=== PATIENT | male | born 1955 | race Caucasian/White ===

== ENCOUNTER 2016-12-13 16:27 | Inpatient (IN) | payer MEDICARE, OTHER ==
[2016-12-13] MEDS ORDERED: RX INFO: IV CONTRAST WAS GIVEN 1 EACH MISC MISCELLANE PRN (18:19)
[2016-12-13] MEDS ORDERED: ONDANSETRON 4 MG/2 ML VIAL IVP STA (18:20)
[2016-12-13] MEDS ORDERED: HYDROmorphone 1 MG/ML 1 ML SYRINGE IVP STA (18:20)
--- NOTE | 2016-12-13 18:36 | ED ---
Back Pain HPI - General Source: patient, RN notes reviewed Mode of arrival: wheelchair Limitations: no limitations <Shaggy Jaeger - Last Filed: 12/13/16 19:52> <Kan Luis - Last Filed: 12/13/16 20:04> - General Chief Complaint: Back Pain/Injury Stated Complaint: Back Pain/Urinary Problems/Weakness Time Seen by Provider: 12/13/16 18:10 - History of Present Illness Initial Comments: 61-year-old male presents emergency Department chief complaint of back pain, flank pain. Patient states that he's been having increasing low back pain he has a history of back problems in which she takes [place] for. Patient had surgery at [place] in the past. Patient denies any bowel bladder incontinence or retention. He states it just hurts to urinate. Patient has no history urinary tract infection. Patient saw primary care physician today who ordered lab work, urinalysis though he does not know the results. Patient states that he is to follow-up for this. Patient states that he was told come emergency department symptoms worsen. He states that the pain seemed to get worse and is worse with movement. Patient denies fever, chills. (Shaggy Jaeger) - Related Data Home Medications Medication Instructions Recorded Confirmed Escitalopram [Lexapro] 40 mg PO DAILY 02/07/15 12/13/16 HYDROcodone/APAP 10-325MG [[place] 1 tab PO Q8H PRN 02/07/15 12/13/16 10] Previous Rx's Medication Instructions Recorded LORazepam [Ativan] 1 mg PO BID PRN #6 tab 08/25/14 QUEtiapine FUMARATE [SEROquel] 900 mg PO HS #21 tab 08/25/14 Allergies Allergy/AdvReac Type Severity Reaction Status Date / Time No Known Allergies Allergy Verified 12/13/16 19:03 Review of Systems ROS Other: All systems not noted in ROS Statement are negative. <Shaggy Jaeger - Last Filed: 12/13/16 19:52> ROS Other: All systems not noted in ROS Statement are negative. <Kan Luis - Last Filed: 12/13/16 20:04> ROS Statement: Those systems with pertinent positive or pertinent negative responses have been documented in the HPI. Past Medical History Additional Past Medical History / Comment(s): bipolar, PAUMA History of Any Multi-Drug Resistant Organisms: None Reported Past Surgical History: Appendectomy, Back Surgery, Tonsillectomy Past Anesthesia/Blood Transfusion Reactions: No Reported Reaction Past Psychological History: Anxiety, Bipolar, Depression Smoking Status: Current every day smoker Past Alcohol Use History: None Reported Past Drug Use History: Marijuana <Shaggy Jaeger M - Last Filed: 12/13/16 19:52> General Exam Limitations: no limitations General appearance: alert, in no apparent distress Neck exam: Present: normal inspection, full ROM. Absent: tenderness, meningismus, lymphadenopathy Respiratory exam: Present: normal lung sounds bilaterally. Absent: respiratory distress, wheezes, rales, rhonchi, stridor Cardiovascular Exam: Present: regular rate, normal rhythm, normal heart sounds. Absent: systolic murmur, diastolic murmur, rubs, gallop, clicks GI/Abdominal exam: Present: soft, tenderness (Mild diffuse), normal bowel sounds. Absent: distended, guarding, rebound, rigid Back exam: Present: full ROM (With moderate discomfort), tenderness (Lumbar region), paraspinal tenderness, other (Straight leg raise bilaterally). Absent : CVA tenderness (R), CVA tenderness (L), vertebral tenderness Neurological exam: Present: alert, oriented X3, CN II-XII intact, reflexes normal. Absent: motor sensory deficit Skin exam: Present: warm, dry, intact, normal color. Absent: rash <Shaggy Jaeger M - Last Filed: 12/13/16 19:52> General appearance: alert, in no apparent distress Head exam: Present: atraumatic, normocephalic, normal inspection Eye exam: Present: normal appearance, PERRL, EOMI. Absent: scleral icterus, conjunctival injection, periorbital swelling ENT exam: Present: normal exam, mucous membranes moist Neck exam: Present: normal inspection. Absent: tenderness, meningismus, lymphadenopathy Respiratory exam: Present: normal lung sounds bilaterally. Absent: respiratory distress, wheezes, rales, rhonchi, stridor Cardiovascular Exam: Present: regular rate, normal rhythm, normal heart sounds. Absent: systolic murmur, diastolic murmur, rubs, gallop, clicks GI/Abdominal exam: Present: soft, normal bowel sounds. Absent: distended, tenderness, guarding, rebound, rigid Extremities exam: Present: normal inspection, full ROM, normal capillary refill. Absent: tenderness, pedal edema, joint swelling, calf tenderness Back exam: Present: normal inspection Neurological exam: Present: alert, oriented X3, CN II-XII intact Psychiatric exam: Present: normal affect, normal mood Skin exam: Present: warm, dry, intact, normal color. Absent: rash <Kan Luis - Last Filed: 12/13/16 20:04> Course <Shaggy Jaeger - Last Filed: 12/13/16 19:52> <Kan Luis - Last Filed: 12/13/16 20:04> Vital Signs 12/13/16 12/13/16 16:33 19:45 Temperature 98.3 F Pulse Rate 85 79 Respiratory 18 20 Rate Blood Pressure 187/110 169/84 O2 Sat by Pulse 99 97 Oximetry - Reevaluation(s) Reevaluation #1: 12/13/16 20:04 At this time patient's pain is improved (Kan Luis) Medical Decision Making - Lab Data Result diagrams: 12/13/16 18:40 12/13/16 18:40 <Shaggy Jaeger - Last Filed: 12/13/16 19:52> - Lab Data Result diagrams: 12/13/16 18:40 12/13/16 18:40 <Kan Luis - Last Filed: 12/13/16 20:04> - Medical Decision Making 61 male year for evaluation of back pain. The right flank pain positive UPJ kidney stone obstructive, dehydration and hypokalemia and intractable nausea vomiting. Patient be admitted for pain control and IV resuscitation (Kan Luis) - Lab Data Lab Results 12/13/16 12/13/16 Range/Units 18:40 18:40 WBC 7.3 (3.8-10.6) k/uL RBC 4.77 (4.30-5.90) m/uL Hgb 14.0 (13.0-17.5) gm/dL Hct 43.1 (39.0-53.0) % MCV 90.4 (80.0-100.0) fL MCH 29.4 (25.0-35.0) pg MCHC 32.6 (31.0-37.0) g/dL RDW 13.4 (11.5-15.5) % Plt Count 193 (150-450) k/uL Neutrophils % 68 % Lymphocytes % 23 % Monocytes % 5 % Eosinophils % 1 % Basophils % 0 % Neutrophils # 5.0 (1.3-7.7) k/uL Lymphocytes # 1.7 (1.0-4.8) k/uL Monocytes # 0.4 (0-1.0) k/uL Eosinophils # 0.1 (0-0.7) k/uL Basophils # 0.0 (0-0.2) k/uL Sodium 140 (137-145) mmol/L Potassium 3.2 L (3.5-5.1) mmol/L Chloride 105 (98-107) mmol/L Carbon Dioxide 27 (22-30) mmol/L Anion Gap 8 mmol/L BUN 10 (9-20) mg/dL Creatinine 0.75 (0.66-1.25) mg/dL Est GFR (MDRD) Af Amer >60 (>60 ml/min/1.73 sqM) Est GFR (MDRD) Non-Af >60 (>60 ml/min/1.73 sqM) Glucose 92 (74-99) mg/dL Calcium 9.6 (8.4-10.2) mg/dL Total Bilirubin 0.6 (0.2-1.3) mg/dL AST 23 (17-59) U/L ALT 29 (21-72) U/L Alkaline Phosphatase 75 (38-126) U/L Total Protein 6.9 (6.3-8.2) g/dL Albumin 4.1 (3.5-5.0) g/dL Amylase 47 (30-110) U/L Lipase 808 H (23-300) U/L Disposition <Shaggy Jaeger M - Last Filed: 12/13/16 19:52> <Kan Luis - Last Filed: 12/13/16 20:04> Clinical Impression: Pancreatitis, Ureteral calculi, Hypokalemia, Chronic back pain Disposition: ADMITTED IP TO THIS [facility] Condition: Fair Referrals: Don Lord MD [Primary Care Provider] - 1-2 days
[2016-12-13 18:51] LABS: Basophils % (A) 0 %; CH 29.9; CHCM 33.2; Eosinophils # (A) 0.1 k/uL (0-0.7); Eosinophils % (A) 1 %; HCT 43.1 % (39.0-53.0); HDW 2.25; Luc # (Auto) 0.15; Luc % (Auto) 2; Lymphocytes # (A) 1.7 k/uL (1.0-4.8); Lymphocytes % (A) 23 %; MCH 29.4 pg (25.0-35.0); MCHC 32.6 g/dL (31.0-37.0); MCV 90.4 fL (80.0-100.0); Mean Platelet Volume 6.5; Monocytes # (A) 0.4 k/uL (0-1.0); Monocytes % (A) 5 %; Neutrophils % (A) 68 %; RBC 4.77 m/uL (4.30-5.90); RDW 13.4 % (11.5-15.5); WBC 7.3 k/uL (3.8-10.6); WBC (Perox) 7.36
[2016-12-13 18:58] LABS: ALT 29 U/L (21-72); AST 23 U/L (17-59); Alkaline Phosphatase 75 U/L (38-126); Amylase 47 U/L (30-110); Anion Gap 8 mmol/L; Blood Urea Nitrogen 10 mg/dL (9-20); Calcium 9.6 mg/dL (8.4-10.2); Carbon Dioxide 27 mmol/L (22-30); Chloride 105 mmol/L (98-107); Glucose 92 mg/dL (74-99); Non-African American GFR(MDRD) >60 (>60 ml/min/1.73 sqM); Potassium 3.2 mmol/L (3.5-5.1); Sodium 140 mmol/L (137-145); Total Bilirubin 0.6 mg/dL (0.2-1.3); Total Protein 6.9 g/dL (6.3-8.2)
[2016-12-13] MEDS ORDERED: POTASSIUM CHLORIDE ER 20 MEQ TAB.ER PO STA (19:09)
--- NOTE | 2016-12-13 19:41 | CT ---
EXAMINATION TYPE: CT abdomen pelvis w con DATE OF EXAM: 12/13/2016 7:32 PM COMPARISON: NONE HISTORY: Back pain with urination changes CT DLP: 732 mGycm Automated exposure control for dose reduction was used. TECHNIQUE: Helical acquisition of images was performed from the lung bases through the pelvis. CONTRAST: Performed without Oral Contrast and with IV Contrast, patient injected with 100 mL of Omnipaque 300. FINDINGS: The lung bases are clear of consolidation. There is no pleural effusion. There is mild subsegmental a telectasis at the lung bases. Liver shows no focal defect. Spleen appears normal. There is no pancreatic mass. Gallbladder appears normal. Bile ducts are nondilated. There is right-sided hydronephrosis with a 1 cm calculus at the right ureteropelvic junction. Left ki dney shows a 1 cm calculus in the interpolar region. There is no hydronephrosis on the left side. The re is no retroperitoneal adenopathy. Abdominal aorta is atheromatous. Bladder distends smoothly. Ther e is no sign of a pelvic mass. I see no intestinal wall thickening. There are no dilated loops. Appen kana is not definitely seen. There is no sign of appendicitis. I see no focal bony destructive process . There is lower lumbar spine surgery noted. IMPRESSION: THERE IS A 1 CM OBSTRUCTING CALCULUS AT THE RIGHT URETEROPELVIC JUNCTION WITH MODERATE HYDRONEPHROSIS . LEFT RENAL CALCULUS. ATHEROSCLEROTIC VASCULAR DISEASE.
[2016-12-13] MEDS ORDERED: NALOXONE 0.4 MG/ML 1 ML VIAL IV PRN (19:53)
[2016-12-13] MEDS ORDERED: ONDANSETRON 4 MG/2 ML VIAL IVP PRN (19:53)
[2016-12-13] MEDS ORDERED: LORazepam 2 MG/ML SYRINGE IV PRN ×2 (19:54)
[2016-12-13] MEDS ORDERED: SODIUM CHLORIDE 0.9% 1,000 ML IV ONE (20:05)
[2016-12-13 20:26] LABS: Appearance,Urine Clear (Clear); Bilirubin,Urine Negative (Negative); Glucose,Urine (UA) Negative (Negative); Ketones,Urine 1+ (Negative); Leukocyte Esterase,Urine Small (Negative); Mucus,Urine Rare /hpf; Nitrite,Urine Negative (Negative); Particle Count 1335; Protein,Urine Negative (Negative); RBC,Urine 1 /hpf (0-5); Specific Gravity,Urine 1.016 (1.001-1.035); UA Billing (MACRO vs. MICRO) MICRO; Urobilinogen,Urine <2.0 mg/dL (<2.0); WBC,Urine 15 /hpf (0-5)
[2016-12-13] MEDS: HYDROmorphone 1 MG/ML 1 ML SYRINGE IV PRN (20:33)
[2016-12-13] MEDS ORDERED: QUEtiapine 200 MG TAB PO SCH (23:45)
[2016-12-14] MEDS: HYDROmorphone 1 MG/ML 1 ML SYRINGE IV PRN ×6 (00:53→23:09)
[2016-12-14] MEDS: QUEtiapine 100 MG TAB PO SCH ×2 (00:54→20:17)
[2016-12-14] MEDS: QUEtiapine 200 MG TAB PO SCH ×2 (00:55→20:17)
[2016-12-14] MEDS: ESCITALOPRAM 20 MG TAB PO SCH ×2 (00:56→09:02)
[2016-12-14] MEDS: SODIUM CHLORIDE 0.9% 1,000 ML IV SCH ×4 (00:59→20:20)
[2016-12-14] MEDS: LORazepam 2 MG/ML SYRINGE IV PRN ×4 (01:11→23:09)
[2016-12-14] MEDS: KETOROLAC 30 MG/ML 1 ML VIAL IVP PRN ×2 (10:36→20:18)
[2016-12-14] MEDS: LISINOPRIL 20 MG TAB PO SCH (13:08)
[2016-12-14] MEDS ORDERED: Potassium Replacement Protocol 1 EACH MISC MISCELLANE PRN (13:16)
[2016-12-14 14:20] LABS: Anion Gap 6 mmol/L; Blood Urea Nitrogen 9 mg/dL (9-20); Calcium 8.5 mg/dL (8.4-10.2); Carbon Dioxide 25 mmol/L (22-30); Chloride 109 mmol/L (98-107); Glucose 81 mg/dL (74-99); Non-African American GFR(MDRD) >60 (>60 ml/min/1.73 sqM); Potassium 3.7 mmol/L (3.5-5.1); Sodium 140 mmol/L (137-145)
--- NOTE | 2016-12-14 18:12 | PN ---
CHIEF COMPLAINT: Abdominal and back pain. HISTORY OF PRESENT ILLNESS: This gentleman is still complaining of a great deal of discomfort in the back. He describes as being low and across both sides and maybe a little more on the right than on the left. He is tender in the left flank. However, his CT suggested a ureteral calculus on the right. PHYSICAL EXAM: Chest is clear. CARDIAC: Normal. ABDOMEN: Soft and he is not tender over the epigastric. IMPRESSION: 1. Back pain. 2. Ureteral? (Right, left?). 3. Pancreatitis. PLAN: Continue evaluation and work-up for pancreatitis and ureteral calculus.
--- NOTE | 2016-12-14 18:35 | HP ---
DATE OF ADMISSION: 12/13/2016 CHIEF COMPLAINT: Back pain. HISTORY OF PRESENT ILLNESS: This is the first admission for this 61-year-old white male presented to emergency room with severe back pain. He was just in the office recently complaining of back pain and generalized weakness. He has a history of LS-spine arthritis. In the emergency room, his lipase was elevated, but he did not have any symptoms or history to suggest a prominent pancreas. He does not drink. He was also was found to have calculus in one of his ureters. Reports that is on the right. He has more tenderness and pain in the left. REVIEW OF SYSTEMS: He has had no neurologic problems, nausea, vomiting, hematemesis, melena, urinary complaints, hematuria, dysuria, etc. Past medical history, family history and personal and social histories otherwise unremarkable and noncontributory. PHYSICAL EXAMINATION: VITAL SIGNS: One blood pressure is 196/102 with a pulse of 88, respirations 35 and he is afebrile. GENERAL: Appeared to be in quite a bit of discomfort. Skin was dry. Head, ears, eyes, nose, mouth, and throat were normal. NECK: Neck veins not distended. Thyroid is not enlarged. Chest is clear. There is an increased AP diameter. CARDIAC: Normal. ABDOMEN: Soft, nontender and there are no masses or visceromegaly. He is tender in the left flank. EXTREMITIES: Normal. Neurologically, he is intact. IMPRESSION: 1. Back pain. 2. Ureteral calculus. 3. Elevated lipase. PLAN: 1. Bed rest. 2. IV fluids. 3. Follow abdominal and flank pain. 4. Strain urine. 5. Look for etiology of elevated lipase.
--- NOTE | 2016-12-14 18:37 | PN ---
DATE OF SERVICE: 12/14/2016 CHIEF COMPLAINT: Back pain. HISTORY OF PRESENT ILLNESS: This gentleman is still complaining of a lot of low back pain. He has had no nausea or vomiting. He has had no fever or chills. PHYSICAL EXAMINATION: His chest clear. He is tender in the left flank. CARDIAC: Normal. ABDOMEN: Soft, nontender and there are no masses. IMPRESSION: 1. Back pain, etiology unknown. 2. Ureteral calculus ?. 3. Elevated lipase. PLAN: Continue to follow symptoms and look for etiology of his elevated lipase.
--- NOTE | 2016-12-14 19:36 | XR ---
EXAMINATION TYPE: XR KUB DATE OF EXAM: 12/14/2016 7:29 PM COMPARISON: 05/31/2016 INDICATION: Right ureteral calculus TECHNIQUE: Single view abdomen FINDINGS: There is a normal bowel gas pattern. Psoas margins are normal. No organomegaly is present. Phleboliths are within the pelvis. Previous right ureteral stent is absent Postsurgical changes within the lumbar spine. Moderate fecal retention is present. IMPRESSION: 1. Moderate fecal retention. 2. A ureteral stone on the right is not identified.
[2016-12-14] MEDS ORDERED: QUEtiapine 400 MG TAB PO SCH (21:00)
[2016-12-14] MEDS ORDERED: QUEtiapine 200 MG TAB PO SCH (21:00)
[2016-12-14] MEDS: TAMSULOSIN 0.4 MG CAP.ER.24H PO SCH (23:10)
[2016-12-15] MEDS: SODIUM CHLORIDE 0.9% 1,000 ML IV SCH ×2 (06:37→11:52)
[2016-12-15] MEDS: ESCITALOPRAM 20 MG TAB PO SCH (08:15)
[2016-12-15] MEDS: LISINOPRIL 20 MG TAB PO SCH (08:15)
[2016-12-15] MEDS: HYDROmorphone 1 MG/ML 1 ML SYRINGE IV PRN ×3 (08:48→16:41)
[2016-12-15] MEDS: LORazepam 2 MG/ML SYRINGE IV PRN ×3 (08:49→20:09)
--- NOTE | 2016-12-15 10:19 | P.PN ---
Progress Note - Text The patient says that he is much more comfortable since a catheter was inserted yesterday. The catheter drained over 900 ml. He continues to have low back pain which is located primarily in the sacral region. He says that he is weak but is able to ambulate. He has had no vomiting. Urine draining from his catheter is clear. BUN/creatinine are improved at 9/0.7. Lipase is normal at 34 and PSA is 0.34 Impression/Recommendations: #1-urinary retention-possibly related to underlying BPH. The patient has been started on tamsulosin and I told him that if he is discharged today I could see him in the office tomorrow for a voiding trial. He will remove his catheter at home and will be seen back in the office 6 hours later to check a postvoid residual #2 proximal right ureteral calculus-based on the computed tomography scan the hydronephrosis is most likely chronic and unlikely to be the source of his discomfort in the low back. I again discussed possible ESWL as a treatment option on December 23. #3 elevated lipase on admission-the cause of this is unclear as the patient had a normal amylase and his presentation was not typical for acute pancreatitis.
--- NOTE | 2016-12-15 10:39 | CONS ---
DATE OF CONSULTATION: 12/14/2016 REASON FOR CONSULTATION: Urinary retention. HISTORY: The patient is a 61-year-old male admitted through the emergency room last night for evaluation of abdominal pain and an elevated lipase, which was felt to be secondary to pancreatitis. The patient says that he has had discomfort in his back for over one week. He says the pain is worse on the left side than the right side. He has also had difficulty voiding and says that he has been voiding every 30 to 60 minutes during the day but only once at night. He noted some dark-colored urine 5 days ago, but this resolved. He has had no dysuria. He came to the emergency room yesterday evening and was noted to have amylase of 47 and a lipase of 808. CT scan of the abdomen and pelvis with IV contrast showed moderate right hydronephrosis secondary to a 7 x 11 mm calculus in the proximal ureter. The bladder also appeared to be distended. The patient reportedly had been voiding only small amounts throughout the day. Several attempts were made to insert a catheter by the nurses, but this met with failure. I was asked to see the patient due to urinary retention as a bladder scan showed 800 mL in his bladder. The patient says he has a history of urolithiasis and last passed a stone 2 or 3 years ago. He says he usually has a fairly good urinary flow and usually feels he voids completely. He says his last bowel movement was 2 or 3 days ago. Patient's past medical history is significant in regard to bipolar disorder. Medications on admission included [place] 10/325. He has previously undergone appendectomy, surgery on his back, tonsillectomy, and meatotomy. He has no allergies. There is no history of hypertension, diabetes, rheumatic fever, tuberculosis or hepatitis. REVIEW OF SYSTEMS: No history of seizures, blackouts shortness of breath with exertion, asthma, chest pain with exertion, palpitations, heart murmur, ulcers, or rectal bleeding. SOCIAL HISTORY: The patient is . He says that he has smoked loss was then 1 pack per day for 40 years. PHYSICAL EXAM: Reveals a well-developed 61-year-old male who appeared somewhat uncomfortable. Blood pressure 163/96, afebrile. HEENT: No supraclavicular or cervical adenopathy. CHEST: Breathing is unlabored. ABDOMEN: There is tenderness to palpation in the suprapubic region. There is also vague tenderness in both the right and left flank to palpation. GENITALIA: Urethral meatus is normal. Both testicles are descended. No hernias noted. RECTAL: Prostate is 2+ enlarged, smooth and benign in consistency. Laboratory evaluation from the yesterday included a BUN 10, creatinine 0.75. I personally reviewed the patient's CT scan of the abdomen and pelvis, which was performed with IV contrast. At the time of the CT scan, the bladder appeared to be distended. There was also moderately severe right hydroureteronephrosis secondary to a 7 x 11 mm calculus in the proximal right ureter. Immediately following my examination, the penis was prepped with Betadine solution, and draped in a sterile fashion. A 14-[place] Coude catheter was passed through the urethra and into the bladder and over 800 mL of clear urine drained. IMPRESSION: 1. Urinary retention. The cause of this is unclear as the patient says that he was able to void with a good flow one week ago. 2. Right hydronephrosis secondary to proximal ureteral calculus. The patient's pain is worse in the left flank on the right and the findings appeared to be chronic. 3. Elevated lipase, possibly from pancreatitis. RECOMMENDATIONS: Patient's catheter will be left in place for at least 48 hours prior to a trial of voiding. The patient will be started on Tamsulosin 0.4 mg daily. A KUB will be obtained to see if the calculus in the right ureter could be treated with ESWL. Thank you for allowing me to participate in the care of this patient. SHERRY
[2016-12-15] MEDS: TAMSULOSIN 0.4 MG CAP.ER.24H PO SCH (17:08)
[2016-12-15] MEDS: QUEtiapine 100 MG TAB PO SCH (20:06)
[2016-12-15] MEDS: QUEtiapine 200 MG TAB PO SCH (20:06)
[2016-12-16] MEDS: SODIUM CHLORIDE 0.9% 1,000 ML IV SCH ×3 (05:18→17:49)
[2016-12-16] MEDS: HYDROmorphone 1 MG/ML 1 ML SYRINGE IV PRN ×6 (05:18→20:54)
[2016-12-16] MEDS: ESCITALOPRAM 20 MG TAB PO SCH (07:48)
[2016-12-16] MEDS: LISINOPRIL 20 MG TAB PO SCH (07:48)
[2016-12-16] MEDS: KETOROLAC 30 MG/ML 1 ML VIAL IVP PRN ×2 (08:52→22:34)
--- NOTE | 2016-12-16 10:07 | PN ---
CHIEF COMPLAINT: Back pain, ureteral calculus, ( ). HISTORY OF PRESENT ILLNESS: This gentleman is still having a great deal of back pain. A Peck catheter could not be placed when it was found that he had residual of 800 mL. Urology came and inserted catheter. He had an output of 1000. He still has back pain. There is no hematuria. PHYSICAL EXAM: Abdomen is soft, nontender and chest is clear. Cardiac exam is normal. IMPRESSION: 1. Low back pain. 2. Urinary retention. 3. Ureteral calculus. 4. Pancreatitis? PLAN: Further work-up of back pain awaits. In the meantime, will continue on IV fluids with Peck catheter drainage in addition.
--- NOTE | 2016-12-16 13:48 | US ---
EXAMINATION TYPE: US kidneys/renal and bladder DATE OF EXAM: 12/16/2016 10:16 AM COMPARISON: CT abdomen pelvis 3 days ago. CLINICAL HISTORY: ureteral calculi. Bilateral lower pain, rt ureteral calculus EXAM MEASUREMENTS: Right Kidney: 12.6 x 7.2 x 7.0 cm Left Kidney: 11.4 x 5.6 x 6.0 cm Right Kidney: Slightly echogenic. Moderate hydronephrosis seen. Echogenic focus seen in ureter = 1.6 x 0.5 cm Left Kidney: wnl Bladder: mondragon seen Bilateral Jets not seen Persistent moderate to severe right-sided hydronephrosis is redemonstrated. No masses are identified . Mondragon catheter is seen within bladder which is thus suboptimally evaluated. No left-sided hydroneph rosis is present. IMPRESSION: Persistent moderate to severe right-sided hydronephrosis likely due to obstructing proximal ureter ca lculus, no significant change from recent CT.
--- NOTE | 2016-12-16 15:57 | NM ---
EXAMINATION TYPE: NM bone scan whole body DATE OF EXAM: 12/16/2016 3:52 PM COMPARISON: CT abdomen and pelvis from 3 days earlier. HISTORY: Enlarged prostate rule out malignancy. Delayed whole-body scanning was performed following the injection of 27.3 mCi Tc 99m MDP. Images acq uired 3 hours post injection. FINDINGS: No suspicious scintigraphic uptake is seen to suggest metastatic disease to bone other abnormality. T here is moderate to severe right-sided hydronephrosis redemonstrated. IMPRESSION: No scintigraphic evidence of metastatic disease to the bone.
[2016-12-16] MEDS: LORazepam 2 MG/ML SYRINGE IV PRN (16:08)
[2016-12-16] MEDS: TAMSULOSIN 0.4 MG CAP.ER.24H PO SCH (17:39)
[2016-12-16] MEDS: QUEtiapine 200 MG TAB PO SCH (20:17)
[2016-12-16] MEDS: QUEtiapine 100 MG TAB PO SCH (20:17)
[2016-12-16] MEDS: ATENOLOL 50 MG TAB PO SCH (21:59)
[2016-12-16 23:00] VITALS: RESP 16
[2016-12-16] MEDS: HYDROCHLOROTHIAZIDE 25 MG TAB PO SCH (23:11)
[2016-12-17] MEDS: SODIUM CHLORIDE 0.9% 1,000 ML IV SCH (05:19)
[2016-12-17] MEDS: HYDROmorphone 1 MG/ML 1 ML SYRINGE IV PRN ×2 (06:08→08:33)
--- NOTE | 2016-12-17 06:45 | PN ---
CHIEF COMPLAINT: Back pain. HISTORY OF PRESENT ILLNESS: The gentleman is still having about the same back pain. Indwelling Peck is in place and the bladder has been decompressed. There is no blood. PHYSICAL EXAM: His chest is clear. The cardiac exam is normal. 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 IMPRESSION: 1. Low back pain, etiology unknown. 2. Obstructive uropathy. 3. Hydroureter. PLAN: 1. Bone scan. 2. Continue on conservative management.
[2016-12-17 07:29] VITALS: BP 136/80; PULSE 57; TEMP 97.8
[2016-12-17] MEDS: ESCITALOPRAM 20 MG TAB PO SCH (08:35)
[2016-12-17] MEDS: ATENOLOL 50 MG TAB PO SCH (08:35)
[2016-12-17] MEDS: HYDROCHLOROTHIAZIDE 25 MG TAB PO SCH (08:35)
[2016-12-17] MEDS: LISINOPRIL 20 MG TAB PO SCH (08:35)
[2016-12-17] MEDS: LORazepam 2 MG/ML SYRINGE IV PRN (10:20)
--- NOTE | 2016-12-20 20:36 | DS ---
DATE OF ADMISSION: 12/13/2016 DATE OF DISCHARGE: 12/17/2016 CHIEF COMPLAINT: Acute back pain and elevated lipase. HISTORY OF PRESENT ILLNESS AND PHYSICAL EXAMINATION: Details of this man's history and physical can be found in the initial workup. LABORATORY STUDIES: While he was in the hospital he had laboratory studies, details of which can be found in the laboratory section of his chart. COURSE IN THE HOSPITAL: After admission he was placed on bed rest, started on intravenous fluids and analgesics. He was found to have an obstructing right ureteral calculus, for which he was seen by Urology. He also developed urinary retention of over 1000 mL and required Peck catheter drainage. His back pain was thought to be related to his osteoarthritis, and it was felt that he could be discharged on December 17. He will go home on his usual diet and light activity and follow up with Urology. He will go home with the Peck catheter in place. We will see him in several days. FINAL DIAGNOSES: 1. Acute low back pain. 2. Obstructive right nephropathy with ureteral calculus. 3. Urinary retention. 4. Chronic obstructive pulmonary disease. OPERATIONS: None. CONSULTATIONS: Urology. He is improved.
== END 2016-12-17 12:00 | disposition home or self-care (01) | DRG 694 ==
LOC: EC 16:27 → 5MS5E 20:03
PROVIDERS: ADMIT Family Medicine; ATTEND Family Medicine
PROC: 0T9B70Z Drainage of Bladder with Drainage Device, Via Natural or Artificial Opening (ICD-10-PCS; principal; 2016-12-14)
DX: N13.2 Hydronephrosis with renal and ureteral calculous obstruction (principal); N32.89 Other specified disorders of bladder; E86.0 Dehydration; R74.8 Abnormal levels of other serum enzymes; N40.1 Benign prostatic hyperplasia with lower urinary tract symptoms; J44.9 Chronic obstructive pulmonary disease, unspecified; E87.6 Hypokalemia; R33.8 Other retention of urine; R53.1 Weakness; M47.817 Spondylosis without myelopathy or radiculopathy, lumbosacral region; M54.5 Low back pain; R11.2 Nausea with vomiting, unspecified; F31.9 Bipolar disorder, unspecified; F17.200 Nicotine dependence, unspecified, uncomplicated; G89.29 Other chronic pain; F41.9 Anxiety disorder, unspecified; Z90.49 Acquired absence of other specified parts of digestive tract; Z87.442 Personal history of urinary calculi; Z79.899 Other long term (current) drug therapy; Z79.891 Long term (current) use of opiate analgesic; Z87.438 Personal history of other diseases of male genital organs; Z96.0 Presence of urogenital implants
CPT/HCPCS: 36415; 74000; 74177; 76770; 78306; 80048; 80053; 81001; 82150; 83690; 85025; 87086; 96374; 96375; 96376; 99284

== ENCOUNTER 2016-12-18 15:27 | Emergency (ER) | payer MEDICARE, OTHER ==
[2016-12-18] MEDS ORDERED: DICYCLOMINE 20 MG TAB PO STA (15:59)
[2016-12-18] MEDS ORDERED: SODIUM CHLORIDE 0.9% 1,000 ML IV STA (15:59)
--- NOTE | 2016-12-18 16:01 | ED ---
Abdominal Pain HPI - General Chief Complaint: Abdominal Pain Stated Complaint: revisit/bladder stones Time Seen by Provider: 12/18/16 15:52 Source: patient Mode of arrival: ambulatory Limitations: no limitations - History of Present Illness Initial Comments: Patient is a 61-year-old male presenting with abdominal pain that started yesterday. Patient tried Xanax and [place] 10 mg without relief. Patient describes pain as diffuse and worse with walking, drinking, eating. Patient denies alcohol abuse. Patient complains of chronic back pain as well without change. Patient denies fever, chills, chest pain, shortness breath, nausea, vomiting, diarrhea, dysuria. Patient was recently admitted for pancreatitis. Patient denies alcohol abuse. - Related Data Home Medications Medication Instructions Recorded Confirmed Escitalopram [Lexapro] 40 mg PO DAILY 02/07/15 12/18/16 HYDROcodone/APAP 10-325MG [[place] 1 tab PO BID PRN 02/07/15 12/18/16 10] Calcium Carb/Magnesium Hydrox 2 - 3 tab PO TID PRN MDD 7 tabs 12/18/16 12/18/16 [Rolaids Chewable Tablet] Ergocalciferol [Vitamin D2] 50,000 unit PO TU 12/18/16 12/18/16 Loperamide [Imodium] 2 mg PO QID PRN 12/18/16 12/18/16 QUEtiapine FUMARATE [SEROquel] 600 mg PO HS 12/18/16 12/18/16 traZODone HCL 300 mg PO HS 12/18/16 12/18/16 Previous Rx's Medication Instructions Recorded Atenolol [Tenormin] 50 mg PO DAILY #30 tab 12/17/16 Hydrochlorothiazide [Hydrodiuril] 25 mg PO DAILY #30 tab 12/17/16 Lisinopril 40 mg PO DAILY #30 tab 12/17/16 Tamsulosin [Flomax] 0.4 mg PO DAILY@1800 #30 cap 12/17/16 Ciprofloxacin HCl [Cipro] 500 mg PO Q12HR #14 tablet 12/18/16 Dicyclomine [Bentyl] 20 mg PO QID #20 tablet 12/18/16 Allergies Allergy/AdvReac Type Severity Reaction Status Date / Time No Known Allergies Allergy Verified 12/18/16 15:55 Review of Systems ROS Statement: Those systems with pertinent positive or pertinent negative responses have been documented in the HPI. Constitutional: No fever and no chills. HENT: No congestion, no rhinorrhea and no sore throat. Eyes: No discharge and no redness. Respiratory: No cough and no shortness of breath. Cardiovascular: No chest pain and no palpitations. Gastrointestinal: No nausea, no vomiting, + abdominal pain and no diarrhea. Genitourinary: No dysuria and no hematuria. Musculoskeletal: + Chronic back pain and no arthralgias. Skin: No pallor and no rash. Neurological: No dizziness and No headaches. ROS Other: All systems not noted in ROS Statement are negative. Past Medical History Past Medical History: No Reported History, Liver Disease Additional Past Medical History / Comment(s): bipolar, QAWALANGIN History of Any Multi-Drug Resistant Organisms: None Reported Past Surgical History: Appendectomy, Back Surgery, Tonsillectomy Past Anesthesia/Blood Transfusion Reactions: No Reported Reaction Past Psychological History: Anxiety, Bipolar, Depression Smoking Status: Current every day smoker Past Alcohol Use History: None Reported Past Drug Use History: Marijuana - Past Family History Father Family Medical History: Congestive Heart Failure (CHF) Mother Additional Family Medical History / Comment(s): patient states that mother from a bowel obstruction General Exam - General Exam Comments Initial Comments: Constitutional: Patient appears well-developed and well-nourished. No distress. Head: Normocephalic and atraumatic. Eyes: Conjunctivae and EOM are normal. Right eye exhibits no discharge. Left eye exhibits no discharge. No scleral icterus. Neck: Normal range of motion. Neck supple. Cardiovascular: Normal rate and regular rhythm. No murmur heard. Pulmonary/Chest: Effort normal and breath sounds normal. No respiratory distress. No wheezes. Abdominal: Soft. No distension. There is no tenderness in right upper quadrant, epigastric or right lower quadrant. There is no rebound and no guarding. No CVA tenderness bilaterally. Musculoskeletal: Normal range of motion. Midline back scar with mild tenderness normal per patient. Neurological: Patient alert and oriented to person, place, and time. Skin: Skin is warm and dry. Not diaphoretic. Nursing notes and vitals reviewed. Limitations: no limitations Course Vital Signs 12/18/16 15:40 Temperature 98.3 F Pulse Rate 97 Respiratory 18 Rate Blood Pressure 123/69 O2 Sat by Pulse 98 Oximetry - Reevaluation(s) Reevaluation #1: 12/18/16 17:42 Patient feeling much better after medication. Abdomen soft nontender. Medical Decision Making - Medical Decision Making Patient is a 61-year-old male presenting with abdominal pain times one day. Abdominal exam unremarkable. No CVA tenderness bilaterally. Patient did have an obstructive nephrolithiasis last week. Patient is afebrile with a WBC 7.5. CMP, lipase unremarkable. UA concerning for urinary tract infection with urine WBCs 76. Patient with improvement after Bentyl and IV fluids. Patient is nontoxic appearing and stable for outpatient management for urinary tract infection with Cipro. Patient requesting Bentyl for his abdominal cramping which was provided.Prior to discharge, patient was resting comfortably in bed. Course of stay improved. Denies pain. Discussed physical exam and diagnostic tests with patient. Questions answered and patient is agreeable to discharge with close follow up with Primary Care Physician. Instructed to return to Emergency Department if symptoms worsen. Patient has appointment with PCP tomorrow for which he can be reexamined. - Lab Data Result diagrams: 12/18/16 16:30 12/18/16 16:30 Lab Results 12/18/16 12/18/16 12/18/16 Range/Units 16:30 16:30 16:40 WBC 7.5 (3.8-10.6) k/uL RBC 4.54 (4.30-5.90) m/uL Hgb 14.3 (13.0-17.5) gm/dL Hct 41.3 (39.0-53.0) % MCV 91.0 (80.0-100.0) fL MCH 31.4 (25.0-35.0) pg MCHC 34.6 (31.0-37.0) g/dL RDW 13.5 (11.5-15.5) % Plt Count 184 (150-450) k/uL Neutrophils % 75 % Lymphocytes % 17 % Monocytes % 4 % Eosinophils % 2 % Basophils % 0 % Neutrophils # 5.7 (1.3-7.7) k/uL Lymphocytes # 1.3 (1.0-4.8) k/uL Monocytes # 0.3 (0-1.0) k/uL Eosinophils # 0.1 (0-0.7) k/uL Basophils # 0.0 (0-0.2) k/uL Sodium 141 (137-145) mmol/L Potassium 3.6 (3.5-5.1) mmol/L Chloride 103 (98-107) mmol/L Carbon Dioxide 29 (22-30) mmol/L Anion Gap 9 mmol/L BUN 11 (9-20) mg/dL Creatinine 0.84 (0.66-1.25) mg/dL Est GFR (MDRD) Af Amer >60 (>60 ml/min/1.73 sqM) Est GFR (MDRD) Non-Af >60 (>60 ml/min/1.73 sqM) Glucose 82 (74-99) mg/dL Calcium 10.0 (8.4-10.2) mg/dL Total Bilirubin 0.5 (0.2-1.3) mg/dL AST 22 (17-59) U/L ALT 23 (21-72) U/L Alkaline Phosphatase 65 (38-126) U/L Total Protein 6.7 (6.3-8.2) g/dL Albumin 3.9 (3.5-5.0) g/dL Lipase 56 (23-300) U/L Urine Color Yellow Urine Appearance Clear (Clear) Urine pH 6.0 (5.0-8.0) Ur Specific [place] 1.008 (1.001-1.035) Urine Protein Negative (Negative) Urine Glucose (UA) Negative (Negative) Urine Ketones Negative (Negative) Urine Blood Trace H (Negative) Urine Nitrite Negative (Negative) Urine Bilirubin Negative (Negative) Urine Urobilinogen <2.0 (<2.0) mg/dL Ur Leukocyte Esterase Large H (Negative) Urine RBC 5 (0-5) /hpf Urine WBC 76 H (0-5) /hpf Urine Bacteria Rare H (None) /hpf Urine Mucus Rare H (None) /hpf Disposition Clinical Impression: UTI (urinary tract infection), Abdominal pain Disposition: HOME SELF-CARE Condition: Good Instructions: Abdominal Pain (ED), Urinary Tract Infection in Men (ED) Prescriptions: Ciprofloxacin HCl [Cipro] 500 mg PO Q12HR #14 tablet Dicyclomine [Bentyl] 20 mg PO QID #20 tablet Referrals: Don Lord MD [Primary Care Provider] - 1-2 days
[2016-12-18 16:45] LABS: Basophils % (A) 0 %; CHCM 33.1; Eosinophils # (A) 0.1 k/uL (0-0.7); Eosinophils % (A) 2 %; HCT 41.3 % (39.0-53.0); HDW 2.18; HGB 14.3 gm/dL (13.0-17.5); Luc # (Auto) 0.11; Luc % (Auto) 2; Lymphocytes # (A) 1.3 k/uL (1.0-4.8); Lymphocytes % (A) 17 %; MCH 31.4 pg (25.0-35.0); MCHC 34.6 g/dL (31.0-37.0); Mean Platelet Volume 6.8; Monocytes # (A) 0.3 k/uL (0-1.0); Monocytes % (A) 4 %; Neutrophils # (A) 5.7 k/uL (1.3-7.7); Neutrophils % (A) 75 %; RBC 4.54 m/uL (4.30-5.90); RDW 13.5 % (11.5-15.5); WBC 7.5 k/uL (3.8-10.6); WBC (Perox) 7.75
[2016-12-18 16:54] LABS: ALT 23 U/L (21-72); AST 22 U/L (17-59); Alkaline Phosphatase 65 U/L (38-126); Anion Gap 9 mmol/L; Blood Urea Nitrogen 11 mg/dL (9-20); Carbon Dioxide 29 mmol/L (22-30); Chloride 103 mmol/L (98-107); Glucose 82 mg/dL (74-99); Non-African American GFR(MDRD) >60 (>60 ml/min/1.73 sqM); Potassium 3.6 mmol/L (3.5-5.1); Sodium 141 mmol/L (137-145); Total Bilirubin 0.5 mg/dL (0.2-1.3); Total Protein 6.7 g/dL (6.3-8.2)
--- NOTE | 2016-12-18 16:54 | XR ---
EXAMINATION TYPE: XR abdomen complete w decub DATE OF EXAM: 12/18/2016 4:49 PM HISTORY: Pain. Technique: 4 views of the abdomen are submitted. Comparison: 12/14/2016 Findings: There is no convincing evidence of pneumoperitoneum. The Bowel gas pattern is nonspecific and nonobstructive. Moderate fecal stasis improved from prior s tudy. No sizable air-fluid levels are seen. No mass effects are noted. Suspect left-sided nephrolithiasis. Postoperative changes lumbar spine. IMPRESSION: 1. Nonspecific nonobstructive bowel gas pattern
[2016-12-18 16:59] LABS: Appearance,Urine Clear (Clear); Bacteria,Urine Rare /hpf; Bilirubin,Urine Negative (Negative); Glucose,Urine (UA) Negative (Negative); Ketones,Urine Negative (Negative); Leukocyte Esterase,Urine Large (Negative); Mucus,Urine Rare /hpf; Nitrite,Urine Negative (Negative); Particle Count 1501; Protein,Urine Negative (Negative); RBC,Urine 5 /hpf (0-5); Specific Gravity,Urine 1.008 (1.001-1.035); UA Billing (MACRO vs. MICRO) MICRO; Urobilinogen,Urine <2.0 mg/dL (<2.0); WBC,Urine 76 /hpf (0-5)
[2016-12-18 17:53] VITALS: BP 152/74; PULSE 51; RESP 16; TEMP 98.7
== END 2016-12-18 18:04 | disposition home or self-care (01) ==
LOC: EC 15:27
DX: N39.0 Urinary tract infection, site not specified (principal); F31.9 Bipolar disorder, unspecified; F41.9 Anxiety disorder, unspecified; F17.200 Nicotine dependence, unspecified, uncomplicated; Z79.899 Other long term (current) drug therapy; Z90.49 Acquired absence of other specified parts of digestive tract; Z83.79 Family history of other diseases of the digestive system; Z98.890 Other specified postprocedural states
CPT/HCPCS: 36415; 74020; 80053; 81001; 83690; 85025; 96360; 99284

== ENCOUNTER 2016-12-25 10:27 | Day surgery (SDC) | payer MEDICARE, OTHER ==
[2016-12-24 11:04] VITALS: BMI 25.6
[~2016-12-25 10:27] MED LIST: FAMOTIDINE 20 MG/2 ML VIAL IV PRN; HYDROmorphone 1 MG/ML 1 ML SYRINGE IVP PRN; LACTATED RINGERS 1,000 ML IV SCH; LIDOCAINE 1% 20 ML VIAL (10MG/ML) FOR IV START INTRADERMA PRN; MIDAZOLAM 2 MG/2 ML VIAL IV PRN; ONDANSETRON 4 MG/2 ML VIAL IVP ONE; ceFAZolin 2 GM in SODIUM CHLORIDE 0.9% 100 ML IVPB ONE
[2016-12-25] MEDS ORDERED: PROPOFOL 10 MG/ML 20 ML VIAL IV ONE (13:50)
[2016-12-25] MEDS ORDERED: LIDOCAINE 1% INJ 10MG/ML (20 ML MDV) ONE ×2 (13:50)
[2016-12-25] MEDS ORDERED: MIDAZOLAM 2 MG/2 ML VIAL ONE (13:50)
[2016-12-25] MEDS ORDERED: SUCCINYLCHOLINE CHLORIDE 100 MG/5 ML SYR IV ONE (13:50)
[2016-12-25] MEDS ORDERED: fentaNYL (PF) 50 MCG/ML 2 ML AMP ONE (13:50)
[2016-12-25] MEDS ORDERED: IOHEXOL 350 MG/ML 50ML BOTTLE IRRIGATION ONE ×3 (14:08)
[2016-12-25] MEDS ORDERED: LACTATED RINGERS 1,000 ML IV ONE (14:35)
--- NOTE | 2016-12-25 15:02 | P.OP ---
Date of Procedure: 12/25/16 Preoperative Diagnosis: Right ureteral stone with obstruction Postoperative Diagnosis: Same Procedure(s) Performed: Cystoscopy, right retrograde pyelogram, right ureteroscopy with laser lithotripsy and stone basketing, placement of 6x26 stent Anesthesia: ROMAN Surgeon: Amandeep Andino Estimated Blood Loss (ml): 10 Pathology: other (Stone) Condition: stable Disposition: PACU Indications for Procedure: The patient is a 61-year-old gentleman with an 11 x 7 mm mid to proximal ureteral stone causing obstruction and pain he comes for removal Description of Procedure: Patient is brought to the operating suite he is given a general endotracheal anesthesia placed lithotomy position with a sterile prep and drape. The stone is seen on KUB. I do cystoscopy Foroblique lens and 22-Kinyarwanda sheath. An 8 cone-tip catheters use for retrograde pyelogram. The patient has to be placed slightly oblique to see the filling defect it is seen. I attempted pass a semirigid scope to the stone but cannot get there adequately. I thus passed an 035 wire up by the stone over the wire is passed 84-44-Lowbts dilating ureteral catheter. Through the ureteral catheters passed a flexible ureteroscope up to the stone. With the 200 laser probe and 5 W of energy the stone was broken into tiny pieces and stone basketing. Then of the procedure through the working sheath and 035 wires passed in the renal pelvis. The sheath is removed it is the wires backloaded onto the cystoscope. Then over the wire is passed a 6 x 26 double-J catheter that coils in the renal pelvis and the bladder the bladder strain the cystoscope removed patient awake and returned recovery room good condition. He'll be discharged home upon recovery and found the office in 10 days for stent removal
[2016-12-25 15:14] VITALS: TEMP 98.2
[2016-12-25 15:32] VITALS: RESP 16
--- NOTE | 2016-12-25 16:13 | FL ---
EXAMINATION TYPE: FL guided lithotripsy DATE OF EXAM: 12/25/2016 3:08 PM FLUOROSCOPY Fluoroscopy time of 45 seconds was used during right-sided cystoscopy and stent placement. 3 image/s document/s the procedure.
[2016-12-25 16:42] VITALS: BP 144/81; PULSE 56
== END 2016-12-25 17:11 | disposition home or self-care (01) ==
LOC: OR 10:27
PROVIDERS: ATTEND Urology
DX: N20.1 Calculus of ureter (principal); F17.200 Nicotine dependence, unspecified, uncomplicated; Z80.51 Family history of malignant neoplasm of kidney; Z80.42 Family history of malignant neoplasm of prostate; I10 Essential (primary) hypertension; M19.90 Unspecified osteoarthritis, unspecified site; F41.9 Anxiety disorder, unspecified; F32.9 Major depressive disorder, single episode, unspecified; Z79.891 Long term (current) use of opiate analgesic; Z79.899 Other long term (current) drug therapy
CPT/HCPCS: 82365; 52332; 52320; C2625; C1758 ×2; C1769; J2250; J0690; J2405; J2001; J3010; J0330; J2704; Q9967

== ENCOUNTER 2017-01-05 20:23 | Emergency (ER) | payer MEDICARE, OTHER ==
[2017-01-05] MEDS ORDERED: ONDANSETRON 4 MG/2 ML VIAL IVP STA (21:56)
[2017-01-05] MEDS ORDERED: SODIUM CHLORIDE 0.9% 1,000 ML IV ONE (21:56)
[2017-01-05] MEDS ORDERED: MORPHINE SULFATE 4 MG/ML SYRINGE IVP STA (21:56)
[2017-01-05 22:21] LABS: Basophils % (A) 0 %; CH 29.8; CHCM 33.3; Eosinophils # (A) 0.1 k/uL (0-0.7); Eosinophils % (A) 2 %; HCT 40.1 % (39.0-53.0); HDW 2.23; HGB 13.5 gm/dL (13.0-17.5); Luc # (Auto) 0.18; Luc % (Auto) 2; Lymphocytes # (A) 1.6 k/uL (1.0-4.8); Lymphocytes % (A) 20 %; MCH 30.3 pg (25.0-35.0); MCHC 33.7 g/dL (31.0-37.0); MCV 90.1 fL (80.0-100.0); Mean Platelet Volume 6.3; Monocytes # (A) 0.5 k/uL (0-1.0); Monocytes % (A) 6 %; Neutrophils # (A) 5.5 k/uL (1.3-7.7); Neutrophils % (A) 70 %; RBC 4.45 m/uL (4.30-5.90); RDW 13.6 % (11.5-15.5); WBC 7.9 k/uL (3.8-10.6); WBC (Perox) 7.52
[2017-01-05 22:24] LABS: Amorphous Sediment,Urine Rare /hpf; Appearance,Urine Cloudy (Clear); Bacteria,Urine Rare /hpf; Bilirubin,Urine Negative (Negative); Glucose,Urine (UA) Negative (Negative); Ketones,Urine Negative (Negative); Leukocyte Esterase,Urine Trace (Negative); Mucus,Urine Rare /hpf; Nitrite,Urine Negative (Negative); PH, Urine 6.5 (5.0-8.0); Particle Count 8744; Protein,Urine Negative (Negative); RBC,Urine 6 /hpf (0-5); Specific Gravity,Urine 1.015 (1.001-1.035); Squamous Epithelial Cell,Urine <1 /hpf (0-4); UA Billing (MACRO vs. MICRO) MICRO; Urobilinogen,Urine <2.0 mg/dL (<2.0); WBC,Urine 7 /hpf (0-5)
[2017-01-05 22:31] LABS: ALT 33 U/L (21-72); AST 26 U/L (17-59); Alkaline Phosphatase 75 U/L (38-126); Anion Gap 9 mmol/L; Blood Urea Nitrogen 18 mg/dL (9-20); Calcium 9.5 mg/dL (8.4-10.2); Carbon Dioxide 22 mmol/L (22-30); Chloride 110 mmol/L (98-107); Glucose 87 mg/dL (74-99); Non-African American GFR(MDRD) >60 (>60 ml/min/1.73 sqM); Potassium 3.9 mmol/L (3.5-5.1); Sodium 141 mmol/L (137-145); Total Bilirubin 0.4 mg/dL (0.2-1.3); Total Protein 6.4 g/dL (6.3-8.2)
[2017-01-05] MEDS ORDERED: RX INFO: IV CONTRAST WAS GIVEN 1 EACH MISC MISCELLANE PRN (22:42)
--- NOTE | 2017-01-05 23:00 | XR ---
EXAM: XR Chest, 2 Views CLINICAL HISTORY: Reason: Hematemesis TECHNIQUE: Frontal and lateral views of the chest. COMPARISON: No relevant prior studies available. FINDINGS: Lungs: Unremarkable. No consolidation. Pleural space: Unremarkable. No pneumothorax. Heart: Unremarkable. No cardiomegaly. Mediastinum: Unremarkable. Bones/joints: Unremarkable. IMPRESSION: Normal chest x-rays.
[2017-01-05 23:29] VITALS: PULSE 64; RESP 18
--- NOTE | 2017-01-05 23:35 | CT ---
EXAM: CT Abdomen and Pelvis With Intravenous Contrast CLINICAL HISTORY: Abdominal pain TECHNIQUE: Axial computed tomography images of the abdomen and pelvis with intravenous contrast. CTDI is 9.0, 10.7 mGy and DLP is 748.3 mGy-cm This CT exam was performed using one or more of the following dose reduction techniques: automated exposure control, adjustment of the mA and/or kV according to patient size, and/or use of iterative reconstruction technique. COMPARISON: CT abdomen and pelvis dated 12/13/2016 FINDINGS: Lower thorax: Dependent atelectasis ABDOMEN: Liver: Decreased attenuation of the liver which may be secondary to phase of IV contrast versus hepatic steatosis. Gallbladder and bile ducts: Unremarkable. Pancreas: Prominent pancreatic duct noted at the uncinate process, which is non-specific. Spleen: Unremarkable. Adrenals: Unremarkable. Kidneys and ureters: Nonobstructing calculi are seen within both kidneys. Mild right hydroureteronephrosis without and obstructing lesion identified. Stomach and bowel: Unremarkable. Appendix: The appendix is not visualized. PELVIS: Bladder: Small focus of gas seen within the urinary bladder. Findings may be secondary to recent catheterization. Otherwise, recommend urinalysis to exclude an infectious process. Reproductive: Unremarkable as visualized. ABDOMEN and PELVIS: Intraperitoneal space: Unremarkable. Bones/joints: Postsurgical changes and degenerative changes of the spine. No acute fracture. No dislocation. Soft tissues: Unremarkable. Vasculature: Unremarkable. Lymph nodes: Unremarkable. IMPRESSION: 1. Small focus of gas seen within the urinary bladder. Findings may be secondary to recent catheterization. Otherwise, recommend urinalysis to exclude an infectious process. 2. Nonobstructing calculi are seen within both kidneys. Mild right hydroureteronephrosis without an obstructing lesion identified. Findings may represent a recently passed ureteral calculus versus an inflammatory/infectious process. Again, correlation with urinalysis.
[2017-01-06] MEDS ORDERED: SULFAMETHOX-TMP 800-160MG 1 EACH TAB PO STA (00:12)
[2017-01-06] MEDS ORDERED: MORPHINE SULFATE 4 MG/ML SYRINGE IVP STA (00:15)
--- NOTE | 2017-01-06 00:15 | ED ---
General Adult HPI - General Chief complaint: GI Bleed Stated complaint: Vomiting Blood Source: patient Mode of arrival: ambulatory Limitations: no limitations - History of Present Illness Initial comments: 7-year-old male with past medical history of HTN, OA, pancreatitis, kidney stones, appendectomy, and tonsillectomy presenting for evaluation of GI bleed and abdominal pain. He states that he was discharged from this facility about a week ago and diagnosed with pancreatitis and ureterolithiasis. He was seeing Dr. Andino (urology) for the kidney stone and had a stent placed in the right ureter. He was also being treated for urinary tract infection although he is unsure what antibiotic was prescribed. He states that he was continuing to have abdominal pain and back pain and he just saw the urologist a couple days ago and had the stent removed. Today at about 1:00 he had a few episodes of emesis resulting in hematemesis. He states his abdominal pain is periumbilical and there is also associated back pain. He has tried over-the- counter medications for improvement in his pain without any relief. - Related Data Home Medications Medication Instructions Recorded Confirmed Escitalopram [Lexapro] 40 mg PO DAILY 02/07/15 01/05/17 Ergocalciferol [Vitamin D2] 50,000 unit PO TU 12/18/16 01/05/17 QUEtiapine FUMARATE [SEROquel] 600 mg PO HS 12/18/16 01/05/17 traZODone HCL 300 mg PO HS 12/18/16 01/05/17 Dextroamphetamine/Amphetamine 20 mg PO DAILY 01/05/17 01/05/17 [Adderall] HYDROcodone/APAP 5-325MG [[place] 1 tab PO Q4HR PRN 01/05/17 01/05/17 5-325] LORazepam [Ativan] 1 mg PO BID PRN 01/05/17 01/05/17 Tamsulosin [Flomax] 0.4 mg PO HS 01/05/17 01/05/17 Previous Rx's Medication Instructions Recorded Atenolol [Tenormin] 50 mg PO DAILY #30 tab 12/17/16 Hydrochlorothiazide [Hydrodiuril] 25 mg PO DAILY #30 tab 12/17/16 Lisinopril 40 mg PO DAILY #30 tab 12/17/16 HYDROcodone/APAP 5-325MG [[place] 1 - 2 tab PO Q6HR PRN #14 tab 01/06/17 5-325] Ondansetron Odt [Zofran Odt] 4 mg PO Q8HR PRN #7 tab 01/06/17 Sulfamethox-Tmp 800-160Mg [Bactrim 1 tab PO Q12HR #14 tab 01/06/17 DS 800-160 mg] Allergies Allergy/AdvReac Type Severity Reaction Status Date / Time No Known Allergies Allergy Verified 01/05/17 22:03 Review of Systems ROS Statement: Those systems with pertinent positive or pertinent negative responses have been documented in the HPI. ROS Other: All systems not noted in ROS Statement are negative. Constitutional: Denies: fever, chills, weakness Eyes: Denies: eye pain, eye discharge, vision change ENT: Denies: ear pain, throat pain, dental pain Respiratory: Denies: cough, dyspnea, wheezes, hemoptysis, stridor Cardiovascular: Denies: chest pain, palpitations, dyspnea on exertion, orthopnea , edema Endocrine: Denies: fatigue, polydipsia, polyuria Gastrointestinal: Reports: abdominal pain, nausea, vomiting, hematemesis. Denies: diarrhea, constipation, melena, hematochezia Genitourinary: Reports: dysuria, frequency. Denies: urgency, hematuria, discharge Musculoskeletal: Reports: back pain (chronic). Denies: arthralgia, myalgia Skin: Denies: rash, lesions Neurological: Denies: headache, weakness, numbness Psychiatric: Denies: anxiety, depression Hematological/Lymphatic: Denies: easy bleeding, easy bruising Past Medical History Past Medical History: Hypertension, Liver Disease, Osteoarthritis (OA) Additional Past Medical History / Comment(s): pancreatitis, kidney stones History of Any Multi-Drug Resistant Organisms: None Reported Past Surgical History: Appendectomy, Back Surgery, Tonsillectomy Past Anesthesia/Blood Transfusion Reactions: No Reported Reaction Past Psychological History: Anxiety, Bipolar, Depression Smoking Status: Current every day smoker Past Alcohol Use History: None Reported Additional Past Alcohol Use History / Comment(s): 1ppd for almost 40 yrs. Past Drug Use History: Marijuana Additional Drug Use History / Comment(s): occasional use - Past Family History Father Family Medical History: Congestive Heart Failure (CHF) Mother Additional Family Medical History / Comment(s): patient states that mother from a bowel obstruction General Exam Limitations: no limitations General appearance: alert, in distress Head exam: Present: atraumatic, normocephalic, normal inspection Eye exam: Present: normal appearance, PERRL, EOMI. Absent: scleral icterus, conjunctival injection, periorbital swelling ENT exam: Present: normal exam, mucous membranes moist Neck exam: Present: normal inspection. Absent: tenderness, meningismus, lymphadenopathy Respiratory exam: Present: normal lung sounds bilaterally. Absent: respiratory distress, wheezes, rales, rhonchi, stridor Cardiovascular Exam: Present: regular rate, normal rhythm, normal heart sounds. Absent: systolic murmur, diastolic murmur, rubs, gallop, clicks GI/Abdominal exam: Present: soft, tenderness (periumbilical). Absent: distended , guarding, rebound, rigid, normal bowel sounds, diminished bowel sounds Rectal exam: Present: deferred Extremities exam: Present: normal inspection, full ROM, normal capillary refill. Absent: tenderness, pedal edema, joint swelling, calf tenderness Back exam: Present: normal inspection, full ROM, tenderness Neurological exam: Present: alert, oriented X3, CN II-XII intact Psychiatric exam: Present: normal affect, normal mood Skin exam: Present: warm, dry, intact, normal color. Absent: rash Course Vital Signs 01/05/17 01/05/17 01/06/17 20:44 23:27 00:36 Temperature 98.0 F 97.6 F 97.7 F Pulse Rate 71 64 64 Respiratory 20 18 18 Rate Blood Pressure 125/87 179/92 176/96 O2 Sat by Pulse 97 96 96 Oximetry EKG Findings - EKG Comments: EKG Findings:: sinus rhythm with premature atrial complexes. Ventricular rate 67, BRITTANY 166, QRS 100, QT/QTc 450/475. Medical Decision Making - Medical Decision Making 7-year-old male with past medical history of pancreatitis and recent ureterolithiasis and stenting by urologist Dr. Andino presenting for evaluation of GI bleed. He states that he recently had his right ureteral stent removed by his urologist and today he started having nausea and vomiting. This resulted in him having an episode of hematemesis leading him to come to the ER. There is associated abdominal pain or back pain. On physical examination he has tenderness to palpation in the periumbilical region without any radiation of symptoms subjectively. Lower back pain is palpated bilaterally in the lower back but he does admit that this is chronic back pain that is only mildly worsened. The remainder of his physical exam is benign. Although there is hematemesis this is likely Radha-Busby tears from repetitive vomiting but will check a occult stool for blood. Abdominal pain is nonspecific and will obtain CT abdomen and pelvis with IV contrast. We'll also obtain labs and urine as he recently had a urinary tract infection and was treated with an antibiotic although at this time he is unsure what antibiotic it was. Labs revealed a mildly elevated lipase at just over 700. Occult stool was negative. The remainder of his labs revealed no significant abnormalities. The patient was reevaluated and had marketed improvement in his symptoms. CT abdomen and pelvis revealed A small focus of gas within the urinary bladder that may be consistent with recent catheterization. There is also not certain calculi in both kidneys and mild right hydroureteralnephrosis without obstructing lesion. This is likely due to his recent removal of a stent. However there is bacteria in the urine and coupled with his back pain will cover him with an antibiotic for pyelonephritis and UTI. The patient was informed of these results and through shared decision making it was determined that he would be discharged with instructions to follow-up with both his primary care physician and his urologist. He is informed to be given prescriptions for pain control as well as an antibiotic and that he should return to this facility if his symptoms should continue, worsen, or persist. The patient acknowledged an understanding of this information and agreed with this plan of care. - Lab Data Result diagrams: 01/05/17 22:10 01/05/17 22:10 Lab Results 01/05/17 01/05/17 01/05/17 Range/Units 22:10 22:10 22:10 WBC 7.9 (3.8-10.6) k/uL RBC 4.45 (4.30-5.90) m/uL Hgb 13.5 (13.0-17.5) gm/dL Hct 40.1 (39.0-53.0) % MCV 90.1 (80.0-100.0) fL MCH 30.3 (25.0-35.0) pg MCHC 33.7 (31.0-37.0) g/dL RDW 13.6 (11.5-15.5) % Plt Count 184 (150-450) k/uL Neutrophils % 70 % Lymphocytes % 20 % Monocytes % 6 % Eosinophils % 2 % Basophils % 0 % Neutrophils # 5.5 (1.3-7.7) k/uL Lymphocytes # 1.6 (1.0-4.8) k/uL Monocytes # 0.5 (0-1.0) k/uL Eosinophils # 0.1 (0-0.7) k/uL Basophils # 0.0 (0-0.2) k/uL Sodium 141 (137-145) mmol/L Potassium 3.9 (3.5-5.1) mmol/L Chloride 110 H (98-107) mmol/L Carbon Dioxide 22 (22-30) mmol/L Anion Gap 9 mmol/L BUN 18 (9-20) mg/dL Creatinine 0.80 (0.66-1.25) mg/dL Est GFR (MDRD) Af Amer >60 (>60 ml/min/1.73 sqM) Est GFR (MDRD) Non-Af >60 (>60 ml/min/1.73 sqM) Glucose 87 (74-99) mg/dL Plasma Lactic Acid Rigo 0.7 (0.7-2.0) mmol/L Calcium 9.5 (8.4-10.2) mg/dL Total Bilirubin 0.4 (0.2-1.3) mg/dL AST 26 (17-59) U/L ALT 33 (21-72) U/L Alkaline Phosphatase 75 (38-126) U/L Troponin I (0.000-0.034) ng/mL NT-Pro-B Natriuret Pep pg/mL Total Protein 6.4 (6.3-8.2) g/dL Albumin 3.7 (3.5-5.0) g/dL Lipase 738 H (23-300) U/L Urine Color Urine Appearance (Clear) Urine pH (5.0-8.0) Ur Specific [place] (1.001-1.035) Urine Protein (Negative) Urine Glucose (UA) (Negative) Urine Ketones (Negative) Urine Blood (Negative) Urine Nitrite (Negative) Urine Bilirubin (Negative) Urine Urobilinogen (<2.0) mg/dL Ur Leukocyte Esterase (Negative) Urine RBC (0-5) /hpf Urine WBC (0-5) /hpf Ur Squamous Epith Cells (0-4) /hpf Amorphous Sediment (None) /hpf Urine Bacteria (None) /hpf Urine Mucus (None) /hpf Stool Occult Blood (Negative) Blood Type Blood Type Recheck Antibody Screen Spec Expiration Date 01/05/17 01/05/17 01/05/17 Range/Units 22:10 22:10 22:10 WBC (3.8-10.6) k/uL RBC (4.30-5.90) m/uL Hgb (13.0-17.5) gm/dL Hct (39.0-53.0) % MCV (80.0-100.0) fL MCH (25.0-35.0) pg MCHC (31.0-37.0) g/dL RDW (11.5-15.5) % Plt Count (150-450) k/uL Neutrophils % % Lymphocytes % % Monocytes % % Eosinophils % % Basophils % % Neutrophils # (1.3-7.7) k/uL Lymphocytes # (1.0-4.8) k/uL Monocytes # (0-1.0) k/uL Eosinophils # (0-0.7) k/uL Basophils # (0-0.2) k/uL Sodium (137-145) mmol/L Potassium (3.5-5.1) mmol/L Chloride (98-107) mmol/L Carbon Dioxide (22-30) mmol/L Anion Gap mmol/L BUN (9-20) mg/dL Creatinine (0.66-1.25) mg/dL Est GFR (MDRD) Af Amer (>60 ml/min/1.73 sqM) Est GFR (MDRD) Non-Af (>60 ml/min/1.73 sqM) Glucose (74-99) mg/dL Plasma Lactic Acid Rigo (0.7-2.0) mmol/L Calcium (8.4-10.2) mg/dL Total Bilirubin (0.2-1.3) mg/dL AST (17-59) U/L ALT (21-72) U/L Alkaline Phosphatase (38-126) U/L Troponin I <0.012 (0.000-0.034) ng/mL NT-Pro-B Natriuret Pep 129 pg/mL Total Protein (6.3-8.2) g/dL Albumin (3.5-5.0) g/dL Lipase (23-300) U/L Urine Color Urine Appearance (Clear) Urine pH (5.0-8.0) Ur Specific [place] (1.001-1.035) Urine Protein (Negative) Urine Glucose (UA) (Negative) Urine Ketones (Negative) Urine Blood (Negative) Urine Nitrite (Negative) Urine Bilirubin (Negative) Urine Urobilinogen (<2.0) mg/dL Ur Leukocyte Esterase (Negative) Urine RBC (0-5) /hpf Urine WBC (0-5) /hpf Ur Squamous Epith Cells (0-4) /hpf Amorphous Sediment (None) /hpf Urine Bacteria (None) /hpf Urine Mucus (None) /hpf Stool Occult Blood (Negative) Blood Type O Positive Blood Type Recheck No Antibody Screen NEGATIVE Spec Expiration Date 01/08/2017 - 230901/05/17 01/05/17 Range/Units 22:10 22:10 WBC (3.8-10.6) k/uL RBC (4.30-5.90) m/uL Hgb (13.0-17.5) gm/dL Hct (39.0-53.0) % MCV (80.0-100.0) fL MCH (25.0-35.0) pg MCHC (31.0-37.0) g/dL RDW (11.5-15.5) % Plt Count (150-450) k/uL Neutrophils % % Lymphocytes % % Monocytes % % Eosinophils % % Basophils % % Neutrophils # (1.3-7.7) k/uL Lymphocytes # (1.0-4.8) k/uL Monocytes # (0-1.0) k/uL Eosinophils # (0-0.7) k/uL Basophils # (0-0.2) k/uL Sodium (137-145) mmol/L Potassium (3.5-5.1) mmol/L Chloride (98-107) mmol/L Carbon Dioxide (22-30) mmol/L Anion Gap mmol/L BUN (9-20) mg/dL Creatinine (0.66-1.25) mg/dL Est GFR (MDRD) Af Amer (>60 ml/min/1.73 sqM) Est GFR (MDRD) Non-Af (>60 ml/min/1.73 sqM) Glucose (74-99) mg/dL Plasma Lactic Acid Rigo (0.7-2.0) mmol/L Calcium (8.4-10.2) mg/dL Total Bilirubin (0.2-1.3) mg/dL AST (17-59) U/L ALT (21-72) U/L Alkaline Phosphatase (38-126) U/L Troponin I (0.000-0.034) ng/mL NT-Pro-B Natriuret Pep pg/mL Total Protein (6.3-8.2) g/dL Albumin (3.5-5.0) g/dL Lipase (23-300) U/L Urine Color Yellow Urine Appearance Cloudy (Clear) Urine pH 6.5 (5.0-8.0) Ur Specific [place] 1.015 (1.001-1.035) Urine Protein Negative (Negative) Urine Glucose (UA) Negative (Negative) Urine Ketones Negative (Negative) Urine Blood Negative (Negative) Urine Nitrite Negative (Negative) Urine Bilirubin Negative (Negative) Urine Urobilinogen <2.0 (<2.0) mg/dL Ur Leukocyte Esterase Trace H (Negative) Urine RBC 6 H (0-5) /hpf Urine WBC 7 H (0-5) /hpf Ur Squamous Epith Cells <1 (0-4) /hpf Amorphous Sediment Rare H (None) /hpf Urine Bacteria Rare H (None) /hpf Urine Mucus Rare H (None) /hpf Stool Occult Blood Negative (Negative) Blood Type Blood Type Recheck Antibody Screen Spec Expiration Date Disposition Clinical Impression: UTI (urinary tract infection), Abdominal pain, Nausea and vomiting Disposition: HOME SELF-CARE Condition: Stable Instructions: Abdominal Pain (ED), Urinary Tract Infection in Men (ED), Flank Pain (ED), Kidney Infection (ED) Additional Instructions: Please use medication as discussed. Please follow up with family doctor if symptoms have not improved over the next two days. Please return to the emergency room if your symptoms increase or worsen or for any other concerns. Prescriptions: HYDROcodone/APAP 5-325MG [[place] 5-325] 1 - 2 tab PO Q6HR PRN #14 tab PRN Reason: Analgesia Ondansetron Odt [Zofran Odt] 4 mg PO Q8HR PRN #7 tab PRN Reason: Nausea Sulfamethox-Tmp 800-160Mg [Bactrim DS 800-160 mg] 1 tab PO Q12HR #14 tab Referrals: Don Lord MD [Primary Care Provider] - 1-2 days Time of Disposition: 00:15
[2017-01-06 00:37] VITALS: BP 176/96; TEMP 97.7
== END 2017-01-06 00:37 | disposition home or self-care (01) ==
LOC: EC 20:23
DX: N39.0 Urinary tract infection, site not specified (principal); R11.2 Nausea with vomiting, unspecified; I10 Essential (primary) hypertension; F31.9 Bipolar disorder, unspecified; F17.200 Nicotine dependence, unspecified, uncomplicated; Z90.49 Acquired absence of other specified parts of digestive tract; Z79.899 Other long term (current) drug therapy
CPT/HCPCS: 99285; 96374; 96376; 96375; 96361 ×2; 36415; 93005; 86900; 86901; 83880; 80053; 83605; 83690; 84484; 85025; 86850; 82272; 81001; 71020; 74177; J2270 ×2; J2405; Q9967

== ENCOUNTER 2017-03-05 10:01 | Inpatient (IN) | payer MEDICARE, OTHER ==
[2017-03-05] MEDS: HYDROmorphone 1 MG/ML 1 ML SYRINGE IVP PRN ×3 (11:23→20:10)
[2017-03-05] MEDS: SODIUM CHLORIDE 0.9% 1,000 ML IV SCH ×2 (11:23→17:53)
[2017-03-05 11:50] LABS: Aty Lym Flag Slight; CH 29.3; CHCM 32.3; HDW 2.32; HGB 13.9 gm/dL (13.0-17.5); MCH 30.2 pg (25.0-35.0); MCV 91.3 fL (80.0-100.0); Mean Platelet Volume 7.3; RDW 13.9 % (11.5-15.5); WBC 4.6 k/uL (3.8-10.6); WBC (Perox) 4.85
[2017-03-05 11:56] LABS: Alkaline Phosphatase 295 U/L (38-126); Amylase <30 U/L (30-110); Anion Gap 8 mmol/L; Blood Urea Nitrogen 16 mg/dL (9-20); Calcium 8.7 mg/dL (8.4-10.2); Carbon Dioxide 24 mmol/L (22-30); Chloride 106 mmol/L (98-107); Glucose 103 mg/dL (74-99); Non-African American GFR(MDRD) >60 (>60 ml/min/1.73 sqM); Potassium 3.7 mmol/L (3.5-5.1); Sodium 138 mmol/L (137-145); Total Bilirubin 5.9 mg/dL (0.2-1.3); Total Protein 5.9 g/dL (6.3-8.2)
[2017-03-05 12:04] LABS: ALT 1827 U/L (21-72)
[2017-03-05] MEDS: PANTOPRAZOLE 40 MG/10 ML VIAL IVP SCH (12:06)
[2017-03-05 12:44] LABS: AST 1499 U/L (17-59)
[2017-03-05 12:52] LABS: Add Differential Manual Differential
[2017-03-05 12:55] LABS: Manual Review Performed; Nucleated Red Blood Cells 0 /100 WBC (0-0); Total Cells Counted 100
[2017-03-05 15:26] LABS: INR 1.5 (<1.1); Prothrombin Time 14.3 sec (9.0-12.0)
[2017-03-05 15:54] LABS: Hepatitis B Surface Ag Index 0.06
[2017-03-05 15:59] LABS: Hepatitis B Core IgM Index 0.03
--- NOTE | 2017-03-05 16:05 | US ---
EXAMINATION TYPE: US abdomen limited DATE OF EXAM: 03/05/2017 COMPARISON: CT January 05, 2017, ultrasound 12/16/2016 CLINICAL HISTORY: rt abd pain. Patient c/o hypogastric pain; pancreatitis, renal stones. EXAM MEASUREMENTS: Liver Length: 17.5 cm Gallbladder Wall: 0.5 cm CBD: 0.9 cm Right Kidney: 13.2 x 6.7 x 6.1 cm Pancreas: dilated pancreatic duct with possible small shadowing ductal stone ( 0.2 x 0.3 x 0.1cm) no mireille near head Liver: no masses seen Gallbladder: complex layered internal echoes with abnormally thickened wall Evidence for sonographic Melton's sign: No CBD: abnormally dilated Right Kidney: multiple lower pole shadowing renal stones with largest stone approximately 0.7 x 0.7 x 0.5cm. Aorta: prominent upper aorta size. IMPRESSION: Findings suggest choledocholithiasis. Dilated common bile duct. There may be abnormal johnny efactive sludge within the gallbladder, difficult to exclude a luminal mass. Correlate for chronic ch olecystitis. Right-sided hydronephrosis has improved. Nonobstructive lower pole nephrolithiasis on th e right.
[2017-03-05 16:11] LABS: Hepatitis C Virus IgG Ab Reactive (Negative); Hepatitis C Virus IgG Index 4.94
[2017-03-06] MEDS: HYDROmorphone 1 MG/ML 1 ML SYRINGE IVP PRN ×4 (00:27→22:52)
[2017-03-06] MEDS: SODIUM CHLORIDE 0.9% 1,000 ML IV SCH ×3 (03:19→21:27)
[2017-03-06] MEDS: PANTOPRAZOLE 40 MG/10 ML VIAL IVP SCH (08:21)
[2017-03-06 08:57] LABS: Aty Lym Flag Slight; CH 29.2; CHCM 32.6; HCT 40.5 % (39.0-53.0); HDW 2.35; HGB 13.5 gm/dL (13.0-17.5); MCHC 33.3 g/dL (31.0-37.0); MCV 90.1 fL (80.0-100.0); Mean Platelet Volume 7.4; WBC 4.8 k/uL (3.8-10.6); WBC (Perox) 4.71
[2017-03-06 09:32] LABS: Alkaline Phosphatase 271 U/L (38-126); Amylase <30 U/L (30-110); Anion Gap 7 mmol/L; Blood Urea Nitrogen 13 mg/dL (9-20); Calcium 8.2 mg/dL (8.4-10.2); Carbon Dioxide 23 mmol/L (22-30); Chloride 108 mmol/L (98-107); Glucose 80 mg/dL (74-99); Non-African American GFR(MDRD) >60 (>60 ml/min/1.73 sqM); Potassium 3.6 mmol/L (3.5-5.1); Sodium 138 mmol/L (137-145); Total Bilirubin 7.5 mg/dL (0.2-1.3); Total Protein 5.3 g/dL (6.3-8.2)
[2017-03-06 09:45] LABS: ALT 1854 U/L (21-72)
[2017-03-06 10:11] LABS: AST 1590 U/L (17-59)
--- NOTE | 2017-03-06 10:18 | P.CONS ---
History of Present Illness - Reason for Consult Consult date: 03/06/17 Elevated liver enzymes Requesting physician: Bob Patel - History of Present Illness 61-year-old gentleman with a history of ADHD, hypertension pancreatitis (December 2016) nephrolithiasis chronic back pain bipolar depression marijuana nicotine cigarette dependency presents to the hospital from PCP office with elevated liver enzymes jaundice and abdominal pain. Patient noticed his urine to be more dark over the last few weeks. Pain is mostly in the midepigastrium upper abdomen on and off for the last month. Hepatitis panel reactive for hepatitis C antibody. No history of hepatitis. No history of IVDA, EtOH abuse. Recently incarcerated released a few months ago served a year. No blood transfusions. One tattoo to left hand performed by his nephew many years ago. Denies fever, chills, hematemesis hematochezia melena. Total bilirubin 5.9-7.5. AST 1499. ALT 8563-5117. Denies excessive usage of NSAIDs aspirin or Tylenol based medications. Alkaline phosphatase 271-295. Lipase 56. Amylase less than 30. INR 1.5. White count 4.6-4.8. Hemoglobin 13.5. MCV 90. Platelet 115. Ultrasound abdomen liver length 17.5 cm Gallbladder wall 0.5 cm. CBD 0.9 cm. Pancreas dilated pancreatic duct with possible small shadowing ductal stone near the head. No masses seen in the liver. Gallbladder complex layered internal echoes with abnormally thickened wall. Findings suggestive of choledocholithiasis, tumefactive sludge within the gallbladder difficult to exclude luminal mass. Review of Systems RConstitutional: Denies fever, chills, sweats, weight gain, or loss. HEENT: Negative for migraines, blurred vision or loss, earaches, drainage, tinnitus, oral mucosal lesions, dysphagia, or odynophagia. Cardiac: Hypertension. Negative for chest pain, arrhythmias, or palpitation. Respiratory: Marijuana. Nicotine cigarette dependency. Negative for shortness of breath, hemoptysis, cough, or sputum production. Gastrointestinal: See HPI for pertinent findings. Genitourinary: Nephrolithiasis. Negative for hematuria, urgency, frequency, polyuria, dysuria, or penile discharge. Musculoskeletal: Chronic back pain. Negative for muscle aches, swelling, arthritis, and arthralgias. Neurologic: Negative for stroke or TIA. Endocrine: Negative for thyroid problems. Skin: Negative for rash or itching. Psychiatric: Bipolar depression All systems: negative (See HPI) Past Medical History Past Medical History: Hypertension, Liver Disease, Osteoarthritis (OA) Additional Past Medical History / Comment(s): pancreatitis, kidney stones, Chronic lower back pain History of Any Multi-Drug Resistant Organisms: None Reported Past Surgical History: Appendectomy, Back Surgery, Tonsillectomy Past Anesthesia/Blood Transfusion Reactions: No Reported Reaction Past Psychological History: Anxiety, Bipolar, Depression Smoking Status: Current every day smoker Past Alcohol Use History: None Reported Additional Past Alcohol Use History / Comment(s): 1ppd for almost 40 yrs. Past Drug Use History: Marijuana Additional Drug Use History / Comment(s): occasional use - Past Family History Father Family Medical History: Congestive Heart Failure (CHF) Mother Additional Family Medical History / Comment(s): patient states that mother from a bowel obstruction Medications and Allergies Home Medications Medication Instructions Recorded Confirmed Type Escitalopram [Lexapro] 40 mg PO DAILY 02/07/15 03/05/17 History Ergocalciferol [Vitamin D2] 50,000 unit PO TU 12/18/16 03/05/17 History QUEtiapine FUMARATE [SEROquel] 600 mg PO HS 12/18/16 03/05/17 History traZODone HCL 300 mg PO HS 12/18/16 03/05/17 History Dextroamphetamine/Amphetamine 20 mg PO DAILY 01/05/17 03/05/17 History [Adderall] LORazepam [Ativan] 1 mg PO BID PRN 01/05/17 03/05/17 History Tamsulosin [Flomax] 0.4 mg PO HS 01/05/17 03/05/17 History HYDROcodone/APAP 10-325MG [[place] 1 tab PO BID PRN 03/05/17 03/05/17 History 10-325] Perphenazine [Trilafon] 8 mg PO HS 03/05/17 03/05/17 History Testosterone Cypionate 200 mg IM Q21D 03/05/17 03/05/17 History [Depo-Testosterone] Allergies Allergy/AdvReac Type Severity Reaction Status Date / Time No Known Allergies Allergy Verified 03/05/17 11:36 Physical Exam Vitals: Vital Signs Temp Pulse Pulse Resp BP Pulse Ox 03/06/17 07:00 99.2 F 63 20 120/71 91 L 03/05/17 22:35 98.9 F 62 18 143/79 91 L 03/05/17 15:19 58 L 16 03/05/17 14:59 98.2 F 58 L 16 135/75 93 L 03/05/17 10:43 97.6 F 71 18 125/90 94 L Intake and Output 03/05/17 03/06/17 03/06/17 22:59 06:59 14:59 Other: # Voids 2 2 nGeneral appearance: The patient is alert, oriented, in no acute distress. Jaundice. HET: Head is normocephalic and atraumatic. Pupils are equal and reactive. Sclerae icterus. Oropharynx is clear without lesions. Neck: Supple without lymphadenopathy. Trachea midline. Heart: S1 S2. Regular rate and rhythm. Lungs: No crackles or wheezes are heard. Abdomen: Soft, midepigastric tenderness, nondistended with bowel sounds. No peritoneal signs. No palpable organomegaly or masses. Extremities: Normal skin color and turgor. No cyanosis, rash, ulceration, clubbing, or edema. Radial and pedal pulses are 2/4 bilaterally. Neurological: No focal deficits. Strength and sensation are grossly intact.m Results CBC & Chem 7: 03/06/17 08:35 03/06/17 08:35 Labs: Abnormal Lab Results - Last 24 Hours (Table) 03/05/17 03/05/17 03/05/17 Range/Units 11:34 11:34 11:37 Plt Count 121 L (150-450) k/uL Lymphocytes # (Manual) 0.5 L (1.0-4.8) k/uL PT 14.3 H (9.0-12.0) sec Chloride (98-107) mmol/L Creatinine (0.66-1.25) mg/dL Glucose 103 H (74-99) mg/dL Calcium (8.4-10.2) mg/dL Total Bilirubin 5.9 H (0.2-1.3) mg/dL AST 1499 H (17-59) U/L ALT 1827 H (21-72) U/L Alkaline Phosphatase 295 H (38-126) U/L Total Protein 5.9 L (6.3-8.2) g/dL Albumin 3.3 L (3.5-5.0) g/dL Amylase <30 L (30-110) U/L 03/06/17 03/06/17 Range/Units 08:35 08:35 Plt Count 115 L (150-450) k/uL Lymphocytes # (Manual) (1.0-4.8) k/uL PT (9.0-12.0) sec Chloride 108 H (98-107) mmol/L Creatinine 0.65 L (0.66-1.25) mg/dL Glucose (74-99) mg/dL Calcium 8.2 L (8.4-10.2) mg/dL Total Bilirubin 7.5 H (0.2-1.3) mg/dL AST (17-59) U/L ALT 1854 H (21-72) U/L Alkaline Phosphatase 271 H (38-126) U/L Total Protein 5.3 L (6.3-8.2) g/dL Albumin 2.9 L (3.5-5.0) g/dL Amylase <30 L (30-110) U/L US - abdomen: report reviewed (Dr. Hernandez) Assessment and Plan (1) Obstructive jaundice Narrative/Plan: Possible secondary to suspected choledocholithiasis with dilated CBD on ultrasound gallbladder tumefactive sludge and possible pancreatic duct stone near the head Status: Acute (2) Elevated liver enzymes Status: Acute (3) Hepatitis C antibody positive in blood Status: Acute Plan: 1. ERCP. 2. AFP. Quantitative hepatitis C/genotype. The pharmacy services representative has discussed the risks, benefits and alternative therapies for the above-mentioned procedure and for both sedation/analgesia as well as necessary blood product administration, if indicated, as they pertain to this patient. The patient has indicated understanding and acceptance of the risks and procedures discussed. Thank you for this kind referral and the opportunity to participate in the care of your patient. This consultation was discussed with Dr. Hernandez. The impression and plan of care have been directed as dictated.
[2017-03-06 10:39] LABS: Add Differential Manual Differential
[2017-03-06 10:42] LABS: Manual Review Performed; Nucleated Red Blood Cells 0 /100 WBC (0-0); RBC Morphology Normal; Total Cells Counted 100
[2017-03-06 11:28] LABS: Appearance,Urine Clear (Clear); Bilirubin,Urine 2+ (Negative); Glucose,Urine (UA) Negative (Negative); Ketones,Urine 2+ (Negative); Leukocyte Esterase,Urine Negative (Negative); Nitrite,Urine Negative (Negative); PH, Urine 6.5 (5.0-8.0); Protein,Urine Trace (Negative); Specific Gravity,Urine 1.019 (1.001-1.035); UA Billing (MACRO vs. MICRO) CHEM
[2017-03-06] MEDS: HYDROcodone/APAP 10-325MG 1 EACH TAB PO PRN (14:08)
[2017-03-06] MEDS ORDERED: INDOMETHACIN 50MG SUPPOSITORY RECTAL ONE (14:30)
[2017-03-06] MEDS ORDERED: LEVOFLOXACIN 500MG-D5W PMX 500 MG in DEXTROSE/WATER 1 100ML.BAG IVPB ONE (14:30)
[2017-03-06 15:09] VITALS: BMI 25.2
[2017-03-06] MEDS ORDERED: PROPOFOL 10 MG/ML 20 ML VIAL IV ONE (16:47)
[2017-03-06] MEDS ORDERED: fentaNYL (PF) 50 MCG/ML 2 ML AMP ONE (16:47)
[2017-03-06] MEDS ORDERED: MIDAZOLAM 2 MG/2 ML VIAL ONE (16:47)
[2017-03-06] MEDS ORDERED: IV FLUID CONTINUATION 1,000 ML IV ONE (16:51)
[2017-03-06] MEDS ORDERED: IOHEXOL 300 MG/ML 50 ML BOTTLE MISCELLANE ONE (17:25)
--- NOTE | 2017-03-06 17:42 | P.PCN ---
Date of Procedure: 03/06/17 Preoperative Diagnosis: Postoperative Diagnosis: Procedure(s) Performed: Procedure: Endoscopic retrograde cholangiography with sphincterotomy with the passing of the 11.5 mm balloon catheter across the sphincterotomy site fully inflated. Preoperative diagnosis: Suspected common bile duct stone. Postoperative diagnosis: Dilated common bile duct with filling defect suggestive of stone, S/P sphincterotomy with passing of the 11.5 mm balloon catheter across the sphincterotomy site fully inflated. Preparation and sedation: Was provided by anesthesia. Brief clinical history: The patient is a 61-year-old gentleman with a history of ADHD, hypertension, pancreatitis (December 2016), nephrolithiasis chronic back pain, bipolar disorder, marijuana/nicotine/cigarette dependency, presented to the hospital from PCP office with elevated liver enzymes, jaundice and abdominal pain. Patient noticed his urine to be more dark over the last few weeks. Pain is mostly in the midepigastrium upper abdomen on and off for the last month. Hepatitis panel was positive for HCV Ab. No history of hepatitis. No history of IVDA, EtOH abuse. Recently incarcerated released a few months ago after serving a year. No blood transfusions. One tattoo to left hand performed by his nephew many years ago. Denies fever, chills, hematemesis, hematochezia or melena. Labs showed total bilirubin 5.9-7.5. AST 1499. ALT 8560-5578. Denies excessive usage of NSAIDs aspirin or Tylenol based medications. Alkaline phosphatase 271-295. Lipase 56. Amylase less than 30. INR 1.5. White count 4.6-4.8. Hemoglobin 13.5. MCV 90. Platelet 115. Ultrasound of abdomen showed liver length 17.5 cm, gallbladder wall 0.5 cm. CBD 0.9 cm. Pancreas dilated pancreatic duct with possible small shadowing ductal stone near the head. No masses seen in the liver. Gallbladder complex layered internal echoes with abnormally thickened wall. Findings suggestive of choledocholithiasis, tumefactive sludge within the gallbladder difficult to exclude luminal mass. The details are summarized in the history and physical and dictated consultation. This procedure was scheduled for suspected common bile duct stone. Procedure: With the patient in the prone position and after informed consent and adequate sedation, I passed the Olympus video duodenoscope down the esophagus into the stomach then passed it through the pylorus into the duodenum and brought the papilla into view. Initial cannulation resulted in opacification of the common bile duct and biliary tree as well as the gallbladder. There was dilation of the common bile duct to around 1 cm and there was a filling defect noted under fluoroscopy while injecting dye which prompted me to proceeded to exchange the catheter for a sphincterotome over a guidewire. Successful sphincterotomy was performed and I advanced the 11.5 mm balloon catheter over the guidewire into the proximal common bile duct, inflated it and withdrew it fully inflated. I did not see a stone exit in this semi-blind maneuver. The patient tolerated the procedure well and did not have any immediate complications. Plan: Will allow clear liquid diet. Would repeat his liver enzymes tomorrow and make further plans based on his course and blood tests. Will continue to follow with you with interest. Implants: Indications for Procedure: Operative Findings: Description of Procedure:
[2017-03-06] MEDS: ATENOLOL 50 MG TAB PO SCH (17:56)
[2017-03-06] MEDS: AMPICILLIN-SULBACTAM 1.5 GM in SODIUM CHLORIDE 0.9% 50 ML IVPB SCH ×2 (17:56→22:57)
[2017-03-06] MEDS: LISINOPRIL 20 MG TAB PO SCH (17:56)
[2017-03-06] MEDS: traZODone HCL 100 MG TAB PO SCH (21:06)
[2017-03-06] MEDS: TAMSULOSIN 0.4 MG CAP.ER.24H PO SCH (21:06)
[2017-03-06] MEDS: PERPHENAZINE 4 MG TAB PO SCH (21:06)
[2017-03-06] MEDS: QUEtiapine 200 MG TAB PO SCH (21:07)
--- NOTE | 2017-03-06 22:01 | P.HPIM ---
History of Present Illness H&P Date: 03/06/17 Chief Complaint: abdominal pain worsening abdominal pain x 1-2 months/10 pain level unable to eat/drink Review of Systems Constitutional: Reports anorexia Eyes: denies as per HPI Ears: deny: decreased hearing Ears, nose, mouth and throat: Reports ant. neck pain Cardiovascular: Reports as per HPI, Reports high blood pressure Respiratory: Reports cough, Reports excessive sputum, Reports wheezing Gastrointestinal: Reports abdominal pain, Reports dyspepsia, Reports loss of appetite, Reports nausea, Reports vomiting Genitourinary: Reports decreased libido, Reports dysuria, Reports urinary frequency Musculoskeletal: Reports gait dysfunction, Reports limitation of motion, Reports muscle weakness Musculoskeletal: bilateral: knee pain, absent: ankle pain, as per HPI Integumentary: Reports as per HPI Neurological: Reports gait dysfunction, Reports numbness Psychiatric: Reports anxiety, Reports change in sleep habits, Reports depression , Reports mood swings, Reports sleep disturbances Endocrine: Reports fatigue Hematologic/Lymphatic: Reports as per HPI Allergic/Immunologic: Reports as per HPI Past Medical History Past Medical History: Hypertension, Liver Disease, Osteoarthritis (OA) Additional Past Medical History / Comment(s): pancreatitis, kidney stones, Chronic lower back pain History of Any Multi-Drug Resistant Organisms: None Reported Past Surgical History: Appendectomy, Back Surgery, Tonsillectomy Past Anesthesia/Blood Transfusion Reactions: No Reported Reaction Past Psychological History: Anxiety, Bipolar, Depression Smoking Status: Current every day smoker Past Alcohol Use History: None Reported Additional Past Alcohol Use History / Comment(s): 1ppd for almost 40 yrs. Past Drug Use History: Marijuana Additional Drug Use History / Comment(s): occasional use - Past Family History Father Family Medical History: Congestive Heart Failure (CHF) Mother Additional Family Medical History / Comment(s): patient states that mother from a bowel obstruction Medications and Allergies Home Medications Medication Instructions Recorded Confirmed Type Escitalopram [Lexapro] 40 mg PO DAILY 02/07/15 03/05/17 History Ergocalciferol [Vitamin D2] 50,000 unit PO TU 12/18/16 03/05/17 History QUEtiapine FUMARATE [SEROquel] 600 mg PO HS 12/18/16 03/05/17 History traZODone HCL 300 mg PO 12/18/16 03/05/17 History Dextroamphetamine/Amphetamine 20 mg PO DAILY 01/05/17 03/05/17 History [Adderall] LORazepam [Ativan] 1 mg PO BID PRN 01/05/17 03/05/17 History Tamsulosin [Flomax] 0.4 mg PO HS 01/05/17 03/05/17 History HYDROcodone/APAP 10-325MG [[place] 1 tab PO BID PRN 03/05/17 03/05/17 History 10-325] Perphenazine [Trilafon] 8 mg PO HS 03/05/17 03/05/17 History Testosterone Cypionate 200 mg IM Q21D 03/05/17 03/05/17 History [Depo-Testosterone] Allergies Allergy/AdvReac Type Severity Reaction Status Date / Time No Known Allergies Allergy Verified 03/05/17 11:36 Physical Exam Vitals: Vital Signs Temp Pulse Pulse Resp BP Pulse Ox 03/06/17 16:16 98.9 F 61 18 144/70 91 L 03/06/17 15:00 98.9 F 61 18 144/76 90 L 03/06/17 07:00 99.2 F 63 20 120/71 91 L 03/05/17 22:35 98.9 F 62 18 143/79 91 L Intake and Output 03/06/17 03/06/17 03/06/17 06:59 14:59 22:59 Intake Total 400 Balance 400 Intake: IV 400 Other: # Voids 2 3 2 Weight 84.302 kg Patient Weight 03/07/17 06:59 Weight 84.302 kg Results CBC & Chem 7: 03/06/17 08:35 03/06/17 08:35 Labs: Abnormal Lab Results - Last 24 Hours (Table) 03/06/17 03/06/17 03/06/17 Range/Units 08:35 08:35 11:04 Plt Count 115 L (150-450) k/uL Lymphocytes # (Manual) 0.7 L (1.0-4.8) k/uL Chloride 108 H (98-107) mmol/L Creatinine 0.65 L (0.66-1.25) mg/dL Calcium 8.2 L (8.4-10.2) mg/dL Total Bilirubin 7.5 H (0.2-1.3) mg/dL AST 1590 H (17-59) U/L ALT 1854 H (21-72) U/L Alkaline Phosphatase 271 H (38-126) U/L Total Protein 5.3 L (6.3-8.2) g/dL Albumin 2.9 L (3.5-5.0) g/dL Amylase <30 L (30-110) U/L Urine Protein Trace H (Negative) Urine Ketones 2+ H (Negative) Urine Bilirubin 2+ H (Negative) Microbiology - Last 24 Hours (Table) 03/06/17 11:01 Urine Culture - Preliminary Urine,Voided Thrombosis Risk Factor Assmnt - Choose All That Apply Any of the Below Risk Factors Present?: Yes Each Factor Represents 1 point: Age 41-60 years Thrombosis Risk Factor Assessment Total Risk Factor Score: 1 Thrombosis Risk Factor Assessment Level: Low Risk
[2017-03-07] MEDS: HYDROcodone/APAP 10-325MG 1 EACH TAB PO PRN ×2 (00:13→13:10)
[2017-03-07] MEDS: SODIUM CHLORIDE 0.9% 1,000 ML IV SCH ×3 (03:21→22:22)
[2017-03-07] MEDS: AMPICILLIN-SULBACTAM 1.5 GM in SODIUM CHLORIDE 0.9% 50 ML IVPB SCH ×4 (06:29→23:28)
[2017-03-07] MEDS: HYDROmorphone 1 MG/ML 1 ML SYRINGE IVP PRN ×2 (06:31→19:04)
--- NOTE | 2017-03-07 07:18 | FL ---
EXAMINATION TYPE: FL ERCP biliary duct only DATE OF EXAM: 03/06/2017 CLINICAL HISTORY: 61-year-old male CBD stone TECHNIQUE: Fluoroscopy for ERCP COMPARISON: CT 01/05/2017 and ultrasound 10/14/2016 FINDINGS: Fluoroscopic guidance was provided during procedure performed by Dr. Patel. A total of 2 minutes 57 seconds of fluoroscopic time was utilized during the procedure and 3 spot images was ac quired. IMPRESSION: As Above.
[2017-03-07 08:09] LABS: Alkaline Phosphatase 201 U/L (38-126); Amylase <30 U/L (30-110); Anion Gap 7 mmol/L; Blood Urea Nitrogen 20 mg/dL (9-20); Calcium 7.8 mg/dL (8.4-10.2); Carbon Dioxide 21 mmol/L (22-30); Chloride 109 mmol/L (98-107); Glucose 81 mg/dL (74-99); Non-African American GFR(MDRD) >60 (>60 ml/min/1.73 sqM); Potassium 3.9 mmol/L (3.5-5.1); Sodium 137 mmol/L (137-145); Total Bilirubin 9.7 mg/dL (0.2-1.3); Total Protein 4.5 g/dL (6.3-8.2)
--- NOTE | 2017-03-07 08:13 | CONS ---
DATE OF CONSULTATION: 03/06/2017 Reason for consultation is antibiotic recommendation. HISTORY OF PRESENT ILLNESS: The patient is a 61-year-old male admitted to hospital directly from his PCP's office where the patient noticed to have jaundice and the patient has been complaining of pain in his epigastric area. Patient's symptoms have been going for a few days but the patient noticed the pain to be mostly dull aching pain, intensity about 5 to 6/10, some nausea, but no vomiting, no constipation. Patient also noticed his urine to becoming more darker. With these symptoms, the patient has been evaluated and subsequently admitted to the hospital. The patient has some low-grade fever. Denies any high-grade fever, rigors or chills. Patient's workup including the patient with elevated liver enzymes with a bilirubin of 5.9, AST of 1499, ALT of 1827. Slightly elevated alkaline phos. The liver exams are worse on blood work today. Urine has not been significantly positive. ( ) is positive for hepatitis C. Patient did have an ultrasound of his liver and the gallbladder area that has been suggestive of choledocholithiasis with some thickened gallbladder wall. Patient is scheduled to undergo ERCP by ( ) this afternoon. I was asked to see the patient for recommendation antibiotic therapy. Patient's highest fever has been 99 degrees Fahrenheit and no elevated white count. REVIEW OF SYSTEMS: CONSTITUTIONAL: Positive for weakness. EYES: No complaint. ENT: No complaint. RESPIRATORY: No complaint. CARDIOVASCULAR: No complaint. GENITOURINARY: No complaint. GASTROINTESTINAL: As per HPI. MUSCULOSKELETAL: No complaint. INTEGUMENTARY: No complaint. PSYCHOLOGIC: No complaint. ENDOCRINE: No complaint. NEUROLOGIC: No complaint. His past medical history significant for pancreatitis, kidney stones, chronic back pain, osteoarthritis, hypertension and chronic hepatitis C. PAST SURGICAL HISTORY: Appendectomy, back surgery, tonsillectomy. SOCIAL HISTORY: The patient is a current every day smoker, does not drink, though does admit to marijuana use. FAMILY HISTORY: Father has history of congestive heart failure and mother from a bowel obstruction. ALLERGIES: No known drug allergies. Medications include the patient is currently on [place], Tenormin, vitamin D2, Lexapro, hydrochlorothiazide, Dilaudid, Zestril, Ativan, Zofran, Protonix, Seroquel and Desyrel. On examination, blood pressure is 144/70 with a pulse of 61, temperature 98.9. He is 99% on room air. General description is a middle-aged male, lying in bed, in no distress. No tachypnea or accessory muscle for respiration use. HEENT examination, scleral ectasis is positive, oral mucosa is dry. NECK: Trachea central, there is no thyromegaly. LUNGS: Unlabored breathing, clear to auscultation anteriorly with irregular heart, S1, S2. Regular rate and rhythm. ABDOMEN: Soft, there is mild tenderness of the right upper quadrant area. No guarding, no rigidity. No organomegaly. EXTREMITIES: No edema of the feet. SKIN EXAMINATION: No rash or mass palpable. NEUROLOGICAL: Patient is awake, alert, oriented x3. Mood and affect normal. LABS: Hemoglobin is 13.5, white count is 4.8 with a BUN of 13, creatinine 0.65. Liver enzymes as mentioned above. DIAGNOSTIC IMPRESSION AND PLAN: Patient admitted to the hospital with obstructive jaundice, epigastric and right upper quadrant pain with choledocholithiasis, very low grade fever and some thickening of the gallbladder wall with a question of possible chronic cholecystitis. Chronic because the patient's ( ) remains to be low and the patient does not look toxic. No high-grade fever and less likely cholangitic ( ) cannot be excluded. PLAN: 1. Will do blood cultures x1 STAT. 2. Will empirically add Unasyn 125 q.6 while waiting for his clinical condition to stabilize and cultures to finalize. 3. Will follow on the clinical condition and cultures to further adjust medication if needed. Thank you for this consultation. Will follow this patient along with you. SHERRY
[2017-03-07 08:24] LABS: ALT 1538 U/L (21-72); AST 1394 U/L (17-59)
[2017-03-07] MEDS: PANTOPRAZOLE 40 MG/10 ML VIAL IVP SCH (08:27)
[2017-03-07] MEDS: ESCITALOPRAM 20 MG TAB PO SCH (08:27)
[2017-03-07] MEDS: HYDROCHLOROTHIAZIDE 25 MG TAB PO SCH (08:28)
[2017-03-07] MEDS: LISINOPRIL 20 MG TAB PO SCH (08:28)
[2017-03-07] MEDS: ATENOLOL 50 MG TAB PO SCH (08:28)
[2017-03-07 08:41] LABS: Aty Lym Flag Slight; CH 28.9; CHCM 31.4; HCT 33.2 % (39.0-53.0); HDW 2.37; HGB 10.9 gm/dL (13.0-17.5); MCH 30.3 pg (25.0-35.0); MCHC 32.8 g/dL (31.0-37.0); MCV 92.5 fL (80.0-100.0); RBC 3.59 m/uL (4.30-5.90); RDW 14.3 % (11.5-15.5); WBC (Perox) 4.22
--- NOTE | 2017-03-07 10:19 | P.PN ---
Subjective Principal diagnosis: Acute hepatitis 61-year-old male admitted with abdominal pain jaundice acute hepatitis with reactive hepatitis C antibody. Radiographic imaging suggestive of pancreatic duct stone. Status post ERCP yesterday with findings of filling defect status post sphincterotomy without clear visualization of stone passage. This morning patient is more jaundice bilirubin is 9.7. Transaminases elevated. Hepatitis C serology pending. Afebrile. Abdominal pain minimal. Tolerating full liquids requesting advancement. Objective - Vital Signs Vital signs: Vital Signs Temp 97.0 F L 03/07/17 07:00 Pulse 85 03/07/17 07:00 Resp 16 03/07/17 07:00 BP 83/45 03/07/17 07:00 Pulse Ox 91 L 03/07/17 07:00 Intake & Output 03/06/17 03/07/17 03/07/17 18:59 06:59 18:59 Intake Total 400 1150 Balance 400 1150 Weight 84.302 kg Intake: IV 400 Intake, IV Titration 1150 Amount Ampicillin-Sulbactam 1.5 50 gm In Sodium Chloride 0.9 % 50 ml @ 100 mls/hr IVPB Q6HR [facility] Rx#:[id number] Levofloxacin 500Mg-D5w 100 Pmx 500 mg In Dextrose/ Water 1 100ml.bag @ 100 mls/hr IVPB ONCE ONE Rx#: [id number] Sodium Chloride 0.9% 1, 1000 000 ml @ 125 mls/hr IV . Q8H [facility] Rx#:[id number] Other: # Voids 2 1 2 - Exam OGeneral appearance: The patient is alert, oriented, in no acute distress. Jaundice HET: Head is normocephalic and atraumatic. Pupils are equal and reactive. Sclera icterus. Oropharynx is clear without lesions. Neck: Supple without lymphadenopathy. Trachea midline. Heart: S1 S2. Regular rate and rhythm. Lungs: No crackles or wheezes are heard. Abdomen: Soft, nontender, nondistended with bowel sounds. No peritoneal signs. No palpable organomegaly or masses. Extremities: Normal skin color and turgor. No cyanosis, rash, ulceration, clubbing, or edema. Radial and pedal pulses are 2/4 bilaterally. Neurological: No focal deficits. Strength and sensation are grossly intact.am - Labs CBC & Chem 7: 03/07/17 07:23 03/07/17 07:23 Labs: Abnormal Lab Results - Last 24 Hours (Table) 03/06/17 03/06/17 03/06/17 Range/Units 08:35 08:35 11:04 RBC (4.30-5.90) m/uL Hgb (13.0-17.5) gm/dL Hct (39.0-53.0) % Plt Count (150-450) k/uL Lymphocytes # (Manual) 0.7 L (1.0-4.8) k/uL Chloride (98-107) mmol/L Carbon Dioxide (22-30) mmol/L Calcium (8.4-10.2) mg/dL Total Bilirubin (0.2-1.3) mg/dL AST 1590 H (17-59) U/L ALT (21-72) U/L Alkaline Phosphatase (38-126) U/L Total Protein (6.3-8.2) g/dL Albumin (3.5-5.0) g/dL Amylase (30-110) U/L Urine Protein Trace H (Negative) Urine Ketones 2+ H (Negative) Urine Bilirubin 2+ H (Negative) 03/07/17 03/07/17 Range/Units 07:23 07:23 RBC 3.59 L (4.30-5.90) m/uL Hgb 10.9 L (13.0-17.5) gm/dL Hct 33.2 L (39.0-53.0) % Plt Count 122 L (150-450) k/uL Lymphocytes # (Manual) (1.0-4.8) k/uL Chloride 109 H (98-107) mmol/L Carbon Dioxide 21 L (22-30) mmol/L Calcium 7.8 L (8.4-10.2) mg/dL Total Bilirubin 9.7 H (0.2-1.3) mg/dL AST 1394 H (17-59) U/L ALT 1538 H (21-72) U/L Alkaline Phosphatase 201 H (38-126) U/L Total Protein 4.5 L (6.3-8.2) g/dL Albumin 2.3 L (3.5-5.0) g/dL Amylase <30 L (30-110) U/L Urine Protein (Negative) Urine Ketones (Negative) Urine Bilirubin (Negative) Microbiology - Last 24 Hours (Table) 03/06/17 11:01 Urine Culture - Preliminary Urine,Voided Assessment and Plan (1) Hepatitis Narrative/Plan: Presentation could be multifactorial possible acute hepatitis C infection with transaminases greater than 20 times the upper limit of normal with jaundice with superimposed choledocholithiasis. Even if patient test positive for HCV RNA cannot entirely distinguish an acute versus chronic infection. No previous hepatitis screening is available at this time. Cannot exclude viral component or medication toxicity. Status: Acute (2) Obstructive jaundice Narrative/Plan: Secondary to suspected choledocholithiasis status post ERCP with filling defect identified status post sphincterotomy. Status: Acute (3) Elevated liver enzymes Status: Acute (4) Hepatitis C antibody positive in blood Status: Acute Plan: 1. Acetaminophen salicylate level. EBV CMV viral studies. Await hepatitis C quantitative serology. Repeat liver chemistries in the a.m. Will advance diet. Supportive measures. We'll continue to follow. Assessment and plan a care discussed with Dr. Hernandez.
[2017-03-07 10:37] LABS: Add Differential Manual Differential
[2017-03-07 10:39] LABS: Nucleated Red Blood Cells 0 /100 WBC (0-0); Total Cells Counted 100
[2017-03-07 11:30] LABS: Acetaminophen <10.0 ug/mL; Salicylate <1.0 mg/dL
--- NOTE | 2017-03-07 13:14 | P.GSCN ---
History of Present Illness Consult date: 03/07/17 Reason for Consult: Choledocholithiasis History of present illness: This a 61-year-old male who hospital complaints of epigastric abdominal pain. Patient is evidence of choledocholithiasis and pancreatitis. He has undergone ERCP. It is unclear be past the stone. His gallbladder ultrasound shows evidence of cholelithiasis Past Medical History Past Medical History: Hypertension, Liver Disease, Osteoarthritis (OA) Additional Past Medical History / Comment(s): pancreatitis, kidney stones, Chronic lower back pain History of Any Multi-Drug Resistant Organisms: None Reported Past Surgical History: Appendectomy, Back Surgery, Tonsillectomy Past Anesthesia/Blood Transfusion Reactions: No Reported Reaction Past Psychological History: Anxiety, Bipolar, Depression Smoking Status: Current every day smoker Past Alcohol Use History: None Reported Additional Past Alcohol Use History / Comment(s): 1ppd for almost 40 yrs. Past Drug Use History: Marijuana Additional Drug Use History / Comment(s): occasional use - Past Family History Father Family Medical History: Congestive Heart Failure (CHF) Mother Additional Family Medical History / Comment(s): patient states that mother from a bowel obstruction Medications and Allergies Home Medications Medication Instructions Recorded Confirmed Type Escitalopram [Lexapro] 40 mg PO DAILY 02/07/15 03/05/17 History Ergocalciferol [Vitamin D2] 50,000 unit PO TU 12/18/16 03/05/17 History QUEtiapine FUMARATE [SEROquel] 600 mg PO HS 12/18/16 03/05/17 History traZODone HCL 300 mg PO HS 12/18/16 03/05/17 History Dextroamphetamine/Amphetamine 20 mg PO DAILY 01/05/17 03/05/17 History [Adderall] LORazepam [Ativan] 1 mg PO BID PRN 01/05/17 03/05/17 History Tamsulosin [Flomax] 0.4 mg PO HS 01/05/17 03/05/17 History HYDROcodone/APAP 10-325MG [[place] 1 tab PO BID PRN 03/05/17 03/05/17 History 10-325] Perphenazine [Trilafon] 8 mg PO HS 03/05/17 03/05/17 History Testosterone Cypionate 200 mg IM Q21D 03/05/17 03/05/17 History [Depo-Testosterone] Allergies Allergy/AdvReac Type Severity Reaction Status Date / Time No Known Allergies Allergy Verified 03/05/17 11:36 Surgical - Exam Vital Signs Temp Pulse Resp BP Pulse Ox 97.6 F 71 18 125/90 94 L 03/05/17 10:43 03/05/17 10:43 03/05/17 10:43 03/05/17 10:43 03/05/17 10:43 - General well developed, no distress - Eyes PERRL - ENT normal pinna - Neck no masses - Respiratory normal expansion - Cardiovascular Rhythm: regular - Abdomen Mild epigastric tenderness Abdomen: soft Results - Labs 03/07/17 07:23 03/07/17 07:23 Abnormal Lab Results - Last 24 Hours (Table) 03/07/17 03/07/17 Range/Units 07:23 07:23 RBC 3.59 L (4.30-5.90) m/uL Hgb 10.9 L (13.0-17.5) gm/dL Hct 33.2 L (39.0-53.0) % Plt Count 122 L (150-450) k/uL Lymphocytes # (Manual) 0.4 L (1.0-4.8) k/uL Chloride 109 H (98-107) mmol/L Carbon Dioxide 21 L (22-30) mmol/L Calcium 7.8 L (8.4-10.2) mg/dL Total Bilirubin 9.7 H (0.2-1.3) mg/dL AST 1394 H (17-59) U/L ALT 1538 H (21-72) U/L Alkaline Phosphatase 201 H (38-126) U/L Total Protein 4.5 L (6.3-8.2) g/dL Albumin 2.3 L (3.5-5.0) g/dL Amylase <30 L (30-110) U/L Microbiology - Last 24 Hours (Table) 03/06/17 11:01 Urine Culture - Preliminary Urine,Voided Diabetes panel 03/07/17 Range/Units 07:23 Sodium 137 (137-145) mmol/L Potassium 3.9 (3.5-5.1) mmol/L Chloride 109 H (98-107) mmol/L Carbon Dioxide 21 L (22-30) mmol/L BUN 20 (9-20) mg/dL Creatinine 0.88 (0.66-1.25) mg/dL Glucose 81 (74-99) mg/dL Calcium 7.8 L (8.4-10.2) mg/dL AST 1394 H (17-59) U/L ALT 1538 H (21-72) U/L Alkaline Phosphatase 201 H (38-126) U/L Total Protein 4.5 L (6.3-8.2) g/dL Albumin 2.3 L (3.5-5.0) g/dL Calcium panel 03/07/17 Range/Units 07:23 Calcium 7.8 L (8.4-10.2) mg/dL Albumin 2.3 L (3.5-5.0) g/dL Pituitary panel 03/07/17 Range/Units 07:23 Sodium 137 (137-145) mmol/L Potassium 3.9 (3.5-5.1) mmol/L Chloride 109 H (98-107) mmol/L Carbon Dioxide 21 L (22-30) mmol/L BUN 20 (9-20) mg/dL Creatinine 0.88 (0.66-1.25) mg/dL Glucose 81 (74-99) mg/dL Calcium 7.8 L (8.4-10.2) mg/dL Adrenal panel 03/07/17 Range/Units 07:23 Sodium 137 (137-145) mmol/L Potassium 3.9 (3.5-5.1) mmol/L Chloride 109 H (98-107) mmol/L Carbon Dioxide 21 L (22-30) mmol/L BUN 20 (9-20) mg/dL Creatinine 0.88 (0.66-1.25) mg/dL Glucose 81 (74-99) mg/dL Calcium 7.8 L (8.4-10.2) mg/dL Total Bilirubin 9.7 H (0.2-1.3) mg/dL AST 1394 H (17-59) U/L ALT 1538 H (21-72) U/L Alkaline Phosphatase 201 H (38-126) U/L Total Protein 4.5 L (6.3-8.2) g/dL Albumin 2.3 L (3.5-5.0) g/dL Assessment and Plan Plan: Gallstones Choledocholithiasis Patient will undergo laparoscopic cholecystectomy as an outpatient next week. He will be scheduled see me in the office next Friday.
--- NOTE | 2017-03-07 19:17 | PN ---
DATE OF SERVICE: 03/07/2017 REASON FOR FOLLOWUP: Question of possible cholangitis. INTERVAL HISTORY: The patient is afebrile. He is still complaining of abdominal pain. The patient is status post ERCP yesterday with sphincterotomy, but apparently no stone was extracted. The patient denies significant chest pain or shortness of breath or cough. No abdominal pain or any diarrhea. On examination, blood pressure is 96/51 with a pulse of 57, temperature 96.6. He is 91% on room air. General description is a middle-aged male lying in bed in no distress. RESPIRATORY SYSTEM: Unlabored breathing. Clear to auscultation anteriorly. HEART: S1, S2. Regular rate and rhythm. ABDOMEN: Soft. Slightly tender in the epigastric area. No guarding or rigidity. LABS: Hemoglobin is 10.9 with a white count of 4.0 with a BUN of 20, creatinine 0.88. Patient's bilirubin is slightly decreased. Liver enzymes have improved as well. DIAGNOSTIC IMPRESSION AND PLAN: Patient admitted to hospital with jaundice with a question of possible choledocholithiasis and some edema of the gallbladder wall, clinically not behaving like cholecystitis. No abnormality of the pancreas was noticed. Currently on antibiotic. That will be continued, waiting for the cultures to finalize. Continue supportive care. JABARID
[2017-03-07] MEDS: traZODone HCL 100 MG TAB PO SCH (22:22)
[2017-03-07] MEDS: TAMSULOSIN 0.4 MG CAP.ER.24H PO SCH (22:23)
[2017-03-07] MEDS: PERPHENAZINE 4 MG TAB PO SCH (22:23)
[2017-03-07] MEDS: QUEtiapine 200 MG TAB PO SCH (22:23)
[2017-03-08] MEDS: SODIUM CHLORIDE 0.9% 1,000 ML IV SCH ×2 (05:33→11:16)
[2017-03-08 05:56] LABS: EBV - EA (IgG) <5.0 U/mL (<9.0); EBV - VCA IgM <10.0 U/mL (<36.0)
[2017-03-08] MEDS: AMPICILLIN-SULBACTAM 1.5 GM in SODIUM CHLORIDE 0.9% 50 ML IVPB SCH ×4 (06:09→23:39)
[2017-03-08] MEDS: ESCITALOPRAM 20 MG TAB PO SCH (08:09)
[2017-03-08] MEDS: ATENOLOL 50 MG TAB PO SCH (08:09)
[2017-03-08] MEDS: PANTOPRAZOLE 40 MG TABLET PO SCH (08:09)
[2017-03-08] MEDS: HYDROCHLOROTHIAZIDE 25 MG TAB PO SCH (08:09)
[2017-03-08] MEDS: LISINOPRIL 20 MG TAB PO SCH (08:09)
[2017-03-08] MEDS: HYDROcodone/APAP 10-325MG 1 EACH TAB PO PRN (08:14)
[2017-03-08 08:57] LABS: Aty Lym Flag Slight; CH 29.2; CHCM 31.7; HDW 2.39; HGB 10.8 gm/dL (13.0-17.5); MCH 30.4 pg (25.0-35.0); MCHC 32.8 g/dL (31.0-37.0); MCV 92.6 fL (80.0-100.0); Mean Platelet Volume 7.3; RBC 3.56 m/uL (4.30-5.90); RDW 14.5 % (11.5-15.5); WBC 4.7 k/uL (3.8-10.6); WBC (Perox) 4.87
[2017-03-08 08:59] LABS: Alkaline Phosphatase 224 U/L (38-126); Amylase <30 U/L (30-110); Anion Gap 2 mmol/L; Blood Urea Nitrogen 12 mg/dL (9-20); Carbon Dioxide 26 mmol/L (22-30); Chloride 111 mmol/L (98-107); Glucose 82 mg/dL (74-99); Non-African American GFR(MDRD) >60 (>60 ml/min/1.73 sqM); Potassium 3.7 mmol/L (3.5-5.1); Sodium 139 mmol/L (137-145); Total Bilirubin 9.6 mg/dL (0.2-1.3); Total Protein 4.5 g/dL (6.3-8.2)
[2017-03-08 09:29] LABS: ALT 1360 U/L (21-72); AST 1064 U/L (17-59)
[2017-03-08 09:52] LABS: Add Differential Manual Differential
[2017-03-08 09:54] LABS: Nucleated Red Blood Cells 0 /100 WBC (0-0); Total Cells Counted 100
--- NOTE | 2017-03-08 10:08 | P.PN ---
Progress Note - Text The patient is being seen for Dr. Milligan today. Continues to have some upper abdominal pain and discomfort. The some nausea. No vomiting. Appetite is diminished. Was admitted with the gallstone pancreatitis with jaundice. ERCP was done question of a stone being removed the although it was not the visualized. On examination the patient is awake alert in no acute distress. Obviously the jaundice. The hydration satisfactory temperature is normal. Vitals are stable. Abdomen showed diffuse upper abdominal tenderness mostly in the epigastric and right upper quadrant area with some voluntary guarding but no rebound or rigidity. No mass or organomegaly noted. His labs were reviewed. WBC is normal at 4700. However is bilirubin is not going down its 9.6 today. LFTs are also elevated with AST of 1064 AST of 1360 and alkaline phosphatase of 224. Lipase is down to 398. Amylase is normal. Impression improving pancreatitis. Probably choledocholithiasis may be persistent in view of still elevated bilirubin and LFTs. Recommendation. Continued medical management. Being followed by GI. We will follow his bilirubin LFTs
--- NOTE | 2017-03-08 11:20 | PN ---
DATE OF SERVICE: 03/07/2017 Patient is a 61-year-old male who is seen lying in bed, is awake, alert, feeling a bit better today, continues to be jaundiced. Patient did undergo an ERCP yesterday and sphincterotomy with no clear stone noted. Patient is hemodynamically stable, afebrile, in no acute distress. On physical exam, vital signs, temp is 97.0, heart rate is 85, respiratory rate is 16, blood pressure 83/45, will have that repeated, O2 sat 91% on room air. HEENT: Head is normocephalic, atraumatic. Neck is supple, trachea is midline. Lungs with essentially clear breath sounds, no rales or wheezes. HEART: S1, S2 are head, not tachycardiac. Abdomen is sore, bowel sounds are positive. The extremities with no edema. NEUROLOGIC: Patient is awake, alert, oriented. LABS: White count is 4.0, hemoglobin is 10.9, hematocrit is 33.2 with 122,000 platelets. Sodium is 137, potassium is 3.9, chloride is 109, CO2 is 21, anion gap is 7, BUN is 20, creatinine 0.88. Glucose is 81. Calcium is 7.8, total bilirubin is 9.7, AST is 1394, ALT is 1538, alk phose is 201, total protein 4.5 , albumin is 2.3, amylase is less than 30, lipase is 67. Salicylate level is less than 1, acetaminophen is less than 10, hepatitis panel is positive for hep C antibodies. No new imaging to review. IMPRESSION: 1. Probable acute hepatitis. 2. Obstructive jaundice, status post ERCP with sphincterotomy. 3. Increased liver enzymes. 4. Hepatitis C antibodies positive. PLAN: Continue current medications which have been reviewed. Patient is being followed by GI and Infectious Disease. Appreciate recommendations. Continue GI prophylaxis and SCDs for DVT prophylaxis and will follow patient closely making further changes as necessary. [facility]
[2017-03-08] MEDS: DEXTROSE 5%-0.9% NACL 1,000 ML IV SCH ×2 (12:45→20:14)
[2017-03-08] MEDS: HYDROmorphone 1 MG/ML 1 ML SYRINGE IVP PRN (12:46)
--- NOTE | 2017-03-08 18:35 | PN ---
DATE OF SERVICE: 03/08/17 He has been hemodynamically stable. However, he continues to have abdominal pain and is not tolerating any ( ) feeding. On physical examination, his blood pressure is 121/68. Respiratory rate of 18. Pulse rate 65. Temperature 98.9. O2 sat on room air is 91%. HEENT: is unremarkable. Chest is clear. Cardiovascular system reveals S1, S2. Abdomen is soft. There is no edema. Labs reveal white count 4.7, hemoglobin 10.8. Sodium 139, potassium 3.7. Chloride 111. Bicarb 26. BUN 12. Creatinine 0.71. Lipase 398. IMPRESSION: 1. Acute pancreatitis. 2. Obstructive jaundice status post ERCP with sphincterotomy. 3. Hep-C antibody positive. Continue IV fluid with D5 normal saline. Recheck lipase tomorrow. Depending on how he does, we shall make further changes to his care. Prognosis guarded. MTDD
[2017-03-08] MEDS: traZODone HCL 100 MG TAB PO SCH (20:30)
[2017-03-08] MEDS: PERPHENAZINE 4 MG TAB PO SCH (20:30)
[2017-03-08] MEDS: QUEtiapine 200 MG TAB PO SCH (20:30)
[2017-03-08] MEDS: TAMSULOSIN 0.4 MG CAP.ER.24H PO SCH (20:30)
[2017-03-09] MEDS: AMPICILLIN-SULBACTAM 1.5 GM in SODIUM CHLORIDE 0.9% 50 ML IVPB SCH ×4 (05:43→23:18)
[2017-03-09] MEDS: DEXTROSE 5%-0.9% NACL 1,000 ML IV SCH ×3 (05:43→19:46)
--- NOTE | 2017-03-09 08:05 | P.PN ---
Subjective The patient is a 61-year-old gentleman with a history of ADHD, hypertension, pancreatitis (December 2016), nephrolithiasis chronic back pain, bipolar disorder, marijuana/nicotine/cigarette dependency, presented to the hospital from PCP office with elevated liver enzymes, jaundice and abdominal pain. Patient noticed his urine to be more dark over the last few weeks. Pain is mostly in the midepigastrium upper abdomen on and off for the last month. Hepatitis panel was positive for HCV Ab. No history of hepatitis. No history of IVDA, EtOH abuse. Recently incarcerated released a few months ago after serving a year. No blood transfusions. One tattoo to left hand performed by his nephew many years ago. Denies fever, chills, hematemesis, hematochezia or melena. Labs showed total bilirubin 5.9-7.5. AST 1499. ALT 2487-9503. Denies excessive usage of NSAIDs aspirin or Tylenol based medications. Alkaline phosphatase 271-295. Lipase 56. Amylase less than 30. INR 1.5. White count 4.6-4.8. Hemoglobin 13.5. MCV 90. Platelet 115. Ultrasound of abdomen showed liver length 17.5 cm, gallbladder wall 0.5 cm. CBD 0.9 cm. Pancreas dilated pancreatic duct with possible small shadowing ductal stone near the head. No masses seen in the liver. Gallbladder complex layered internal echoes with abnormally thickened wall. Findings suggestive of choledocholithiasis, tumefactive sludge within the gallbladder difficult to exclude luminal mass. An ERCP performed 03/06/2017 revealed a dilated CBD and a filling defect suggestive of a CBD stone. A sphincterotomy was performed and I passed an 11.5 mm balloon catheter across the sphincterotomy site fully inflated without visualizing a stone. The patient continues to have upper abdominal discomfort and nausea. No vomiting. Objective - Vital Signs Vital signs: Vital Signs Temp 97.9 F 03/08/17 07:00 Pulse 63 03/08/17 07:00 Resp 16 03/08/17 07:00 BP 128/69 03/08/17 07:00 Pulse Ox 93 L 03/08/17 07:00 Intake & Output 03/07/17 03/08/17 03/08/17 18:59 06:59 18:59 Intake Total 1050 Balance 1050 Intake: IV 1000 Sodium Chloride 0.9% 1, 1000 000 ml @ 125 mls/hr IV . Q8H ADRIAN Rx#:[id number] Intake, IV Titration 50 Amount Ampicillin-Sulbactam 1.5 50 gm In Sodium Chloride 0.9 % 50 ml @ 100 mls/hr IVPB Q6HR ADRIAN Rx#:[id number] Other: # Voids 2 1 - Exam General appearance: The patient is alert, oriented, in no acute distress. HET: Head is normocephalic and atraumatic. Conjunctivae pink, sclerae icteric. Pupils are equal and reactive. Oropharynx is clear without lesions. Neck: Supple without lymphadenopathy. Trachea midline. Heart: S1 S2. Lungs: No crackles or wheezes are heard. Abdomen: Soft, nontender, nondistended with bowel sounds. No peritoneal signs. No palpable organomegaly or masses. Extremities: Normal skin color and turgor. No cyanosis, rash, ulceration, clubbing, or edema. Radial and pedal pulses are 2/4 bilaterally. Neurological: No focal deficits. Strength and sensation are grossly intact. - Labs CBC & Chem 7: 03/08/17 08:22 03/08/17 08:22 Labs: Abnormal Lab Results - Last 24 Hours (Table) 03/07/17 03/07/17 03/08/17 Range/Units 07:23 07:23 08:22 RBC (4.30-5.90) m/uL Hgb (13.0-17.5) gm/dL Hct (39.0-53.0) % Plt Count (150-450) k/uL Lymphocytes # (Manual) 0.4 L (1.0-4.8) k/uL Chloride 111 H (98-107) mmol/L Calcium 8.0 L (8.4-10.2) mg/dL Total Bilirubin 9.6 H (0.2-1.3) mg/dL Alkaline Phosphatase 224 H (38-126) U/L Total Protein 4.5 L (6.3-8.2) g/dL Albumin 2.3 L (3.5-5.0) g/dL Amylase <30 L (30-110) U/L Lipase 398 H (23-300) U/L EBV Capsid Ag IgG Ab 586.0 H (<18.0) U/mL EBV Nuclear Ag IgG Ab 391.0 H (<18.0) U/mL 07/15/17 Range/Units 08:22 RBC 3.56 L (4.30-5.90) m/uL Hgb 10.8 L (13.0-17.5) gm/dL Hct 33.0 L (39.0-53.0) % Plt Count 140 L (150-450) k/uL Lymphocytes # (Manual) (1.0-4.8) k/uL Chloride (98-107) mmol/L Calcium (8.4-10.2) mg/dL Total Bilirubin (0.2-1.3) mg/dL Alkaline Phosphatase (38-126) U/L Total Protein (6.3-8.2) g/dL Albumin (3.5-5.0) g/dL Amylase (30-110) U/L Lipase (23-300) U/L EBV Capsid Ag IgG Ab (<18.0) U/mL EBV Nuclear Ag IgG Ab (<18.0) U/mL Microbiology - Last 24 Hours (Table) 03/06/17 11:01 Urine Culture - Final Urine,Voided 03/06/17 14:09 Blood Culture - Preliminary Blood No Growth after 24 hours Assessment and Plan Plan: The clinical course of this patient is raising the possibility of a hepatocellular injury pattern that could be secondary to acute hepatitis, of whatever etiology, in addition to the ssuspected CBD. His HCV serology is positive. Will continue to follow closely his enzymes. I might consider a liver biopsy based on his course.
[2017-03-09] MEDS: HYDROcodone/APAP 10-325MG 1 EACH TAB PO PRN (08:24)
[2017-03-09] MEDS: HYDROCHLOROTHIAZIDE 25 MG TAB PO SCH ×2 (08:25→08:28)
[2017-03-09] MEDS: LISINOPRIL 20 MG TAB PO SCH (08:25)
[2017-03-09] MEDS: PANTOPRAZOLE 40 MG TABLET PO SCH (08:25)
[2017-03-09] MEDS: ESCITALOPRAM 20 MG TAB PO SCH (08:25)
[2017-03-09] MEDS: ATENOLOL 50 MG TAB PO SCH ×2 (08:26→08:27)
[2017-03-09 09:31] LABS: Alkaline Phosphatase 243 U/L (38-126); Anion Gap 5 mmol/L; Blood Urea Nitrogen 6 mg/dL (9-20); Calcium 8.1 mg/dL (8.4-10.2); Carbon Dioxide 27 mmol/L (22-30); Chloride 107 mmol/L (98-107); Glucose 117 mg/dL (74-99); Non-African American GFR(MDRD) >60 (>60 ml/min/1.73 sqM); Potassium 3.2 mmol/L (3.5-5.1); Sodium 139 mmol/L (137-145); Total Protein 4.7 g/dL (6.3-8.2)
[2017-03-09 09:56] LABS: ALT 1154 U/L (21-72); AST 781 U/L (17-59)
[2017-03-09] MEDS: HYDROmorphone 1 MG/ML 1 ML SYRINGE IVP PRN ×3 (10:05→23:26)
--- NOTE | 2017-03-09 10:37 | P.PN ---
Progress Note - Text The patient still complains of upper abdominal pain and discomfort. He thinks it maybe a little worse than yesterday. Otherwise stable. Does not appear to be in any acute distress. Temperature is normal. Vitals are stable. He is jaundiced. Abdomen is soft with mild the epigastric and right upper quadrant tenderness but no guarding or rebound. No palpable mass. Have reviewed. Bilirubin is up to 10. H CV serologies positive. Impression. Jaundice. Question of common bile duct stone. Possibility also of hepatitis either which may cause increasing bilirubin and LFTs. Recommendation. Per Dr. Rangel consider liver biopsy or repeat ERCP. We will continue to follow with interest.
--- NOTE | 2017-03-09 16:32 | PN ---
DATE OF SERVICE: 03/09/17 The patient was seen again on 03/09/17. He has been hemodynamically stable. He continues to have quite a bit of abdominal pain. His blood pressure is 133/77. Respiratory rate is 18. Pulse rate 63. Temperature 98.4. O2 sat on 2 L by nasal cannula is 96%. HEENT is unremarkable. Chest is clear. Cardiovascular system reveals an S1, S2. Abdomen is soft. There is no pedal edema. Labs reveal a sodium 139, potassium 3.2. Chloride 107. Bicarb 27. BUN 6, creatinine 0.7. Glucose 117. Calcium 8.1. Bilirubin 10. AST 781, ALT 1154. Alk phos 243. IMPRESSION: 1. Obstructive jaundice. 2. Acute pancreatitis status post ERCP. Continue IV fluids. Keep his pain under control. His prognosis is guarded. MTDD
[2017-03-09] MEDS: TAMSULOSIN 0.4 MG CAP.ER.24H PO SCH (20:37)
[2017-03-09] MEDS: PERPHENAZINE 4 MG TAB PO SCH (20:37)
[2017-03-09] MEDS: traZODone HCL 100 MG TAB PO SCH (20:37)
[2017-03-09] MEDS: QUEtiapine 200 MG TAB PO SCH (20:37)
[2017-03-09] MEDS: ONDANSETRON ODT 4 MG TAB PO PRN (21:56)
[2017-03-10] MEDS: DEXTROSE 5%-0.9% NACL 1,000 ML IV SCH ×3 (05:19→20:19)
[2017-03-10] MEDS: AMPICILLIN-SULBACTAM 1.5 GM in SODIUM CHLORIDE 0.9% 50 ML IVPB SCH ×4 (05:44→23:23)
[2017-03-10] MEDS: HYDROmorphone 1 MG/ML 1 ML SYRINGE IVP PRN ×2 (06:57→12:06)
[2017-03-10] MEDS: PANTOPRAZOLE 40 MG TABLET PO SCH (08:32)
[2017-03-10] MEDS: ATENOLOL 50 MG TAB PO SCH (08:32)
[2017-03-10] MEDS: ESCITALOPRAM 20 MG TAB PO SCH (08:32)
[2017-03-10] MEDS: LISINOPRIL 20 MG TAB PO SCH (08:32)
[2017-03-10] MEDS: HYDROCHLOROTHIAZIDE 25 MG TAB PO SCH (08:34)
--- NOTE | 2017-03-10 09:40 | PN ---
DATE OF SERVICE: 03/09/2017 REASON FOR FOLLOW UP: Possible choledocholithiasis with obstructive jaundice and question of cholecystitis. INTERVAL HISTORY: The patient is afebrile. The patient is complaining of more abdominal pain. some nausea, but no vomiting. Patient denies having any diarrhea or constipation. Denies any significant chest pain or shortness of breath. No cough. On examination, blood pressure is 152/79 with pulse ox of 83. Temperature 98.1. He is 96% on 2-L nasal cannula. General description is a middle aged male lying in bed in no distress. RESPIRATORY: Unlabored breathing, clear to auscultation anteriorly. HEART: S1, S2 regular rate and rhythm. ABDOMEN: Soft, remains to be tender in the upper quadrant area. EXTREMITIES: No edema feet. LABS: Hemoglobin 10.4, white count of 4.7 with BUN of 6, creatinine 0.70. Liver enzymes have slightly increased with bilirubin of 10. AST slightly improved. ALT down to 1154. DIAGNOSTIC IMPRESSION AND PLAN: Patient admitted to the hospital with obstructive jaundice with possible phlebolith in common bile duct; however, the patient is status post ERCP and no stone was found. Did have persistent bilirubinemia and some thickening gallbladder wall with persistent fever with persistent abdominal pain. Otherwise if some worsening, would recommend obtaining a CT of abdomen and pelvis to make sure no evidence of any complications related to possible passing stone. Antibiotic continued in the form of Unasyn. Will reculture him and adjust antibiotic further if patient spike any further fever. Continue supportive care. MTDD
[2017-03-10] MEDS ORDERED: IOHEXOL 350 MG/ML 25 ML BOTTLE (ORAL USE) PO PRN (12:03)
--- NOTE | 2017-03-10 14:42 | P.PN ---
Progress Note - Text The patient is fairly stable. Has a pancreatitis and jaundice. Evidence of cholelithiasis choledocholithiasis as well as possible hepatitis with the pain. Also less nausea. On examination the patient is awake alert in good spirits. Temperature is normal. Vitals are stable. Abdomen is soft with mild epigastric tenderness but no guarding or rebound or rigidity. Has bowel sounds. Labs were noted. Impression. Cholelithiasis possible cholecystitis and pancreatitis resolving. Still elevated bilirubin and elevated LFTs. Recommendation. Continued by mouth fluids. Further management the depend on his clinical progress and further GI evaluation
[2017-03-10 14:49] LABS: HCV Qualitative Result DETECTED (Not detected)
--- NOTE | 2017-03-10 15:16 | CT ---
EXAMINATION TYPE: CT abdomen pelvis wo con DATE OF EXAM: 03/10/2017 HISTORY: Abdominal pain, acute pancreatitis. CT DLP: 620.40 mGycm. Automated Exposure Control for Dose Reduction was Utilized. TECHNIQUE: CT scan of the abdomen and pelvis is performed with oral but without IV contrast. COMPARISON: CT abdomen and pelvis January 05, 2017. Limited abdominal ultrasound March 05, 2017. FINDINGS: Within the limitations of a non-contrast study, the following observations are made. LUNG BASES: There are small right greater than left pleural effusions increased in size from prior st udy with associated compressive atelectasis and/or Limited consolidation. There is additional atelect asis and/or consolidation in the lingula abutting the fissure in the left lung base. Slightly elevate d left hemidiaphragm is now present. LIVER/GB: Previous contrast opacified common hepatic and bile ducts as well as cystic duct from recen t ERCP procedure. There is markedly thickened gallbladder wall noted currently. This is even more pro minent than seen on recent ultrasound. No suspicious biliary dilatation is present. There is new smal l amount of nonsimple fluid along the anterior superior margin of liver felt to reflect hematoma. PANCREAS: Evaluation of pancreas is suboptimal without IV contrast. Pancreas is overall normal in siz e without surrounding fat stranding or fluid clearly seen SPLEEN: There is new curvilinear hyperdensity surrounding posterior medial margin of spleen consisten t with acute small subcapsular hematoma measuring up to 1.3 cm in thickness medially on axial image 2 1. Spleen remains enlarged in size measuring 15.3 cm on long axis on axial image 20. ADRENALS: Low dense thickening to both adrenal glands is present suspect benign hyperplasia. KIDNEYS: There is 6 mm nonobstructing calculus upper to mid pole level left kidney on axial image 35. There are 2-3 additional punctate calculi scattered throughout the visualized left kidney. There are 3-5 calculi scattered throughout the right kidney with largest measuring to 5 mm in size lower pole level on coronal image 52. Occasional pelvic phleboliths are redemonstrated. No intraluminal calculus and bladder is seen. BOWEL: The oral contrast only reaches mid small bowel level. There is however no suspicious small or large bowel dilatation. Some thickening of gallbladder folds in the fundus is felt present. There is some prominence of fecal material in the left and sigmoid colon. GENITAL ORGANS: No gross abnormality seen. LYMPH NODES: No greater than 1cm abdominal or pelvic lymph nodes are appreciated. OSSEOUS STRUCTURES: There is postsurgical change in the lower lumbar spine with posterior interpedicu lar rods and screws transfixing L4-S1 levels. Artificial disc material at these levels is seen. There are bilateral laminectomy defects and spinous process resection. OTHER: There is moderate calcified atherosclerotic plaque of aorta extending into branch vessels. The re is new mild to moderate diffuse subcutaneous edema. IMPRESSION: 1. Suboptimal evaluation of pancreas without ductal dilatation, suspicious enlargement, or surroundin g inflammatory change noted. 2. Mild to moderate diffuse soft tissue anasarca and small bilateral pleural effusions now present, f indings consistent with probable desired fluid overload state. 3. Worsening of concentric wall thickening of the gallbladder, acute cholecystitis cannot be excluded , clinical correlation advised. 4. New small perisplenic and perihepatic hematoma, etiology uncertain, hemoglobin monitoring advised. 5. Possible moderate fundal gastritis, clinical correlation advised to determine need for further wor kup by endoscopy.
[2017-03-10 17:18] LABS: Basophils % (A) 0 %; CH 29.1; CHCM 31.7; Eosinophils # (A) 0.1 k/uL (0-0.7); Eosinophils % (A) 2 %; HCT 34.1 % (39.0-53.0); HDW 2.31; HGB 11.1 gm/dL (13.0-17.5); Luc # (Auto) 0.17; Luc % (Auto) 4; Lymphocytes % (A) 20 %; MCH 29.9 pg (25.0-35.0); MCHC 32.4 g/dL (31.0-37.0); MCV 92.2 fL (80.0-100.0); Mean Platelet Volume 7.7; Monocytes # (A) 0.4 k/uL (0-1.0); Monocytes % (A) 7 %; Neutrophils # (A) 3.2 k/uL (1.3-7.7); Neutrophils % (A) 67 %; RDW 15.1 % (11.5-15.5); WBC 4.8 k/uL (3.8-10.6); WBC (Perox) 4.68
[2017-03-10 17:29] LABS: ALT 904 U/L (21-72); AST 656 U/L (17-59); Alkaline Phosphatase 241 U/L (38-126); Anion Gap 5 mmol/L; Blood Urea Nitrogen 4 mg/dL (9-20); Calcium 8.7 mg/dL (8.4-10.2); Carbon Dioxide 27 mmol/L (22-30); Chloride 105 mmol/L (98-107); Glucose 107 mg/dL (74-99); Non-African American GFR(MDRD) >60 (>60 ml/min/1.73 sqM); Potassium 3.3 mmol/L (3.5-5.1); Sodium 137 mmol/L (137-145); Total Bilirubin 10.2 mg/dL (0.2-1.3); Total Protein 5.1 g/dL (6.3-8.2)
--- NOTE | 2017-03-10 20:05 | PN ---
DATE OF SERVICE: 03/10/17 The patient was seen again on 03/10/17. He continues to have abdominal pain. He is icteric. He has very poor appetite and has not eaten anything. On physical examination, his blood pressure is 134/80. Respiratory rate is 16. Pulse rate 57. Temperature 97.8. O2 sat on 2 L by nasal cannula is 92%. HEENT is unremarkable except for icterus. Chest is clear. Cardiovascular system reveals an S1, S2. Abdomen is distended. There is trace edema. CT of the abdomen showed small right greater than left pleural effusion. Markedly thickened gallbladder. Hematoma in the anterior superior margin of the liver. Spleen shows subcapsular hematoma. Kidneys show nonobstructive calculus in the upper pole on the left. Labs revealed Sodium 139. Potassium 3.2. Chloride 107. Bicarb ( ). Bilirubin 10. IMPRESSION: 1. Cholelithiasis with cholecystitis and pancreatitis. 2. Splenic hematoma and liver subcapsular hematoma. 3. Malnutrition. At this point in time, we did discuss with the nurse on the need to perform surgery regarding the CT of the abdomen results. Appreciate the input. Would repeat labs today. Depending on how he does, we shall make further changes to his care. Prognosis guarded. Continue on his current meds which were reviewed. SHERRY
[2017-03-10] MEDS: PERPHENAZINE 4 MG TAB PO SCH (20:20)
[2017-03-10] MEDS: QUEtiapine 200 MG TAB PO SCH (20:20)
[2017-03-10] MEDS: TAMSULOSIN 0.4 MG CAP.ER.24H PO SCH (20:20)
[2017-03-10] MEDS: traZODone HCL 100 MG TAB PO SCH (20:20)
[2017-03-11] MEDS: LORazepam 1 MG TAB PO PRN ×2 (00:50→21:52)
[2017-03-11] MEDS: HYDROmorphone 1 MG/ML 1 ML SYRINGE IVP PRN ×2 (03:13→12:40)
[2017-03-11] MEDS: DEXTROSE 5%-0.9% NACL 1,000 ML IV SCH ×3 (03:19→20:13)
[2017-03-11] MEDS: AMPICILLIN-SULBACTAM 1.5 GM in SODIUM CHLORIDE 0.9% 50 ML IVPB SCH ×2 (06:09→12:41)
--- NOTE | 2017-03-11 07:26 | PN ---
DATE OF SERVICE: 03/10/2017 Reason for followup is possible cholecystitis. INTERVAL HISTORY: The patient is afebrile, has been complaining of pain in the abdominal area, some nausea, but no vomiting and no diarrhea. No significant chest pain or shortness of breath without cough. PHYSICAL EXAMINATION: Blood pressure is 134/80 with a pulse of 57, temperature 97.8. He is 92% on 2 L nasal cannula. General description is a middle-aged male lying in bed in no distress. RESPIRATORY SYSTEM: Unlabored breathing, clear to auscultation anteriorly. HEART: S1, S2, regular rate and rhythm. ABDOMEN: Soft. Slight ascites, tender to touch. LABS: Hemoglobin is 11.1, white count of 4.8 with a BUN of 4, creatinine 0.70. DIAGNOSTIC IMPRESSION AND PLAN: Patient admitted to the hospital with obstructive jaundice with concern for choledocholithiasis, patient is post ERCP. Still having abdominal distension, pain for which a CT was repeated with question of thickened gallbladder wall. Surgery is on the case. Patient remains to be on IV Unasyn. Will continue to watch him closely. Continue supportive care. SHERRY
--- NOTE | 2017-03-11 07:34 | P.PN ---
Progress Note - Text The patient is stable. The his pain is stable. Still jaundice. No nausea or vomiting. Temperature is up to the 100.4 last night but back to normal now. He otherwise in no is in no acute distress. Abdomen is soft with still a tenderness in the right upper quadrant epigastric area no mass no guarding or rebound. Bilirubin is still up to 10.2. Results are pending. Computed tomography scan showed more thickening of the gallbladder wall. Question of the hematoma around the spleen and liver not sure as to the etiology. Suspect this may be ascitic fluid. Hemoglobin is stable. Impression jaundice. Cholelythiasis. Possible choledocholithiasis with obstruction. Possible acute hepatitis picture as well. May have an element of acute cholecystitis. . Again today mainly to rule out the cystic duct obstruction or possible common bile duct obstruction. An inferior. Continue IV antibiotics the meantime.
--- NOTE | 2017-03-11 08:38 | P.PN ---
Subjective Principal diagnosis: Acute hepatitis 61-year-old male admitted with abdominal pain jaundice acute hepatitis with reactive hepatitis C antibody and positive quantative measurement. Status post ERCP last week with findings of filling defect status post sphincterotomy without clear visualization of stone passage. Total bilirubin still elevate 10 range but transaminases improving. Denies abdominal pain. HIDA scan scheduled today. Afebrile. Objective - Vital Signs Vital signs: Vital Signs Temp 99.2 F 03/11/17 07:00 Pulse 60 03/11/17 07:00 Resp 18 03/11/17 07:00 BP 153/72 03/11/17 07:00 Pulse Ox 92 L 03/11/17 07:00 Intake & Output 03/10/17 03/11/17 03/11/17 18:59 06:59 18:59 Weight 84.302 kg Other: # Voids 3 2 - Exam OGeneral appearance: The patient is alert, oriented, in no acute distress. Jaundice HET: Head is normocephalic and atraumatic. Pupils are equal and reactive. Sclera icterus. Oropharynx is clear without lesions. Neck: Supple without lymphadenopathy. Trachea midline. Heart: S1 S2. Regular rate and rhythm. Lungs: No crackles or wheezes are heard. Abdomen: Soft, nontender, nondistended with bowel sounds. No peritoneal signs. No palpable organomegaly or masses. Extremities: Normal skin color and turgor. No cyanosis, rash, ulceration, clubbing, or edema. Radial and pedal pulses are 2/4 bilaterally. Neurological: No focal deficits. Strength and sensation are grossly intact.am - Labs CBC & Chem 7: 03/10/17 17:06 03/10/17 17:06 Labs: Abnormal Lab Results - Last 24 Hours (Table) 03/06/17 03/10/17 03/10/17 Range/Units 08:35 17:06 17:06 RBC 3.70 L (4.30-5.90) m/uL Hgb 11.1 L (13.0-17.5) gm/dL Hct 34.1 L (39.0-53.0) % Potassium 3.3 L (3.5-5.1) mmol/L BUN 4 L (9-20) mg/dL Glucose 107 H (74-99) mg/dL Total Bilirubin 10.2 H (0.2-1.3) mg/dL AST 656 H (17-59) U/L ALT 904 H (21-72) U/L Alkaline Phosphatase 241 H (38-126) U/L Total Protein 5.1 L (6.3-8.2) g/dL Albumin 2.7 L (3.5-5.0) g/dL HCV RNA Qual (PCR) DETECTED H (Not detected) Hepatitis C RNA Quant 8,410,464 H (<12) IU/mL HCV RNA PCR log molecular spectroscopist/ml 6.92 H (<1.08) Hepatitis C Genotype 1a H Microbiology - Last 24 Hours (Table) 03/06/17 14:09 Blood Culture - Preliminary Blood No Growth after 96 hours Assessment and Plan (1) Hepatitis Narrative/Plan: Presentation could be multifactorial possible acute hepatitis C infection with transaminases greater than 20 times the upper limit of normal with jaundice with superimposed choledocholithiasis. Positive HCV RNA cannot entirely distinguish an acute versus chronic infection. No previous hepatitis screening is available at this time. General surgery evaluating for cholecystitis. Status: Acute (2) Obstructive jaundice Narrative/Plan: Secondary to suspected choledocholithiasis status post ERCP with filling defect identified status post sphincterotomy. Status: Acute (3) Elevated liver enzymes Status: Acute (4) Hepatitis C antibody positive in blood Status: Acute Plan: 1. HIDA if negative DC planning. RTO 2 weeks. Repeat CMP 3-5 days. F/U with PCP after DC. Assessment and plan a care discussed with Dr. Quiroz.
[2017-03-11] MEDS: ATENOLOL 50 MG TAB PO SCH (12:38)
[2017-03-11] MEDS: HYDROCHLOROTHIAZIDE 25 MG TAB PO SCH (12:39)
[2017-03-11] MEDS: LISINOPRIL 20 MG TAB PO SCH (12:39)
[2017-03-11] MEDS: ESCITALOPRAM 20 MG TAB PO SCH (12:40)
[2017-03-11] MEDS: PANTOPRAZOLE 40 MG TABLET PO SCH (12:40)
--- NOTE | 2017-03-11 12:56 | NM ---
EXAMINATION TYPE: NM hepatobiliary w EF DATE OF EXAM: 03/11/2017 COMPARISON: NONE HISTORY: Jaundice. TECHNIQUE: After the intravenous administration of 5.2 mCi Tc 99m Mebrofenin hepatobiliary scintigrap hy is performed. Immediate images post injection. FINDINGS: There is a large amount of background activity. There is satisfactory initial accumulation of tracer by the liver. The gallbladder is visualized wit hin 90 minutes. Small bowel activity is not seen until after the ingestion of ensure. At 90 minutes, 8 ounces of oral ensure plus is given to mimic CCK and gallbladder ejection fraction is calculated at 53 %, in the normal range. Therefore there is no scintigraphic evidence of cystic or common bile du ct obstruction to suggest acute cholecystitis or gallbladder dyskinesia. IMPRESSION: NORMAL NUCLEAR MEDICINE HEPATOBILIARY SCAN WITH EJECTION FRACTION CALCULATION.
[2017-03-11] MEDS ORDERED: ERGOCALCIFEROL 50,000 UNIT CAP PO SCH (16:00)
[2017-03-11] MEDS: PIPERACILLIN-TAZOBACTAM 3.375 GM in DEXTROSE/WATER 1 50ML.BAG IVPB SCH ×2 (16:36→23:15)
--- NOTE | 2017-03-11 19:39 | PN ---
DATE OF SERVICE: 03/11/2017 REASON FOR FOLLOWUP: Possible cholecystitis. INTERVAL HISTORY: The patient did have a low-grade fever last night of 100.4; however, the patient has been afebrile since then. The patient has been breathing comfortably. Denies significant chest pain or shortness of breath or cough. No nausea, vomiting or any diarrhea. On examination, blood pressure is 143/75 with a pulse of 77, temperature 100.4. He is 92% on 2 L nasal cannula. General description is a middle-aged male lying in bed in no distress. RESPIRATORY SYSTEM: Unlabored breathing. Clear to auscultation anteriorly. HEART: S1, S2. Regular rate and rhythm. ABDOMEN: Soft. Slightly distended. Minimally tender. EXTREMITIES: No edema of the feet. LABS: Hemoglobin is 11.1, white count 4.8 with a BUN of 4, creatinine 0.70. DIAGNOSTIC IMPRESSION AND PLAN: Patient admitted to hospital with obstructive jaundice and concern about ascending cholangitis and cholecystitis, now with a low-grade fever. Will go ahead ( ) patient. Antibiotic ( ) Zosyn. Await the HIDA scan. Continue supportive care. MTDD
[2017-03-11] MEDS: HYDROcodone/APAP 10-325MG 1 EACH TAB PO PRN (20:08)
[2017-03-11] MEDS: PERPHENAZINE 4 MG TAB PO SCH (20:09)
[2017-03-11] MEDS: TAMSULOSIN 0.4 MG CAP.ER.24H PO SCH (20:09)
[2017-03-11] MEDS: QUEtiapine 200 MG TAB PO SCH (21:50)
[2017-03-11] MEDS: traZODone HCL 100 MG TAB PO SCH (21:50)
[2017-03-11] MEDS: NICOTINE 14MG/24HR PATCH TRANSDERM SCH (22:41)
[2017-03-12] MEDS: DEXTROSE 5%-0.9% NACL 1,000 ML IV SCH ×3 (07:03→20:31)
[2017-03-12] MEDS: PIPERACILLIN-TAZOBACTAM 3.375 GM in DEXTROSE/WATER 1 50ML.BAG IVPB SCH ×2 (07:53→16:18)
[2017-03-12] MEDS: HYDROcodone/APAP 10-325MG 1 EACH TAB PO PRN ×2 (07:53→18:14)
[2017-03-12] MEDS: LORazepam 1 MG TAB PO PRN (07:54)
[2017-03-12] MEDS: NICOTINE 14MG/24HR PATCH TRANSDERM SCH (07:55)
[2017-03-12] MEDS: ATENOLOL 50 MG TAB PO SCH (07:55)
[2017-03-12] MEDS: ESCITALOPRAM 20 MG TAB PO SCH (07:55)
[2017-03-12] MEDS: PANTOPRAZOLE 40 MG TABLET PO SCH (07:56)
[2017-03-12] MEDS: HYDROCHLOROTHIAZIDE 25 MG TAB PO SCH (07:56)
[2017-03-12] MEDS: LISINOPRIL 20 MG TAB PO SCH (07:56)
[2017-03-12 09:53] LABS: Basophils % (A) 0 %; CHCM 31.8; Eosinophils % (A) 1 %; HDW 2.36; HGB 12.6 gm/dL (13.0-17.5); Luc # (Auto) 0.22; Luc % (Auto) 4; Lymphocytes # (A) 0.9 k/uL (1.0-4.8); Lymphocytes % (A) 18 %; MCH 30.5 pg (25.0-35.0); MCHC 33.2 g/dL (31.0-37.0); MCV 91.8 fL (80.0-100.0); Mean Platelet Volume 7.3; Monocytes # (A) 0.5 k/uL (0-1.0); Monocytes % (A) 10 %; Neutrophils # (A) 3.4 k/uL (1.3-7.7); Neutrophils % (A) 67 %; RBC 4.14 m/uL (4.30-5.90); RDW 15.8 % (11.5-15.5); WBC (Perox) 5.15
[2017-03-12 10:16] LABS: ALT 731 U/L (21-72); AST 585 U/L (17-59); Alkaline Phosphatase 270 U/L (38-126); Anion Gap 9 mmol/L; Blood Urea Nitrogen 7 mg/dL (9-20); Calcium 8.4 mg/dL (8.4-10.2); Carbon Dioxide 27 mmol/L (22-30); Chloride 107 mmol/L (98-107); Glucose 138 mg/dL (74-99); Non-African American GFR(MDRD) >60 (>60 ml/min/1.73 sqM); Sodium 143 mmol/L (137-145); Total Bilirubin 11.9 mg/dL (0.2-1.3); Total Protein 5.3 g/dL (6.3-8.2)
[2017-03-12] MEDS: HYDROmorphone 1 MG/ML 1 ML SYRINGE IVP PRN ×3 (11:05→20:21)
[2017-03-12] MEDS ORDERED: Potassium Replacement Protocol 1 EACH MISC MISCELLANE PRN (11:14)
[2017-03-12] MEDS: POTASSIUM CHLORIDE ER 20 MEQ TAB.ER PO SCH ×2 (13:02→16:02)
--- NOTE | 2017-03-12 13:16 | PN ---
SUBJECTIVE: A 61-year-old white male with acute cholecystitis, acute liver failure. Remains on empiric antibiotics. Surgical consultation with Dr. Grubbs and Dr. Carter are both ( ). On exam, he still appears to be jaundiced. Creatinine is 0.70. HEART: S1, S2. LUNGS: Clear to auscultation. GI: Soft, tender to palpitation in the right upper quadrant. IV Zosyn and HIDA scan have been ordered. Possible surgical repair will be needed by Dr. Bradford. Continue with antibiotics at this time. Await HIDA scan report. Possible surgery will be done or treated for hepatitis by GI physicians. SHERRY
--- NOTE | 2017-03-12 18:33 | P.PN ---
Subjective Principal diagnosis: Elevated liver enzymes Patient still having some abdominal discomfort. Liver enzymes remain elevated. HIDA scan shows no evidence of cystic duct occlusion or common bile duct obstruction at this time. Objective - Vital Signs Vital signs: Vital Signs Temp 97.3 F L 03/12/17 15:00 Pulse 52 L 03/12/17 15:00 Resp 16 03/12/17 15:00 BP 161/88 03/12/17 15:00 Pulse Ox 90 L 03/12/17 15:00 Intake & Output 03/11/17 03/12/17 03/12/17 18:59 06:59 18:59 Intake Total 1100 Balance 1100 Intake: Intake, IV Titration 1100 Amount Ampicillin-Sulbactam 1.5 100 gm In Sodium Chloride 0.9 % 50 ml @ 100 mls/hr IVPB Q6HR ADRIAN Rx#:[id number] Dextrose 5%-0.9% NaCl 1, 1000 000 ml @ 125 mls/hr IV . Q8H ADRIAN Rx#:[id number] Other: # Voids 2 1 1 # Bowel Movements 1 - Exam Abdomen: Soft, mild distention, jaundiced, mild mid abdominal tenderness - Labs CBC & Chem 7: 03/12/17 09:10 03/12/17 09:10 Labs: Abnormal Lab Results - Last 24 Hours (Table) 03/12/17 03/12/17 Range/Units 09:10 09:10 RBC 4.14 L (4.30-5.90) m/uL Hgb 12.6 L (13.0-17.5) gm/dL Hct 38.0 L (39.0-53.0) % RDW 15.8 H (11.5-15.5) % Lymphocytes # 0.9 L (1.0-4.8) k/uL Potassium 3.0 L* (3.5-5.1) mmol/L BUN 7 L (9-20) mg/dL Glucose 138 H (74-99) mg/dL Total Bilirubin 11.9 H (0.2-1.3) mg/dL AST 585 H (17-59) U/L ALT 731 H (21-72) U/L Alkaline Phosphatase 270 H (38-126) U/L Total Protein 5.3 L (6.3-8.2) g/dL Albumin 2.9 L (3.5-5.0) g/dL Lipase 452 H (23-300) U/L Microbiology - Last 24 Hours (Table) 03/11/17 16:00 Blood Culture - Preliminary Blood No Growth after 24 hours 03/11/17 15:49 Blood Culture - Preliminary Blood No Growth after 24 hours 03/06/17 14:09 Blood Culture - Final Blood No Growth after 144 hours Assessment and Plan (1) Elevated liver enzymes Narrative/Plan: Given the clinical picture persistent obstructive jaundice seems unlikely. Repeat attempts at ERCP or MRCP per GI. Continue following liver enzymes closely. No immediate plans for cholecystectomy. Status: Acute
--- NOTE | 2017-03-12 19:06 | PN ---
DATE OF SERVICE: 03/12/2017 REASON FOR FOLLOWUP: Possible cholangitis with a question of cholecystitis. INTERVAL HISTORY: The patient overall feels better and has improved. No fever recorded since last night. Has been breathing comfortably. ( ) abdominal pain has slightly improved. Does have some diarrhea. Tolerating clear liquids. No nausea or vomiting. On examination, blood pressure is 168/81 with a pulse of 73, temperature 98.6. He is 95% on 2 L nasal cannula. General description is a middle-aged male lying in bed in no distress. RESPIRATORY SYSTEM: Unlabored breathing. Clear to auscultation anteriorly. HEART: S1, S2. Regular rate and rhythm. ABDOMEN: Soft. Slightly distended but not as tender. LABS: Hemoglobin is 12.3, white count 5.0 with a BUN of 7, creatinine 0.80. Liver enzymes slightly worse, especially bilirubin. DIAGNOSTIC IMPRESSION AND PLAN: Patient with a low-grade fever in a patient admitted to hospital with obstructive jaundice, status post ERCP. Patient's bilirubin is still elevated. HIDA scan was negative, though the ultrasound is suspicious for gallbladder wall thickening. He did have a low-grade fever, for which the patient has been on Zosyn. Fever seems to have responded. Will wait for the culture to finalize and await further workup per Surgery and GI team. JABARID
[2017-03-12] MEDS: PERPHENAZINE 4 MG TAB PO SCH (20:26)
[2017-03-12] MEDS: traZODone HCL 100 MG TAB PO SCH (20:27)
[2017-03-12] MEDS: QUEtiapine 200 MG TAB PO SCH (20:27)
[2017-03-12] MEDS: TAMSULOSIN 0.4 MG CAP.ER.24H PO SCH (20:27)
[2017-03-13] MEDS: PIPERACILLIN-TAZOBACTAM 3.375 GM in DEXTROSE/WATER 1 50ML.BAG IVPB SCH ×4 (00:11→23:55)
[2017-03-13] MEDS: HYDROmorphone 1 MG/ML 1 ML SYRINGE IVP PRN ×5 (00:50→23:54)
[2017-03-13] MEDS: LORazepam 1 MG TAB PO PRN ×3 (03:13→21:26)
[2017-03-13] MEDS: DEXTROSE 5%-0.9% NACL 1,000 ML IV SCH ×3 (06:28→21:31)
--- NOTE | 2017-03-13 08:03 | PN ---
SUBJECTIVE: A 61-year-old white male who was admitted to the hospital with acute jaundice, acute abdominal pain as well as ( ) abdominal pain across the abdomen awaiting for GI to see the patient as well as Surgery for possible surgery. His HIDA scan was negative. CARDIOVASCULAR: S1 and S2. GI: Diffuse tenderness across the abdomen. EXTREMITIES: No cyanosis, clubbing or edema. NEUROLOGIC: Alert and oriented x3. ASSESSMENT: 1. Acute abdominal ( ) secondary to choledocholithiasis. 2. Acute jaundice secondary to choledocholithiasis, status post ERCP. 3. Hepatitis C. 4. Hypokalemia. 5. Multiple medical conditions. Continue with current treatments. Await for Surgery recommendations and GI recommendations. Hypokalemia will be replaced with potassium electrolyte protocol. All his liver enzymes still remain high with ALT of 731 and AST of 585 , although every day it is improving. He has got a protein level low at 292. Lipase is high at 452. He still has acute pancreatitis secondary to possibly gallbladder disease. MTDD
[2017-03-13] MEDS: NICOTINE 14MG/24HR PATCH TRANSDERM SCH (08:29)
[2017-03-13] MEDS: HYDROcodone/APAP 10-325MG 1 EACH TAB PO PRN ×2 (08:29→21:26)
[2017-03-13] MEDS: LISINOPRIL 20 MG TAB PO SCH (08:29)
[2017-03-13] MEDS: ATENOLOL 50 MG TAB PO SCH (08:30)
[2017-03-13] MEDS: HYDROCHLOROTHIAZIDE 25 MG TAB PO SCH (08:30)
[2017-03-13] MEDS: PANTOPRAZOLE 40 MG TABLET PO SCH (08:31)
[2017-03-13] MEDS: ESCITALOPRAM 20 MG TAB PO SCH (08:31)
[2017-03-13 10:45] LABS: INR 1.7 (<1.2); Prothrombin Time 16.1 sec (9.0-12.0)
[2017-03-13 11:09] LABS: ALT 694 U/L (21-72); AST 655 U/L (17-59); Alkaline Phosphatase 264 U/L (38-126); Anion Gap 6 mmol/L; Blood Urea Nitrogen 8 mg/dL (9-20); Calcium 8.4 mg/dL (8.4-10.2); Carbon Dioxide 29 mmol/L (22-30); Chloride 103 mmol/L (98-107); Glucose 87 mg/dL (74-99); Non-African American GFR(MDRD) >60 (>60 ml/min/1.73 sqM); Potassium 3.4 mmol/L (3.5-5.1); Sodium 138 mmol/L (137-145); Total Bilirubin 12.5 mg/dL (0.2-1.3); Total Protein 5.2 g/dL (6.3-8.2)
--- NOTE | 2017-03-13 11:48 | P.PN ---
Subjective Principal diagnosis: Acute hepatitis 61-year-old male admitted with abdominal pain jaundice acute hepatitis with reactive hepatitis C antibody and positive quantative measurement. Status post ERCP last week with findings of filling defect status post sphincterotomy without clear visualization of stone passage. Total bilirubin 12.5. Transaminases improving but unchanged from yesterday. INR 1.7. Reports abdominal pain mid abdomen. Lipase 272. Objective - Vital Signs Vital signs: Vital Signs Temp 98.3 F 03/13/17 07:00 Pulse 59 L 03/13/17 07:00 Resp 18 03/13/17 07:00 BP 158/88 03/13/17 07:00 Pulse Ox 91 L 03/13/17 07:00 Intake & Output 03/12/17 03/13/17 03/13/17 18:59 06:59 18:59 Other: # Voids 1 1 # Bowel Movements 1 0 - Exam OGeneral appearance: The patient is alert, oriented, in no acute distress. Jaundice HET: Head is normocephalic and atraumatic. Pupils are equal and reactive. Sclera icterus. Oropharynx is clear without lesions. Neck: Supple without lymphadenopathy. Trachea midline. Heart: S1 S2. Regular rate and rhythm. Lungs: No crackles or wheezes are heard. Abdomen: Soft, tender to midabdomen, nondistended with bowel sounds. No peritoneal signs. No palpable organomegaly or masses. Extremities: Normal skin color and turgor. No cyanosis, rash, ulceration, clubbing, or edema. Radial and pedal pulses are 2/4 bilaterally. Neurological: No focal deficits. Strength and sensation are grossly intact.am - Labs CBC & Chem 7: 03/12/17 09:10 03/13/17 10:17 Labs: Abnormal Lab Results - Last 24 Hours (Table) 03/13/17 03/13/17 Range/Units 10:17 10:17 PT 16.1 H (9.0-12.0) sec INR 1.7 H (<1.2) Potassium 3.4 L (3.5-5.1) mmol/L BUN 8 L (9-20) mg/dL Total Bilirubin 12.5 H (0.2-1.3) mg/dL AST 655 H (17-59) U/L ALT 694 H (21-72) U/L Alkaline Phosphatase 264 H (38-126) U/L Total Protein 5.2 L (6.3-8.2) g/dL Albumin 2.8 L (3.5-5.0) g/dL Microbiology - Last 24 Hours (Table) 03/11/17 16:00 Blood Culture - Preliminary Blood No Growth after 24 hours 03/11/17 15:49 Blood Culture - Preliminary Blood No Growth after 24 hours 03/06/17 14:09 Blood Culture - Final Blood No Growth after 144 hours Assessment and Plan (1) Hepatitis Narrative/Plan: Presentation could be multifactorial possible acute hepatitis C infection possible chronic with transaminases greater than 20 times the upper limit of normal with jaundice with superimposed choledocholithiasis. Positive HCV RNA cannot entirely distinguish an acute versus chronic infection. No previous hepatitis screening is available at this time. General surgery evaluating for cholecystitis. Status: Acute (2) Obstructive jaundice Narrative/Plan: Secondary to suspected choledocholithiasis status post ERCP with filling defect identified status post sphincterotomy. Status: Acute (3) Elevated liver enzymes Status: Acute (4) Hepatitis C antibody positive in blood Status: Acute Plan: 1. Overall clinical presentation presently appears to be related to acute hepatitis. Dr. Quiroz recommends no further workup at this time. We'll defer to general surgery and medicine for further recommendations. ID following patient. F/U GI office and PCP after DC. Assessment and plan of care discussed with Dr. Quiroz.
--- NOTE | 2017-03-13 13:01 | P.PN ---
Subjective Principal diagnosis: Elevated liver enzymes Patient says he feels about the same. Abdominal discomfort seems worse in the morning hours. He is tolerating his diet. No nausea or vomiting. Bilirubin actually went up higher to 12.5. Objective - Vital Signs Vital signs: Vital Signs Temp 98.3 F 03/13/17 07:00 Pulse 59 L 03/13/17 07:00 Resp 18 03/13/17 07:00 BP 158/88 03/13/17 07:00 Pulse Ox 91 L 03/13/17 07:00 Intake & Output 03/12/17 03/13/17 03/13/17 18:59 06:59 18:59 Other: # Voids 1 1 # Bowel Movements 1 0 - Exam Abdomen: Soft, mild distention, mild diffuse tenderness - Labs CBC & Chem 7: 03/12/17 09:10 03/13/17 10:17 Labs: Abnormal Lab Results - Last 24 Hours (Table) 03/13/17 03/13/17 Range/Units 10:17 10:17 PT 16.1 H (9.0-12.0) sec INR 1.7 H (<1.2) Potassium 3.4 L (3.5-5.1) mmol/L BUN 8 L (9-20) mg/dL Total Bilirubin 12.5 H (0.2-1.3) mg/dL AST 655 H (17-59) U/L ALT 694 H (21-72) U/L Alkaline Phosphatase 264 H (38-126) U/L Total Protein 5.2 L (6.3-8.2) g/dL Albumin 2.8 L (3.5-5.0) g/dL Microbiology - Last 24 Hours (Table) 03/11/17 16:00 Blood Culture - Preliminary Blood No Growth after 24 hours 03/11/17 15:49 Blood Culture - Preliminary Blood No Growth after 24 hours 03/06/17 14:09 Blood Culture - Final Blood No Growth after 144 hours Assessment and Plan (1) Elevated liver enzymes Narrative/Plan: Continue following liver enzymes. Defer to GI for management of hepatitis. Will follow. Status: Acute
--- NOTE | 2017-03-13 13:07 | CDI ---
In responding to this query, please exercise your independent professional judgment. The [facility] Coding Staff and Clinical Documentation Specialists appreciate your assistance in clarifying documentation, maintaining compliance with coding guidelines, accurately documenting patients condition and capturing severity of illness. The fact that a question is asked does not imply that any particular answer is desired or expected. Communication forms are a method of clarifying documentation and are not made part of the Legal Health Record. Thank you in advance for your clarification. Last Revision, Sep 2016 Crow Atkins [address] [place] [address] Documentation Clarification Form Date: 03/13/2017 11:57:00 AM From: Sasha Mina RN CCDS Admit Date: 03/05/2017 10:14:00 AM Patient Name: Rambo Horan Visit Number: [id number] Discharge Date: Dr. Medardo Hernandez Splenic hematoma and liver hematoma is documented in the progress notes on and in the CT report. Preoperative diagnosis: Suspected common bile duct stone Post-Operative Diagnosis: Dilated common bile duct with filling defect suggestive of stone Procedure performed: 03/06/17: ERCP and Sphincterostomy History/Risk Factors: Hypertension, Pancreatitis, Nephrolithiasis, Hepatitis C positive Clinical Indicators: There is new small amount of nonsimple fluid along the anterior superior margin of liver felt to reflect hematoma. Labs: 03/06/17 HGB 13.5, HCT 40.5 03/07/17 HGB 10.9, HCT 33.0 Spleen: there is new curvilinear Hyperdensity surrounding posterior medial margin of spleen consistent with acute small subcapsular hematoma measuring up to 1.3 cm in thickness medially on axial image. Treatment: Monitor Lab 03/11/17 surgery: Question of the hematoma around the spleen and liver not sure as to the etiology. Suspect this may be ascetic fluid. In order to accurately reflect this patients severity of illness, please clarify if the post-operative diagnosis is: An expected post-procedural or post-surgical condition Integral to the procedure Inherent to the procedure An unexpected post-procedural or post-surgical condition, or related to surgical care Other, please specify (and if unrelated to procedure) Unable to determine Please document in your progress notes in order to capture severity of illness and risk of mortality. Include clinical findings that support your diagnosis. FYI: Press F11 to launch patient chart Place X here if this finding has no clinical significance, is not applicable or if you are not able to provide any additional documentation. SHERRY
--- NOTE | 2017-03-13 20:39 | PN ---
DATE OF SERVICE: 03/13/2017 REASON FOR FOLLOWUP: Fever with a question of possible cholangitis and cholecystitis. INTERVAL HISTORY: The patient is afebrile. He is still complaining of abdominal pain and some nausea but no vomiting. Denies significant chest pain or shortness of breath or cough. On examination, blood pressure is 158/88 with a pulse of 59, temperature 98.3. He is 91% on room air. General description is a middle-aged male lying in bed in no distress. RESPIRATORY SYSTEM: Unlabored breathing. Clear to auscultation anteriorly. HEART: S1, S2. Regular rate and rhythm. ABDOMEN: Soft. Slightly distended but not as tender. LABS: BUN of 8, creatinine 0.70 with bilirubin up to 12.5. DIAGNOSTIC IMPRESSION AND PLAN: Patient with a low-grade fever in a patient admitted to hospital with obstructive jaundice, status post ERCP with concern about possible cholangitis. Cholecystitis has been ruled out. So far cultures are negative. The fever responded to Zosyn. That will be continued. Hopefully finish therapy with oral antibiotics for a short course. Continue supportive care. SHERRY
[2017-03-13] MEDS: traZODone HCL 100 MG TAB PO SCH (21:26)
[2017-03-13] MEDS: PERPHENAZINE 4 MG TAB PO SCH (21:26)
[2017-03-13] MEDS: QUEtiapine 200 MG TAB PO SCH (21:26)
[2017-03-13] MEDS: TAMSULOSIN 0.4 MG CAP.ER.24H PO SCH (21:26)
[2017-03-14] MEDS: HYDROmorphone 1 MG/ML 1 ML SYRINGE IVP PRN ×3 (04:12→18:40)
[2017-03-14] MEDS: DEXTROSE 5%-0.9% NACL 1,000 ML IV SCH ×2 (06:28→13:39)
[2017-03-14] MEDS: PANTOPRAZOLE 40 MG TABLET PO SCH (08:07)
[2017-03-14] MEDS: NICOTINE 14MG/24HR PATCH TRANSDERM SCH (08:07)
[2017-03-14] MEDS: PIPERACILLIN-TAZOBACTAM 3.375 GM in DEXTROSE/WATER 1 50ML.BAG IVPB SCH ×2 (08:07→16:04)
[2017-03-14] MEDS: ATENOLOL 50 MG TAB PO SCH (08:07)
[2017-03-14] MEDS: ESCITALOPRAM 20 MG TAB PO SCH (08:08)
[2017-03-14] MEDS: LISINOPRIL 20 MG TAB PO SCH (08:08)
[2017-03-14] MEDS: HYDROCHLOROTHIAZIDE 25 MG TAB PO SCH (08:08)
[2017-03-14] MEDS: HYDROcodone/APAP 10-325MG 1 EACH TAB PO PRN ×2 (08:30→21:35)
--- NOTE | 2017-03-14 11:58 | P.PN ---
Progress Note - Text Clarification to physician inquiry postoperative diagnosis unable to determine. Small cyndi-splenic and perihepatic liver hematoma per CT report unclear etiology.
--- NOTE | 2017-03-14 12:00 | P.PN ---
Subjective Principal diagnosis: Acute hepatitis 61-year-old male admitted with abdominal pain jaundice acute hepatitis with reactive hepatitis C antibody and positive quantative measurement. Status post ERCP last week with findings of filling defect status post sphincterotomy without clear visualization of stone passage. Total bilirubin 12.5 yesterday. Transaminases improving but unchanged from yesterday. Reports abdominal pain mid abdomen. Objective - Vital Signs Vital signs: Vital Signs Temp 98.1 F 03/14/17 07:00 Pulse 64 03/14/17 07:00 Resp 16 03/14/17 07:00 BP 162/86 03/14/17 07:00 Pulse Ox 90 L 03/14/17 07:00 Intake & Output 03/13/17 03/14/17 03/14/17 18:59 06:59 18:59 Weight 84.302 kg Other: Voiding Method Toilet # Voids 3 2 1 # Bowel Movements 1 - Exam OGeneral appearance: The patient is alert, oriented, in no acute distress. Jaundice HET: Head is normocephalic and atraumatic. Pupils are equal and reactive. Sclera icterus. Oropharynx is clear without lesions. Neck: Supple without lymphadenopathy. Trachea midline. Heart: S1 S2. Regular rate and rhythm. Lungs: No crackles or wheezes are heard. Abdomen: Soft, tender to midabdomen, nondistended with bowel sounds. No peritoneal signs. No palpable organomegaly or masses. Extremities: Normal skin color and turgor. No cyanosis, rash, ulceration, clubbing, or edema. Radial and pedal pulses are 2/4 bilaterally. Neurological: No focal deficits. Strength and sensation are grossly intact.am - Labs CBC & Chem 7: 03/12/17 09:10 03/13/17 10:17 Labs: Microbiology - Last 24 Hours (Table) 03/11/17 16:00 Blood Culture - Preliminary Blood No Growth after 48 hours 03/11/17 15:49 Blood Culture - Preliminary Blood No Growth after 48 hours Assessment and Plan (1) Hepatitis Narrative/Plan: Presentation could be multifactorial possible acute hepatitis C infection possible chronic with transaminases greater than 20 times the upper limit of normal with jaundice with superimposed choledocholithiasis. Positive HCV RNA cannot entirely distinguish an acute versus chronic infection. No previous hepatitis screening is available at this time. General surgery evaluating for cholecystitis. Status: Acute (2) Obstructive jaundice Narrative/Plan: Secondary to suspected choledocholithiasis status post ERCP with filling defect identified status post sphincterotomy. Status: Acute (3) Elevated liver enzymes Status: Acute (4) Hepatitis C antibody positive in blood Status: Acute Plan: 1. CMP today. Overall clinical presentation presently appears to be related to acute hepatitis. Dr. Quiroz recommends no further workup at this time. We' ll defer to general surgery and medicine for further recommendations. ID following patient. F/U GI office and PCP after DC. Assessment and plan of care discussed with Dr. Quiroz.
[2017-03-14 13:07] LABS: ALT 644 U/L (21-72); AST 636 U/L (17-59); Alkaline Phosphatase 249 U/L (38-126); Anion Gap 6 mmol/L; Blood Urea Nitrogen 6 mg/dL (9-20); Calcium 8.4 mg/dL (8.4-10.2); Carbon Dioxide 29 mmol/L (22-30); Chloride 102 mmol/L (98-107); Glucose 94 mg/dL (74-99); Non-African American GFR(MDRD) >60 (>60 ml/min/1.73 sqM); Potassium 3.1 mmol/L (3.5-5.1); Sodium 137 mmol/L (137-145); Total Bilirubin 12.7 mg/dL (0.2-1.3); Total Protein 5.3 g/dL (6.3-8.2)
[2017-03-14] MEDS: POTASSIUM CHLORIDE ER 20 MEQ TAB.ER PO SCH ×2 (13:39→14:53)
--- NOTE | 2017-03-14 15:10 | PN ---
DATE OF SERVICE: 03/13/2017 SUBJECTIVE: [id number] white male with acute hepatitis C, acute choledocholithiasis, status post ERCP which ( ). His bilirubin remains 12 with diffuse jaundice. CARDIOVASCULAR: S1, S2. LUNGS: Clear. GI: Tenderness to palpation, diffuse abdomen. INTEGUMENT: Yellowing of the skin. VASCULAR: Normal dorsalis pedis, posterior tibial and radial pulses. ASSESSMENT: 1. Acute hepatitis C. 2. Acute choledocholithiasis. 3. Acute jaundice. 4. Acute abdominal pain secondary to acute choledocholithiasis. Possible transfer to [facility] will be done if gallbladder is not removed or if further ERCP is not performed due to extensive jaundice and abdominal pain not improving. [facility]
--- NOTE | 2017-03-14 17:32 | PN ---
DATE OF SERVICE: 03/14/17 REASON FOR FOLLOW UP: Question of possible cholangitis and cholecystitis. INTERVAL HISTORY: The patient's fever has resolved. Still complaining of abdominal pain and did have an episode of vomiting yesterday. Today has been tolerating a regular diet though. The patient denies significant chest pain or shortness of breath or cough. On examination, blood pressure 162/86 with a pulse of 54. Temperature 98.1. He is 98% on room air. General description is a middle aged male lying in bed in no distress. Respiratory system unlabored breathing. Clear to auscultation anteriorly. Heart S1, S2 regular rate and rhythm. Abdomen soft. Slightly distended. Labs are bilirubin remains to be elevated with slight improvement in AST/ALT. Cultures have been negative. DIAGNOSTIC IMPRESSION AND PLAN: The patient admitted to the hospital with obstructive jaundice status post ERCP in a patient with ( ) with persistently elevated bilirubin. Did have CT of the abdomen and pelvis. There is possibility of cholecystitis that was ruled out by HIDA scan. Currently on Zosyn. ( ) continue for now. Wait for further workup per GI. Continue supportive care. MTDD
--- NOTE | 2017-03-14 19:21 | P.PN ---
Progress Note - Text The patient feels better. He is still jaundiced. On exam his vital signs are stable. His abdomen soft there is some mild mid abdominal pain. There is no rebound or guarding. Status post ERCP with stone removal. The patient had a filling defect on his ERCP. His liver enzymes and bilirubin have still not decreased. There is thought this may be due to hepatitis. The patient will be observed. When he is medically stable we will consider laparoscopic cholecystectomy
[2017-03-14] MEDS: TAMSULOSIN 0.4 MG CAP.ER.24H PO SCH (21:34)
[2017-03-14] MEDS: LORazepam 1 MG TAB PO PRN (21:34)
[2017-03-14] MEDS: PERPHENAZINE 4 MG TAB PO SCH (21:34)
[2017-03-14] MEDS: traZODone HCL 100 MG TAB PO SCH (21:34)
[2017-03-14] MEDS: QUEtiapine 200 MG TAB PO SCH (21:34)
[2017-03-15] MEDS: PIPERACILLIN-TAZOBACTAM 3.375 GM in DEXTROSE/WATER 1 50ML.BAG IVPB SCH ×4 (00:49→23:39)
[2017-03-15] MEDS: DEXTROSE 5%-0.9% NACL 1,000 ML IV SCH ×4 (00:51→23:39)
[2017-03-15] MEDS: HYDROmorphone 1 MG/ML 1 ML SYRINGE IVP PRN ×4 (01:33→21:03)
[2017-03-15] MEDS: NICOTINE 14MG/24HR PATCH TRANSDERM SCH (08:16)
[2017-03-15] MEDS: ATENOLOL 50 MG TAB PO SCH (08:17)
[2017-03-15] MEDS: HYDROCHLOROTHIAZIDE 25 MG TAB PO SCH (08:17)
[2017-03-15] MEDS: PANTOPRAZOLE 40 MG TABLET PO SCH (08:17)
[2017-03-15] MEDS: LISINOPRIL 20 MG TAB PO SCH (08:17)
[2017-03-15] MEDS: ESCITALOPRAM 20 MG TAB PO SCH (08:17)
[2017-03-15 08:34] LABS: INR 1.6 (<1.2); Prothrombin Time 15.7 sec (9.0-12.0)
[2017-03-15 08:49] LABS: ALT 582 U/L (21-72); AST 586 U/L (17-59); Alkaline Phosphatase 263 U/L (38-126); Anion Gap 5 mmol/L; Blood Urea Nitrogen 7 mg/dL (9-20); Calcium 8.3 mg/dL (8.4-10.2); Carbon Dioxide 27 mmol/L (22-30); Chloride 106 mmol/L (98-107); Glucose 91 mg/dL (74-99); Non-African American GFR(MDRD) >60 (>60 ml/min/1.73 sqM); Potassium 3.3 mmol/L (3.5-5.1); Sodium 138 mmol/L (137-145); Total Bilirubin 12.2 mg/dL (0.2-1.3); Total Protein 5.2 g/dL (6.3-8.2)
[2017-03-15] MEDS: HYDROcodone/APAP 10-325MG 1 EACH TAB PO PRN ×2 (11:28→15:44)
[2017-03-15] MEDS: POTASSIUM CHLORIDE 10 MEQ, LIDOCAINE 2% INJ 10 MG in SODIUM CHLORIDE 0.9% 100 ML IVPB SCH ×2 (12:21→14:13)
--- NOTE | 2017-03-15 13:11 | P.PN ---
Progress Note - Text The patient still has some complaints of mid abdominal pain. He denies a significant right upper quadrant pain. On exam is lesser stable. His abdomen soft. Patient has liver function tests which are essentially unchanged. We will plan for laparoscopic cholecystectomy once he is medically stable.
--- NOTE | 2017-03-15 16:29 | PN ---
DATE OF SERVICE: 03/15/2017 This patient is a 61-year-old white male admitted to the hospital with abdominal pain, elevated LFTs and jaundice. He underwent an ERCP by Dr. Hernandez 5 days ago which was unremarkable. In the meantime, he continues to have persistent elevation of total bilirubin, and further workup revealed hepatitis C viral RNA that was positive, also suggestive of either acute hepatitis C infection versus chronic hepatitis C infection with superimposed acute hepatitis. In either event, patient is doing well. He does complain of vague right upper quadrant abdominal pain. He denies any nausea or vomiting; tolerating diet well. On physical examination, he appears comfortable, in no apparent distress. Vital signs are stable. Blood pressure is 130/82, pulse rate 86 per minute and afebrile. HEENT EXAMINATION: Unremarkable. Conjunctive pink. Sclerae deeply icteric. Oral cavity with no lesions. NECK: No JVD or lymph node enlargement. Chest was clear to auscultation. HEART: Regular rate and rhythm. ABDOMEN: Soft. Mild tenderness in the epigastric area. Bowel sounds are positive. No organomegaly. EXTREMITIES: No pedal edema. SKIN: No rashes. NEURO: Alert and oriented x3. No focal deficits. Labs done today shows T-bili is 12.2, AST 586, ALT 582, alkaline phosphatase 263. INR 1.6. IMPRESSION: Acute hepatocellular injury with intrahepatic cholestasis, most likely related to acute hepatitis C infection, but possibility of chronic hepatitis C with ( ) acute hepatitis cannot be excluded. HCV RNA was reported as positive. Patient has no known history of viral hepatitis in the past. He is status post ERCP and no obvious CBD pathology identified. RECOMMENDATIONS: 1. If his LFTs continue to remain stable, patient can be discharged home with close outpatient followup on a weekly basis. 2. In regards to the hepatitic C infection, will repeat labs in 6 months, and if he still has persistence of HCV viral RNA, will consider antiviral therapy at that time. At this time we will follow him closely in this hospital setting. Thank you for this consultation. SHERRY
[2017-03-15] MEDS: QUEtiapine 200 MG TAB PO SCH (21:23)
[2017-03-15] MEDS: PERPHENAZINE 4 MG TAB PO SCH (21:25)
[2017-03-15] MEDS: LORazepam 1 MG TAB PO PRN (21:25)
[2017-03-15] MEDS: traZODone HCL 100 MG TAB PO SCH (21:25)
[2017-03-15] MEDS: TAMSULOSIN 0.4 MG CAP.ER.24H PO SCH (21:25)
[2017-03-16] MEDS: HYDROmorphone 1 MG/ML 1 ML SYRINGE IVP PRN ×4 (07:27→20:06)
[2017-03-16] MEDS: DEXTROSE 5%-0.9% NACL 1,000 ML IV SCH ×3 (07:31→20:06)
[2017-03-16] MEDS: LISINOPRIL 20 MG TAB PO SCH (07:41)
[2017-03-16] MEDS: PIPERACILLIN-TAZOBACTAM 3.375 GM in DEXTROSE/WATER 1 50ML.BAG IVPB SCH ×3 (07:41→23:08)
[2017-03-16] MEDS: NICOTINE 14MG/24HR PATCH TRANSDERM SCH (07:41)
[2017-03-16] MEDS: PANTOPRAZOLE 40 MG TABLET PO SCH (07:42)
[2017-03-16] MEDS: ATENOLOL 50 MG TAB PO SCH (07:42)
[2017-03-16] MEDS: ESCITALOPRAM 20 MG TAB PO SCH (07:42)
[2017-03-16] MEDS: HYDROCHLOROTHIAZIDE 25 MG TAB PO SCH (07:42)
[2017-03-16 09:22] LABS: ALT 507 U/L (21-72); AST 436 U/L (17-59); Alkaline Phosphatase 250 U/L (38-126); Anion Gap 8 mmol/L; Blood Urea Nitrogen 7 mg/dL (9-20); Calcium 8.5 mg/dL (8.4-10.2); Carbon Dioxide 25 mmol/L (22-30); Chloride 105 mmol/L (98-107); Glucose 149 mg/dL (74-99); Non-African American GFR(MDRD) >60 (>60 ml/min/1.73 sqM); Potassium 3.6 mmol/L (3.5-5.1); Sodium 138 mmol/L (137-145); Total Bilirubin 11.7 mg/dL (0.2-1.3); Total Protein 5.5 g/dL (6.3-8.2)
--- NOTE | 2017-03-16 10:28 | P.PN ---
Progress Note - Text The patient has some minimal complaints of epigastric abdominal pain. His liver tests have remained essentially unchanged. On exam is lesser stable. His abdomen soft. Patient will be scheduled laparoscopic cholecystectomy as outpatient. Would like see improvement in his liver function tests prior to surgery.
[2017-03-16] MEDS: HYDROcodone/APAP 10-325MG 1 EACH TAB PO PRN (10:36)
[2017-03-16] MEDS ORDERED: POTASSIUM CHLORIDE ER 10 MEQ TAB.ER.PRT PO STA (10:37)
--- NOTE | 2017-03-16 12:10 | PN ---
SUBJECTIVE: 61-year-old white male with acute pancreatitis and acute liver enzyme elevation with bilirubin ( ) the last four days. If GI is unable to get the bilirubin down with surgery done on the gallbladder, the patient will need to be transferred. He continues to have abdominal pain and elevated bilirubin. CARDIOVASCULAR: S1/S2. LUNGS: Transmitted upper sounds. GI: There is tenderness to palpation diffusely across the abdomen. INTEGUMENT: Jaundice. ASSESSMENT: 1. Acute choledocholithiasis. 2. Acute bilirubin elevation. 3. Acute hepatic obstruction. Possible ERCP. [place] to the city for further treatment. 4. Hepatitis C positive. Will have to monitor this also. If liver enzymes do not improve, transfer will be done on Friday. [facility]
--- NOTE | 2017-03-16 12:41 | PN ---
DATE OF SERVICE: 03/15/2017 REASON FOR FOLLOW UP: Possible colangitis.. INTERVAL HISTORY: The patient is afebrile. He has continued to remain afebrile. Minimal pain. Some nausea but no vomiting. He denies significant chest pain. No shortness of breath or cough. On examination, blood pressure 124/87 with a pulse of 60, temperature 98.1. He is 92% on room air. GENERAL DESCRIPTION: Middle-aged male lying in bed in no distress. RESPIRATORY: Nonlabored breathing. Clear to auscultation anteriorly. HEART: S1/S2, regular rhythm. ABDOMEN: Slightly distended. ( ) tender. LABS: Bilirubin is still elevated at 12.2. The AST and ALT are slightly improved. Blood culture has been negative. DIAGNOSTIC IMPRESSION: 1. Patient with low grade fever in patient in hospital with obstructive jaundice status post an ERCP with no significant stone noticed with elevated bilirubin. A CT of the abdomen and pelvis suspicious for cholecystitis but was ruled out by HIDA scan. Patient has been responding to Zosyn, will be continued. Await for the workup per surgery and GI. May be referred to ( ) . Continue supportive care. MTDD
[2017-03-16] MEDS: ONDANSETRON ODT 4 MG TAB PO PRN (13:07)
[2017-03-16] MEDS: PERPHENAZINE 4 MG TAB PO SCH (20:07)
[2017-03-16] MEDS: TAMSULOSIN 0.4 MG CAP.ER.24H PO SCH (20:07)
[2017-03-16] MEDS: traZODone HCL 100 MG TAB PO SCH (21:29)
[2017-03-16] MEDS: QUEtiapine 200 MG TAB PO SCH (21:29)
[2017-03-17] MEDS: HYDROmorphone 1 MG/ML 1 ML SYRINGE IVP PRN ×3 (00:14→12:02)
[2017-03-17] MEDS: DEXTROSE 5%-0.9% NACL 1,000 ML IV SCH ×2 (05:47→14:04)
[2017-03-17 07:20] VITALS: BP 109/84; PULSE 52; RESP 14; TEMP 99.3
[2017-03-17] MEDS: PIPERACILLIN-TAZOBACTAM 3.375 GM in DEXTROSE/WATER 1 50ML.BAG IVPB SCH (07:30)
[2017-03-17] MEDS: PANTOPRAZOLE 40 MG TABLET PO SCH (07:30)
[2017-03-17] MEDS: NICOTINE 14MG/24HR PATCH TRANSDERM SCH (07:30)
[2017-03-17] MEDS: LISINOPRIL 20 MG TAB PO SCH (07:31)
[2017-03-17] MEDS: ESCITALOPRAM 20 MG TAB PO SCH (07:31)
[2017-03-17] MEDS: ATENOLOL 50 MG TAB PO SCH (07:31)
[2017-03-17] MEDS: HYDROCHLOROTHIAZIDE 25 MG TAB PO SCH (07:31)
[2017-03-17 09:00] LABS: ALT 407 U/L (21-72); AST 291 U/L (17-59); Alkaline Phosphatase 279 U/L (38-126); Anion Gap 8 mmol/L; Blood Urea Nitrogen 8 mg/dL (9-20); Calcium 8.4 mg/dL (8.4-10.2); Carbon Dioxide 27 mmol/L (22-30); Chloride 104 mmol/L (98-107); Glucose 87 mg/dL (74-99); Non-African American GFR(MDRD) >60 (>60 ml/min/1.73 sqM); Potassium 3.6 mmol/L (3.5-5.1); Sodium 139 mmol/L (137-145); Total Bilirubin 9.4 mg/dL (0.2-1.3); Total Protein 5.6 g/dL (6.3-8.2)
[2017-03-17] MEDS: HYDROcodone/APAP 10-325MG 1 EACH TAB PO PRN (10:46)
--- NOTE | 2017-03-17 11:44 | PN ---
SUBJECTIVE: 61-year-old white male, acute hepatitis C, acute choledocholithiasis, acute jaundice. Patient still having abdominal pain, worsening jaundice. He is scheduled possibly to be transferred down to [facility] tomorrow due to elevated bilirubins that are not relieving for surgical GI treatment. Vital signs are stable, afebrile. CARDIOVASCULAR: S1/S2. LUNGS: Clear. GI: Soft to palpation. Positive hepatomegaly . INTEGUMENT: Shows jaundice diffusely across the skin. PLAN: Transfer tomorrow to [facility] as patient is not improving from a medical standpoint here at the hospital. [facility]
--- NOTE | 2017-03-17 13:20 | PN ---
DATE OF SERVICE: 03/16/2017 REASON FOR FOLLOW UP: Possible cholangitis. INTERVAL HISTORY: The patient is afebrile. He is still complaining of pain in the lower abdominal area. The patient denies any chest pain. No shortness of breath. Some nausea but no vomiting and no diarrhea. On examination blood pressure is 143/79 with a pulse of 56, temperature 98.4. He is 94% on room air. GENERAL DESCRIPTION: Middle-aged male lying in bed in no distress. RESPIRATORY: Unlabored breathing. Clear to auscultation. HEART: S1/S2, irregular rhythm. ABDOMEN: Soft. Slightly distended. EXTREMITIES: No edema of feet. LABS: Liver profile has slightly improved. Blood cultures have been negative. DIAGNOSTIC IMPRESSION: Patient with low grade fever in patient admitted to hospital with obstructive jaundice status post ERCP, however, no stone was found with concerns for possible cholangitis. Patient is being treated with Zosyn and that will be continued with possible transfer to [facility] or repeat ERCP. Continue supportive care. [facility]
--- NOTE | 2017-03-17 16:12 | PN ---
DATE OF SERVICE: 03/17/2017 REASON FOR FOLLOWUP: Possible cholangitis. INTERVAL HISTORY: The patient is afebrile. He is feeling better. He was eating a banana and did mention he was feeling nauseous, but no vomiting; abdominal pain with no worsening; about the same; and no diarrhea. On examination, blood pressure 109/84 with a pulse of 52, temperature 99.3. He is 93% on room air. General description is a middle-aged male up in the bed in no distress. RESPIRATORY SYSTEM: Unlabored breathing. Clear to auscultation anteriorly. HEART: S1, S2. Regular rate and rhythm. ABDOMEN: Soft. Slightly distended. No guarding or rigidity. LABS: His bilirubin is down to 9.4 from initial high of 12.7. Cultures remain negative. DIAGNOSTIC IMPRESSION AND PLAN: Patient admitted to hospital with obstructive jaundice; did have low-grade fever with concern about possible cholangitis. Patient is status post ERCP, with no evidence of any stone. Surgery recommended the patient to be transferred to [facility] for further evaluation. Continue the patient on Zosyn until the patient is evaluated by ID Services at that facility. SHERRY
--- NOTE | 2017-03-17 18:58 | PN ---
DATE OF SERVICE: 03/17/2017 Patient is a 61-year-old white male, admitted to the hospital with acute hepatitis-like picture, noted to have jaundice and cholestasis. He underwent an ERCP by Dr. Hernandez a week ago which was unremarkable. In the meantime he continued to have persistent elevation of bilirubin and mild elevation of serum transaminases, which are gradually improving. He complains of some right upper quadrant abdominal pain but no nausea or vomiting. On physical examination he appears comfortable; no apparent distress. Vital signs are stable. Blood pressure 135/80, pulse rate 50. HEENT EXAMINATION: Unremarkable. Conjunctivae pink. Scleral anicteric. Oral cavity with no lesions. NECK: No JVD or lymph node enlargement. Chest was clear to auscultation. HEART: Regular rate and rhythm. Abdomen is soft. Bowel sounds are positive. No organomegaly. EXTREMITIES: No pedal edema. SKIN: No rashes. NEURO: He is alert and oriented x3. No focal deficits. Labs done today show total bilirubin down to 9.4, AST 291, ALT 406, alkaline phosphatase 279. IMPRESSION: Acute hepatitis-like picture, most likely related to either acute hepatitis infection or superimposed acute hepatitis on chronic hepatitis C infection. Patient clinically stable. LFTs are gradually improving. RECOMMENDATIONS: 1. He can be discharged home today with outpatient followup within a week. 2. In regards to chronic hepatitis infection, we will repeat labs on a frequent basis and consider antiviral therapy if he has persistent viral RNA. Plan was discussed with the patient. He is agreeable to it. Thank you for this consultation. SHERRY
--- NOTE | 2017-04-01 12:42 | DS ---
MEDICATIONS: 1. Lexapro 40 mg daily. 2. Tenormin 50 daily. 3. HydroDIURIL 25 daily. 4. Lisinopril 40 mg daily. 5. Vitamin D 50,000 units once a week. 6. Trazodone 300 daily. 7. Seroquel 600 daily. 8. Adderall 20 daily. 9. Ativan 1 mg b.i.d. 10. Flomax 0.4 mg daily. 11. Zofran 4 mg q8h p.r.n. 12. [place] 10 one b.i.d. 13. Trilafon 8 mg daily. 14. Testosterone injections 200 mg q21 days. CONDITION: Guarded. PROGNOSIS: Guarded. Patient was admitted with acute liver failure, bilirubin in the 15s which stayed there for most of his hospital stay. He was also found to have acute choledocholithiasis and bad gallbladder. No surgery was done due to hepatitis C being positive and elevated bilirubin being thought to be mostly due to some liver disease. GI physicians were unable to lower the bilirubin down to the decent level at which time the patient was transferred to [facility] for further treatment of elevated bilirubin evaluation as bilirubin stayed over 15 for prolonged period of time. Please see further orders. MTDD
== END 2017-03-17 15:14 | disposition short-term general hospital (02) | DRG 441 ==
LOC: 4MS4W 10:14
PROVIDERS: ADMIT Family Medicine; ATTEND Family Medicine
PROC: BF101ZZ Fluoroscopy of Bile Ducts using Low Osmolar Contrast (ICD-10-PCS; principal; 2017-03-06 07:55)
PROC: 0F798ZZ Dilation of Common Bile Duct, Via Natural or Artificial Opening Endoscopic (ICD-10-PCS; principal; 2017-03-06 07:55)
DX: B17.10 Acute hepatitis C without hepatic coma (principal); K72.00 Acute and subacute hepatic failure without coma; J90 Pleural effusion, not elsewhere classified; E46 Unspecified protein-calorie malnutrition; K80.66 Calculus of gallbladder and bile duct with acute and chronic cholecystitis without obstruction; B18.2 Chronic viral hepatitis C; E87.6 Hypokalemia; F12.90 Cannabis use, unspecified, uncomplicated; F17.210 Nicotine dependence, cigarettes, uncomplicated; F31.9 Bipolar disorder, unspecified; F41.9 Anxiety disorder, unspecified; F90.9 Attention-deficit hyperactivity disorder, unspecified type; I10 Essential (primary) hypertension; Z79.899 Other long term (current) drug therapy; Z82.49 Family history of ischemic heart disease and other diseases of the circulatory system; Z87.442 Personal history of urinary calculi; D73.5 Infarction of spleen
CPT/HCPCS: 43260; 43262; 43277; 74176; 74328; 76705; 78226; 80053; 80074; 81003; 82105; 82150; 83520; 83690; 84132; 85025; 85610; 86644; 86645; 86663; 86664; 86665; 87040; 87086; 87522; 87902

== ENCOUNTER 2017-07-03 12:00 | Emergency (ER) | payer MEDICARE, OTHER ==
[2017-07-03] MEDS ORDERED: KETOROLAC 60 MG/2 ML VIAL IM STA (12:26)
[2017-07-03] MEDS ORDERED: ORPHENADRINE 30 MG/ML 2 ML VIAL IM STA (12:26)
--- NOTE | 2017-07-03 12:30 | ED ---
General Adult HPI - General Chief complaint: Back Pain/Injury Stated complaint: severe back pain Time Seen by Provider: 07/03/17 12:21 Source: patient, RN notes reviewed Mode of arrival: ambulatory Limitations: no limitations - History of Present Illness Initial comments: 61-year-old male presents to the emergency department with a chief complaint of low back pain. Patient chronically suffers from back pain ever since an injury many years ago. Patient states normally he just takes a Narco and his pain is. Patient states over the last month or so it's been flared up. Patient states he has the ability to urinate as well as having bowel movements but sometimes he cannot get to the bathroom quick enough to make it. He denies any saddle anesthesia. He states that he was concerned because his pain just keeps getting worse and normally the Narco take care of it but has not without that he should be seen. Patient denies any recent fever, chills, shortness of breath , chest pain, abdominal pain, nausea vomiting, numbness or tingling, dysuria or hematuria, constipation or diarrhea, headaches or visual changes, or any other current symptoms. - Related Data Home Medications Medication Instructions Recorded Confirmed Escitalopram [Lexapro] 40 mg PO DAILY 02/07/15 07/03/17 Ergocalciferol [Vitamin D2 50,000 unit PO TU 12/18/16 07/03/17 (DRISDOL)] QUEtiapine FUMARATE [SEROquel] 600 mg PO HS 12/18/16 07/03/17 traZODone HCL 300 mg PO HS 12/18/16 07/03/17 Dextroamphetamine/Amphetamine 20 mg PO DAILY 01/05/17 07/03/17 [Adderall] LORazepam [Ativan] 1 mg PO BID PRN 01/05/17 07/03/17 HYDROcodone/APAP 10-325MG [[place] 1 tab PO BID PRN 03/05/17 07/03/17 10-325] Allergies Allergy/AdvReac Type Severity Reaction Status Date / Time No Known Allergies Allergy Verified 07/03/17 12:18 Review of Systems ROS Statement: Those systems with pertinent positive or pertinent negative responses have been documented in the HPI. ROS Other: All systems not noted in ROS Statement are negative. Past Medical History Past Medical History: Hypertension, Liver Disease, Osteoarthritis (OA) Additional Past Medical History / Comment(s): pancreatitis, recently found out he has hep c,kidney stones, Chronic lower back pain History of Any Multi-Drug Resistant Organisms: None Reported Past Surgical History: Appendectomy, Back Surgery, Cholecystectomy, Tonsillectomy Additional Past Surgical History / Comment(s): sx to enlarge urethra opening, endoscopic cholangiography w/ scphinerotomy, cystoscopy/laser lithotripsy ahd a stent rt ureter since removed.lt breast mass removed-benign Past Anesthesia/Blood Transfusion Reactions: No Reported Reaction Past Psychological History: Anxiety, Bipolar, Depression Smoking Status: Current every day smoker Past Alcohol Use History: None Reported Past Drug Use History: Marijuana - Past Family History Father Family Medical History: Congestive Heart Failure (CHF) Mother Additional Family Medical History / Comment(s): patient states that mother from a bowel obstruction General Exam Limitations: no limitations General appearance: alert, in no apparent distress ENT exam: Present: normal exam, mucous membranes moist Neck exam: Present: normal inspection. Absent: tenderness, meningismus, lymphadenopathy Respiratory exam: Present: normal lung sounds bilaterally. Absent: respiratory distress, wheezes, rales, rhonchi, stridor Cardiovascular Exam: Present: regular rate, normal rhythm, normal heart sounds. Absent: systolic murmur, diastolic murmur, rubs, gallop, clicks Rectal exam: Present: normal inspection, decreased rectal tone Extremities exam: Present: normal inspection, full ROM, normal capillary refill. Absent: tenderness, pedal edema, joint swelling, calf tenderness Back exam: Present: normal inspection, full ROM, tenderness (Midline to the lumbar area of). Absent: CVA tenderness (R), CVA tenderness (L) Neurological exam: Present: alert, oriented X3 Psychiatric exam: Present: normal affect, normal mood Skin exam: Present: warm, dry, intact, normal color. Absent: rash Course Vital Signs 07/03/17 12:06 Temperature 98.4 F Pulse Rate 85 Respiratory 18 Rate Blood Pressure 116/74 O2 Sat by Pulse 97 Oximetry Medical Decision Making - Medical Decision Making 61-year-old male presents with history of chronic back pain. This time CAT scan has been reviewed. This and we discussed the importance of following up with a back specialist. We did discuss using Motrin Tylenol for pain. We did discuss return parameters. We did discuss that if his symptoms seem to worsen he does need to return to the emergency department. The patient stated that he understood and he is in agreement with this plan. All questions have been answered. This time the patient will be discharged. - Radiology Data Radiology results: report reviewed, image reviewed Disposition Clinical Impression: Lumbar disc disease Disposition: HOME SELF-CARE Condition: Stable Instructions: Acute Low Back Pain (ED), Chronic Back Pain (ED), Lower Back Exercises (ED) Additional Instructions: Please use medication as discussed. Please follow up with family doctor if symptoms have not improved over the next two days. Please return to the emergency room if your symptoms increase or worsen or for any other concerns. Referrals: Luke Delgadillo MD [Medical Doctor] - 1-2 days Time of Disposition: 13:43
--- NOTE | 2017-07-03 13:06 | CT ---
EXAMINATION TYPE: CT lumbar spine wo con DATE OF EXAM: 07/03/2017 COMPARISON: NONE HISTORY: 61-year-old male with low back pain with pain and tingling down bilateral legs TECHNIQUE: Contiguous axial scanning of the lumbar spine without IV contrast. Coronal and sagittal re constructions performed. CT DLP: 562.2 mGycm Automated exposure control for dose reduction was used. FINDINGS: Post surgical changes of L4-S1 posterior and interbody fusion. Corresponding laminectomies. Above the fusion at L2-L4, there is hypertrophic facet arthropathy and degenerative disc disease with bulging disc. Grade 1 retrolisthesis is present. The presence of metal hardware artifact limits assessment at L3-L4. Unable to exclude a large left pa racentral herniation. This could be from artifact. Refer to sagittal image 37. However, in addition, there appears to be a moderate to severe left neuroforaminal stenosis and moder ate on the right. At L5-S1, there is hypertrophic bony change causing mild right neuroforaminal stenosis. Vertebral body heights are preserved. Bilateral nonobstructive renal calculi measuring up to 6 mm on the right and 9 mm on the left. No prevertebral or paravertebral soft tissue abnormality seen. IMPRESSION: 1. UNCOMPLICATED APPEARANCE TO THE L4-S1 POSTERIOR AND INTERBODY FUSION. CORRESPONDING LAMINECTOMIES. THERE IS SOME CHRONIC BONY HYPERTROPHIC CHANGES MILDLY NARROWING THE RIGHT L5-S1 NEUROFORAMEN. 2. DEGENERATIVE CHANGES ABOVE THE FUSION AT L3-L4 RESULTING IN A GRADE 1 RETROLISTHESIS. THERE IS MET AL HARDWARE ARTIFACT HERE. UNABLE TO EXCLUDE A LARGE LEFT PARACENTRAL DISC HERNIATION. MODERATE TO SE BRETT LEFT NEUROFORAMINAL STENOSIS AT THIS LEVEL.
[2017-07-03] MEDS ORDERED: HYDROcodone/APAP 5-325MG 1 EACH TAB PO STA (13:43)
[2017-07-03 13:58] VITALS: BP 142/78; PULSE 68; RESP 20; TEMP 97.8
== END 2017-07-03 13:57 | disposition home or self-care (01) ==
LOC: EC 12:00
DX: M51.9 Unspecified thoracic, thoracolumbar and lumbosacral intervertebral disc disorder (principal); F41.9 Anxiety disorder, unspecified; F32.9 Major depressive disorder, single episode, unspecified; F17.200 Nicotine dependence, unspecified, uncomplicated; Z98.890 Other specified postprocedural states; Z79.899 Other long term (current) drug therapy
CPT/HCPCS: 51798; 72131; 99283; 96372 ×2; J2360; J1885

== ENCOUNTER 2017-10-29 08:07 | Day surgery (SDC) | payer MEDICARE, OTHER ==
[2017-10-28 09:18] VITALS: BMI 25.3
[~2017-10-29 08:07] MED LIST changes: -FAMOTIDINE 20 MG/2 ML VIAL IV PRN; -HYDROmorphone 1 MG/ML 1 ML SYRINGE IVP PRN; -LIDOCAINE 1% 20 ML VIAL (10MG/ML) FOR IV START INTRADERMA PRN; -MIDAZOLAM 2 MG/2 ML VIAL IV PRN; -ONDANSETRON 4 MG/2 ML VIAL IVP ONE; -ceFAZolin 2 GM in SODIUM CHLORIDE 0.9% 100 ML IVPB ONE
[2017-10-29 08:29] VITALS: RESP 16; TEMP 98.3
[2017-10-29] MEDS ORDERED: LIDOCAINE 1% 20 ML VIAL (10MG/ML) FOR IV START INTRADERMA ONE (08:38)
[2017-10-29] MEDS ORDERED: PROPOFOL 10 MG/ML 20 ML VIAL IV ONE (09:17)
[2017-10-29] MEDS ORDERED: LIDOCAINE 1% INJ 10MG/ML (20 ML MDV) ONE (09:17)
--- NOTE | 2017-10-29 09:27 | P.GSHP ---
History of Present Illness H&P Date: 10/29/17 Chief Complaint: Screening colonoscopy This a 7-year-old male referred from Dr. Perez. Patient presents today for screening colonoscopy. He denies a any significant complaints. Past Medical History Past Medical History: Chest Pain / Angina, GERD/Reflux, Hypertension, Liver Disease, Osteoarthritis (OA) Additional Past Medical History / Comment(s): hx pancreatitis, angina x 1 yrs ago, hepatitis C, History of Any Multi-Drug Resistant Organisms: None Reported Past Surgical History: Appendectomy, Back Surgery, Cholecystectomy, Tonsillectomy Additional Past Surgical History / Comment(s): sx to enlarge urethra opening, lump removed from chest, surgery rt arm(fx), Past Anesthesia/Blood Transfusion Reactions: No Reported Reaction Smoking Status: Current every day smoker - Past Family History Father Family Medical History: Congestive Heart Failure (CHF) Mother Family Medical History: No Reported History Additional Family Medical History / Comment(s): . Medications and Allergies Home Medications Medication Instructions Recorded Confirmed Type Escitalopram [Lexapro] 40 mg PO DAILY 02/07/15 10/29/17 History Ergocalciferol [Vitamin D2 50,000 unit PO TU 12/18/16 10/29/17 History (DRISDOL)] QUEtiapine FUMARATE [SEROquel] 600 mg PO HS 12/18/16 10/29/17 History traZODone HCL 300 mg PO HS 12/18/16 10/29/17 History LORazepam [Ativan] 1 mg PO BID PRN 01/05/17 10/29/17 History Hydrocodone/Acetaminophen [[place] 1 tab PO TID PRN 10/28/17 10/29/17 History 5-325] Allergies Allergy/AdvReac Type Severity Reaction Status Date / Time No Known Allergies Allergy Verified 10/29/17 08:26 Surgical - Exam Vital Signs Temp Pulse Resp BP Pulse Ox 98.3 F 78 16 125/82 93 L 10/29/17 08:28 10/29/17 08:28 10/29/17 08:28 10/29/17 08:28 10/29/17 08:28 - General well developed, no distress - Eyes PERRL - ENT normal pinna - Neck no masses - Respiratory normal expansion - Cardiovascular Rhythm: regular - Abdomen Abdomen: soft, non tender Assessment and Plan Assessment: We'll perform screening colonoscopy.
--- NOTE | 2017-10-29 09:45 | P.OP ---
Date of Procedure: 10/29/17 Preoperative Diagnosis: Screening colonoscopy Postoperative Diagnosis: Rectal polyps Mild diverticulosis Procedure(s) Performed: Colonoscopy Anesthesia: MAC Surgeon: Osiel Bradford Pathology: other (Rectal polyps) Condition: stable Disposition: PACU Description of Procedure: Patient's placed on the endoscopy table in the lateral position. He received IV sedation. Digital rectal exam was performed which revealed no abnormalities. The prostate was symmetric without nodules. The flexible colonoscope was then placed patient anus passed rotator entire colon. The prep was poor there was a large amount of liquid stool colon. The ileocecal valve was visualized. The cecum, ascending and transverse colon appeared normal. In the descending; was mild diverticular changes. Scope was then brought back the rectum into small sessile polyps removed with a cold forcep. Scope was withdrawn for patient.
[2017-10-29 10:37] VITALS: BP 119/71; PULSE 76
== END 2017-10-29 11:10 | disposition home or self-care (01) ==
LOC: ORWHC2ENDO 08:07
PROVIDERS: ATTEND Surgery
DX: Z12.11 Encounter for screening for malignant neoplasm of colon (principal); D12.8 Benign neoplasm of rectum; K21.9 Gastro-esophageal reflux disease without esophagitis; I10 Essential (primary) hypertension; M19.90 Unspecified osteoarthritis, unspecified site; K57.30 Diverticulosis of large intestine without perforation or abscess without bleeding; F17.210 Nicotine dependence, cigarettes, uncomplicated; Z79.899 Other long term (current) drug therapy; Z90.49 Acquired absence of other specified parts of digestive tract; Z86.19 Personal history of other infectious and parasitic diseases; Z82.49 Family history of ischemic heart disease and other diseases of the circulatory system
CPT/HCPCS: 88305; 45380; J2001; J2704

== ENCOUNTER 2017-12-05 11:14 | Inpatient (IN) | payer MEDICARE, OTHER ==
[2017-12-05] MEDS ORDERED: SODIUM CHLORIDE 0.9% 1,000 ML IV STA ×2 (11:52)
[2017-12-05] MEDS ORDERED: MORPHINE SULFATE 4MG/4ML SYRG IVP STA ×2 (11:53→15:07)
[2017-12-05] MEDS ORDERED: ONDANSETRON ODT 4 MG TAB PO STA (11:53)
--- NOTE | 2017-12-05 11:55 | ED ---
General Adult HPI - General Chief complaint: Abdominal Pain Stated complaint: back and abdominal pain Time Seen by Provider: 12/05/17 11:46 Source: patient, RN notes reviewed Mode of arrival: ambulatory Limitations: no limitations - History of Present Illness Initial comments: Patient 62-year-old male significant past medical history for hepatitis C, pancreatitis, who presents to the emergency room today with a chief complaint of increased abdominal pain over the last week. He states that it has been achy pain was abdomen that radiates into the back. He states it reminds him of his pancreatitis. Patient states that he's had a decreased appetite is anything eats causes pain. Patient does admit to a history of cholecystectomy. Patient does been some diarrhea. Also admits feeling somewhat nauseated no vomiting. Denies temperature symptoms. Patient denies any recent fever, chills , shortness of breath, chest pain, numbness or tingling, dysuria or hematuria, constipation, headaches or visual changes, or any other complaints. - Related Data Home Medications Medication Instructions Recorded Confirmed Escitalopram [Lexapro] 40 mg PO DAILY 02/07/15 12/05/17 QUEtiapine FUMARATE [SEROquel] 300 mg PO HS 12/18/16 12/05/17 Hydrocodone/Acetaminophen [[place] 1 tab PO TID PRN 10/28/17 12/05/17 5-325] Albuterol Inhaler [Ventolin Hfa 2 puff INHALATION RT-Q6H PRN 12/05/17 12/05/17 Inhaler] Sertraline [Zoloft] 50 mg PO DAILY 12/05/17 12/05/17 Allergies Allergy/AdvReac Type Severity Reaction Status Date / Time No Known Allergies Allergy Verified 12/05/17 11:53 Review of Systems ROS Statement: Those systems with pertinent positive or pertinent negative responses have been documented in the HPI. ROS Other: All systems not noted in ROS Statement are negative. Past Medical History Past Medical History: Chest Pain / Angina, GERD/Reflux, Hypertension, Liver Disease, Osteoarthritis (OA) Additional Past Medical History / Comment(s): hx pancreatitis, angina x 1 yrs ago, hepatitis C, History of Any Multi-Drug Resistant Organisms: None Reported Past Surgical History: Appendectomy, Back Surgery, Cholecystectomy, Tonsillectomy Additional Past Surgical History / Comment(s): sx to enlarge urethra opening, lump removed from chest, surgery rt arm(fx), Past Anesthesia/Blood Transfusion Reactions: No Reported Reaction Past Psychological History: Anxiety, Depression Smoking Status: Current every day smoker Past Alcohol Use History: None Reported Past Drug Use History: Marijuana - Past Family History Father Family Medical History: Congestive Heart Failure (CHF) Mother Family Medical History: No Reported History Additional Family Medical History / Comment(s): . General Exam - General Exam Comments Initial Comments: General: The patient is awake and alert, in mild distress. Eye: Pupils are equal, round and reactive to light, extra-ocular movements are intact. No nystagmus. There is normal conjunctiva bilaterally. No signs of icterus. Ears, nose, mouth and throat: There are moist mucous membranes and no oral lesions. Neck: The neck is supple, there is no tenderness or JVD. Cardiovascular: There is a regular rate and rhythm. No murmur, rub or gallop is appreciated. Respiratory: Lungs are clear to auscultation, respirations are non-labored, breath sounds are equal. No wheezes, stridor, rales, or rhonchi. Gastrointestinal: Abdomen soft on palpation. Tender right upper quadrant, epigastric, lower midline. No rebound tenderness. No guarding. No CVA tenderness. Musculoskeletal: Normal ROM, no tenderness. Strength 5/5. Sensation intact. Pulses equal bilaterally 2+. Neurological: A&O x 3. CN II-XII intact, There are no obvious motor or sensory deficits. Coordination appears grossly intact. Speech is normal. Skin: Skin is warm and dry and no rashes or lesions are noted. Psychiatric: Cooperative, appropriate mood & affect, normal judgment. Limitations: no limitations Course Vital Signs 12/05/17 12/05/17 11:19 12:24 Temperature 98.7 F Pulse Rate 91 70 Respiratory 18 18 Rate Blood Pressure 112/76 170/97 O2 Sat by Pulse 95 96 Oximetry Medical Decision Making - Medical Decision Making Patient's CT of the abdomen and pelvis reviewed does show multiple prominent fluid-filled small bowel loops. Correlate for an illness. No definitive obstruction identified. - Lab Data Result diagrams: 12/05/17 12:09 12/05/17 12:09 Lab Results 12/05/17 12/05/17 12/05/17 Range/Units 12:09 12:09 12:09 WBC 8.6 (3.8-10.6) k/uL RBC 5.20 (4.30-5.90) m/uL Hgb 16.0 (13.0-17.5) gm/dL Hct 46.7 (39.0-53.0) % MCV 89.9 (80.0-100.0) fL MCH 30.9 (25.0-35.0) pg MCHC 34.3 (31.0-37.0) g/dL RDW 13.0 (11.5-15.5) % Plt Count 215 (150-450) k/uL Neutrophils % 80 % Lymphocytes % 13 % Monocytes % 4 % Eosinophils % 1 % Basophils % 0 % Neutrophils # 6.8 (1.3-7.7) k/uL Lymphocytes # 1.2 (1.0-4.8) k/uL Monocytes # 0.3 (0-1.0) k/uL Eosinophils # 0.1 (0-0.7) k/uL Basophils # 0.0 (0-0.2) k/uL PT 10.6 (9.0-12.0) sec INR 1.1 (<1.2) APTT 24.5 (22.0-30.0) sec Sodium 143 (137-145) mmol/L Potassium 3.9 (3.5-5.1) mmol/L Chloride 109 H (98-107) mmol/L Carbon Dioxide 22 (22-30) mmol/L Anion Gap 12 mmol/L BUN 11 (9-20) mg/dL Creatinine 0.70 (0.66-1.25) mg/dL Est GFR (CKD-EPI)AfAm >90 (>60 ml/min/1.73 sqM) Est GFR (CKD-EPI)NonAf >90 (>60 ml/min/1.73 sqM) Glucose 106 H (74-99) mg/dL Calcium 9.8 (8.4-10.2) mg/dL Total Bilirubin 0.6 (0.2-1.3) mg/dL AST 23 (17-59) U/L ALT 26 (21-72) U/L Alkaline Phosphatase 87 (38-126) U/L Total Protein 6.6 (6.3-8.2) g/dL Albumin 4.1 (3.5-5.0) g/dL Amylase 37 (30-110) U/L Lipase 119 (23-300) U/L Disposition Clinical Impression: Ileus Disposition: ADMITTED IP TO THIS HOSP Condition: Good Referrals: Ced Perez MD [Primary Care Provider] - 1-2 days Time of Disposition: 15:10
[2017-12-05 12:20] LABS: Basophils % (A) 0 %; Eosinophils # (A) 0.1 k/uL (0-0.7); Eosinophils % (A) 1 %; HCT 46.7 % (39.0-53.0); Lymphocytes # (A) 1.2 k/uL (1.0-4.8); Lymphocytes % (A) 13 %; MCH 30.9 pg (25.0-35.0); MCHC 34.3 g/dL (31.0-37.0); MCV 89.9 fL (80.0-100.0); Mean Platelet Volume 6.4; Monocytes # (A) 0.3 k/uL (0-1.0); Monocytes % (A) 4 %; Neutrophils # (A) 6.8 k/uL (1.3-7.7); Neutrophils % (A) 80 %; Platelet Count 215 k/uL (150-450); WBC 8.6 k/uL (3.8-10.6)
[2017-12-05 12:28] LABS: ALT 26 U/L (21-72); AST 23 U/L (17-59); Albumin 4.1 g/dL (3.5-5.0); Alkaline Phosphatase 87 U/L (38-126); Amylase 37 U/L (30-110); Anion Gap 12 mmol/L; Blood Urea Nitrogen 11 mg/dL (9-20); Calcium 9.8 mg/dL (8.4-10.2); Carbon Dioxide 22 mmol/L (22-30); Chloride 109 mmol/L (98-107); Glucose 106 mg/dL (74-99); Lipase 119 U/L (23-300); Potassium 3.9 mmol/L (3.5-5.1); Sodium 143 mmol/L (137-145); Total Bilirubin 0.6 mg/dL (0.2-1.3); Total Protein 6.6 g/dL (6.3-8.2)
[2017-12-05 12:30] LABS: INR 1.1 (<1.2); Partial Thromboplastin Time 24.5 sec (22.0-30.0); Prothrombin Time 10.6 sec (9.0-12.0)
--- NOTE | 2017-12-05 12:50 | XR ---
EXAMINATION TYPE: XR KUB DATE OF EXAM: 12/05/2017 COMPARISON: NONE HISTORY: Pain TECHNIQUE: Single supine KUB image of the abdomen is obtained FINDINGS: Small bowel demonstrates no evidence for dilatation or air fluid levels. Gas and fecal material is seen in non-distended colon. No convincing evidence for pneumoperitoneum. There is bilateral nephrolithiasis. Pelvic phleboliths are seen. The lung bases are clear. The osseous structures are intact. IMPRESSION: 1. Overall nonobstructive bowel gas pattern. 2. Bilateral nephrolithiasis.
[2017-12-05] MEDS ORDERED: LORazepam 2 MG/ML INJ IV STA (13:00)
[2017-12-05] MEDS ORDERED: RX INFO: IV CONTRAST WAS GIVEN 1 EACH MISC MISCELLANE PRN (13:01)
--- NOTE | 2017-12-05 14:05 | CT ---
EXAMINATION TYPE: CT abdomen pelvis w con DATE OF EXAM: 12/05/2017 COMPARISON: 03/10/2017 INDICATION: Abd and back pain DLP: 1347 mGycm, Automated exposure control for dose reduction was used. CONTRAST: 100 mL of Isovue 300. Study performed without Oral Contrast TECHNIQUE: Axial images were obtained from above the diaphragm to the pubic rami in the axial plane a t 5 mm thick sections. Reconstructed images are reviewed on the computer in the coronal plane. FINDINGS: Limited CT sections are obtained the lung bases. The lung bases are clear. Previous pleural effusio ns have resolved. CT ABDOMEN: Liver: Normal Spleen: Normal Pancreas: Normal Adrenal glands: The adrenal glands are normal. Gallbladder: Common bile duct is dilated at 1.2 cm. Normal is less than 1.0 cm in a postcholecystecto my patient. The gallbladder is surgically absent. Kidneys: No masses are evident. No hydronephrosis is present. No cysts are present. There is a 0.5 cm transverse dimension calcification in the posterior lateral mid left kidney. No hydronephrosis is present. There is a 0.4 and a 0.3 cm mid right kidney calcification without obstruction. A transvers e dimension 0.4 cm calcifications in the mid to inferior pole. There is an inferior anterior pole rig ht renal stone measuring 0.4 cm. No hydronephrosis or hydroureter is evident. Aorta: Vascular calcification is within the aorta. Inferior vena cava: Normal. CT PELVIS: Multiple small bowel loops contain fluid. Correlate for ileus. These are at the upper limits of aylin l for size although noted zone of transition is evident. Fluid extends to the cecum. Appendix: The appendix is not identified. No dilated tubular structure inflammatory changes are evide nt. Urinary bladder: Normal. Genitourinary structures: The prostate is unremarkable. Some prostate calcification is present. Osseous structures: No suspicious lytic or sclerotic lesions. Postsurgical changes compatible screws and fixation rods are present L4-S1. IMPRESSIONS: 1. Multiple prominent fluid-filled small bowel loops. Correlate for ileus. No definite obstruction i s identified. Follow-up can be performed as clinically indicated. 2. Multiple bilateral nonobstructing renal stones.
[2017-12-05] MEDS ORDERED: LORazepam 2 MG/ML INJ IV PRN (15:22)
[2017-12-05] MEDS ORDERED: NALOXONE 0.4 MG/ML 1 ML VIAL IV PRN (15:22)
[2017-12-05 15:32] LABS: Appearance,Urine Clear (Clear); Bilirubin,Urine Negative (Negative); Blood,Urine Negative (Negative); Color,Urine Yellow; Glucose,Urine (UA) Negative (Negative); Ketones,Urine Negative (Negative); Leukocyte Esterase,Urine Negative (Negative); Nitrite,Urine Negative (Negative); PH, Urine 7.5 (5.0-8.0); Protein,Urine Negative (Negative); Urobilinogen,Urine <2.0 mg/dL (<2.0)
[2017-12-05 15:53] LABS: Specific Gravity,Urine >1.050 (1.001-1.035)
[2017-12-05] MEDS: MORPHINE SULFATE 4MG/4ML SYRG IV PRN (19:35)
[2017-12-05] MEDS ORDERED: ALBUTEROL NEBULIZED 2.5 MG/3 ML INHALATION PRN (20:15)
[2017-12-05] MEDS ORDERED: ESCITALOPRAM 20 MG TAB PO SCH (21:00)
[2017-12-05] MEDS ORDERED: QUEtiapine 100 MG TAB PO SCH (21:00)
[2017-12-06] MEDS: MORPHINE SULFATE 4MG/4ML SYRG IV PRN ×2 (02:25→05:55)
[2017-12-06 07:43] LABS: Basophils % (A) 0 %; Eosinophils # (A) 0.2 k/uL (0-0.7); Eosinophils % (A) 3 %; HCT 43.7 % (39.0-53.0); HGB 14.1 gm/dL (13.0-17.5); Lymphocytes % (A) 15 %; MCH 30.4 pg (25.0-35.0); MCHC 32.3 g/dL (31.0-37.0); MCV 94.1 fL (80.0-100.0); Mean Platelet Volume 6.7; Monocytes # (A) 0.4 k/uL (0-1.0); Monocytes % (A) 5 %; Neutrophils # (A) 4.8 k/uL (1.3-7.7); Neutrophils % (A) 74 %; Platelet Count 154 k/uL (150-450); RBC 4.64 m/uL (4.30-5.90); RDW 12.9 % (11.5-15.5); WBC 6.6 k/uL (3.8-10.6)
[2017-12-06] MEDS: SERTRALINE 50 MG TAB PO SCH ×2 (07:48→09:57)
[2017-12-06 08:01] LABS: ALT 30 U/L (21-72); AST 22 U/L (17-59); Albumin 3.3 g/dL (3.5-5.0); Alkaline Phosphatase 67 U/L (38-126); Anion Gap 8 mmol/L; Blood Urea Nitrogen 13 mg/dL (9-20); Calcium 8.5 mg/dL (8.4-10.2); Carbon Dioxide 23 mmol/L (22-30); Chloride 110 mmol/L (98-107); Glucose 75 mg/dL (74-99); Potassium 3.7 mmol/L (3.5-5.1); Sodium 141 mmol/L (137-145); Total Bilirubin 0.6 mg/dL (0.2-1.3); Total Protein 5.5 g/dL (6.3-8.2)
[2017-12-06 08:12] VITALS: BP 167/85; PULSE 69; RESP 18; TEMP 97.9
[2017-12-06 09:55] VITALS: BMI 25.3
[2017-12-06] MEDS ORDERED: KETOROLAC 30 MG/ML 1 ML VIAL IVP PRN (10:20)
[2017-12-06] MEDS ORDERED: POLYETHYLENE GLYCOL 3350 17 GM POWD.PACK PO PRN (10:21)
[2017-12-06] MEDS ORDERED: PANTOPRAZOLE 40 MG/10 ML VIAL IVP SCH (10:30)
--- NOTE | 2017-12-06 11:43 | P.HPIM ---
History of Present Illness 62-year-old male significant past medical history for hepatitis C, pancreatitis , who presents to the emergency room today with a chief complaint of increased abdominal pain over the last week. He states that it has been achy pain was abdomen that radiates into the back 8/10 in severity. He states it reminds him of his pancreatitis. Patient states that he's had a decreased appetite is anything eats causes pain. Patient does admit to a history of cholecystectomy. Patient does been some diarrhea. Also admits feeling somewhat nauseated no vomiting. Denies temperature symptoms. Patient denies any recent fever, chills , shortness of breath, chest pain, numbness or tingling, dysuria or hematuria, headaches or visual changes, or any other complaints. Patient appears to have mostly chronic low back pain patient is requesting for morphine quite often. Patient gave me makes her history of having diarrhea as well as not having bowel movements for last couple days. Unsure whether patient is constipated was having diarrhea because of the makes information I'm getting from the patient. Upon repeat questioning patient's is he doesn't know and patient is not confused at this point of time. Abdominal CAT scan was done which did not show any significant abnormality and there is a possibility of ileus although patient does have good bowel sounds not nauseous at this time. We'll start him on diet advance her diet if he is able to tolerate patient will be discharged. Patient does appear to have some nephrolithiasis but patient abdominal pain is not consistent with nephrolithiasis, nonobstructive. Review of Systems REVIEW OF SYSTEMS: CONSTITUTIONAL: No fever, no malaise, no fatigue. HEENT: No recent visual problems or hearing problems. Denied any sore throat. CARDIOVASCULAR: No chest pain, orthopnea, PND, no palpitations, no syncope. PULMONARY: No shortness of breath, no cough, no hemoptysis. GASTROINTESTINAL: No diarrhea, no nausea, no vomiting. NEUROLOGICAL: No headaches, no weakness, no numbness. HEMATOLOGICAL: Denies any bleeding or petechiae. GENITOURINARY: Denies any burning micturition, frequency, or urgency. MUSCULOSKELETAL/RHEUMATOLOGICAL: Denies any joint pain, swelling, or any muscle pain. ENDOCRINE: Denies any polyuria or polydipsia. The rest of the 14-point review of systems is negative. Past Medical History Past Medical History: Chest Pain / Angina, COPD, GERD/Reflux, Hypertension, Liver Disease, Osteoarthritis (OA) Additional Past Medical History / Comment(s): hx pancreatitis, angina x 1 yrs ago, hepatitis C-no tx recieved for it, past rt arm fx(sx), kidney stones, History of Any Multi-Drug Resistant Organisms: None Reported Past Surgical History: Appendectomy, Back Surgery, Cholecystectomy, Tonsillectomy Additional Past Surgical History / Comment(s): sx to enlarge urethra opening, lump removed from chest, surgery rt arm(fx), colonoscopy Past Anesthesia/Blood Transfusion Reactions: No Reported Reaction Smoking Status: Current every day smoker - Past Family History Father Family Medical History: Congestive Heart Failure (CHF) Mother Family Medical History: No Reported History Additional Family Medical History / Comment(s): bowel obstruction. Medications and Allergies Home Medications Medication Instructions Recorded Confirmed Type Escitalopram [Lexapro] 40 mg PO HS 02/07/15 12/05/17 History QUEtiapine FUMARATE [SEROquel] 300 mg PO HS 12/18/16 12/05/17 History Hydrocodone/Acetaminophen [[place] 1 tab PO TID 10/28/17 12/05/17 History 5-325] Albuterol Inhaler [Ventolin Hfa 2 puff INHALATION RT-Q6H PRN 12/05/17 12/05/17 History Inhaler] Cholecalciferol (Vitamin D3) 2,000 unit PO DAILY 12/05/17 12/05/17 History [Vitamin D3] LORazepam [Ativan] 1 mg PO BID 12/05/17 12/05/17 History Methocarbamol [Robaxin] 500 mg PO DAILY PRN 12/05/17 12/05/17 History Sertraline [Zoloft] 50 mg PO DAILY 12/05/17 12/05/17 History Allergies Allergy/AdvReac Type Severity Reaction Status Date / Time No Known Allergies Allergy Verified 12/05/17 11:53 Physical Exam Vitals: Vital Signs Temp Pulse Pulse Resp BP BP Pulse Ox 12/06/17 08:11 97.9 F 69 18 167/85 93 L 12/06/17 08:00 69 18 12/05/17 22:57 97.3 F L 67 16 149/79 93 L 12/05/17 16:38 97.9 F 64 18 158/86 92 L 12/05/17 16:25 98.7 F 98 18 155/89 95 12/05/17 15:26 98 18 155/89 95 12/05/17 12:24 70 18 170/97 96 Intake and Output 12/05/17 12/06/17 12/06/17 22:59 06:59 14:59 Intake Total 2100 1400 Output Total 350 800 300 Balance 1750 600 -300 Intake: Amount of Fluid Infused ( 1300 ml) Intake, IV Titration 800 800 Amount Sodium Chloride 0.9% 1, 800 800 000 ml @ 100 mls/hr IV . Q10H STA Rx#:[id number] Oral 600 Output: Urine 350 800 300 Other: Voiding Method Toilet Toilet Urinal Urinal # Voids 1 2 1 Weight 84.822 kg PHYSICAL EXAMINATION: GENERAL: The patient is alert and oriented x3, not in any acute distress. Well developed, well nourished. HEENT: Pupils are round and equally reacting to light. EOMI. No scleral icterus. No conjunctival pallor. Normocephalic, atraumatic. No pharyngeal erythema. No thyromegaly. CARDIOVASCULAR: S1 and S2 present. No murmurs, rubs, or gallops. PULMONARY: Chest is clear to auscultation, no wheezing or crackles. ABDOMEN: Soft, nontender, nondistended, normoactive bowel sounds. No palpable organomegaly. MUSCULOSKELETAL: No joint swelling or deformity. EXTREMITIES: No cyanosis, clubbing, or pedal edema. NEUROLOGICAL: Gross neurological examination did not reveal any focal deficits. SKIN: No rashes. Results CBC & Chem 7: 12/06/17 06:59 12/06/17 06:59 Labs: Abnormal Lab Results - Last 24 Hours (Table) 12/05/17 12/05/17 12/06/17 Range/Units 12:09 15:22 06:59 Chloride 109 H 110 H (98-107) mmol/L Creatinine 0.60 L (0.66-1.25) mg/dL Glucose 106 H (74-99) mg/dL Total Protein 5.5 L (6.3-8.2) g/dL Albumin 3.3 L (3.5-5.0) g/dL Ur Specific [place] >1.050 H (1.001-1.035) Thrombosis Risk Factor Assmnt - Choose All That Apply Any of the Below Risk Factors Present?: Yes Other Risk Factors: Yes Each Risk Factor Represents 2 Points: Age 61-74 years Other congenital or acquired thrombophilia - If yes, enter type in comment: No Thrombosis Risk Factor Assessment Total Risk Factor Score: 2 Thrombosis Risk Factor Assessment Level: Low Risk Assessment and Plan Plan: -Abdominal pain etiology is not clear patient's abdomen is soft I do not believe nephrolithiasis is contributing to his pain. Patient may have chronic low back pain which may be causing pain in the back radiating to the front of the abdomen or may have narcotic seeking behavior he had abdominal exam is benign. My suspicion is extremely low that patient has ileus. If patient is able to tolerate regular diet patient will be discharged home patient will not be provided with any narcotic pain medications. Patient was switched from morphine to Toradol for pain along with Protonix -COPD without any acute exacerbation -Gastroesophageal reflux disease -Hypertension History of hepatitis C need to follow with gastro-enterology as an outpatient For above-mentioned chronic medical problems patient will be resumed and continued on home medications.
--- NOTE | 2017-12-06 12:05 | P.DS ---
Providers Date of admission: 12/05/17 15:14 Attending physician: Ced Perez Primary care physician: Ced Perez Hospital Course: Refer to HPI Patient Condition at Discharge: Good Plan - Discharge Summary Discharge Rx Participant: No New Discharge Prescriptions: No Action Escitalopram [Lexapro] 40 mg PO HS QUEtiapine FUMARATE [SEROquel] 300 mg PO HS Hydrocodone/Acetaminophen [[place] 5-325] 1 tab PO TID Sertraline [Zoloft] 50 mg PO DAILY Albuterol Inhaler [Ventolin Hfa Inhaler] 2 puff INHALATION RT-Q6H PRN PRN Reason: Shortness Of Breath Methocarbamol [Robaxin] 500 mg PO DAILY PRN PRN Reason: Muscle Spasm LORazepam [Ativan] 1 mg PO BID Cholecalciferol (Vitamin D3) [Vitamin D3] 2,000 unit PO DAILY Discharge Medication List Escitalopram [Lexapro] 40 mg PO HS 02/07/15 [History] QUEtiapine FUMARATE [SEROquel] 300 mg PO HS 12/18/16 [History] Hydrocodone/Acetaminophen [[place] 5-325] 1 tab PO TID 10/28/17 [History] Albuterol Inhaler [Ventolin Hfa Inhaler] 2 puff INHALATION RT-Q6H PRN 12/05/17 [ History] Cholecalciferol (Vitamin D3) [Vitamin D3] 2,000 unit PO DAILY 12/05/17 [History] LORazepam [Ativan] 1 mg PO BID 12/05/17 [History] Methocarbamol [Robaxin] 500 mg PO DAILY PRN 12/05/17 [History] Sertraline [Zoloft] 50 mg PO DAILY 12/05/17 [History] Follow up Appointment(s)/Referral(s): Ced Perez MD [Primary Care Provider] - 3 Days (Patient to call Dr. Perez's office Friday morning to schedule a follow up appointment. The office is closed at time of discharge. ) Lizzeth Quiroz MD [STAFF PHYSICIAN] - 1 Week Patient Instructions/Handouts: Ileus (DC) Discharge Disposition: HOME SELF-CARE
== END 2017-12-06 14:30 | disposition home or self-care (01) | DRG 390 ==
LOC: EC 11:14 → 5MS5E 15:14
PROVIDERS: ADMIT Family Medicine; ATTEND Family Medicine
DX: K56.7 Ileus, unspecified (principal); F17.200 Nicotine dependence, unspecified, uncomplicated; G89.29 Other chronic pain; M54.5 Low back pain; I10 Essential (primary) hypertension; J44.9 Chronic obstructive pulmonary disease, unspecified; K21.9 Gastro-esophageal reflux disease without esophagitis; N20.0 Calculus of kidney; Z79.899 Other long term (current) drug therapy; Z82.49 Family history of ischemic heart disease and other diseases of the circulatory system; Z90.49 Acquired absence of other specified parts of digestive tract; Z86.19 Personal history of other infectious and parasitic diseases; M19.90 Unspecified osteoarthritis, unspecified site
CPT/HCPCS: 36415; 74018; 74177; 80053; 81003; 82150; 83690; 85025; 85610; 85730; 96361; 96374; 96375; 96376; 99285

== ENCOUNTER 2018-06-08 12:42 | Emergency (ER) | payer MEDICARE, OTHER ==
[2018-06-08] MEDS ORDERED: SODIUM CHLORIDE 0.9% 1,000 ML IV STA (13:38)
[2018-06-08] MEDS ORDERED: ONDANSETRON 4 MG/2 ML VIAL IVP STA (13:38)
[2018-06-08] MEDS ORDERED: MORPHINE SULFATE 4 MG/ML SYRINGE IV STA (13:38)
--- NOTE | 2018-06-08 13:46 | ED ---
Back Pain HPI - General Chief Complaint: Back Pain/Injury Stated Complaint: Lower Back Pain, tingling down leg Time Seen by Provider: 06/08/18 13:27 Source: patient, RN notes reviewed Mode of arrival: ambulatory Limitations: no limitations - History of Present Illness Initial Comments: This a 62-year-old male presents emergency Department chief complaint of abdominal pain, back pain, scrotal pain. Patient states that this started yesterday worse today. Patient states his chronic back pain but this seems different than usual. Patient states he has pain in his right lower abdomen, low back region. Patient states that he said no history kidney stones. He denies any nausea vomiting diarrhea constipation. He has no hematuria that he has some dysuria. Patient also complains of right groin pain states he feels that the radiation to scrotum he has no scrotal pain or swelling. denies any trauma. Patient states that he occasionally takes Flexeril but does not take any other pain meds. - Related Data Home Medications Medication Instructions Recorded Confirmed Escitalopram [Lexapro] 40 mg PO HS 02/07/15 12/05/17 QUEtiapine FUMARATE [SEROquel] 300 mg PO HS 12/18/16 12/05/17 Hydrocodone/Acetaminophen [[place] 1 tab PO TID 10/28/17 12/05/17 5-325] Albuterol Inhaler [Ventolin Hfa 2 puff INHALATION RT-Q6H PRN 12/05/17 12/05/17 Inhaler] Cholecalciferol (Vitamin D3) 2,000 unit PO DAILY 12/05/17 12/05/17 [Vitamin D3] LORazepam [Ativan] 1 mg PO BID 12/05/17 12/05/17 Methocarbamol [Robaxin] 500 mg PO DAILY PRN 12/05/17 12/05/17 Sertraline [Zoloft] 50 mg PO DAILY 12/05/17 12/05/17 Previous Rx's Medication Instructions Recorded Ketorolac [Toradol] 10 mg PO Q8HR #15 tab 06/08/18 Tamsulosin [Flomax] 0.4 mg PO DAILY #7 cap 06/08/18 Allergies Allergy/AdvReac Type Severity Reaction Status Date / Time No Known Allergies Allergy Verified 06/08/18 13:01 Review of Systems ROS Statement: Those systems with pertinent positive or pertinent negative responses have been documented in the HPI. ROS Other: All systems not noted in ROS Statement are negative. Past Medical History Past Medical History: Chest Pain / Angina, COPD, GERD/Reflux, Hypertension, Liver Disease, Osteoarthritis (OA) Additional Past Medical History / Comment(s): hx pancreatitis, angina x 1 yrs ago, hepatitis C-no tx recieved for it, past rt arm fx(sx), kidney stones, History of Any Multi-Drug Resistant Organisms: None Reported Past Surgical History: Appendectomy, Back Surgery, Cholecystectomy, Tonsillectomy Additional Past Surgical History / Comment(s): sx to enlarge urethra opening, lump removed from chest, surgery rt arm(fx), colonoscopy Past Anesthesia/Blood Transfusion Reactions: No Reported Reaction Past Psychological History: Anxiety, Depression Smoking Status: Current every day smoker Past Alcohol Use History: None Reported Past Drug Use History: None Reported - Past Family History Father Family Medical History: Congestive Heart Failure (CHF) Mother Family Medical History: No Reported History Additional Family Medical History / Comment(s): bowel obstruction. General Exam Limitations: no limitations General appearance: alert, in no apparent distress Head exam: Present: atraumatic, normocephalic, normal inspection Respiratory exam: Present: normal lung sounds bilaterally. Absent: respiratory distress, wheezes, rales, rhonchi, stridor Cardiovascular Exam: Present: regular rate, normal rhythm, normal heart sounds. Absent: systolic murmur, diastolic murmur, rubs, gallop, clicks GI/Abdominal exam: Present: soft, tenderness (Mild right lower quadrant tenderness), normal bowel sounds. Absent: distended, guarding, rebound, rigid Back exam: Present: CVA tenderness (R), paraspinal tenderness. Absent: CVA tenderness (L), vertebral tenderness Neurological exam: Present: alert, oriented X3, CN II-XII intact, reflexes normal. Absent: motor sensory deficit Skin exam: Present: warm, dry, intact, normal color. Absent: rash Course Vital Signs 06/08/18 12:58 Temperature 97.6 F Pulse Rate 70 Respiratory 20 Rate Blood Pressure 160/88 O2 Sat by Pulse 97 Oximetry Medical Decision Making - Medical Decision Making 62-year-old male presented for low back pain, abdominal pain and right groin pain. Patient had CT urinalysis and lab work. Patient has hydronephrosis hydroureter on the right and does have mild hematuria. Patient's symptoms are consistent with kidney stone. Patient feels improved at this time. Patient will be discharged return parameters were discussed. - Lab Data Result diagrams: 06/08/18 14:00 06/08/18 14:00 Lab Results 06/08/18 06/08/18 06/08/18 Range/Units 14:00 14:00 14:00 WBC 10.7 H (3.8-10.6) k/uL RBC 5.07 (4.30-5.90) m/uL Hgb 15.1 (13.0-17.5) gm/dL Hct 46.6 (39.0-53.0) % MCV 91.8 (80.0-100.0) fL MCH 29.8 (25.0-35.0) pg MCHC 32.5 (31.0-37.0) g/dL RDW 13.3 (11.5-15.5) % Plt Count 177 (150-450) k/uL Neutrophils % 89 % Lymphocytes % 6 % Monocytes % 4 % Eosinophils % 1 % Basophils % 0 % Neutrophils # 9.5 H (1.3-7.7) k/uL Lymphocytes # 0.6 L (1.0-4.8) k/uL Monocytes # 0.4 (0-1.0) k/uL Eosinophils # 0.1 (0-0.7) k/uL Basophils # 0.0 (0-0.2) k/uL PT (9.0-12.0) sec INR (<1.2) APTT (22.0-30.0) sec Sodium 139 (137-145) mmol/L Potassium 4.0 (3.5-5.1) mmol/L Chloride 104 (98-107) mmol/L Carbon Dioxide 28 (22-30) mmol/L Anion Gap 7 mmol/L BUN 9 (9-20) mg/dL Creatinine 0.85 (0.66-1.25) mg/dL Est GFR (CKD-EPI)AfAm >90 (>60 ml/min/1.73 sqM) Est GFR (CKD-EPI)NonAf >90 (>60 ml/min/1.73 sqM) Glucose 118 H (74-99) mg/dL Plasma Lactic Acid [place] 1.1 (0.7-2.0) mmol/L Calcium 9.6 (8.4-10.2) mg/dL Total Bilirubin 0.4 (0.2-1.3) mg/dL AST 27 (17-59) U/L ALT 36 (21-72) U/L Alkaline Phosphatase 92 (38-126) U/L Total Protein 7.1 (6.3-8.2) g/dL Albumin 4.3 (3.5-5.0) g/dL Amylase 38 (30-110) U/L Lipase 64 (23-300) U/L Urine Color Urine Appearance (Clear) Urine pH (5.0-8.0) Ur Specific [place] (1.001-1.035) Urine Protein (Negative) Urine Glucose (UA) (Negative) Urine Ketones (Negative) Urine Blood (Negative) Urine Nitrite (Negative) Urine Bilirubin (Negative) Urine Urobilinogen (<2.0) mg/dL Ur Leukocyte Esterase (Negative) Urine RBC (0-5) /hpf Urine WBC (0-5) /hpf Urine Mucus (None) /hpf 06/08/18 06/08/18 Range/Units 14:00 15:27 WBC (3.8-10.6) k/uL RBC (4.30-5.90) m/uL Hgb (13.0-17.5) gm/dL Hct (39.0-53.0) % MCV (80.0-100.0) fL MCH (25.0-35.0) pg MCHC (31.0-37.0) g/dL RDW (11.5-15.5) % Plt Count (150-450) k/uL Neutrophils % % Lymphocytes % % Monocytes % % Eosinophils % % Basophils % % Neutrophils # (1.3-7.7) k/uL Lymphocytes # (1.0-4.8) k/uL Monocytes # (0-1.0) k/uL Eosinophils # (0-0.7) k/uL Basophils # (0-0.2) k/uL PT 10.6 (9.0-12.0) sec INR 1.1 (<1.2) APTT 22.9 (22.0-30.0) sec Sodium (137-145) mmol/L Potassium (3.5-5.1) mmol/L Chloride (98-107) mmol/L Carbon Dioxide (22-30) mmol/L Anion Gap mmol/L BUN (9-20) mg/dL Creatinine (0.66-1.25) mg/dL Est GFR (CKD-EPI)AfAm (>60 ml/min/1.73 sqM) Est GFR (CKD-EPI)NonAf (>60 ml/min/1.73 sqM) Glucose (74-99) mg/dL Plasma Lactic Acid [place] (0.7-2.0) mmol/L Calcium (8.4-10.2) mg/dL Total Bilirubin (0.2-1.3) mg/dL AST (17-59) U/L ALT (21-72) U/L Alkaline Phosphatase (38-126) U/L Total Protein (6.3-8.2) g/dL Albumin (3.5-5.0) g/dL Amylase (30-110) U/L Lipase (23-300) U/L Urine Color Yellow Urine Appearance Clear (Clear) Urine pH 7.0 (5.0-8.0) Ur Specific [place] 1.006 (1.001-1.035) Urine Protein Negative (Negative) Urine Glucose (UA) Negative (Negative) Urine Ketones Negative (Negative) Urine Blood Moderate H (Negative) Urine Nitrite Negative (Negative) Urine Bilirubin Negative (Negative) Urine Urobilinogen <2.0 (<2.0) mg/dL Ur Leukocyte Esterase Negative (Negative) Urine RBC 5 (0-5) /hpf Urine WBC 4 (0-5) /hpf Urine Mucus Rare H (None) /hpf Disposition Clinical Impression: Kidney stone, Right flank pain Disposition: HOME SELF-CARE Condition: Stable Instructions: Kidney Stones (ED) Additional Instructions: Please return to the Emergency Department if symptoms worsen or any other concerns. Prescriptions: Ketorolac [Toradol] 10 mg PO Q8HR #15 tab Tamsulosin [Flomax] 0.4 mg PO DAILY #7 cap Is patient prescribed a controlled substance at d/c from ED?: No Referrals: None,Stated [Primary Care Provider] - 1-2 days Amandeep Andino MD [STAFF PHYSICIAN] - 1-2 days
[2018-06-08 14:43] LABS: Basophils % (A) 0 %; Eosinophils # (A) 0.1 k/uL (0-0.7); Eosinophils % (A) 1 %; HCT 46.6 % (39.0-53.0); HGB 15.1 gm/dL (13.0-17.5); Lymphocytes # (A) 0.6 k/uL (1.0-4.8); Lymphocytes % (A) 6 %; MCH 29.8 pg (25.0-35.0); MCHC 32.5 g/dL (31.0-37.0); MCV 91.8 fL (80.0-100.0); Monocytes # (A) 0.4 k/uL (0-1.0); Monocytes % (A) 4 %; Neutrophils # (A) 9.5 k/uL (1.3-7.7); Neutrophils % (A) 89 %; Platelet Count 177 k/uL (150-450); RBC 5.07 m/uL (4.30-5.90); RDW 13.3 % (11.5-15.5); WBC 10.7 k/uL (3.8-10.6)
[2018-06-08 14:48] LABS: INR 1.1 (<1.2); Partial Thromboplastin Time 22.9 sec (22.0-30.0); Prothrombin Time 10.6 sec (9.0-12.0)
[2018-06-08 14:49] LABS: ALT 36 U/L (21-72); AST 27 U/L (17-59); Albumin 4.3 g/dL (3.5-5.0); Alkaline Phosphatase 92 U/L (38-126); Amylase 38 U/L (30-110); Anion Gap 7 mmol/L; Blood Urea Nitrogen 9 mg/dL (9-20); Calcium 9.6 mg/dL (8.4-10.2); Carbon Dioxide 28 mmol/L (22-30); Chloride 104 mmol/L (98-107); Glucose 118 mg/dL (74-99); Lipase 64 U/L (23-300); Sodium 139 mmol/L (137-145); Total Bilirubin 0.4 mg/dL (0.2-1.3); Total Protein 7.1 g/dL (6.3-8.2)
--- NOTE | 2018-06-08 15:33 | CT ---
EXAMINATION TYPE: CT abdomen pelvis w con DATE OF EXAM: 06/08/2018 COMPARISON: CT abdomen pelvis December 05, 2017 HISTORY: Low back and belly pain CT DLP: 890 mGycm, Automated Exposure Control for Dose Reduction was Utilized. CONTRAST: CT scan of the abdomen and pelvis is performed without oral but with IV Contrast, patient injected wi th 100 mL of Isovue 300. FINDINGS: LUNG BASES: Dependent atelectasis both bases is present. Coronary stent suspected RCA distribution ve rsus calcification, correlate clinically. LIVER/GB: Cholecystectomy clips are redemonstrated. Stable mild extrahepatic and central intrahepatic biliary dilatation. Stable mild dilatation of pancreatic duct in head with double duct sign on coron al images. No obstructing mass noted. PANCREAS: No significant abnormality is seen. SPLEEN: Spleen is upper limits of normal in size measuring 13.5 cm axial image 20 not significant ariel nge from prior. ADRENALS: No significant abnormality is seen. KIDNEYS: On current exam there is redemonstration of 4-5 lower pole right renal calculi measuring up to 9 mm in size coronal image 58. There is symmetric cortical medullary uptake and excretion from bot h kidneys with moderate right-sided pyelocaliectasis and hydroureter, no obstructing calculus is skye rly seen. Stable calculi left kidney with suspected 2 small adjacent calculi upper to mid pole level coronal image 62. No left-sided hydronephrosis. No intraluminal calculi and bladder are seen. Stable scattered pelvic phleboliths noted. BOWEL: Evaluation bowel slightly suboptimal secondary to lack of enteric contrast. No suspicious smal l or large bowel dilatation is present. PROSTATE/SEMINAL VESICLES: Prostate gland is slightly prominent bulging on bladder base with central region calcifications redemonstrated. LYMPH NODES: No greater than 1cm abdominal or pelvic lymph nodes are appreciated. OSSEOUS STRUCTURES: Postsurgical changes lower lumbar spine with posterior interpedicular rods and sc rews and artificial disc material L4-S1 levels is redemonstrated. OTHER: Mild to moderate calcified plaque distal abdominal aorta extending into pelvic branch vessels is redemonstrated. IMPRESSION: New moderate right-sided hydronephrosis without obstructing calculus identified. Consider recently passed calculus as possible etiology as there may be 1 less calculus versus prior CT. Corre late clinically. Differential includes vesicoureteral reflux.
[2018-06-08] MEDS ORDERED: KETOROLAC 30 MG/ML 1 ML VIAL IVP STA (15:45)
[2018-06-08 15:52] LABS: Appearance,Urine Clear (Clear); Bilirubin,Urine Negative (Negative); Blood,Urine Moderate (Negative); Color,Urine Yellow; Glucose,Urine (UA) Negative (Negative); Ketones,Urine Negative (Negative); Leukocyte Esterase,Urine Negative (Negative); Mucus,Urine Rare /hpf; Nitrite,Urine Negative (Negative); Protein,Urine Negative (Negative); RBC,Urine 5 /hpf (0-5); Specific Gravity,Urine 1.006 (1.001-1.035); Urobilinogen,Urine <2.0 mg/dL (<2.0); WBC,Urine 4 /hpf (0-5)
[2018-06-08] MEDS ORDERED: ACET/COD 300 MG/30 MG STARTER PACK 6 TAB BTL PO STA (16:16)
[2018-06-08 16:30] VITALS: BP 164/93; PULSE 75; RESP 16; TEMP 97.9
== END 2018-06-08 16:30 | disposition home or self-care (01) ==
LOC: EC 12:42
DX: N13.2 Hydronephrosis with renal and ureteral calculous obstruction (principal); G89.29 Other chronic pain; J44.9 Chronic obstructive pulmonary disease, unspecified; M19.90 Unspecified osteoarthritis, unspecified site; F32.9 Major depressive disorder, single episode, unspecified; F41.9 Anxiety disorder, unspecified; Z79.899 Other long term (current) drug therapy; F17.200 Nicotine dependence, unspecified, uncomplicated; Z90.49 Acquired absence of other specified parts of digestive tract
CPT/HCPCS: 36415; 80053; 82150; 83605; 83690; 85025; 85610; 85730; 81001; 74177; 99284; 96374; 96375 ×2; 96361 ×2; J2270; J2405; J1885; Q9967

== ENCOUNTER → 2019-03-17 | Outpatient (CLI) | payer MEDICARE, OTHER ==
--- NOTE | 2019-03-17 21:46 | CT ---
EXAMINATION TYPE: CT abdomen pelvis w con DATE OF EXAM: 03/17/2019 COMPARISON: CT abdomen and pelvis September 17, 2018. HISTORY: abdominal pain, weight loss, altering diarrhea and constipation CT DLP: 583.5 mGycm, Automated Exposure Control for Dose Reduction was Utilized. CONTRAST: CT scan of the abdomen and pelvis is performed with oral and with IV Contrast, patient injected with 100 mL of Isovue 300. FINDINGS: LUNG BASES: Dependent atelectasis in both bases. LIVER/GB: Gallbladder is surgically absent. PANCREAS: No significant abnormality is seen. SPLEEN: No significant abnormality is seen. ADRENALS: Slight thickening to both adrenal glands favors benign lipid rich hyperplasia. KIDNEYS: Interval passage of right-sided renal calculus with 9 mm calculus in proximal right ureter c oronal image 43 and axial image 42 causing moderate to severe hydronephrosis and some diminished excr etion versus left kidney. No residual right-sided calculi are present suggesting passage of smaller c alculi seen on prior. There are stable 1 to 2 calculi midpole of the left kidney coronal image 55. No left-sided hydronephrosis. BOWEL: Oral contrast does not reach colonic level. No suspicious small large bowel dilatation. Patien t has very little intra-abdominal fat also making evaluation slightly suboptimal bowel. PROSTATE/SEMINAL VESICLES: No gross abnormality seen. LYMPH NODES: No greater than 1cm abdominal or pelvic lymph nodes are appreciated. OSSEOUS STRUCTURES: Posterior interpedicular rods and screws L4-S1 level are seen. OTHER: [id number] calcified plaque of the aorta extends into branch vessels. IMPRESSION: There is 9 mm calculus proximal right ureter causing moderate to severe right-sided hydro nephrosis. Advise urology referral.
== END | disposition home or self-care (01) ==
LOC: RADCTMAIN 16:04
PROVIDERS: ATTEND Family Medicine
DX: N13.2 Hydronephrosis with renal and ureteral calculous obstruction (principal); B18.2 Chronic viral hepatitis C; R63.4 Abnormal weight loss; R19.8 Other specified symptoms and signs involving the digestive system and abdomen; R10.33 Periumbilical pain
CPT/HCPCS: 74177; Q9967

== ENCOUNTER 2019-04-05 14:39 | Inpatient (IN) | payer MEDICARE, OTHER ==
[2019-04-05] MEDS ORDERED: SODIUM CHLORIDE 0.9% 500 ML 500 ML IV STA (15:07)
--- NOTE | 2019-04-05 15:27 | ED ---
General Adult HPI <Juan Campoverde - Last Filed: 04/05/19 17:44> - General Source: patient, RN notes reviewed Mode of arrival: EMS Limitations: no limitations <Tenzin Barahona - Last Filed: 04/05/19 18:43> - General Chief complaint: Nausea/Vomiting/Diarrhea Stated complaint: Abd Pain Time Seen by Provider: 04/05/19 15:06 - History of Present Illness Initial comments: 63-year-old male with a past medical history of chest pain, COPD, GERD, hypertension, pancreatitis, hepatitis C presents to the emergency department for multiple complaints. Patient states he has had abdominal pain for 3-4 weeks now. States it is in the mid abdomen. States it is not gotten better. Patient states he is now not eating or drinking because of the pain it is becoming week. States he has had 3 syncopal episodes this week where he has been walking and has fallen. Patient states he does believe he lost consciousness and wakes up when he hits the ground. Patient denies any headache or hitting his head that he is aware of. No fevers or chills. He denies dysuria. Patient has no other complaints at this time including shortness of breath, chest pain,nausea or vomiting, headache, or visual changes. (Tenzin Barahona) - Related Data Home Medications Medication Instructions Recorded Confirmed LORazepam [Ativan] 1 mg PO BID 12/05/17 04/05/19 Cholecalciferol [Vitamin D3 (25 1,000 unit PO DAILY 04/05/19 04/05/19 Mcg = 1000 Iu)] Dextroamphetamine/Amphetamine 40 mg PO DAILY 04/05/19 04/05/19 [Adderall] Escitalopram [Lexapro] 40 mg PO DAILY 04/05/19 04/05/19 Ferrous Sulfate [Feosol] 325 mg PO BID 04/05/19 04/05/19 traZODone HCL 600 mg PO HS 04/05/19 04/05/19 Allergies Allergy/AdvReac Type Severity Reaction Status Date / Time No Known Allergies Allergy Verified 04/05/19 17:25 Review of Systems ROS Other: All systems not noted in ROS Statement are negative. <Juan Campoverde - Last Filed: 04/05/19 17:44> ROS Other: All systems not noted in ROS Statement are negative. <Tenzin Barahona - Last Filed: 04/05/19 18:43> ROS Statement: Those systems with pertinent positive or pertinent negative responses have been documented in the HPI. Past Medical History Past Medical History: Chest Pain / Angina, COPD, GERD/Reflux, Hypertension, Liver Disease, Osteoarthritis (OA) Additional Past Medical History / Comment(s): hx pancreatitis, angina x 1 yrs ago, hepatitis C-no tx recieved for it, past rt arm fx(sx), kidney stones, History of Any Multi-Drug Resistant Organisms: None Reported Past Surgical History: Appendectomy, Back Surgery, Cholecystectomy, Tonsillectomy Additional Past Surgical History / Comment(s): sx to enlarge urethra opening, lump removed from chest, surgery rt arm(fx), colonoscopy Past Anesthesia/Blood Transfusion Reactions: No Reported Reaction Past Psychological History: Anxiety, Depression Smoking Status: Current every day smoker Past Alcohol Use History: None Reported Past Drug Use History: Marijuana - Past Family History Father Family Medical History: Congestive Heart Failure (CHF) Mother Family Medical History: No Reported History Additional Family Medical History / Comment(s): bowel obstruction. <Tenzin Barahona P - Last Filed: 04/05/19 18:43> General Exam Limitations: no limitations General appearance: alert, in no apparent distress Head exam: Present: atraumatic, normocephalic, normal inspection Eye exam: Present: normal appearance, PERRL, EOMI. Absent: scleral icterus, conjunctival injection, periorbital swelling ENT exam: Present: normal exam, mucous membranes moist Neck exam: Present: normal inspection, full ROM. Absent: tenderness, meningismus, lymphadenopathy Respiratory exam: Present: normal lung sounds bilaterally. Absent: respiratory distress, wheezes, rales, rhonchi, stridor Cardiovascular Exam: Present: regular rate, normal rhythm, normal heart sounds. Absent: systolic murmur, diastolic murmur, rubs, gallop, clicks GI/Abdominal exam: Present: soft, tenderness (Umbilical tenderness noted. No guarding or rebound.), normal bowel sounds. Absent: distended, guarding, rebound, rigid Neurological exam: Present: alert Psychiatric exam: Present: normal affect, normal mood <Tenzin Barahona P - Last Filed: 04/05/19 18:43> Course Vital Signs 04/05/19 04/05/19 14:51 16:29 Temperature 98.3 F Pulse Rate 57 L 55 L Respiratory 20 20 Rate Blood Pressure 143/71 158/77 O2 Sat by Pulse 96 99 Oximetry EKG Findings - EKG Comments: EKG Findings:: Sinus bradycardia cardiac, ventricular rate 51, VA interval 172, QTc 468 <Tenzin Barahona P - Last Filed: 04/05/19 18:43> Medical Decision Making - Lab Data Result diagrams: 04/05/19 15:10 04/05/19 15:10 <Juan Campoverde - Last Filed: 04/05/19 17:44> - Lab Data Result diagrams: 04/05/19 15:10 04/05/19 15:10 <Tenzin Barahona - Last Filed: 04/05/19 18:43> - Medical Decision Making Patient reevaluated and reexamined by myself, Dr. Campoverde. I do agree with PA findings. This includes diagnostic interpretation and treatment plan. Patient states he has had nausea and decreased appetite for over a week. Patient has had no significant oral intake in the past 3 days. Patient feels dehydrated and had 2 near-syncopal episodes today. Patient is unclear if he Lost consciousness. No chest pain or dyspnea. Patient did have recent T computed tomography scan. Patient states food makes his symptoms worse. Patient did see urology today who did not feel his kidney stone was related to his discomfort or symptoms. Patient is updated on results and plan. Case was discussed in detail with Dr. keith, covering for Dr. Mcfadden, who will admit. (Juan Campoverde) 63-year-old male presents to the emergency department for a chief complaint of syncope and abdominal pain. Patient states that the abdominal pain has been ongoing for several weeks. States it is in the epigastric area. States it is w orse after he eats. Patient had a CAT scan taken by his primary care provider which showed a 9 mm ureterolithiasis. This was about 3 weeks ago. Results were reviewed. Patient followed up with urology today and his urologist did not that this was a related issue to his abdominal pain. Since the pain worsens after he eats patient has not eaten or had much to drink in the past 3 days. He states he feels weak. States he had 3 possible syncopal episodes today. States that he feels like he woke up when he hit the ground but is unsure if he was actually unconscious prior to this. Denies dizziness does admit to some mild lightheadedness. Denies headache. CBC and Rice. CMP shows a mild h ypokalemia of 3.3. This will be replaced orally. Troponin is negative. EKG shows a sinus bradycardia with a ventricular rate of 51. This time patient was given Protonix. Patient may need scope of stomach, GI will be consulted. (Tenzin Barahona) - Lab Data Lab Results 04/05/19 04/05/19 04/05/19 Range/Units 15:10 15:10 15:10 WBC 6.0 (3.8-10.6) k/uL RBC 4.51 (4.30-5.90) m/uL Hgb 10.4 L (13.0-17.5) gm/dL Hct 33.7 L (39.0-53.0) % MCV 74.8 L (80.0-100.0) fL MCH 23.0 L (25.0-35.0) pg MCHC 30.8 L (31.0-37.0) g/dL RDW 22.0 H (11.5-15.5) % Plt Count 166 (150-450) k/uL Neutrophils % 68 % Lymphocytes % 22 % Monocytes % 6 % Eosinophils % 1 % Basophils % 0 % Neutrophils # 4.1 (1.3-7.7) k/uL Lymphocytes # 1.3 (1.0-4.8) k/uL Monocytes # 0.4 (0-1.0) k/uL Eosinophils # 0.1 (0-0.7) k/uL Basophils # 0.0 (0-0.2) k/uL Hypochromasia Marked Anisocytosis Moderate Microcytosis Marked PT 11.0 (9.0-12.0) sec INR 1.0 (<1.2) APTT 25.5 (22.0-30.0) sec Sodium 139 (137-145) mmol/L Potassium 3.3 L (3.5-5.1) mmol/L Chloride 108 H (98-107) mmol/L Carbon Dioxide 26 (22-30) mmol/L Anion Gap 5 mmol/L BUN 7 L (9-20) mg/dL Creatinine 0.75 (0.66-1.25) mg/dL Est GFR (CKD-EPI)AfAm >90 (>60 ml/min/1.73 sqM) Est GFR (CKD-EPI)NonAf >90 (>60 ml/min/1.73 sqM) Glucose 103 H (74-99) mg/dL Calcium 8.8 (8.4-10.2) mg/dL Total Bilirubin 0.2 (0.2-1.3) mg/dL AST 27 (17-59) U/L ALT 29 (21-72) U/L Alkaline Phosphatase 65 (38-126) U/L Troponin I (0.000-0.034) ng/mL Total Protein 6.1 L (6.3-8.2) g/dL Albumin 3.6 (3.5-5.0) g/dL Amylase 30 (30-110) U/L Lipase 76 (23-300) U/L Urine Color Urine Appearance (Clear) Urine pH (5.0-8.0) Ur Specific Ward (1.001-1.035) Urine Protein (Negative) Urine Glucose (UA) (Negative) Urine Ketones (Negative) Urine Blood (Negative) Urine Nitrite (Negative) Urine Bilirubin (Negative) Urine Urobilinogen (<2.0) mg/dL Ur Leukocyte Esterase (Negative) Urine RBC (0-5) /hpf Urine WBC (0-5) /hpf Urine Mucus (None) /hpf 04/05/19 04/05/19 Range/Units 15:10 16:34 WBC (3.8-10.6) k/uL RBC (4.30-5.90) m/uL Hgb (13.0-17.5) gm/dL Hct (39.0-53.0) % MCV (80.0-100.0) fL MCH (25.0-35.0) pg MCHC (31.0-37.0) g/dL RDW (11.5-15.5) % Plt Count (150-450) k/uL Neutrophils % % Lymphocytes % % Monocytes % % Eosinophils % % Basophils % % Neutrophils # (1.3-7.7) k/uL Lymphocytes # (1.0-4.8) k/uL Monocytes # (0-1.0) k/uL Eosinophils # (0-0.7) k/uL Basophils # (0-0.2) k/uL Hypochromasia Anisocytosis Microcytosis PT (9.0-12.0) sec INR (<1.2) APTT (22.0-30.0) sec Sodium (137-145) mmol/L Potassium (3.5-5.1) mmol/L Chloride (98-107) mmol/L Carbon Dioxide (22-30) mmol/L Anion Gap mmol/L BUN (9-20) mg/dL Creatinine (0.66-1.25) mg/dL Est GFR (CKD-EPI)AfAm (>60 ml/min/1.73 sqM) Est GFR (CKD-EPI)NonAf (>60 ml/min/1.73 sqM) Glucose (74-99) mg/dL Calcium (8.4-10.2) mg/dL Total Bilirubin (0.2-1.3) mg/dL AST (17-59) U/L ALT (21-72) U/L Alkaline Phosphatase (38-126) U/L Troponin I <0.012 (0.000-0.034) ng/mL Total Protein (6.3-8.2) g/dL Albumin (3.5-5.0) g/dL Amylase (30-110) U/L Lipase (23-300) U/L Urine Color Yellow Urine Appearance Clear (Clear) Urine pH 6.0 (5.0-8.0) Ur Specific Ward 1.014 (1.001-1.035) Urine Protein Negative (Negative) Urine Glucose (UA) Negative (Negative) Urine Ketones Negative (Negative) Urine Blood Negative (Negative) Urine Nitrite Negative (Negative) Urine Bilirubin Negative (Negative) Urine Urobilinogen <2.0 (<2.0) mg/dL Ur Leukocyte Esterase Small H (Negative) Urine RBC 5 (0-5) /hpf Urine WBC 12 H (0-5) /hpf Urine Mucus Occasional H (None) /hpf Disposition <Juan Campoverde - Last Filed: 04/05/19 17:44> Is patient prescribed a controlled substance at d/c from ED?: No <Tenzin Barahona - Last Filed: 04/05/19 18:43> Clinical Impression: Epigastric pain, Hypokalemia, Intractable abdominal pain, Syncope Disposition: ADMITTED IP TO THIS HOSP Referrals: Vera Jc MD [Primary Care Provider] - 1-2 days
[2019-04-05 15:28] LABS: Anisocytosis Moderate; Basophils % (A) 0 %; Eosinophils # (A) 0.1 k/uL (0-0.7); Eosinophils % (A) 1 %; HCT 33.7 % (39.0-53.0); HGB 10.4 gm/dL (13.0-17.5); Hypochromasia Marked; Lymphocytes # (A) 1.3 k/uL (1.0-4.8); Lymphocytes % (A) 22 %; MCHC 30.8 g/dL (31.0-37.0); MCV 74.8 fL (80.0-100.0); Mean Platelet Volume 7.1; Microcytosis Marked; Monocytes # (A) 0.4 k/uL (0-1.0); Monocytes % (A) 6 %; Neutrophils # (A) 4.1 k/uL (1.3-7.7); Neutrophils % (A) 68 %; Platelet Count 166 k/uL (150-450); RBC 4.51 m/uL (4.30-5.90)
[2019-04-05 15:32] LABS: ALT 29 U/L (21-72); AST 27 U/L (17-59); African American GFR (CKD) >90 (>60 ml/min/1.73 sqM); Albumin 3.6 g/dL (3.5-5.0); Alkaline Phosphatase 65 U/L (38-126); Amylase 30 U/L (30-110); Anion Gap 5 mmol/L; Blood Urea Nitrogen 7 mg/dL (9-20); Calcium 8.8 mg/dL (8.4-10.2); Carbon Dioxide 26 mmol/L (22-30); Chloride 108 mmol/L (98-107); Glucose 103 mg/dL (74-99); Potassium 3.3 mmol/L (3.5-5.1); Sodium 139 mmol/L (137-145); Total Bilirubin 0.2 mg/dL (0.2-1.3); Total Protein 6.1 g/dL (6.3-8.2)
[2019-04-05] MEDS ORDERED: KETOROLAC 30 MG/ML 1 ML VIAL IVP STA (16:31)
[2019-04-05 16:34] LABS: Partial Thromboplastin Time 25.5 sec (22.0-30.0)
--- NOTE | 2019-04-05 16:38 | XR ---
EXAMINATION TYPE: XR KUB DATE OF EXAM: 04/05/2019 COMPARISON: 09/17/2018 HISTORY: Abdominal pain TECHNIQUE: 2 views supine FINDINGS: There is no sign of intestinal obstruction or pneumoperitoneum. Fecal pattern is normal. Th ere is posterior fusion surgery in the lower lumbar spine with laminectomy. There are no pathologic c alcifications over the kidneys. There is a 7 mm calcification at the L4 level right paraspinal region . IMPRESSION: Calcification over the right mid abdomen is proximal ureteral calculus also demonstrated on the CT scan of 03/17/2019 and not significantly moved in position.
[2019-04-05 17:00] LABS: Appearance,Urine Clear (Clear); Bilirubin,Urine Negative (Negative); Blood,Urine Negative (Negative); Color,Urine Yellow; Glucose,Urine (UA) Negative (Negative); Ketones,Urine Negative (Negative); Leukocyte Esterase,Urine Small (Negative); Mucus,Urine Occasional /hpf; Nitrite,Urine Negative (Negative); Protein,Urine Negative (Negative); RBC,Urine 5 /hpf (0-5); Specific Gravity,Urine 1.014 (1.001-1.035); Urobilinogen,Urine <2.0 mg/dL (<2.0); WBC,Urine 12 /hpf (0-5)
[2019-04-05] MEDS ORDERED: NALOXONE 0.4 MG/ML 1 ML VIAL IV PRN (18:39)
[2019-04-05] MEDS ORDERED: POTASSIUM CHLORIDE ER 20 MEQ TAB.ER PO STA (18:39)
[2019-04-05] MEDS ORDERED: ONDANSETRON 4 MG/2 ML VIAL IVP PRN (18:39)
[2019-04-05 19:10] LABS: African American GFR (CKD) >90 (>60 ml/min/1.73 sqM); Anion Gap 5 mmol/L; Blood Urea Nitrogen 7 mg/dL (9-20); Calcium 8.5 mg/dL (8.4-10.2); Carbon Dioxide 26 mmol/L (22-30); Chloride 109 mmol/L (98-107); Glucose 94 mg/dL (74-99); Potassium 3.4 mmol/L (3.5-5.1); Sodium 140 mmol/L (137-145)
[2019-04-05] MEDS: SODIUM CHLORIDE 0.9% 1,000 ML IV SCH (19:25)
[2019-04-05] MEDS: PANTOPRAZOLE 40 MG/10 ML VIAL IV SCH (19:26)
[2019-04-05] MEDS: MORPHINE SULFATE 4 MG/ML SYRINGE IV PRN (20:17)
[2019-04-05] MEDS ORDERED: TRIMETHOBENZAMIDE 300 MG CAP PO PRN (22:17)
[2019-04-05] MEDS: LORazepam 1 MG TAB PO SCH (22:56)
[2019-04-05] MEDS: QUEtiapine 100 MG TAB PO SCH (22:56)
[2019-04-05] MEDS: NICOTINE 21MG/24HR PATCH TRANSDERM SCH (22:56)
[2019-04-06] MEDS: traZODone HCL 100 MG TAB PO SCH ×2 (00:08→20:27)
[2019-04-06] MEDS: MORPHINE SULFATE 4 MG/ML SYRINGE IV PRN ×2 (00:08→08:21)
[2019-04-06] MEDS: SODIUM CHLORIDE 0.9% 1,000 ML IV SCH ×2 (08:16→20:30)
[2019-04-06] MEDS: CHOLECALCIFEROL 1,000 UNIT TAB PO SCH (08:19)
[2019-04-06] MEDS: HEPARIN SODIUM,PORCINE 5,000 UNIT/ML 1 ML VIAL SQ SCH ×2 (08:19→20:28)
[2019-04-06] MEDS: ESCITALOPRAM 20 MG TAB PO SCH (08:20)
[2019-04-06] MEDS: PANTOPRAZOLE 40 MG/10 ML VIAL IV SCH (08:20)
[2019-04-06] MEDS: LORazepam 1 MG TAB PO SCH ×2 (08:20→20:28)
[2019-04-06] MEDS: NICOTINE 21MG/24HR PATCH TRANSDERM SCH (08:20)
[2019-04-06] MEDS: FERROUS SULFATE 325 MG TAB PO SCH ×2 (08:20→20:29)
--- NOTE | 2019-04-06 10:30 | P.CONS ---
History of Present Illness - Reason for Consult Consult date: 04/06/19 abdominal pain Requesting physician: Laz E Sheet - Chief Complaint abdominal pain - History of Present Illness 63-year-old male with a past medical history chronic hepatitis C without treatment, GERD, hypertension, pancreatitis, cholecystectomy, anxiety, depression, marijuana usage, right-sided ureteral calculus scheduled for outpatient surgery in 1 week with urology admitted with acute right-sided abdominal pain. KUB calcification with a right midabdomen proximal ureteral calculus redemonstrated on previous CT February 2019 not significantly moved in position. Patient takes iron twice daily reports darker colored bowel movements black but denies gross hematemesis or hematochezia. Abdominal pain is centered over the right flank region. Urinary frequency but denies gross hematuria. Hemoglobin 10.4. White count 6. MCV 74. Platelet 166. INR 1.0. BUN 7. Creatinine 0.7. Previous hemoglobin August 2018 was 13.5. MCV 94. Colonoscopy October [address] Fernández with rectal polyps removed. No history or recent EGD. No NSAIDs or aspirin. No alcohol. Review of Systems Constitutional: Denies fever, chills, sweats, weight gain, or loss. HEENT: Negative for migraines, blurred vision or loss, earaches, drainage, tinnitus, oral mucosal lesions, dysphagia, or odynophagia. Cardiac: Negative for chest pain, arrhythmias, or palpitation. Respiratory: Negative for shortness of breath, hemoptysis, cough, or sputum production. Gastrointestinal: See HPI for pertinent findings. Genitourinary: Negative for hematuria, urgency, frequency, polyuria, dysuria, or penile discharge. Musculoskeletal: Negative for muscle aches, swelling, arthritis, and arthralgias. Neurologic: Negative for stroke or TIA. Endocrine: Negative for thyroid problems. Skin: Negative for rash or itching. Psychiatric: Negative history for depression and anxiety Past Medical History Past Medical History: Chest Pain / Angina, COPD, GERD/Reflux, Hypertension, Liver Disease, Osteoarthritis (OA) Additional Past Medical History / Comment(s): hx pancreatitis, angina x 1 yrs ago, hepatitis C-no tx recieved for it, past rt arm fx(sx), kidney stones, History of Any Multi-Drug Resistant Organisms: None Reported Past Surgical History: Appendectomy, Back Surgery, Cholecystectomy, Tonsillectomy Additional Past Surgical History / Comment(s): sx to enlarge urethra opening, lump removed from chest, surgery rt arm(fx), colonoscopy Past Anesthesia/Blood Transfusion Reactions: No Reported Reaction Past Psychological History: Anxiety, Depression Additional Psychological History / Comment(s): pt states he lives with roommate,uses cane when up. received meals on wheels. Smoking Status: Current every day smoker Past Alcohol Use History: None Reported Additional Past Alcohol Use History / Comment(s): started smoking at age 22,smokes 1 ppd. Past Drug Use History: Marijuana Additional Drug Use History / Comment(s): occasional use - Past Family History Father Family Medical History: Congestive Heart Failure (CHF) Mother Family Medical History: No Reported History Additional Family Medical History / Comment(s): bowel obstruction. Medications and Allergies Home Medications Medication Instructions Recorded Confirmed Type LORazepam [Ativan] 1 mg PO BID 12/05/17 04/05/19 History Cholecalciferol [Vitamin D3 (25 1,000 unit PO DAILY 04/05/19 04/05/19 History Mcg = 1000 Iu)] Dextroamphetamine/Amphetamine 40 mg PO DAILY 04/05/19 04/05/19 History [Adderall] Escitalopram [Lexapro] 40 mg PO DAILY 04/05/19 04/05/19 History Ferrous Sulfate [Feosol] 325 mg PO BID 04/05/19 04/05/19 History QUEtiapine FUMARATE [SEROquel] 300 mg PO HS 04/05/19 04/05/19 History traZODone HCL 600 mg PO HS 04/05/19 04/05/19 History Allergies Allergy/AdvReac Type Severity Reaction Status Date / Time No Known Allergies Allergy Verified 04/05/19 17:25 Physical Exam Vitals: Vital Signs Temp Pulse Pulse Pulse Resp BP BP 04/06/19 05:10 98.0 F 56 L 18 161/74 04/05/19 23:00 97.9 F 48 L 16 193/92 04/05/19 20:57 48 L 18 175/83 04/05/19 20:00 51 L 20 160/87 04/05/19 19:00 98.1 F 53 L 18 148/61 04/05/19 16:29 55 L 20 158/77 04/05/19 14:51 98.3 F 57 L 20 143/71 Pulse Ox 04/06/19 05:10 95 04/05/19 23:00 96 04/05/19 20:57 97 04/05/19 20:00 96 04/05/19 19:00 99 04/05/19 16:29 99 04/05/19 14:51 96 Intake and Output 04/05/19 04/06/19 04/06/19 22:59 06:59 14:59 Output Total 900 Balance -900 Output: Urine 900 Other: Voiding Method Toilet # Voids 2 1 General appearance: The patient is alert, oriented, in no acute distress. HET: Head is normocephalic and atraumatic. Pupils are equal and reactive. Oropharynx is clear without lesions. Neck: Supple without lymphadenopathy. Trachea midline. Heart: S1 S2. Regular rate and rhythm. Lungs: No crackles or wheezes are heard. Abdomen: Soft, mild tenderness to the right mid abdomen extending to the right f lank, nondistended with bowel sounds. No peritoneal signs. No palpable organomegaly or masses. Extremities: Normal skin color and turgor. No cyanosis, rash, ulceration, clubbing, or edema. Radial and pedal pulses are 2/4 bilaterally. Neurological: No focal deficits. Strength and sensation are grossly intact. Results CBC & Chem 7: 04/05/19 15:10 04/05/19 18:50 Labs: Abnormal Lab Results - Last 24 Hours (Table) 04/05/19 04/05/19 04/05/19 Range/Units 15:10 15:10 16:34 Hgb 10.4 L (13.0-17.5) gm/dL Hct 33.7 L (39.0-53.0) % MCV 74.8 L (80.0-100.0) fL MCH 23.0 L (25.0-35.0) pg MCHC 30.8 L (31.0-37.0) g/dL RDW 22.0 H (11.5-15.5) % Potassium 3.3 L (3.5-5.1) mmol/L Chloride 108 H (98-107) mmol/L BUN 7 L (9-20) mg/dL Glucose 103 H (74-99) mg/dL Total Protein 6.1 L (6.3-8.2) g/dL Ur Leukocyte Esterase Small H (Negative) Urine WBC 12 H (0-5) /hpf Urine Mucus Occasional H (None) /hpf 04/05/19 Range/Units 18:50 Hgb (13.0-17.5) gm/dL Hct (39.0-53.0) % MCV (80.0-100.0) fL MCH (25.0-35.0) pg MCHC (31.0-37.0) g/dL RDW (11.5-15.5) % Potassium 3.4 L (3.5-5.1) mmol/L Chloride 109 H (98-107) mmol/L BUN 7 L (9-20) mg/dL Glucose (74-99) mg/dL Total Protein (6.3-8.2) g/dL Ur Leukocyte Esterase (Negative) Urine WBC (0-5) /hpf Urine Mucus (None) /hpf Abdominal x-ray: report reviewed (Dr. Quiroz) CT scan - abdomen: report reviewed (February [address] Quiroz) Assessment and Plan (1) Abdominal pain Narrative/Plan: 63-year-old male chronic hepatitis C admitted with acute right sided abdominal flank pain with underlying right ureteral calculus scheduled for outpatient surgery in 1 week with reports of dark colored black bowel movements with normal BUN and creatinine maintained on iron twice daily with underlying microcytic chronic anemia. Current Visit: No Status: Acute Code(s): R10.9 - UNSPECIFIED ABDOMINAL PAIN SNOMED Code(s): 21065965 (2) Ureteral calculus, right Current Visit: Yes Status: Acute Code(s): N20.1 - CALCULUS OF URETER SNOMED Code(s): 87770548 (3) Chronic hepatitis C Current Visit: Yes Status: Acute Code(s): B18.2 - CHRONIC VIRAL HEPATITIS C SNOMED Code(s): 233710198 (4) Microcytic anemia Current Visit: Yes Status: Acute Code(s): D50.9 - IRON DEFICIENCY ANEMIA, UNSPECIFIED SNOMED Code(s): 008971742 Plan: 1. Iron indices. Clear liquid diet. Nothing by mouth after midnight. 2. Protonix 40 mg daily. 3. EGD tomorrow. CBC monitoring. The linux unix engineer has discussed the risks, benefits and alternative therapies for the above-mentioned procedure and for both sedation/analgesia as well as necessary blood product administration, if indicated, as they pertain to this patient. The patient has indicated understanding and acceptance of the risks and procedures discussed. Thank you for this kind referral and the opportunity to participate in the care of your patient. This consultation was discussed with Dr. Quiroz. The impr ession and plan of care have been directed as dictated.
--- NOTE | 2019-04-06 15:07 | P.CRDCN ---
History of Present Illness History of present illness: This is a pleasant 63-year-old male past medical history significant for COPD, hypertension, pancreatitis, hepatitis C and chronic nicotine dependence. He denies history of coronary artery disease does not follow with a counterintelligence/humint specialist for any reason. We have been asked to see him in consultation secondary to a syncopal spell one week ago Friday. He states for the previous one week he has had a poor appetite with little to no oral intake. He is only tolerating some fluids intermittently. 1 week ago he states he woke up and was going to try and eat something for breakfast when he started experiencing a heavy sensation in the left precordial region. The heaviness was brief and lasted only about 30-40 seconds. Initially there was no associated symptoms of shortness of breath, dizziness, palpitations, nausea, vomiting or diaphoresis. About 1 minute after the heaviness subsided he started feeling acutely light headed and passed out. He is unsure of how long he lost consciousness however he woke up on the floor and had hit his left eyebrow. Since that time he has had no further symptoms of chest pain but has continued to feel light headed intermittently. No other episodes of passing out. He is seen and examined sitting up in bed in no acute distress. Currently denies chest pain or dizziness. He has also been evaluated by GI service and is scheduled to undergo an EGD tomorrow. EKG reveals sinus bradycardia heart rate of [address] or T wave abnormalities noted. KUB x-ray reveals a calcification over the right mid abdomen maximal ureteral calculus that redemonstrated, normal fecal pattern with no sign of intestinal obstruction. Laboratory data reviewed, WBC 6, hemoglobin 10.4, platelets 166, sodium 140, potassium 3.4, creatinine 0.71, cardiac enzymes negative 1. He currently takes no cardiac medications. Most recent echocardiogram obtained 2014 revealed preserved LV systolic function with ejection fraction 60-65%. At the time of my exam: CONSTITUTIONAL: Denies fever. Denies chills. EYES: Denies blurred vision. Denies vision changes. Denies eye pain. EARS, NOSE, MOUTH & THROAT: Denies headache. Denies sore throat. Denies ear pain. CARDIOVASCULAR: Denies chest pain. Denies shortness of breath. Denies orthopnea. Denies PND. Denies palpitations. RESPIRATORY: Denies cough. GASTROINTESTINAL: Denies abdominal pain. Denies diarrhea. Denies constipation. Denies nausea. Denies vomiting. MUSCULOSKELETAL: Denies myalgias. INTEGUMENTARY: Denies pruitis. Denies rash. NEUROLOGIC: Denies numbness. Denies tingling. Denies weakness. PSYCHIATRIC: Denies anxiety. Denies depression. ENDOCRINE: Complains of weakness and fatigue. Denies weight change. Denies polydipsia. Denies polyurina. GENITOURINARY: Denies burning, hematuria or urgency with micturation. HEMATOLOGIC: Denies history of anemia. Denies bleeding. Blood pressure 161/74 heart rate 56 afebrile maintaining oxygen saturation on room air GENERAL: This is a 63-year-old male in no apparent distress at the time of my examination. HEENT: Head is atraumatic, normocephalic. Pupils are equal, round. Sclerae anicteric. Conjunctivae are clear. Mucous membranes of the mouth are moist. Neck is supple. There is no jugular venous distention. No carotid bruit is heard. LUNGS: Clear to auscultation no wheezes, rales or rhonchi. No chest wall tenderness is noted on palpation or with deep breathing. HEART: Regular rate and rhythm without murmurs, rubs or gallops. S1 and S2 heard. ABDOMEN: Soft, nontender. Bowel sounds are heard. No organomegaly noted. EXTREMITIES: No evidence of peripheral edema and no calf tenderness noted. VASCULAR: Radial and dorsalis pedis pulses palpated, no evidence of clubbing. NEUROLOGIC: Patient is awake, alert and oriented x3. ASSESSMENT Syncope, possibly related to dehydration Chest pain, atypical for angina. Abdominal pain with poor appetite Chronic hepatitis C Hypertension COPD Chronic nicotine dependence PLAN Check for orthostatic changes. Continue fluid hydration with 0.9% normal saline. Obtain 2D echocardiogram and doppler study to assess cardiac structure and function. No evidence to suggest underlying CAD. Ongoing medical management. Thank you kindly for this consultation. Nurse Practitioner note has been reviewed, I agree with a documented findings and plan of care. Patient was seen and examined. Past Medical History Past Medical History: Chest Pain / Angina, COPD, GERD/Reflux, Hypertension, Liver Disease, Osteoarthritis (OA) Additional Past Medical History / Comment(s): hx pancreatitis, angina x 1 yrs ago, hepatitis C-no tx recieved for it, past rt arm fx(sx), kidney stones, History of Any Multi-Drug Resistant Organisms: None Reported Past Surgical History: Appendectomy, Back Surgery, Cholecystectomy, Tonsillectomy Additional Past Surgical History / Comment(s): sx to enlarge urethra opening, lump removed from chest, surgery rt arm(fx), colonoscopy Past Anesthesia/Blood Transfusion Reactions: No Reported Reaction Past Psychological History: Anxiety, Depression Additional Psychological History / Comment(s): pt states he lives with roommate,uses cane when up. received meals on wheels. Smoking Status: Current every day smoker Past Alcohol Use History: None Reported Additional Past Alcohol Use History / Comment(s): started smoking at age 22,smokes 1 ppd. Past Drug Use History: Marijuana Additional Drug Use History / Comment(s): occasional use - Past Family History Father Family Medical History: Congestive Heart Failure (CHF) Mother Family Medical History: No Reported History Additional Family Medical History / Comment(s): bowel obstruction. Medications and Allergies Home Medications Medication Instructions Recorded Confirmed Type LORazepam [Ativan] 1 mg PO BID 12/05/17 04/05/19 History Cholecalciferol [Vitamin D3 (25 1,000 unit PO DAILY 04/05/19 04/05/19 History Mcg = 1000 Iu)] Dextroamphetamine/Amphetamine 40 mg PO DAILY 04/05/19 04/05/19 History [Adderall] Escitalopram [Lexapro] 40 mg PO DAILY 04/05/19 04/05/19 History Ferrous Sulfate [Feosol] 325 mg PO BID 04/05/19 04/05/19 History QUEtiapine FUMARATE [SEROquel] 300 mg PO HS 04/05/19 04/05/19 History traZODone HCL 600 mg PO HS 04/05/19 04/05/19 History Allergies Allergy/AdvReac Type Severity Reaction Status Date / Time No Known Allergies Allergy Verified 04/05/19 17:25 Physical Exam Vitals: Vital Signs Temp Pulse Pulse Pulse Resp BP BP 04/06/19 05:10 98.0 F 56 L 18 161/74 04/05/19 23:00 97.9 F 48 L 16 193/92 04/05/19 20:57 48 L 18 175/83 04/05/19 20:00 51 L 20 160/87 04/05/19 19:00 98.1 F 53 L 18 148/61 04/05/19 16:29 55 L 20 158/77 04/05/19 14:51 98.3 F 57 L 20 143/71 Pulse Ox 04/06/19 05:10 95 04/05/19 23:00 96 04/05/19 20:57 97 04/05/19 20:00 96 04/05/19 19:00 99 04/05/19 16:29 99 04/05/19 14:51 96 Intake and Output 04/05/19 04/06/19 04/06/19 22:59 06:59 14:59 Output Total 900 Balance -900 Output: Urine 900 Other: Voiding Method Toilet Urinal # Voids 2 1 Results 04/05/19 15:10 04/05/19 18:50 Cardiac Enzymes 04/05/19 04/05/19 Range/Units 15:10 15:10 AST 27 (17-59) U/L Troponin I <0.012 (0.000-0.034) ng/mL Coagulation 04/05/19 Range/Units 15:10 PT 11.0 (9.0-12.0) sec APTT 25.5 (22.0-30.0) sec CBC 04/05/19 Range/Units 15:10 WBC 6.0 (3.8-10.6) k/uL RBC 4.51 (4.30-5.90) m/uL Hgb 10.4 L (13.0-17.5) gm/dL Hct 33.7 L (39.0-53.0) % Plt Count 166 (150-450) k/uL Comprehensive Metabolic Panel 04/05/19 04/05/19 Range/Units 15:10 18:50 Sodium 139 140 (137-145) mmol/L Potassium 3.3 L 3.4 L (3.5-5.1) mmol/L Chloride 108 H 109 H (98-107) mmol/L Carbon Dioxide 26 26 (22-30) mmol/L BUN 7 L 7 L (9-20) mg/dL Creatinine 0.75 0.71 (0.66-1.25) mg/dL Glucose 103 H 94 (74-99) mg/dL Calcium 8.8 8.5 (8.4-10.2) mg/dL AST 27 (17-59) U/L ALT 29 (21-72) U/L Alkaline Phosphatase 65 (38-126) U/L Total Protein 6.1 L (6.3-8.2) g/dL Albumin 3.6 (3.5-5.0) g/dL Current Medications Generic Name Dose Route Start Last Admin Trade Name Freq PRN Reason Stop Dose Admin Cholecalciferol 1,000 unit 04/06/19 09:00 04/06/19 08:19 Vitamin D3 (25 Mcg = 1000 Iu) PO 1,000 unit DAILY ADRIAN Administration Escitalopram Oxalate 40 mg 04/06/19 09:00 04/06/19 08:20 Lexapro PO 40 mg DAILY ADRIAN Administration Ferrous Sulfate 325 mg 04/06/19 09:00 04/06/19 08:20 Feosol PO 325 mg BID ADRIAN Administration Heparin Sodium (Porcine) 5,000 unit 04/06/19 09:00 04/06/19 08:19 Heparin SQ 5,000 unit Q12HR ADRIAN Administration Sodium Chloride 1,000 mls @ 75 mls/hr 04/05/19 18:45 04/06/19 08:16 Saline 0.9% IV 75 mls/hr .[id number] ADRIAN Administration Lorazepam 1 mg 04/05/19 22:18 04/06/19 08:20 Ativan PO 1 mg BID ADRIAN Administration Morphine Sulfate 4 mg 04/05/19 18:39 04/06/19 08:21 Morphine Sulfate (Inj) IV 4 mg Q4HR PRN Administration Severe Pain Naloxone HCl 0.2 mg 04/05/19 18:39 Narcan IV Q2M PRN Opioid Reversal Nicotine 1 patch 04/05/19 23:00 04/06/19 08:20 Habitrol 21mg/24hr Patch TRANSDERM 1 patch DAILY ADRIAN Administration Pantoprazole Sodium 40 mg 04/05/19 18:45 04/06/19 08:20 Protonix IV 40 mg DAILY ADRIAN Administration Quetiapine Fumarate 300 mg 04/05/19 22:30 04/05/19 22:56 Seroquel PO 300 mg HS ADRIAN Administration Trazodone HCl 600 mg 04/05/19 22:30 04/06/19 00:08 Desyrel PO 600 mg HS ADRIAN Administration Trimethobenzamide HCl 300 mg 04/05/19 22:17 Tigan PO TID PRN Nausea And Vomiting Intake and Output 04/05/19 04/06/19 04/06/19 22:59 06:59 14:59 Output Total 900 Balance -900 Output: Urine 900 Other: Voiding Method Toilet Urinal # Voids 2 1 04/05/19 15:10 04/05/19 18:50
[2019-04-06] MEDS: HYDROcodone/APAP 5-325MG 1 EACH TAB PO PRN ×2 (16:00→21:36)
[2019-04-06 17:18] LABS: Appearance,Urine Clear (Clear); Bacteria,Urine Rare /hpf; Bilirubin,Urine Negative (Negative); Blood,Urine Negative (Negative); Color,Urine Colorless; Glucose,Urine (UA) Negative (Negative); Ketones,Urine Negative (Negative); Leukocyte Esterase,Urine Trace (Negative); Nitrite,Urine Negative (Negative); Protein,Urine Negative (Negative); RBC,Urine 1 /hpf (0-5); Specific Gravity,Urine 1.002 (1.001-1.035); Urobilinogen,Urine <2.0 mg/dL (<2.0)
--- NOTE | 2019-04-06 17:57 | P.PN ---
Subjective 63-year-old male with history of chronic hep C is admitted for aggressive epigastric abdominal pain nausea multiple episodes and anemia which is chronic. No evidence of acute GI bleed because of his nausea and lightheadedness patient is undergoing upper GI endoscopy patient may have peptic is a disease or gastritis. Patient is also company of right mid abdominal pain secondary to ureteral calculus for which patient will undergo lithotripsy once he is discharged from the hospital. Patient denied any hematuria pain is better controlled now. Patient the had a syncope for which echo cardiac exam is being obtained although patient is on very high doses of Seroquel, trazodone and Ativan these medications may be contributing to his dizziness and syncopal episode rather than anything else. Psychiatric consulted did because of this reason. Constitutional: Denied any fatigue denied any fever. Cardio vascular: denied any chest pain, palpitations Gastrointestinal denied any nausea vomiting Pulmonary: Denied any shortness of breath cough Neurologic denied any new focal deficits All inpatient medications were reviewed and appropriate changes in these medications as dictated in the interval history and assessment and plan. Objective - Vital Signs Vital signs: Vital Signs Temp 97.9 F 04/06/19 14:32 Pulse 72 04/06/19 14:32 Resp 16 04/06/19 14:32 BP 157/82 04/06/19 14:32 Pulse Ox 97 04/06/19 14:32 Intake & Output 04/05/19 04/06/19 04/06/19 18:59 06:59 18:59 Output Total 2700 Balance -2700 Weight 75.296 kg Output: Urine 2700 Other: Voiding Method Toilet Urinal # Voids 2 5 # Bowel Movements 0 - Exam PHYSICAL EXAMINATION: GENERAL: The patient is alert and oriented x3, not in any acute distress. Well developed, well nourished. HEENT: Pupils are round and equally reacting to light. EOMI. No scleral icterus. No conjunctival pallor. Normocephalic, atraumatic. No pharyngeal erythema. No thyromegaly. CARDIOVASCULAR: S1 and S2 present. No murmurs, rubs, or gallops. PULMONARY: Chest is clear to auscultation, no wheezing or crackles. ABDOMEN: Soft, nontender, nondistended, normoactive bowel sounds. No palpable organomegaly. MUSCULOSKELETAL: No joint swelling or deformity. EXTREMITIES: No cyanosis, clubbing, or pedal edema. NEUROLOGICAL: Gross neurological examination did not reveal any focal deficits. SKIN: No rashes. - Labs CBC & Chem 7: 04/05/19 15:10 04/05/19 18:50 Labs: Abnormal Lab Results - Last 24 Hours (Table) 04/05/19 04/06/19 Range/Units 18:50 17:03 Potassium 3.4 L (3.5-5.1) mmol/L Chloride 109 H (98-107) mmol/L BUN 7 L (9-20) mg/dL Ur Leukocyte Esterase Trace H (Negative) Urine Bacteria Rare H (None) /hpf Assessment and Plan Plan: syncope, dizziness: Probably related to his psychiatric medications psychiatry will be consulted for possible change or titration of his medications. -right ureteral calculus lithotripsy as an outpatient -Chronic hepatitis C -Possible peptic ulcer disease or gastritis or upper GI endoscopy -COPD without any acute exacerbation -Anxiety and depression Have a nicotine use and marijuana use: Counseling was provided
[2019-04-06] MEDS: QUEtiapine 100 MG TAB PO SCH (20:26)
[2019-04-07] MEDS: ESCITALOPRAM 20 MG TAB PO SCH (08:51)
[2019-04-07] MEDS: NICOTINE 21MG/24HR PATCH TRANSDERM SCH (08:51)
[2019-04-07] MEDS: HYDROcodone/APAP 5-325MG 1 EACH TAB PO PRN (08:51)
[2019-04-07] MEDS: LORazepam 1 MG TAB PO SCH (08:51)
[2019-04-07] MEDS: FERROUS SULFATE 325 MG TAB PO SCH (08:51)
[2019-04-07] MEDS: CHOLECALCIFEROL 1,000 UNIT TAB PO SCH (08:51)
[2019-04-07] MEDS: HEPARIN SODIUM,PORCINE 5,000 UNIT/ML 1 ML VIAL SQ SCH (08:53)
[2019-04-07] MEDS: PANTOPRAZOLE 40 MG/10 ML VIAL IV SCH (08:53)
[2019-04-07] MEDS: SODIUM CHLORIDE 0.9% 1,000 ML IV SCH (11:08)
--- NOTE | 2019-04-07 11:39 | ECHOF ---
Referral Reason:cp MEASUREMENTS -------- HEIGHT: 182.9 cm WEIGHT: 75.3 kg BP: 161/74 RVIDd: 3.7 cm (< 3.3) IVSd: 1.3 cm (0.6 - 1.1) LVIDd: 4.4 cm (3.9 - 5.3) LVPWd: 1.4 cm (0.6 - 1.1) IVSs: 1.6 cm LVIDs: 2.9 cm LVPWs: 1.7 cm LAESV Index (A-L): 46.75 ml/m Ao Diam: 3.9 cm (2.0 - 3.7) AV Cusp: 2.5 cm (1.5 - 2.6) LA Diam: 3.7 cm (2.7 - 3.8) EPSS: 1.7 cm MV E Adán: 0.70 m/s MV DecT: 430 ms MV A Adán: 0.45 m/s MV E/A Ratio: 1.54 RAP: 5.00 mmHg RVSP: 38.59 mmHg MV EF SLOPE: 138.51 mm/s (70 - 150) MV EXCURSION: 1.53 cm (> 18.000) FINDINGS -------- Sinus rhythm. This was a technically adequate study. The left ventricular size is normal. There is mild concentric left ventricular hypertrophy. Overa ll left ventricular systolic function is normal with, an EF between 55 - 60 %. The diastolic fillin g pattern is normal for the age of the patient. The right ventricle is mildly enlarged. Left atrium is severely dilated by volume. The right atrial size is normal. Interatrial and interventricular septum intact. The aortic valve was not well visualized. There is no evidence of aortic regurgitation. There is no evidence of aortic stenosis. Moderate mitral annular calcification present. Mild mitral regurgitation is present. Mild tricuspid regurgitation present. There is mild pulmonary hypertension. The right ventricular systolic pressure, as measured by Doppler, is 38.59mmHg. There is no pulmonic regurgitation present. The aortic root size is normal. The inferior vena cava is mildly dilated. There is no pericardial effusion. CONCLUSIONS -------- 1. Sinus rhythm. 2. This was a technically adequate study. 3. The left ventricular size is normal. 4. There is mild concentric left ventricular hypertrophy. 5. Overall left ventricular systolic function is normal with, an EF between 55 - 60 %. 6. The diastolic filling pattern is normal for the age of the patient. 7. The right ventricle is mildly enlarged. 8. Left atrium is severely dilated by volume. 9. The right atrial size is normal. 10. Interatrial and interventricular septum intact. 11. The aortic valve was not well visualized. 12. There is no evidence of aortic regurgitation. 13. There is no evidence of aortic stenosis. 14. Moderate mitral annular calcification present. 15. Mild mitral regurgitation is present. 16. Mild tricuspid regurgitation present. 17. There is mild pulmonary hypertension. 18. The right ventricular systolic pressure, as measured by Doppler, is 38.59mmHg. 19. There is no pulmonic regurgitation present. 20. The aortic root size is normal. 21. The inferior vena cava is mildly dilated. 22. There is no pericardial effusion. SUBSTANCE ABUSE RN: Qiana Gonzalez RDCS
[2019-04-07] MEDS ORDERED: fentaNYL (PF) 50 MCG/ML 2 ML AMP ONE (12:20)
[2019-04-07] MEDS ORDERED: PROPOFOL 10 MG/ML 20 ML VIAL IV ONE (12:20)
[2019-04-07] MEDS ORDERED: LIDOCAINE 1% INJ 10MG/ML (20 ML MDV) ONE (12:20)
[2019-04-07] MEDS ORDERED: IV FLUID CONTINUATION 1,000 ML IV ONE (12:21)
--- NOTE | 2019-04-07 12:31 | P.PCN ---
Date of Procedure: 04/07/19 Procedure(s) Performed: BRIEF HISTORY: Patient is a 63-year-old, pleasant, male, admitted hospital with right-sided abdominal pain and black tarry stools for the last 2 days' duration. Hemoglobin was 10.4 g/dL. He scheduled for an upper endoscopy to evaluate further PROCEDURE PERFORMED: Esophagogastroduodenoscopy with biopsy. PREOPERATIVE DIAGNOSIS: Abdominal pain and black tarry stools. IV sedation per anesthesia. PROCEDURE: After informed consent was obtained, the patient was brought into the endoscopy unit. IV sedation was administered by Anesthesia under continuous monitoring. Initially the Olympus GIF-140 video endoscope was inserted into the mouth. Esophagus intubated without any difficulty. It was gradually advanced into the stomach and duodenum and carefully examined. The bulb and the second part of the duodenum appeared normal. The scope at this time was withdrawn to the stomach, adequately insufflated with air, and upon careful examination, mucosa of the antrum, body had diffuse gastritis and biopsies were done from this area. The, cardia and the fundus appeared normal. The scope was then withdrawn into the esophagus. The GE junction was located at 39 cm from the incisors. The esophagus appeared normal. There were no erosions or ulcerations seen and the patient tolerated the procedure well. IMPRESSION: 1. Antral gastritis. 2. No evidence of esophagitis or peptic ulcer disease. RECOMMENDATIONS: The findings of this examination were discussed with the patient. He was advised to follow with the biopsy results. Diet will be advanced as tolerated.
[2019-04-07 12:54] VITALS: RESP 18; TEMP 98.1
[2019-04-07 14:55] VITALS: BP 155/81; PULSE 57
[2019-04-07 15:59] LABS: Iron Saturation 5.75 (15.00-50.00)
--- NOTE | 2019-04-07 16:50 | P.DS ---
Providers Date of admission: 04/07/19 07:14 Attending physician: Laz Villa MD Consults: 04/05/19 17:46 Consult Physician Urgent Consulting Provider: Lizzeth Quiroz Consult Reason/Comments: Epigastric pain, EGD Do you want consulting provider notified?: Yes 04/05/19 18:43 Consult Physician Routine Consulting Provider: Frederic Mcfarland Consult Reason/Comments: sycope Do you want consulting provider notified?: Yes 04/06/19 17:55 Consult Physician Routine Consulting Provider: Gee Cordero Consult Reason/Comments: Medication management, dizziness Do you want consulting provider notified?: Yes Primary care physician: [facility] Course: 63-year-old male with history of chronic hep C is admitted for aggressive epigastric abdominal pain nausea multiple episodes and anemia which is chronic. No evidence of acute GI bleed because of his nausea and lightheadedness patient is undergoing upper GI endoscopy patient may have peptic is a disease or gastritis. Patient is also company of right mid abdominal pain secondary to ureteral calculus for which patient will undergo lithotripsy once he is discharged from the hospital. Patient denied any hematuria pain is better controlled now. Patient the had a syncope for which echo cardiac exam is being obtained although patient is on very high doses of Seroquel, trazodone and Ativan these medications may be contributing to his dizziness and syncopal episode rather than anything else. Psychiatric consulted did because of this reason. 04/07/2019 Patient underwent upper GI endoscopy which showed gastritis and esophagitis patient comfortable inhibitor for a month. Patient does have elevated blood pressure does have concentrate And get hypertrophy patient may have essential hypertension although it's not appropriate to make the diagnosis an inpatient because of which asked the patient to check the blood pressure at home after relaxing for 10-20 minutes and the right down the readings intake primary care physician if needed patient can be started on calcium channel roseline at that time. Patient dizziness resolved which I believe mostly secondary to his high dose trazodone consulted psychiatry but the unable to get any recommendations from them yet because of which are good and discharge the patient asked him to follow-up with his psychiatrist as an outpatient. PHYSICAL EXAMINATION: GENERAL: The patient is alert and oriented x3, not in any acute distress. Well developed, well nourished. HEENT: Pupils are round and equally reacting to light. EOMI. No scleral icterus. No conjunctival pallor. Normocephalic, atraumatic. No pharyngeal erythema. No thyromegaly. CARDIOVASCULAR: S1 and S2 present. No murmurs, rubs, or gallops. PULMONARY: Chest is clear to auscultation, no wheezing or crackles. ABDOMEN: Soft, nontender, nondistended, normoactive bowel sounds. No palpable organomegaly. MUSCULOSKELETAL: No joint swelling or deformity. EXTREMITIES: No cyanosis, clubbing, or pedal edema. NEUROLOGICAL: Gross neurological examination did not reveal any focal deficits. SKIN: No rashes. Assessment and Plan Plan: syncope, dizziness: Probably related to his psychiatric medications further management as mentioned above -right ureteral calculus lithotripsy as an outpatient -Chronic hepatitis C -Possible peptic ulcer disease or gastritis or upper GI endoscopy -COPD without any acute exacerbation -Anxiety and depression nicotine use and marijuana use: Counseling was provided Patient Condition at Discharge: Good Plan - Discharge Summary New Discharge Prescriptions: New Omeprazole [PriLOSEC] 40 mg PO AC-BRKFST #30 capsule. No Action LORazepam [Ativan] 1 mg PO BID Dextroamphetamine/Amphetamine [Adderall] 40 mg PO DAILY Ferrous Sulfate [Feosol] 325 mg PO BID Escitalopram [Lexapro] 40 mg PO DAILY Cholecalciferol [Vitamin D3 (25 Mcg = 1000 Iu)] 1,000 unit PO DAILY traZODone HCL 600 mg PO HS QUEtiapine FUMARATE [SEROquel] 300 mg PO HS Discharge Medication List LORazepam [Ativan] 1 mg PO BID 12/05/17 [History] Cholecalciferol [Vitamin D3 (25 Mcg = 1000 Iu)] 1,000 unit PO DAILY 04/05/19 [History] Dextroamphetamine/Amphetamine [Adderall] 40 mg PO DAILY 04/05/19 [History] Escitalopram [Lexapro] 40 mg PO DAILY 04/05/19 [History] Ferrous Sulfate [Feosol] 325 mg PO BID 04/05/19 [History] QUEtiapine FUMARATE [SEROquel] 300 mg PO HS 04/05/19 [History] traZODone HCL 600 mg PO HS 04/05/19 [History] Omeprazole [PriLOSEC] 40 mg PO AC-BRKFST #30 capsule. 04/07/19 [Rx] Follow up Appointment(s)/Referral(s): Vera Jc MD [Primary Care Provider] - 04/13/19 1:30 pm Patient Instructions/Handouts: Gastritis (DC) Discharge Disposition: HOME SELF-CARE
== END 2019-04-07 15:11 | disposition home or self-care (01) | DRG 392 ==
LOC: EC 14:39 → UNDOADMOB 17:47 → 4MS4W 17:47 → OBSVTOIN 04-07 07:14 → INTOOBSV 04-07 07:14
PROVIDERS: ADMIT Internal Medicine; ATTEND Internal Medicine
PROC: 0DB78ZX Excision of Stomach, Pylorus, Via Natural or Artificial Opening Endoscopic, Diagnostic (ICD-10-PCS; principal; 2019-04-07 11:30)
DX: K29.70 Gastritis, unspecified, without bleeding (principal); N20.1 Calculus of ureter; B18.2 Chronic viral hepatitis C; D50.9 Iron deficiency anemia, unspecified; E87.6 Hypokalemia; Z71.6 Tobacco abuse counseling; F17.210 Nicotine dependence, cigarettes, uncomplicated; F32.9 Major depressive disorder, single episode, unspecified; F41.9 Anxiety disorder, unspecified; I10 Essential (primary) hypertension; J44.9 Chronic obstructive pulmonary disease, unspecified; K21.0 Gastro-esophageal reflux disease with esophagitis; Z87.19 Personal history of other diseases of the digestive system; Z79.899 Other long term (current) drug therapy; Z82.49 Family history of ischemic heart disease and other diseases of the circulatory system; Z87.442 Personal history of urinary calculi; M19.90 Unspecified osteoarthritis, unspecified site; Z90.49 Acquired absence of other specified parts of digestive tract; R55 Syncope and collapse; T43.95XA Adverse effect of unspecified psychotropic drug, initial encounter
CPT/HCPCS: 36415; 43239; 74018; 80048; 80053; 81001; 82150; 82728; 83540; 83550; 83690; 84484; 85025; 85610; 85730; 87086; 88305; 93005; 93306; 96374; 96375; 99285

== ENCOUNTER 2019-04-29 09:59 | Day surgery (SDC) | payer MEDICARE, OTHER ==
[2019-04-28 10:46] VITALS: BMI 22.4
--- NOTE | 2019-04-28 11:59 | P.HPIHPCON ---
History of Present Illness H&P Date: 04/29/19 Chief Complaint: right flank pain 63 yo male with right sided ureteral calculi, S/P ESWL. Still complaining of right flank pain. Passed some small fragments. He presents today for right sided ureteroscopy. Consent for Procedure: I have explained the operation/procedure to the patient, including the risks, benefits, side effects, alternative therapies (including not receiving the proposed treatment or service), the likelihood of the patient achieving his/her goals, and potential recuperation problems for the procedure/sedation/analgesia, as well as any blood products, if indicated. I also explained to the patient the risks, benefits and side effects of the alternatives, as well as the risks related to not receiving the proposed procedure, care, treatment, or services. - Constitutional Constitutional: Denies chills, Denies fever - Cardiovascular Cardiovascular: Denies chest pain, Denies shortness of breath - Respiratory Respiratory: Denies dyspnea - Gastrointestinal Gastrointestinal: Denies nausea, Denies vomiting - Genitourinary (Female) Genitourinary: Reports flank pain Past Medical History Past Medical History: Chest Pain / Angina, GERD/Reflux, Liver Disease, Osteoarthritis (OA) Additional Past Medical History / Comment(s): anemia, hx pancreatitis, angina x 1 yrs ago, hepatitis C-no tx recieved for it, kidney stones, History of Any Multi-Drug Resistant Organisms: None Reported Past Surgical History: Appendectomy, Back Surgery, Cholecystectomy, Tonsillectomy Additional Past Surgical History / Comment(s): sx to enlarge urethra opening, lump removed from chest, surgery rt arm(fx), colonoscopy, recent lithotripsy at [facility],03/2019 Past Anesthesia/Blood Transfusion Reactions: No Reported Reaction Smoking Status: Current every day smoker - Past Family History Father Family Medical History: Congestive Heart Failure (CHF) Mother Family Medical History: No Reported History Additional Family Medical History / Comment(s): bowel obstruction. Medications and Allergies Home Medications Medication Instructions Recorded Confirmed Type LORazepam [Ativan] 1 mg PO BID 12/05/17 04/28/19 History Escitalopram [Lexapro] 20 mg PO BID 04/05/19 04/28/19 History traZODone HCL 600 mg PO HS 04/05/19 04/28/19 History Omeprazole [PriLOSEC] 40 mg PO -[facility] #30 capsule. 04/07/19 04/28/19 Rx Cyanocobalamin (Vitamin B-12) 1,000 mcg PO DAILY 04/09/19 04/28/19 History [Vitamin B-12] HYDROcodone/APAP 5-325MG [[place] 1 tab PO DIRECTED PRN 04/09/19 04/28/19 History 5-325] Iron 1 tab PO BID 04/28/19 History Allergies Allergy/AdvReac Type Severity Reaction Status Date / Time No Known Allergies Allergy Verified 04/28/19 10:21 Surgical - Exam - General well developed, well nourished - Respiratory normal expansion, normal respiratory effort - Abdomen Abdomen: soft, tender (right flank ) - Psychiatric oriented to time, oriented to person, oriented to place Assessment and Plan Assessment: 63yo male with hx of 9mm right proximal stone, S/P ESWL, still symptomatic. He presents today for URS Plan: -NPO -Ancef 2g -OR for URS
[~2019-04-29 09:59] MED LIST changes: +HYDROmorphone 0.5 MG/0.5 ML SYRINGE IVP PRN; +LIDOCAINE 1% 20 ML VIAL (10MG/ML) FOR IV START INTRADERMA PRN; +ONDANSETRON 4 MG/2 ML VIAL IVP ONE
--- NOTE | 2019-04-29 10:21 | XR ---
EXAMINATION TYPE: XR KUB DATE OF EXAM: 04/29/2019 10:14 AM CLINICAL HISTORY: Nephrolithiasis. TECHNIQUE: Single supine KUB image of the abdomen is obtained. COMPARISON: 11/08/2019. FINDINGS: The previously seen right calculus at the level of L4 is not seen on today's exam. Moderate colonic fecal stasis is seen. Postsurgical changes of the spine. Diffuse osseous demineralization. S olitary clip near the gallbladder fossa. IMPRESSION: The 7 mm calculus previously seen at L4 on the prior of 04/05/2019 is no longer visualized .
[2019-04-29] MEDS ORDERED: DEXAMETHASONE SOD PHOSPHATE 10 MG/ML 1 ML VIAL IV ONE (10:36)
[2019-04-29] MEDS ORDERED: HYDROmorphone 1 MG/ML 1 ML SYRINGE IVP ONE (11:00)
[2019-04-29] MEDS ORDERED: HYDROmorphone 0.5 MG/0.5 ML SYRINGE IVP PRN (11:03)
[2019-04-29 11:07] LABS: Glucose,Whole Blood 85 mg/dL (75-99)
[2019-04-29] MEDS ORDERED: KETOROLAC 30 MG/ML 1 ML VIAL ONE (12:45)
[2019-04-29] MEDS ORDERED: fentaNYL (PF) 50 MCG/ML 2 ML AMP ONE (12:45)
[2019-04-29] MEDS ORDERED: MIDAZOLAM 2 MG/2 ML VIAL ONE (12:45)
[2019-04-29] MEDS ORDERED: LIDOCAINE 1% INJ 10MG/ML (20 ML MDV) ONE (12:45)
[2019-04-29] MEDS ORDERED: SUCCINYLCHOLINE CHLORIDE 100 MG/5 ML SYR IV ONE (12:45)
[2019-04-29] MEDS ORDERED: ePHEDrine SULFATE/0.9% NACL/PF 50 MG/5 ML SYRINGE IV ONE (12:45)
[2019-04-29] MEDS ORDERED: PROPOFOL 10 MG/ML 20 ML VIAL IV ONE (12:45)
[2019-04-29] MEDS ORDERED: IOPAMIDOL-370 50ML BTL MISCELLANE ONE (13:13)
[2019-04-29 13:57] VITALS: TEMP 97.2
[2019-04-29 14:14] VITALS: RESP 16
[2019-04-29 14:49] VITALS: BP 160/82; PULSE 55
--- NOTE | 2019-04-29 16:37 | P.OP ---
Date of Procedure: 04/29/19 Preoperative Diagnosis: right ureteral calculi Postoperative Diagnosis: right ureteral calculi Procedure(s) Performed: Cystoscopy, Right Reterograde pyelogram and Ureteroscopy Anesthesia: BRENTONA Surgeon: Matt Jones Estimated Blood Loss (ml): 1 Condition: stable Disposition: PACU Indications for Procedure: 63 yo male S/P right ESWL for 9 mm proximal ureteral stone. Presented to clinic with flank pain. Decision was made to take patient to the OR for right sided ureteroscopy. We discussed with him the risk of procedure including infection, bleeding and injury to nearby organs. He agreed to proceed with surgery Operative Findings: No ureteral stone was visulized on ureteroscopy and RPG Description of Procedure: The patient was taken to the operating room and placed in the dorsolithotomy position, with legs supported in Wicho stirrups. The external genitalia was prepped and draped sterilely. The 30 lens was used to introduce the 22-[place] Stortz cystoscopic sheath through the urethra and into the bladder under direct vision. The bladder was examined in its entirety. Both ureteral orifices were normal anatomic location and configuration. No tumors or foreign bodies were seen. Ureteral orfice was intubated with an angle tip catheter. Reterograde pyelogram was performed which showed no obvious filling defects. Next The [facility] semirigid ureteroscope was advanced into the bladder under direct vision, and the right ureteral orifice was cannulated. ureteroscopy of mid and distal ureter showed no obvious stones. At this time the ureteroscope was removed with glide wire in place. the flexibile ureteroscope was advanced over the wire and ureteroscopy of renal pelvis and proximal ureter showed no stones. The bladder was emptied and the cystoscope removed. The patient tolerated the procedure well and was taken to the recovery room in stable condition.
--- NOTE | 2019-04-30 07:37 | FL ---
EXAMINATION TYPE: FL cystogram DATE OF EXAM: 04/29/2019 COMPARISON: NONE HISTORY: Fluoroscopy documentation for cisternogram performed by an outside department. TECHNIQUE: Fluoroscopy. FINDINGS: Fluoroscopic guidance was provided during procedure performed by Dr. Jones. A total of 2 7 seconds of fluoroscopic time was utilized during the procedure and 4 spot images were acquired duri ng a fluoroscopic-guided cystogram. IMPRESSION: As Above.
== END 2019-04-29 15:07 | disposition home or self-care (01) ==
LOC: OR 09:59
PROVIDERS: ATTEND Urology
DX: R10.9 Unspecified abdominal pain (principal); J44.9 Chronic obstructive pulmonary disease, unspecified; K21.9 Gastro-esophageal reflux disease without esophagitis; M19.90 Unspecified osteoarthritis, unspecified site; D64.9 Anemia, unspecified; B19.20 Unspecified viral hepatitis C without hepatic coma; F17.210 Nicotine dependence, cigarettes, uncomplicated; Z87.442 Personal history of urinary calculi; Z79.891 Long term (current) use of opiate analgesic; Z79.899 Other long term (current) drug therapy; Z87.19 Personal history of other diseases of the digestive system; Z90.49 Acquired absence of other specified parts of digestive tract; Z90.89 Acquired absence of other organs; Z98.890 Other specified postprocedural states; Z82.49 Family history of ischemic heart disease and other diseases of the circulatory system; Z83.79 Family history of other diseases of the digestive system
CPT/HCPCS: 52005; 74430; 74018; C1758; C1769; J2250; J1100; J2405; J0690; J2001; J3010; J1885; J1170 ×2; J0330; J2704; Q9967

== ENCOUNTER 2019-06-19 13:54 | Emergency (ER) | payer MEDICARE, OTHER ==
[2019-06-19 14:08] VITALS: BP 143/94; PULSE 75; RESP 18; TEMP 98.6
[2019-06-19] MEDS ORDERED: LIDOCAINE/EPINEPHR/TETRACAINE 5 ML BOTTLE TOPICAL ONE (14:17)
[2019-06-19] MEDS ORDERED: OXYMETAZOLINE 0.05% NASL SPRAY 1 SPRAY BOTTLE NASAL STA (14:17)
[2019-06-19] MEDS ORDERED: SILVER NITRATE APPLICATOR 1 EACH STICK..EA. TOPICAL STA (14:17)
--- NOTE | 2019-06-19 14:24 | ED ---
ENT HPI - General Chief complaint: ENT Stated complaint: nose bleed Time Seen by Provider: 06/19/19 14:07 Source: patient, EMS, RN notes reviewed, old records reviewed Mode of arrival: EMS Limitations: no limitations - History of Present Illness Initial comments: Patient is a 63-year-old male, presents emergency department today for evaluation for nosebleed. Patient reports that he was sitting a friend's house having coffee when he started to have a significant nosebleed. Reports he went through multiple towels and continue to have bleeding. The nosebleed lasted for approximately 10 minutes before arriving. Patient had a nasal clamp applied here in the nosebleed has now stopped. He does report that he seemed to swallow a good amount of blood at that time. Patient states that he's had no further coughing of blood. Denies any difficulty in breathing. He has never had history of nosebleeds prior to this. He states he is not on blood thinners or hypertensive medications. - Related Data Home Medications Medication Instructions Recorded Confirmed LORazepam [Ativan] 1 mg PO BID 12/05/17 04/28/19 Escitalopram [Lexapro] 20 mg PO BID 04/05/19 04/28/19 traZODone HCL 600 mg PO HS 04/05/19 04/28/19 Cyanocobalamin (Vitamin B-12) 1,000 mcg PO DAILY 04/09/19 04/28/19 [Vitamin B-12] HYDROcodone/APAP 5-325MG [[place] 1 tab PO DIRECTED PRN 04/09/19 04/28/19 5-325] Iron 1 tab PO BID 04/28/19 Previous Rx's Medication Instructions Recorded Omeprazole [PriLOSEC] 40 mg PO AC-BRKFST #30 capsule. 04/07/19 Sodium Chloride [Saline Mist] 1 spray EA NOSTRIL BID #1 bottle 06/19/19 Allergies Allergy/AdvReac Type Severity Reaction Status Date / Time No Known Allergies Allergy Verified 04/28/19 10:21 Review of Systems ROS Statement: Those systems with pertinent positive or pertinent negative responses have been documented in the HPI. ROS Other: All systems not noted in ROS Statement are negative. Past Medical History Past Medical History: Chest Pain / Angina, GERD/Reflux, Liver Disease Additional Past Medical History / Comment(s): anemia, hx pancreatitis, angina x 1 yrs ago, hepatitis C-no tx recieved for it, kidney stones, History of Any Multi-Drug Resistant Organisms: None Reported Past Surgical History: Appendectomy, Back Surgery, Cholecystectomy, Tonsillectomy Additional Past Surgical History / Comment(s): sx to enlarge urethra opening, lump removed from chest, surgery rt arm(fx), colonoscopy, recent lithotripsy at [facility],03/2019 Past Anesthesia/Blood Transfusion Reactions: No Reported Reaction Past Psychological History: Anxiety, Depression Smoking Status: Current every day smoker Past Alcohol Use History: None Reported Past Drug Use History: Marijuana - Past Family History Mother Family Medical History: No Reported History Additional Family Medical History / Comment(s): bowel obstruction. General Exam Limitations: no limitations General appearance: alert, in no apparent distress Head exam: Present: atraumatic, normocephalic, normal inspection Eye exam: Present: normal appearance, PERRL, EOMI. Absent: scleral icterus, conjunctival injection, periorbital swelling ENT exam: Present: normal exam, mucous membranes moist, other (Dried blood noted in bilateral nares. No active bleeding noted.) Neck exam: Present: normal inspection. Absent: tenderness, meningismus, lymphadenopathy Respiratory exam: Present: normal lung sounds bilaterally. Absent: respiratory distress, wheezes, rales, rhonchi, stridor Cardiovascular Exam: Present: regular rate, normal rhythm, normal heart sounds. Absent: systolic murmur, diastolic murmur, rubs, gallop, clicks GI/Abdominal exam: Present: soft, normal bowel sounds. Absent: distended, tenderness, guarding, rebound, rigid Extremities exam: Present: normal inspection, full ROM, normal capillary refill. Absent: tenderness, pedal edema, joint swelling, calf tenderness Back exam: Present: normal inspection Neurological exam: Present: alert, oriented X3, CN II-XII intact Psychiatric exam: Present: normal affect, normal mood Skin exam: Present: warm, dry, intact, normal color. Absent: rash Course Vital Signs 06/19/19 06/19/19 14:05 15:01 Temperature 98.6 F 98.6 F Pulse Rate 75 75 Respiratory 18 18 Rate Blood Pressure 143/94 143/94 O2 Sat by Pulse 96 96 Oximetry Medical Decision Making - Medical Decision Making 7-year-old male arrives via EMS for 10 minutes of nosebleed. Not on blood thinners. Arrival of nosebleeds or any soft. Patient was given Afrin. After this he had no further bleeding and I offered to evaluate with lidocaine with epinephrine and silver nitrate but these were not used. Patient was reevaluated, and states he has no further nosebleed. Does not want to be in the ER anymore. Discussed the Patient follow-up with PCP. discussed using saline spray. Disposition Clinical Impression: Nosebleed Disposition: HOME SELF-CARE Condition: Good Instructions (If sedation given, give patient instructions): Nosebleed (ED) Additional Instructions: Patient should use nasal saline spray to help keep the nasal tissue moistened. Use a humidifier by her bed at night. Return to the emergency department if any alarming signs or symptoms occur. Prescriptions: Sodium Chloride [Saline Mist] 1 spray EA NOSTRIL BID #1 bottle Is patient prescribed a controlled substance at d/c from ED?: No Referrals: Vera Jc MD [Primary Care Provider] - 1-2 days Time of Disposition: 14:52
== END 2019-06-19 15:02 | disposition home or self-care (01) ==
LOC: EC 13:54
DX: R04.0 Epistaxis (principal); F41.9 Anxiety disorder, unspecified; F32.9 Major depressive disorder, single episode, unspecified; F17.200 Nicotine dependence, unspecified, uncomplicated; Z79.899 Other long term (current) drug therapy
CPT/HCPCS: 99284

== ENCOUNTER 2019-10-19 10:13 | Emergency (ER) | payer MEDICARE, OTHER ==
[2019-10-19 10:20] VITALS: TEMP 99
[2019-10-19] MEDS ORDERED: DIAZEPAM 5 MG TAB PO STA (11:33)
[2019-10-19] MEDS ORDERED: KETOROLAC 30 MG/ML 1 ML VIAL IM STA (11:33)
--- NOTE | 2019-10-19 12:44 | ED ---
Fall HPI - General Chief Complaint: Fall Stated Complaint: back pain Time Seen by Provider: 10/19/19 11:13 Source: patient Mode of arrival: EMS - History of Present Illness Initial Comments: Patient is a 63-year-old male presenting to emergency Department with complaints of lower back pain and spasming since yesterday. Patient states he slipped on his rug at home landing right on his bottom. Patient states yesterday he felt some soreness but when he woke up early this morning the soreness has increased and he is having a lot of spasms in his low back. Patient states it hurts to walk. He denies bowel or bladder incontinence. He denies fever or chills. He states he does have a history of lumbar surgery approximately 10 years ago. He denies any numbness and tingling into his extremities but does feel like his feet "are feeling weird." He has full range of motion of his feet and legs. He has no other complaints at this time. Upon arrival to the ER, patient's BP is slightly elevated, rest of vitals normal. - Related Data Home Medications Medication Instructions Recorded Confirmed LORazepam [Ativan] 1 mg PO BID 12/05/17 04/28/19 Escitalopram [Lexapro] 20 mg PO BID 04/05/19 04/28/19 traZODone HCL 600 mg PO HS 04/05/19 04/28/19 Cyanocobalamin (Vitamin B-12) 1,000 mcg PO DAILY 04/09/19 04/28/19 [Vitamin B-12] HYDROcodone/APAP 5-325MG [[place] 1 tab PO DIRECTED PRN 04/09/19 04/28/19 5-325] Iron 1 tab PO BID 04/28/19 Previous Rx's Medication Instructions Recorded Omeprazole [PriLOSEC] 40 mg PO AC-BRKFST #30 capsule. 04/07/19 Sodium Chloride [Saline Mist] 1 spray EA NOSTRIL BID #1 bottle 06/19/19 Cyclobenzaprine [Flexeril] 5 mg PO BID #15 tablet 10/19/19 Allergies Allergy/AdvReac Type Severity Reaction Status Date / Time No Known Allergies Allergy Verified 10/19/19 10:20 Review of Systems ROS Statement: Those systems with pertinent positive or pertinent negative responses have been documented in the HPI. ROS Other: All systems not noted in ROS Statement are negative. Past Medical History Past Medical History: Chest Pain / Angina, GERD/Reflux, Liver Disease Additional Past Medical History / Comment(s): anemia, hx pancreatitis, angina x 1 yrs ago, hepatitis C-no tx recieved for it, kidney stones, History of Any Multi-Drug Resistant Organisms: None Reported Past Surgical History: Appendectomy, Back Surgery, Cholecystectomy, Tonsillectomy Additional Past Surgical History / Comment(s): sx to enlarge urethra opening, lump removed from chest, surgery rt arm(fx), colonoscopy, recent lithotripsy at [facility],03/2019 Past Anesthesia/Blood Transfusion Reactions: No Reported Reaction Past Psychological History: Anxiety, Depression Smoking Status: Current every day smoker Past Alcohol Use History: None Reported Past Drug Use History: Marijuana - Past Family History Mother Family Medical History: No Reported History Additional Family Medical History / Comment(s): bowel obstruction. General Exam - General Exam Comments Initial Comments: GENERAL: Well-appearing, well-nourished and in no acute distress, although appears uncomfortable. HEAD: Atraumatic, normocephalic. EYES: Pupils equal round and reactive to light, extraocular movements intact, sclera anicteric, conjunctiva are normal. ENT: Nares patent, oropharynx clear without exudates. Moist mucous membranes. NECK: Normal range of motion, supple without lymphadenopathy or JVD. LUNGS: Breath sounds clear to auscultation bilaterally and equal. No wheezes rales or rhonchi. HEART: Regular rate and rhythm without murmurs, rubs or gallops. ABDOMEN: Soft, nontender, normoactive bowel sounds. No guarding, no rebound. No masses appreciated. : Deferred EXTREMITIES: Patient has full range of motion of his lower extremities, sensation is equal and bilateral lower extremity's. Patient has 5 out of 5 strength in his lower 70s. Patient does have pain with palpation of his lumbar paraspinals and into the sacrum area. NEUROLOGICAL: Normal speech, normal gait. PSYCH: Normal mood, normal affect. SKIN: Warm, Dry, normal turgor, no rashes or lesions noted. Limitations: no limitations Course Vital Signs 10/19/19 10/19/19 10/19/19 10:16 11:49 13:49 Temperature 99.0 F Pulse Rate 78 70 Respiratory 18 16 Rate Blood Pressure 162/104 165/101 169/91 O2 Sat by Pulse 97 98 99 Oximetry Medical Decision Making - Medical Decision Making Patient is 63-year-old male here with low back pain and spasming since falling on his tailbone yesterday. Doesn't history of back surgery approximately 10 years ago. No red flag symptoms on today's exam. X-rays of the sacrum /coccyx bone reveals a fractured and displaced most distal coccygeal segments. I discussed his findings with the patient. Patient was given a muscle relaxer and some pain medication does report mild improvement of symptoms. Patient will be given a muscle relaxer to go home with and will continue with Tylenol or Motrin for pain relief. He will follow-up with his PCP or orthopedics. He is stable for discharge at this time. Return parameters were discussed with the patient he verbalizes understanding. Disposition Clinical Impression: Coccygeal fracture, Fall Disposition: HOME SELF-CARE Condition: Stable Instructions (If sedation given, give patient instructions): Coccyx Injury (ED) Additional Instructions: Please return to the Emergency Department if symptoms worsen or any other concerns. Use muscle relaxer and nighttime and continue with ibuprofen for pain relief. Follow-up with orthopedics. Prescriptions: Cyclobenzaprine [Flexeril] 5 mg PO BID #15 tablet Is patient prescribed a controlled substance at d/c from ED?: No Referrals: Vera Jc MD [Primary Care Provider] - 1-2 days
--- NOTE | 2019-10-19 12:47 | XR ---
EXAMINATION TYPE: XR sacrum coccyx DATE OF EXAM: 10/19/2019 CLINICAL HISTORY: Low back pain and coccygeal pain after fall one day ago. TECHNIQUE: 3 views of the coccyx and sacrum were obtained. COMPARISON: None. FINDINGS: The most distal coccygeal segment is subtly seen but is fractured and displaced anteriorly as well as distracted 7 mm. Sacroiliac joints appear aligned and symmetric. No additional fracture of the pelvis is seen. Postsurgical change of the lumbosacral spine is partially visualized. IMPRESSION: The most distal coccygeal segment is subtly seen, fractured and displaced 7 mm.
--- NOTE | 2019-10-19 12:53 | XR ---
EXAMINATION TYPE: XR lumbar spine 2 or 3V DATE OF EXAM: 10/19/2019 CLINICAL HISTORY: Low back pain and coccygeal pain after fall one day ago. Lumbar fusion greater than 10 years ago. TECHNIQUE: Frontal and lateral images of the lumbar spine are obtained. COMPARISON: 11/20/2012 FINDINGS: There are 5 lumbar type vertebral bodies identified. Surgical fixation of L3-S1 is seen as noted in 2013. No new malalignment nor vertebral body height loss of the lumbar spine. There is stab le mild retrolisthesis of L3 on L4 in comparison to 2013. Multilevel mild facet arthropathy of the up per lumbar spine. IMPRESSION: No acute fracture is seen in the lumbar spine. Stable mild retrolisthesis of L3 on L4 in comparison to 2013 and postsurgical change of the lumbosacral junction.
[2019-10-19 13:50] VITALS: BP 169/91; PULSE 70; RESP 16
== END 2019-10-19 13:49 | disposition home or self-care (01) ==
LOC: EC 10:13
DX: S32.2XXA Fracture of coccyx, initial encounter for closed fracture (principal); D64.9 Anemia, unspecified; F32.9 Major depressive disorder, single episode, unspecified; F41.9 Anxiety disorder, unspecified; F17.200 Nicotine dependence, unspecified, uncomplicated; Z79.899 Other long term (current) drug therapy; Z98.890 Other specified postprocedural states; W01.0XXA Fall on same level from slipping, tripping and stumbling without subsequent striking against object, initial encounter; Y92.009 Unspecified place in unspecified non-institutional (private) residence as the place of occurrence of the external cause
CPT/HCPCS: 72100; 72220; 99284; 96372; J1885

== ENCOUNTER 2020-07-08 20:18 | Emergency (ER) | payer MEDICARE, OTHER ==
[2020-07-08 20:36] VITALS: BP 145/95; PULSE 67; RESP 18; TEMP 98.6
[2020-07-08] MEDS ORDERED: MORPHINE SULFATE 4 MG/ML SYRINGE IVP STA (21:22)
--- NOTE | 2020-07-08 22:40 | CT ---
EXAMINATION TYPE: CT brain cspine wo con DATE OF EXAM: 07/08/2020 COMPARISON: 02/06/2015 HISTORY: pt fall Neck pain. Headache. CT DLP: 1405.6 mGycm Automated exposure control for dose reduction was used. Ventricles have normal size. There is no mass effect nor midline shift. There is no sign of intracran ial hemorrhage. The calvarium is intact. Skull base is intact. There is normal aeration of the mastoi d sinuses. The cervical vertebra have normal alignment. There is mild degenerative disc changes in the lower cer vical spine. Posterior elements are intact. There is mild hypertrophic facet arthropathy. Prevertebra l soft tissues are intact. IMPRESSION: Negative CT scan of the brain. Mild degenerative disc changes in the cervical spine. No fracture. No change compared to old exam.
--- NOTE | 2020-07-08 23:20 | CT ---
EXAMINATION TYPE: CT thor lumbar spine wo con DATE OF EXAM: 07/08/2020 COMPARISON: CT abdomen pelvis 03/17/2019 HISTORY: pt fall, c/o lower back CT DLP: 1466 mGycm Automated exposure control for dose reduction was used. Images were obtained from the level of the C5 vertebra to the bottom of the coccyx without contrast. Thoracic and lumbar vertebra have fairly normal alignment. There is a minimal retrolisthesis at L3-4. There is posterior fusion surgery from L4 to S1. There is disc prosthesis at L4-5 and L5-S1. There i s no thoracic or lumbar compression fracture. There is mild osteopenia. There is no evidence of thora cic paraspinal mass. There is no lumbar paraspinal mass. The posterior elements are intact. There is mild subsegmental atelectasis at the posterior lung bases. There is laminectomy defect in the lower l umbar spine. Sacroiliac joints appear intact. There are a few bilateral renal calculi. There is no ev idence of renal obstruction. IMPRESSION: No fracture seen. Multilevel fusion surgery in the lower lumbar spine. Lumbar spine unchanged compare d to old exam. Mild degenerative disc narrowing at C5-6 and C6-7.
--- NOTE | 2020-07-09 01:36 | ED ---
Fall HPI - General Chief Complaint: Fall Stated Complaint: Back Pain Time Seen by Provider: 07/08/20 20:30 Source: patient, EMS Mode of arrival: EMS - History of Present Illness Initial Comments: Patient is a 64-year-old male presents emergency department after he reportedly fell down 16 steps. States he was going outside to get his mail when he lost his footing and fell. Patient called EMS who brought him into the emergency room. Patient is reporting to neck pain and low back pain. States that he was able to get up and ambulate after the incident. Denies hitting his head or losing consciousness. Denies any chest pain or shortness of breath. No abdominal pain. No numbness, tingling or weakness into his legs. No saddle anesthesia. No other alleviating, precipitating or modifying factors - Related Data Home Medications Medication Instructions Recorded Confirmed LORazepam [Ativan] 1 mg PO BID 12/05/17 04/28/19 Escitalopram [Lexapro] 20 mg PO BID 04/05/19 04/28/19 traZODone HCL 600 mg PO HS 04/05/19 04/28/19 Cyanocobalamin (Vitamin B-12) 1,000 mcg PO DAILY 04/09/19 04/28/19 [Vitamin B-12] HYDROcodone/APAP 5-325MG [[place] 1 tab PO DIRECTED PRN 04/09/19 04/28/19 5-325] Iron 1 tab PO BID 04/28/19 Previous Rx's Medication Instructions Recorded Omeprazole [PriLOSEC] 40 mg PO AC-BRKFST #30 capsule. 04/07/19 Sodium Chloride [Saline Mist] 1 spray EA NOSTRIL BID #1 bottle 06/19/19 Cyclobenzaprine [Flexeril] 5 mg PO BID #15 tablet 10/19/19 Allergies Allergy/AdvReac Type Severity Reaction Status Date / Time No Known Allergies Allergy Verified 10/19/19 10:20 Review of Systems ROS Statement: Those systems with pertinent positive or pertinent negative responses have been documented in the HPI. ROS Other: All systems not noted in ROS Statement are negative. Past Medical History Past Medical History: Chest Pain / Angina, GERD/Reflux, Liver Disease Additional Past Medical History / Comment(s): anemia, hx pancreatitis, angina x 1 yrs ago, hepatitis C-no tx recieved for it, kidney stones, History of Any Multi-Drug Resistant Organisms: None Reported Past Surgical History: Appendectomy, Back Surgery, Cholecystectomy, Tonsillectomy Additional Past Surgical History / Comment(s): sx to enlarge urethra opening, lump removed from chest, surgery rt arm(fx), colonoscopy, recent lithotripsy at [facility],03/2019 Past Anesthesia/Blood Transfusion Reactions: No Reported Reaction Past Psychological History: Anxiety, Depression Past Alcohol Use History: None Reported Past Drug Use History: Marijuana - Past Family History Mother Family Medical History: No Reported History Additional Family Medical History / Comment(s): bowel obstruction. General Exam General appearance: alert, in no apparent distress Head exam: Present: atraumatic, normocephalic, normal inspection Eye exam: Present: normal appearance, PERRL, EOMI. Absent: scleral icterus, conjunctival injection, periorbital swelling ENT exam: Present: normal exam, mucous membranes moist Neck exam: Present: normal inspection. Absent: tenderness, meningismus, lymphadenopathy Respiratory exam: Present: normal lung sounds bilaterally. Absent: respiratory distress, wheezes, rales, rhonchi, stridor Cardiovascular Exam: Present: regular rate, normal rhythm, normal heart sounds. Absent: systolic murmur, diastolic murmur, rubs, gallop, clicks GI/Abdominal exam: Present: soft, normal bowel sounds. Absent: distended, tenderness, guarding, rebound, rigid Extremities exam: Present: normal inspection, full ROM, normal capillary refill. Absent: tenderness, pedal edema, joint swelling, calf tenderness Back exam: Present: normal inspection, paraspinal tenderness (entire thoracic and lumber spine) Neurological exam: Present: alert, oriented X3, CN II-XII intact Psychiatric exam: Present: normal affect, normal mood Skin exam: Present: warm, dry, intact, normal color. Absent: rash Course Vital Signs 07/08/20 20:31 Temperature 98.6 F Pulse Rate 67 Respiratory 18 Rate Blood Pressure 145/95 O2 Sat by Pulse 95 Oximetry Medical Decision Making - Medical Decision Making Upon arrival patient is placed into room 1. A thorough history and physical exam was performed. Patient is placed in c-collar. He has no external signs of trauma. Did recommend CT imaging as the patient has had previous and were replacement. Patient was given a dose of pain medications. CT of the brain and cervical spine demonstrates no acute process. I did remove the patient's c- collar and discussed that the CT the patient's back has yet to be read. Images reviewed and dictated. No acute fracture seen. I did go to inform the patient of the lumbar CT findings are per I have found that the patient has eloped from the emergency Department without discharge instructions Disposition Clinical Impression: Fall, Back pain Disposition: Left Against Medical Advice Condition: Stable Is patient prescribed a controlled substance at d/c from ED?: No Referrals: Vera Jc MD [Primary Care Provider] - 1-2 days
== END 2020-07-08 23:21 | disposition left against medical advice (07) ==
LOC: EC 20:18
DX: M54.9 Dorsalgia, unspecified (principal); M54.2 Cervicalgia; F41.9 Anxiety disorder, unspecified; F32.9 Major depressive disorder, single episode, unspecified; Z79.899 Other long term (current) drug therapy; W10.9XXA Fall (on) (from) unspecified stairs and steps, initial encounter
CPT/HCPCS: 72128; 72125; 72131; 70450; 99284; 96374; J2270

== ENCOUNTER 2020-10-11 15:42 | Emergency (ER) | payer MEDICARE, OTHER ==
[2020-10-11 15:54] VITALS: PULSE 73; RESP 17; TEMP 98.7
[2020-10-11 15:58] VITALS: BP 169/96
[2020-10-11] MEDS ORDERED: ONDANSETRON 4 MG/2 ML VIAL IVP STA (16:09)
[2020-10-11] MEDS ORDERED: MORPHINE SULFATE 4 MG/ML SYRINGE IV STA (16:09)
[2020-10-11] MEDS ORDERED: SODIUM CHLORIDE 0.9% 1,000 ML IV ONE (16:09)
--- NOTE | 2020-10-11 16:13 | ED ---
Fall HPI - General Chief Complaint: Fall Stated Complaint: fall Time Seen by Provider: 10/11/20 16:00 Source: patient, EMS, RN notes reviewed Mode of arrival: EMS Limitations: no limitations - History of Present Illness Initial Comments: Patient is a 63-year-old male that presents to emergency department status post fall down 16 stairs. He noted that he did hit the back of his head and neck and noted a loss of consciousness for about 30 seconds according to him. He stated that he woke back up walking back up the stairs. He also has a history of low back pain days had surgery on. He said the pain is about 8 out of 10 and is constant and not relieved by any home remedies or medications. He denied any paresthesias, weakness, loss of sensation, urinary or bowel incontinence, chest pain shortness of breath fever fatigue chills nausea vomiting diarrhea constipation. Patient does not take blood thinners - Related Data Home Medications Medication Instructions Recorded Confirmed LORazepam [Ativan] 1 mg PO BID 12/05/17 04/28/19 Escitalopram [Lexapro] 20 mg PO BID 04/05/19 04/28/19 traZODone HCL 600 mg PO HS 04/05/19 04/28/19 Cyanocobalamin (Vitamin B-12) 1,000 mcg PO DAILY 04/09/19 04/28/19 [Vitamin B-12] HYDROcodone/APAP 5-325MG [[place] 1 tab PO DIRECTED PRN 04/09/19 04/28/19 5-325] Iron 1 tab PO BID 04/28/19 Previous Rx's Medication Instructions Recorded Omeprazole [PriLOSEC] 40 mg PO ADDI-BRKFST #30 capsule. 04/07/19 Sodium Chloride [Saline Mist] 1 spray EA NOSTRIL BID #1 bottle 06/19/19 Cyclobenzaprine [Flexeril] 5 mg PO BID #15 tablet 10/19/19 Allergies Allergy/AdvReac Type Severity Reaction Status Date / Time No Known Allergies Allergy Verified 10/11/20 15:54 Review of Systems ROS Statement: Those systems with pertinent positive or pertinent negative responses have been documented in the HPI. ROS Other: All systems not noted in ROS Statement are negative. Past Medical History Past Medical History: Chest Pain / Angina, GERD/Reflux, Liver Disease Additional Past Medical History / Comment(s): anemia, hx pancreatitis, angina x 1 yrs ago, hepatitis C-no tx recieved for it, kidney stones, History of Any Multi-Drug Resistant Organisms: None Reported Past Surgical History: Appendectomy, Back Surgery, Cholecystectomy, Tonsillectomy Additional Past Surgical History / Comment(s): sx to enlarge urethra opening, lump removed from chest, surgery rt arm(fx), colonoscopy, recent lithotripsy at [facility],03/2019 Past Anesthesia/Blood Transfusion Reactions: No Reported Reaction Past Psychological History: Anxiety, Depression Smoking Status: Current every day smoker Past Alcohol Use History: None Reported Past Drug Use History: None Reported - Past Family History Mother Family Medical History: No Reported History Additional Family Medical History / Comment(s): bowel obstruction. General Exam Limitations: no limitations General appearance: alert, in no apparent distress Head exam: Present: atraumatic, normocephalic, normal inspection Eye exam: Present: normal appearance, PERRL, EOMI. Absent: scleral icterus, conjunctival injection, periorbital swelling ENT exam: Present: normal exam, mucous membranes moist Neck exam: Present: normal inspection, other (C collar on while sitting up in bed during exam and interview.). Absent: tenderness, meningismus, lymphadenopathy Respiratory exam: Present: normal lung sounds bilaterally. Absent: respiratory distress, wheezes, rales, rhonchi, stridor Cardiovascular Exam: Present: regular rate, normal rhythm, normal heart sounds. Absent: systolic murmur, diastolic murmur, rubs, gallop, clicks GI/Abdominal exam: Present: soft, normal bowel sounds. Absent: distended, tenderness, guarding, rebound, rigid Extremities exam: Present: normal inspection, full ROM, normal capillary refill. Absent: tenderness, pedal edema, joint swelling, calf tenderness Back exam: Present: normal inspection, paraspinal tenderness (Bilaterally at the mid thoracic region and lumbar region) Neurological exam: Present: alert, oriented X3, CN II-XII intact Psychiatric exam: Present: normal affect, normal mood Skin exam: Present: warm, dry, intact, normal color. Absent: rash Course Vital Signs 10/11/20 10/11/20 15:47 15:55 Temperature 98.7 F Pulse Rate 73 Respiratory 17 Rate Blood Pressure 156/106 169/96 O2 Sat by Pulse 98 Oximetry Medical Decision Making - Medical Decision Making Take to 3-year-old male presents to emergency department status post fall down 16 stairs complaining of neck, middle back, lower back pain. Pain medication, anti-medic medication complete spine x-ray and CT of brain and C-spine ordered. Case discussed with Dr. Hernandez, it was decided the patient to discharge home. - Radiology Data Radiology results: report reviewed, image reviewed Negative thoracic spine exam. No fracture. No change. Mild cerebral atrophy. No acute intracranial abnormality. No change. Mild spondylitic changes in the lower [place] spine. No fracture. No change.There is mild retrolisthesis at L3-L4 not significantly different than old exam. No acute bony abnormality Disposition Clinical Impression: Thoracic back pain, Cervical pain, Low back pain, Fall Disposition: HOME SELF-CARE Condition: Stable Instructions (If sedation given, give patient instructions): Fall Prevention (ED) Additional Instructions: Please return to the Emergency Department if symptoms worsen or any other concerns. Follow-up with primary care in 1-2 days. Take pain medication as prescribed. Is patient prescribed a controlled substance at d/c from ED?: Yes When asked, does pt state using other controlled substances?: No If prescribed controlled substance>3 days was MAPS reviewed?: Prescribed <3 Days If opioid is for acute pain is fill amount 7 days or less?: Yes Referrals: Vera Jc MD [Primary Care Provider] - 1-2 days Time of Disposition: 18:18
--- NOTE | 2020-10-11 17:03 | CT ---
EXAMINATION TYPE: CT brain db ryan con DATE OF EXAM: 10/11/2020 COMPARISON: 07/08/2020 HISTORY: Fall with neck pain. Headache. CT DLP: 1335.9 mGycm Automated exposure control for dose reduction was used. There is mild cerebral cortical atrophy. There is no mass effect nor midline shift. There is no sign of intracranial hemorrhage. Calvarium is intact. The skull base is intact. Sella turcica appears norm al. There is normal aeration of the mastoid sinuses. Cervical vertebra have normal alignment. There is mild disc space narrowing at C5-6 and C6-7. There i s mild spurring of the endplates. There is minimal hypertrophic multilevel facet arthropathy. Prevertebral soft tissues are intact. The re is no evidence of cervical spine fracture. IMPRESSION: Mild cerebral atrophy. No acute intracranial abnormality. No change. Mild spondylotic changes in the lower cervical spine. No fracture. No change.
--- NOTE | 2020-10-11 17:44 | XR ---
EXAMINATION TYPE: XR thoracic spine complete DATE OF EXAM: 10/11/2020 COMPARISON: Chest x-ray 01/05/2017 HISTORY: Back pain TECHNIQUE: 3 views FINDINGS: The thoracic vertebra have normal alignment. There is spurring of the endplates. Posterior elements are intact. There is no paraspinal mass. IMPRESSION: Negative thoracic spine exam. No fracture. No change.
--- NOTE | 2020-10-11 18:04 | XR ---
EXAMINATION TYPE: XR lumbar spine 2 or 3V DATE OF EXAM: 10/11/2020 COMPARISON: 10/19/2019 HISTORY: Back pain. Fell down the steps. TECHNIQUE: 3 views FINDINGS: Lumbar vertebra have fairly normal alignment. There is a minimal retrolisthesis at L3-4. Th ere is posterior fusion surgery from L4 to S1. There is no compression fracture. There is laminectomy defect at L4-L5. Sacroiliac joints are intact. IMPRESSION: There is mild retrolisthesis at L3-4 not significantly different than old exam. No acute bony abnormality.
[2020-10-11] MEDS ORDERED: HYDROmorphone 0.5 MG/0.5 ML SYRINGE IVP STA (18:05)
[2020-10-11] MEDS ORDERED: ACET/COD 300 MG/30 MG STARTER PACK 6 TAB BTL PO STA (18:17)
== END 2020-10-11 18:35 | disposition home or self-care (01) ==
LOC: EC 15:42
DX: M54.6 Pain in thoracic spine (principal); M54.5 Low back pain; M54.2 Cervicalgia; F41.9 Anxiety disorder, unspecified; F17.200 Nicotine dependence, unspecified, uncomplicated; F32.9 Major depressive disorder, single episode, unspecified; Z79.899 Other long term (current) drug therapy; Z98.890 Other specified postprocedural states
CPT/HCPCS: 72072; 72100; 72125; 70450; 99284; 96374; 96375 ×2; 96361 ×2; J2270; J2405; J1170

== ENCOUNTER 2021-01-20 11:48 | Emergency (ER) | payer MEDICARE, OTHER ==
[2021-01-20] MEDS ORDERED: HYDROmorphone 0.5 MG/0.5 ML SYRINGE IVP STA (12:13)
[2021-01-20] MEDS ORDERED: ONDANSETRON 4 MG/2 ML VIAL IVP STA (12:13)
[2021-01-20] MEDS ORDERED: PANTOPRAZOLE 40 MG/10 ML VIAL IVP STA (12:13)
[2021-01-20] MEDS ORDERED: SODIUM CHLORIDE 0.9% 1,000 ML IV STA ×2 (12:13)
--- NOTE | 2021-01-20 12:16 | ED ---
General Adult HPI - General Chief complaint: Abdominal Pain Stated complaint: abdominal pain Time Seen by Provider: 01/20/21 12:00 Source: patient, RN notes reviewed Mode of arrival: ambulatory Limitations: no limitations - History of Present Illness Initial comments: Patient is a pleasant [age]-year-old male presenting to the emergency Department with complaints of abdominal discomfort. Onset of symptoms was a couple of weeks ago and has progressed. Vomiting around once per day. Decreased appetite and decreased oral intake. No constipation or diarrhea. Patient does have history of pancreatitis twice previously with somewhat similar symptoms. Patient does feel dehydrated. No fevers. - Related Data Home Medications Medication Instructions Recorded Confirmed LORazepam [Ativan] 1 mg PO BID 12/05/17 01/20/21 Escitalopram [Lexapro] 40 mg PO DAILY 04/05/19 01/20/21 traZODone HCL 600 mg PO HS 04/05/19 01/20/21 Dextroamphetamine/Amphetamine 40 mg PO DAILY 01/20/21 01/20/21 [Adderall] Multivitamins, Thera [Multivitamin 1 tab PO DAILY 01/20/21 01/20/21 (formulary)] Perphenazine 8mg 16 mg PO HS 01/20/21 01/20/21 QUEtiapine FUMARATE [SEROquel] 900 mg PO HS 01/20/21 01/20/21 Previous Rx's Medication Instructions Recorded Famotidine [Pepcid] 20 mg PO BID #30 tablet 01/20/21 Metoclopramide HCl [Reglan] 10 mg PO Q6HR PRN #15 tablet 01/20/21 Allergies Allergy/AdvReac Type Severity Reaction Status Date / Time No Known Allergies Allergy Verified 01/20/21 13:49 Review of Systems ROS Statement: Those systems with pertinent positive or pertinent negative responses have been documented in the HPI. ROS Other: All systems not noted in ROS Statement are negative. Constitutional: Denies: fever Eyes: Denies: eye pain ENT: Denies: ear pain Respiratory: Denies: cough Cardiovascular: Denies: chest pain Endocrine: Reports: fatigue Gastrointestinal: Reports: abdominal pain, nausea, vomiting Genitourinary: Denies: dysuria Musculoskeletal: Denies: back pain Skin: Denies: rash Neurological: Denies: weakness Past Medical History Past Medical History: Chest Pain / Angina, GERD/Reflux, Liver Disease Additional Past Medical History / Comment(s): anemia, hx pancreatitis, angina x 1 yrs ago, hepatitis C-no tx recieved for it, kidney stones, History of Any Multi-Drug Resistant Organisms: None Reported Past Surgical History: Appendectomy, Back Surgery, Cholecystectomy, Tonsillectomy Additional Past Surgical History / Comment(s): sx to enlarge urethra opening, lump removed from chest, surgery rt arm(fx), colonoscopy, recent lithotripsy at [facility],03/2019 Past Anesthesia/Blood Transfusion Reactions: No Reported Reaction Past Psychological History: Anxiety, Depression Smoking Status: Current every day smoker Past Alcohol Use History: None Reported Past Drug Use History: None Reported - Past Family History Mother Family Medical History: No Reported History Additional Family Medical History / Comment(s): bowel obstruction. General Exam Limitations: no limitations General appearance: alert, in no apparent distress Head exam: Present: normocephalic Eye exam: Present: normal appearance ENT exam: Present: mucous membranes dry Neck exam: Present: normal inspection Respiratory exam: Present: normal lung sounds bilaterally Cardiovascular Exam: Present: regular rate, normal rhythm GI/Abdominal exam: Present: soft, tenderness (Mild diffuse tenderness to palpation), normal bowel sounds. Absent: distended, guarding, rebound, rigid, pulsatile mass Extremities exam: Present: normal inspection Neurological exam: Present: alert Psychiatric exam: Present: normal affect, normal mood Skin exam: Present: normal color Course Vital Signs 01/20/21 01/20/21 01/20/21 11:53 12:12 13:36 Temperature 97.6 F 98.7 F Pulse Rate 90 70 64 Respiratory 18 20 18 Rate Blood Pressure 135/90 116/102 154/89 O2 Sat by Pulse 97 95 96 Oximetry EKG Findings - EKG Comments: EKG Findings:: Normal sinus rhythm with rate of 73. AL 160. QRS 98. QT 424. QTC 467. Normal axis. Normal QRS. No acute ST change. Medical Decision Making - Medical Decision Making Patient reevaluated and updated. Patient is feeling much better and requests discharge home. Patient is advised close follow-up with primary care physician beginning of the week and patient is agreeable with this. Patient was informed of CT results. - Lab Data Result diagrams: 01/20/21 12:24 01/20/21 12:24 Lab Results 01/20/21 01/20/21 01/20/21 Range/Units 12:24 12:24 12:24 WBC 6.3 (3.8-10.6) k/uL RBC 4.63 (4.30-5.90) m/uL Hgb 13.8 (13.0-17.5) gm/dL Hct 42.9 (39.0-53.0) % MCV 92.6 (80.0-100.0) fL MCH 29.8 (25.0-35.0) pg MCHC 32.2 (31.0-37.0) g/dL RDW 13.1 (11.5-15.5) % Plt Count 150 (150-450) k/uL MPV 6.8 Neutrophils % 72 % Lymphocytes % 17 % Monocytes % 5 % Eosinophils % 4 % Basophils % 0 % Neutrophils # 4.5 (1.3-7.7) k/uL Lymphocytes # 1.0 (1.0-4.8) k/uL Monocytes # 0.3 (0-1.0) k/uL Eosinophils # 0.2 (0-0.7) k/uL Basophils # 0.0 (0-0.2) k/uL PT 10.6 (9.0-12.0) sec INR 1.0 (<1.2) APTT 25.0 (22.0-30.0) sec Sodium 140 (137-145) mmol/L Potassium 3.8 (3.5-5.1) mmol/L Chloride 108 H (98-107) mmol/L Carbon Dioxide 24 (22-30) mmol/L Anion Gap 8 mmol/L BUN 10 (9-20) mg/dL Creatinine 0.83 (0.66-1.25) mg/dL Est GFR (CKD-EPI)AfAm >90 (>60 ml/min/1.73 sqM) Est GFR (CKD-EPI)NonAf >90 (>60 ml/min/1.73 sqM) Glucose 100 H (74-99) mg/dL Calcium 9.4 (8.4-10.2) mg/dL Total Bilirubin 0.2 (0.2-1.3) mg/dL AST 27 (17-59) U/L ALT 17 (4-49) U/L Alkaline Phosphatase 86 (38-126) U/L Creatine Kinase 92 (55-170) U/L Troponin I (0.000-0.034) ng/mL Total Protein 6.4 (6.3-8.2) g/dL Albumin 4.0 (3.5-5.0) g/dL Amylase 39 (30-110) U/L Lipase 99 (23-300) U/L 01/20/21 Range/Units 12:24 WBC (3.8-10.6) k/uL RBC (4.30-5.90) m/uL Hgb (13.0-17.5) gm/dL Hct (39.0-53.0) % MCV (80.0-100.0) fL MCH (25.0-35.0) pg MCHC (31.0-37.0) g/dL RDW (11.5-15.5) % Plt Count (150-450) k/uL MPV Neutrophils % % Lymphocytes % % Monocytes % % Eosinophils % % Basophils % % Neutrophils # (1.3-7.7) k/uL Lymphocytes # (1.0-4.8) k/uL Monocytes # (0-1.0) k/uL Eosinophils # (0-0.7) k/uL Basophils # (0-0.2) k/uL PT (9.0-12.0) sec INR (<1.2) APTT (22.0-30.0) sec Sodium (137-145) mmol/L Potassium (3.5-5.1) mmol/L Chloride (98-107) mmol/L Carbon Dioxide (22-30) mmol/L Anion Gap mmol/L BUN (9-20) mg/dL Creatinine (0.66-1.25) mg/dL Est GFR (CKD-EPI)AfAm (>60 ml/min/1.73 sqM) Est GFR (CKD-EPI)NonAf (>60 ml/min/1.73 sqM) Glucose (74-99) mg/dL Calcium (8.4-10.2) mg/dL Total Bilirubin (0.2-1.3) mg/dL AST (17-59) U/L ALT (4-49) U/L Alkaline Phosphatase (38-126) U/L Creatine Kinase (55-170) U/L Troponin I <0.012 (0.000-0.034) ng/mL Total Protein (6.3-8.2) g/dL Albumin (3.5-5.0) g/dL Amylase (30-110) U/L Lipase (23-300) U/L - Radiology Data Radiology results: report reviewed (Computed tomography scan shows possible enteritis or colitis, cannot rule out mucosal lesion.) Disposition Clinical Impression: Enteritis Disposition: HOME SELF-CARE Condition: Stable Instructions (If sedation given, give patient instructions): Acute Abdominal Pain (ED) Additional Instructions: Please do follow-up with your primary care physician in the beginning of the week. Have primary care physician review computed tomography scan. You may need to have scope done. Return for not tolerating fluids or oral intake, increased pain, fevers, worsening symptoms or any other concerns. Prescriptions have been sent to your pharmacy. Prescriptions: Famotidine [Pepcid] 20 mg PO BID #30 tablet Metoclopramide HCl [Reglan] 10 mg PO Q6HR PRN #15 tablet PRN Reason: Nausea Is patient prescribed a controlled substance at d/c from ED?: No Referrals: Vera Jc MD [Primary Care Provider] - 1-2 days Time of Disposition: 14:06
[2021-01-20 12:20] VITALS: TEMP 98.7
[2021-01-20 12:32] LABS: Basophils % (A) 0 %; Eosinophils # (A) 0.2 k/uL (0-0.7); Eosinophils % (A) 4 %; HCT 42.9 % (39.0-53.0); HGB 13.8 gm/dL (13.0-17.5); Lymphocytes % (A) 17 %; MCH 29.8 pg (25.0-35.0); MCHC 32.2 g/dL (31.0-37.0); MCV 92.6 fL (80.0-100.0); Mean Platelet Volume 6.8; Monocytes # (A) 0.3 k/uL (0-1.0); Monocytes % (A) 5 %; Neutrophils # (A) 4.5 k/uL (1.3-7.7); Neutrophils % (A) 72 %; Platelet Count 150 k/uL (150-450); RBC 4.63 m/uL (4.30-5.90); RDW 13.1 % (11.5-15.5); WBC 6.3 k/uL (3.8-10.6)
[2021-01-20 12:43] LABS: Prothrombin Time 10.6 sec (9.0-12.0)
[2021-01-20 12:45] LABS: ALT 17 U/L (4-49); AST 27 U/L (17-59); African American GFR (CKD) >90 (>60 ml/min/1.73 sqM); Alkaline Phosphatase 86 U/L (38-126); Amylase 39 U/L (30-110); Anion Gap 8 mmol/L; Blood Urea Nitrogen 10 mg/dL (9-20); Calcium 9.4 mg/dL (8.4-10.2); Carbon Dioxide 24 mmol/L (22-30); Chloride 108 mmol/L (98-107); Creatine Kinase 92 U/L (55-170); Glucose 100 mg/dL (74-99); Lipase 99 U/L (23-300); Non-African American GFR(CKD) >90 (>60 ml/min/1.73 sqM); Potassium 3.8 mmol/L (3.5-5.1); Sodium 140 mmol/L (137-145); Total Bilirubin 0.2 mg/dL (0.2-1.3); Total Protein 6.4 g/dL (6.3-8.2)
[2021-01-20 13:37] VITALS: BP 154/89; PULSE 64; RESP 18
--- NOTE | 2021-01-20 13:49 | CT ---
EXAMINATION TYPE: CT abdomen pelvis w con DATE OF EXAM: 01/20/2021 COMPARISON: CT 03/17/2019 HISTORY: Upper Abdominal pain with nausea CT DLP: 852.5 mGycm Automated exposure control for dose reduction was used. TECHNIQUE: Helical acquisition of images from the lung bases through the pelvis have been completed. CONTRAST: Performed without Oral Contrast and with IV Contrast, patient injected with 100 mL of Isovue 300. FINDINGS: LUNG BASES: There are some dependent atelectatic changes present. AORTA: No significant abnormality is appreciated. LIVER/GB: Patient is post cholecystectomy, there is some dilated intrahepatic and extrahepatic biliar y ducts similar to prior exam likely due to postcholecystectomy change. PANCREAS: No significant abnormality is seen. SPLEEN: No significant abnormality is seen. ADRENALS: No significant abnormality is seen. KIDNEYS: The previously identified obstructive right renal calculus is no longer seen. There are nono bstructive calculi within bilateral kidneys, multiple calcifications have developed in the right kidn ey and interval, largest measures approximately 7 mm, there are approximately 6-7 calcifications on t he right, single calcification on the left measures 11 mm to 12 mm in size. REPRODUCTIVE ORGANS: Prostate is enlarged and shows associated calcification BOWEL: There are fluid-filled loops of bowel, question some colonic wall thickening, lack of oral co ntrast may limit evaluation FREE AIR: No Free Air visible. ASCITES: None visible. PELVIC ADENOPATHY: None visualized. RETROPERITONEAL ADENOPATHY: No Retroperitoneal Adenopathy visible. URINARY BLADDER: Urine distended, thickening of the wall may be due to chronic outlet obstruction, c orrelate to exclude cystitis OSSEOUS STRUCTURES: Postop changes are present. Multilevel laminectomies, posterior lumbar fusion pr esent at L4-S1, there is retrolisthesis grade 1 L3-4, intervertebral spacing blocks L4-5 and L5-S1, s treak artifact due to patient's hardware. IMPRESSION: CORRELATE TO EXCLUDE ENTERITIS, COLITIS, DIFFICULT TO EXCLUDE A MUCOSAL LESION. POSTOP CHANGES. BILAT ERAL NEPHROLITHIASIS IS NONOBSTRUCTIVE.
[2021-01-20 14:05] LABS: Appearance,Urine Clear (Clear); Bacteria,Urine Occasional /hpf; Bilirubin,Urine Negative (Negative); Blood,Urine Large (Negative); Color,Urine Light Yellow; Glucose,Urine (UA) Negative (Negative); Ketones,Urine Negative (Negative); Leukocyte Esterase,Urine Large (Negative); Mucus,Urine Rare /hpf; Nitrite,Urine Negative (Negative); PH, Urine 6.5 (5.0-8.0); Protein,Urine Negative (Negative); RBC,Urine >182 /hpf (0-5); Specific Gravity,Urine 1.038 (1.001-1.035); Urobilinogen,Urine <2.0 mg/dL (<2.0); WBC,Urine 16 /hpf (0-5)
== END 2021-01-20 14:25 | disposition home or self-care (01) ==
LOC: EC 11:48
DX: K52.9 Noninfective gastroenteritis and colitis, unspecified (principal); K21.9 Gastro-esophageal reflux disease without esophagitis; F32.9 Major depressive disorder, single episode, unspecified; Z90.89 Acquired absence of other organs; Z90.49 Acquired absence of other specified parts of digestive tract; Z90.09 Acquired absence of other part of head and neck; F17.200 Nicotine dependence, unspecified, uncomplicated
CPT/HCPCS: 36415; 93005; 80053; 82150; 82550; 83690; 84484; 85025; 85610; 85730; 81001; 87086; 74177; 99284; 96374; 96375 ×2; 96361 ×2; J2405; C9113; J1170; Q9967

== ENCOUNTER 2021-01-21 18:52 | Inpatient (IN) | payer MEDICARE, OTHER ==
[2021-01-21] MEDS ORDERED: SODIUM CHLORIDE 0.9% 1,000 ML IV STA (19:11)
[2021-01-21] MEDS ORDERED: ONDANSETRON 4 MG/2 ML VIAL IVP STA (19:11)
[2021-01-21] MEDS ORDERED: PANTOPRAZOLE 40 MG/10 ML VIAL IVP STA (19:11)
[2021-01-21] MEDS ORDERED: MORPHINE SULFATE 4 MG/ML SYRINGE IV STA (19:11)
--- NOTE | 2021-01-21 19:13 | ED ---
General Adult HPI - General Chief complaint: GI Bleed Stated complaint: GI issues Time Seen by Provider: 01/21/21 19:03 Source: patient, RN notes reviewed Mode of arrival: ambulatory Limitations: no limitations - History of Present Illness Initial comments: Patient is a pleasant [age]-year-old male presenting to the emergency Department with continued abdominal problems. Patient states he was in the emergency department yesterday. Patient felt better and wanted to go home. Patient states he is still having similar symptoms however now is having some occasional blood with his bowel movements. Patient is still having nausea. Decreased appetite. Patient denies any confusion or weakness. No fevers. - Related Data Home Medications Medication Instructions Recorded Confirmed LORazepam [Ativan] 1 mg PO BID 12/05/17 01/20/21 Escitalopram [Lexapro] 40 mg PO DAILY 04/05/19 01/20/21 traZODone HCL 600 mg PO HS 04/05/19 01/20/21 Dextroamphetamine/Amphetamine 40 mg PO DAILY 01/20/21 01/20/21 [Adderall] Multivitamins, Thera [Multivitamin 1 tab PO DAILY 01/20/21 01/20/21 (formulary)] Perphenazine 8mg 16 mg PO HS 01/20/21 01/20/21 QUEtiapine FUMARATE [SEROquel] 900 mg PO HS 01/20/21 01/20/21 Previous Rx's Medication Instructions Recorded Famotidine [Pepcid] 20 mg PO BID #30 tablet 01/20/21 Metoclopramide HCl [Reglan] 10 mg PO Q6HR PRN #15 tablet 01/20/21 Allergies Allergy/AdvReac Type Severity Reaction Status Date / Time No Known Allergies Allergy Verified 01/21/21 19:01 Review of Systems ROS Statement: Those systems with pertinent positive or pertinent negative responses have been documented in the HPI. ROS Other: All systems not noted in ROS Statement are negative. Constitutional: Denies: fever Eyes: Denies: eye pain ENT: Denies: throat pain Respiratory: Denies: cough Cardiovascular: Denies: chest pain Endocrine: Denies: fatigue Gastrointestinal: Reports: as per HPI, abdominal pain, nausea, vomiting, hematochezia Genitourinary: Denies: dysuria Musculoskeletal: Denies: back pain Skin: Denies: rash Neurological: Denies: weakness Past Medical History Past Medical History: Chest Pain / Angina, GERD/Reflux, Liver Disease Additional Past Medical History / Comment(s): anemia, hx pancreatitis, angina x 1 yrs ago, hepatitis C-no tx recieved for it, kidney stones, History of Any Multi-Drug Resistant Organisms: None Reported Past Surgical History: Appendectomy, Back Surgery, Cholecystectomy, Tonsillectomy Additional Past Surgical History / Comment(s): sx to enlarge urethra opening, lump removed from chest, surgery rt arm(fx), colonoscopy, recent lithotripsy at [facility],03/2019 Past Anesthesia/Blood Transfusion Reactions: No Reported Reaction Past Psychological History: Anxiety, Depression Smoking Status: Current every day smoker Past Alcohol Use History: None Reported Past Drug Use History: None Reported - Past Family History Mother Family Medical History: No Reported History Additional Family Medical History / Comment(s): bowel obstruction. General Exam Limitations: no limitations General appearance: alert, in no apparent distress Head exam: Present: normocephalic Eye exam: Present: normal appearance, PERRL ENT exam: Present: mucous membranes dry Neck exam: Present: normal inspection Respiratory exam: Present: normal lung sounds bilaterally Cardiovascular Exam: Present: regular rate, normal rhythm GI/Abdominal exam: Present: soft. Absent: distended, tenderness Extremities exam: Present: normal inspection Neurological exam: Present: alert, oriented X3, CN II-XII intact. Absent: motor sensory deficit Expanded Motor strength exam: RUE: 5, LUE: 5, RLE: 5, LLE: 5 Eye Response: (4) open spontaneously Motor Response: (6) obeys commands Verbal Response: (5) oriented Psychiatric exam: Present: normal affect, normal mood Skin exam: Present: normal color Course Vital Signs 01/21/21 01/21/21 18:55 20:06 Temperature 98.6 F Pulse Rate 64 62 Respiratory 18 16 Rate Blood Pressure 149/91 150/85 O2 Sat by Pulse 98 98 Oximetry Medical Decision Making - Medical Decision Making Patient reevaluated and updated. Dr. Banda has been paged for admission, covering for Dr. Mcfadden. - Lab Data Result diagrams: 01/21/21 19:21 01/21/21 19:21 Lab Results 01/21/21 01/21/21 01/21/21 Range/Units 19:21 19:21 19:21 WBC 7.3 (3.8-10.6) k/uL RBC 4.21 L (4.30-5.90) m/uL Hgb 13.2 (13.0-17.5) gm/dL Hct 39.5 (39.0-53.0) % MCV 93.7 (80.0-100.0) fL MCH 31.4 (25.0-35.0) pg MCHC 33.5 (31.0-37.0) g/dL RDW 12.6 (11.5-15.5) % Plt Count 135 L (150-450) k/uL MPV 7.2 Neutrophils % 75 % Lymphocytes % 15 % Monocytes % 6 % Eosinophils % 3 % Basophils % 0 % Neutrophils # 5.4 (1.3-7.7) k/uL Lymphocytes # 1.1 (1.0-4.8) k/uL Monocytes # 0.4 (0-1.0) k/uL Eosinophils # 0.2 (0-0.7) k/uL Basophils # 0.0 (0-0.2) k/uL PT 10.5 (9.0-12.0) sec INR 1.0 (<1.2) APTT 25.1 (22.0-30.0) sec Sodium 138 (137-145) mmol/L Potassium 3.8 (3.5-5.1) mmol/L Chloride 109 H (98-107) mmol/L Carbon Dioxide 24 (22-30) mmol/L Anion Gap 5 mmol/L BUN 8 L (9-20) mg/dL Creatinine 0.81 (0.66-1.25) mg/dL Est GFR (CKD-EPI)AfAm >90 (>60 ml/min/1.73 sqM) Est GFR (CKD-EPI)NonAf >90 (>60 ml/min/1.73 sqM) Glucose 113 H (74-99) mg/dL Calcium 9.0 (8.4-10.2) mg/dL Total Bilirubin 0.2 (0.2-1.3) mg/dL AST 29 (17-59) U/L ALT 16 (4-49) U/L Alkaline Phosphatase 94 (38-126) U/L Total Protein 5.9 L (6.3-8.2) g/dL Albumin 3.6 (3.5-5.0) g/dL Amylase 33 (30-110) U/L Lipase 140 (23-300) U/L - Radiology Data Radiology results: image reviewed (Abdominal x-ray reveals nonacute abdomen) Disposition Clinical Impression: Lower gastrointestinal hemorrhage Disposition: ADMITTED IP TO THIS HOSP Is patient prescribed a controlled substance at d/c from ED?: No Referrals: Vera Jc MD [Primary Care Provider] - 1-2 days Decision Time: 20:34
[2021-01-21 19:54] LABS: Basophils % (A) 0 %; Eosinophils # (A) 0.2 k/uL (0-0.7); Eosinophils % (A) 3 %; HCT 39.5 % (39.0-53.0); HGB 13.2 gm/dL (13.0-17.5); Lymphocytes # (A) 1.1 k/uL (1.0-4.8); Lymphocytes % (A) 15 %; MCH 31.4 pg (25.0-35.0); MCHC 33.5 g/dL (31.0-37.0); MCV 93.7 fL (80.0-100.0); Mean Platelet Volume 7.2; Monocytes # (A) 0.4 k/uL (0-1.0); Monocytes % (A) 6 %; Neutrophils # (A) 5.4 k/uL (1.3-7.7); Neutrophils % (A) 75 %; Platelet Count 135 k/uL (150-450); RBC 4.21 m/uL (4.30-5.90); RDW 12.6 % (11.5-15.5); WBC 7.3 k/uL (3.8-10.6)
--- NOTE | 2021-01-21 19:54 | XR ---
EXAMINATION TYPE: XR KUB DATE OF EXAM: 01/21/2021 COMPARISON: 04/29/2019 HISTORY: Abdominal pain TECHNIQUE: 2 views FINDINGS: 2 views upright show no sign of intestinal obstruction or pneumoperitoneum. Fecal pattern i s normal. There are rods and screws fusing posteriorly the lower lumbar spine. There is no evidence o f a mass. There is 6 mm calcification over the upper pole left kidney. There is gas down to the rectu m. IMPRESSION: Nonacute abdomen. Left renal calculus not changed compared to old CT scan of 03/17/2019.
[2021-01-21 20:05] LABS: Partial Thromboplastin Time 25.1 sec (22.0-30.0); Prothrombin Time 10.5 sec (9.0-12.0)
[2021-01-21 20:14] LABS: ALT 16 U/L (4-49); AST 29 U/L (17-59); African American GFR (CKD) >90 (>60 ml/min/1.73 sqM); Albumin 3.6 g/dL (3.5-5.0); Alkaline Phosphatase 94 U/L (38-126); Amylase 33 U/L (30-110); Anion Gap 5 mmol/L; Blood Urea Nitrogen 8 mg/dL (9-20); Carbon Dioxide 24 mmol/L (22-30); Chloride 109 mmol/L (98-107); Glucose 113 mg/dL (74-99); Lipase 140 U/L (23-300); Non-African American GFR(CKD) >90 (>60 ml/min/1.73 sqM); Potassium 3.8 mmol/L (3.5-5.1); Sodium 138 mmol/L (137-145); Total Bilirubin 0.2 mg/dL (0.2-1.3); Total Protein 5.9 g/dL (6.3-8.2)
[2021-01-21] MEDS ORDERED: NALOXONE 0.4 MG/ML 1 ML VIAL IV PRN (20:34)
[2021-01-21] MEDS ORDERED: ONDANSETRON 4 MG/2 ML VIAL IVP PRN (20:35)
[2021-01-21 20:44] LABS: Appearance,Urine Clear (Clear); Bacteria,Urine Rare /hpf; Bilirubin,Urine Negative (Negative); Blood,Urine Moderate (Negative); Color,Urine Yellow; Glucose,Urine (UA) Negative (Negative); Ketones,Urine Negative (Negative); Leukocyte Esterase,Urine Small (Negative); Nitrite,Urine Positive (Negative); PH, Urine 6.5 (5.0-8.0); Protein,Urine Negative (Negative); RBC,Urine >182 /hpf (0-5); Specific Gravity,Urine 1.016 (1.001-1.035); Squamous Epithelial Cell,Urine <1 /hpf (0-4); Urobilinogen,Urine <2.0 mg/dL (<2.0); WBC,Urine 16 /hpf (0-5)
[2021-01-21] MEDS: SODIUM CHLORIDE 0.9% 1,000 ML IV SCH ×2 (21:01→21:10)
[2021-01-21] MEDS: MORPHINE SULFATE 4 MG/ML SYRINGE IVP PRN (21:12)
[2021-01-22] MEDS: MORPHINE SULFATE 4 MG/ML SYRINGE IVP PRN ×3 (01:03→19:56)
[2021-01-22] MEDS: traZODone HCL 100 MG TAB PO SCH ×2 (04:10→20:46)
[2021-01-22] MEDS: QUEtiapine 200 MG TAB PO SCH ×2 (04:10→20:47)
[2021-01-22] MEDS: QUEtiapine 100 MG TAB PO SCH ×2 (04:10→20:47)
[2021-01-22 06:14] LABS: Basophils % (A) 0 %; Eosinophils # (A) 0.3 k/uL (0-0.7); Eosinophils % (A) 5 %; HGB 12.5 gm/dL (13.0-17.5); Lymphocytes # (A) 1.1 k/uL (1.0-4.8); Lymphocytes % (A) 22 %; MCH 31.5 pg (25.0-35.0); MCHC 33.7 g/dL (31.0-37.0); MCV 93.7 fL (80.0-100.0); Mean Platelet Volume 7.1; Monocytes # (A) 0.4 k/uL (0-1.0); Monocytes % (A) 9 %; Neutrophils # (A) 3.1 k/uL (1.3-7.7); Neutrophils % (A) 62 %; Platelet Count 129 k/uL (150-450); RBC 3.95 m/uL (4.30-5.90); RDW 12.4 % (11.5-15.5); WBC 5.1 k/uL (3.8-10.6)
[2021-01-22 06:23] LABS: ALT 14 U/L (4-49); AST 25 U/L (17-59); African American GFR (CKD) >90 (>60 ml/min/1.73 sqM); Alkaline Phosphatase 75 U/L (38-126); Anion Gap 1 mmol/L; Blood Urea Nitrogen 9 mg/dL (9-20); Calcium 8.5 mg/dL (8.4-10.2); Carbon Dioxide 29 mmol/L (22-30); Chloride 109 mmol/L (98-107); Glucose 95 mg/dL (74-99); Non-African American GFR(CKD) >90 (>60 ml/min/1.73 sqM); Potassium 3.7 mmol/L (3.5-5.1); Sodium 139 mmol/L (137-145); Total Bilirubin <0.1 mg/dL (0.2-1.3); Total Protein 5.2 g/dL (6.3-8.2)
[2021-01-22] MEDS: PANTOPRAZOLE 40 MG/10 ML VIAL IV SCH (09:07)
--- NOTE | 2021-01-22 10:01 | CONS ---
CONSULTATION DATE OF SERVICE: January 22, 2021. REQUESTING PHYSICIAN: Dr. Luciano Randolph. REASON FOR CONSULTATION: Rectal bleeding. HISTORY OF PRESENT ILLNESS: The patient is a 65-year-old pleasant white male admitted to the hospital with rectal bleeding that started yesterday. He had 2 episodes of bright red blood per rectum with small clots noted. He denies any abdominal pain. No nausea, no vomiting. No abdominal pain. Never had these symptoms in the past. No history of anticoagulation. In the emergency room, he was noted to have a hemoglobin of 13.2 g/dL. He recalls having a colonoscopy about 3 years ago. He is also complaining of severe back pain for the last one week duration. He had prior back surgery in 2000. PAST MEDICAL HISTORY: Significant for chronic back pain. History of chronic hepatitis C in the past, gastroesophageal reflux disease, kidney stones. PAST SURGICAL HISTORY: Back surgery, appendectomy, cholecystectomy, tonsillectomy, lithotripsy 2 years ago. MEDICATIONS: Medications at home include: Ativan, Lexapro, trazodone, Adderall, multivitamins, and Seroquel. ALLERGIES: No known drug allergies. SOCIAL HISTORY: History of smoking. No alcohol use. FAMILY HISTORY: Mother had bowel obstruction. REVIEW OF SYSTEMS: CARDIOPULMONARY: No chest pain or shortness of breath. GENITOURINARY: No dysuria or hematuria. MUSCULOSKELETAL: Severe chronic back pain. NEUROLOGY unremarkable. PSYCHIATRIC unremarkable. ENT/VISION unremarkable. CONSTITUTIONAL: No recent weight loss. No fever, chills, night sweats. PHYSICAL EXAMINATION: Blood pressure 153/81, pulse is 75, temperature 97.9. HEENT examination unremarkable. Conjunctivae pink. Sclerae anicteric. Oral cavity no lesions. NECK: No JVD. No lymph node enlargement. CHEST was clear to auscultation. HEART: Regular rate and rhythm. ABDOMEN: Soft. Bowel sounds are positive. No organomegaly. EXTREMITIES: No pedal edema. NEURO: He is alert and oriented x3. No focal deficits. LABS: WBC 5.1, hemoglobin 12.5, platelets 129. AST, ALT are normal. T-bilirubin and alkaline phosphatase are normal. Albumin 3, soto virus PCR is negative. IMPRESSION: 1. Rectal bleeding x2 yesterday possibly bleeding from internal hemorrhoids, cannot rule out other colorectal pathology. Hemoglobin stable at 12.6 g/dL. 2. History of chronic back pain with worsening symptoms for the last one week duration. 3. History of anxiety and depression. 4. History of chronic hepatitis C in the past. RECOMMENDATIONS: 1. Start him on a clear liquid diet. 2. Schedule for colonoscopy tomorrow. 3. Monitor CBC daily. 4. We will follow with you closely. Thank you for this consultation. DWAIN / ZACARIAS: [id number] /
[2021-01-22] MEDS ORDERED: METOCLOPRAMIDE 10 MG TAB PO PRN (10:25)
[2021-01-22] MEDS: PATIENT'S OWN (Dextroamphetamine/Amphetamine [Adderall] 20 MG Tablet) PO SCH (12:15)
[2021-01-22] MEDS: MULTIVITAMINS, THERA 1 EACH TAB PO SCH (12:27)
--- NOTE | 2021-01-22 13:01 | CT ---
EXAMINATION TYPE: CT abdomen pelvis wo con DATE OF EXAM: 01/22/2021 COMPARISON: CT 01/20/2021 HISTORY: pain CT DLP: 412.2 mGycm Automated exposure control for dose reduction was used. TECHNIQUE: Helical acquisition of images from the lung bases through the pelvis. FINDINGS: Lack of contrast may limit evaluation LUNG BASES: There has been some interval development of small effusions, posterior basilar atelectasi s suspected. AORTA: No significant abnormality is appreciataed. LIVER/GB: Periportal halos suspected within the liver, patient is post cholecystectomy, dilated intra hepatic and extrahepatic biliary ducts likely due to postcholecystectomy change. PANCREAS: No significant abnormality is seen. SPLEEN: No significant abnormality is seen. ADRENALS: No significant abnormality is seen. KIDNEYS: No significant interval change is seen, bilateral nonobstructive calculi are again noted wit hin the kidneys. REPRODUCTIVE ORGANS: Prostate is enlarged and shows associated calcification as on prior exam URINARY BLADDER: Urine distended. BOWEL: Some fluid-filled loops of bowel are again noted.. FREE AIR: No Free Air is visible. ASCITES: None visible. PELVIC ADENOPATHY: None visualized. RETROPERITONEAL ADENOPATHY: No Retroperitoneal Adenopathy visible. OSSEOUS STRUCTURES: Postop changes are again seen.. IMPRESSION: CORRELATE FOR POSSIBLE URINARY RETENTION. NONCONTRAST EXAM. PERIPORTAL HALO CAN BE SEEN IN SUCH HE PATITIS, CHOLANGITIS, URINARY TRACT INFECTION AND CONGESTIVE HEART FAILURE. CORRELATE FOR POSSIBLE EN TERITIS. LACK OF CONTRAST LIMITS THE EVALUATION, FOLLOW-UP STUDY WITH ORAL AND INTRAVENOUS CONTRAST A S INDICATED MAY BE OF BENEFIT.
[2021-01-22] MEDS: SODIUM CHLORIDE 0.9% 1,000 ML IV SCH ×2 (13:53→23:00)
[2021-01-22 15:20] LABS: Appearance,Urine Clear (Clear); Bacteria,Urine Rare /hpf; Bilirubin,Urine Negative (Negative); Blood,Urine Negative (Negative); Color,Urine Light Yellow; Glucose,Urine (UA) Negative (Negative); Ketones,Urine Negative (Negative); Leukocyte Esterase,Urine Moderate (Negative); Mucus,Urine Rare /hpf; Nitrite,Urine Positive (Negative); Protein,Urine Negative (Negative); Squamous Epithelial Cell,Urine <1 /hpf (0-4); Urobilinogen,Urine <2.0 mg/dL (<2.0); WBC,Urine 16 /hpf (0-5)
--- NOTE | 2021-01-22 16:45 | XR ---
EXAMINATION TYPE: XR chest 1V portable DATE OF EXAM: 01/22/2021 CLINICAL HISTORY: chf. TECHNIQUE: Portable frontal view of the chest. COMPARISON: 01/05/2017 FINDINGS: The cardiomediastinal silhouette is within normal limits for size. Pulmonary vasculature i s normal. Minimal bibasilar subsegmental atelectasis. Trace right pleural effusion. No pneumothorax seen. No acute displaced osseous fracture. IMPRESSION: Trace right pleural effusion.
[2021-01-22] MEDS: HYDROcodone/APAP 5-325MG 1 EACH TAB PO PRN (16:59)
[2021-01-22] MEDS ORDERED: PEG 3350-NA SULF,BICARB,CL/KCL 4,000 ML BOTTLE PO ONE (17:00)
--- NOTE | 2021-01-22 17:19 | P.GSCN ---
History of Present Illness Consult date: 01/22/21 Reason for Consult: Urinary retention History of present illness: This is a 65 yo male admitted to the hospital with abdominal pain and hematoc hezia. He underwent a CT abdomen and pelvis on presentation, which showed a distended bladder. Bladder scan showed a PVR of 800, he was straight cathed for 600 mL. He indicated he has some difficulty voiding at baseline, and has previous history of urinary retention. Of note CT also showed bilateral nonobstructing renal calculi, he does have history of recurrent kidney stones and he follows up with Dr. Andino in regards to that. Since catheterization he has been able to void. He indicated no improvement in his abdominal pain following catheterization Review of Systems - Constitutional Denies chills, Denies fever, Denies weight loss - Cardiovascular Denies chest pain, Denies shortness of breath - Respiratory Denies cough, Denies 7 - Gastrointestinal Reports abdominal pain, Reports hematochezia - Genitourinary Reports urinary retention, Denies hematuria - Integumentary Denies rash, Denies unusual bruising - Neurological Denies headaches, Denies syncope - Hematologic/Lymphatic Denies easy bleeding, Denies easy bruising Past Medical History Past Medical History: Chest Pain / Angina, GERD/Reflux, Liver Disease Additional Past Medical History / Comment(s): anemia, hx pancreatitis, angina x 1 yrs ago, hepatitis C-no tx recieved for it, kidney stones, History of Any Multi-Drug Resistant Organisms: None Reported Past Surgical History: Appendectomy, Back Surgery, Cholecystectomy, Tonsillectomy Additional Past Surgical History / Comment(s): sx to enlarge urethra opening, lump removed from chest, surgery rt arm(fx), colonoscopy, recent lithotripsy at [facility],03/2019 Past Anesthesia/Blood Transfusion Reactions: No Reported Reaction Past Psychological History: Anxiety, Depression Additional Psychological History / Comment(s): . Smoking Status: Current every day smoker Past Alcohol Use History: None Reported Additional Past Alcohol Use History / Comment(s): started smoking at age 22,smokes 1 ppd. Past Drug Use History: None Reported Additional Drug Use History / Comment(s): occasional use, instructed to hold 24hrs prior to procedure - Past Family History Mother Family Medical History: No Reported History Additional Family Medical History / Comment(s): bowel obstruction. Medications and Allergies Home Medications Medication Instructions Recorded Confirmed Type LORazepam [Ativan] 1 mg PO BID 12/05/17 01/21/21 History Escitalopram [Lexapro] 40 mg PO DAILY 04/05/19 01/21/21 History traZODone HCL 600 mg PO HS 04/05/19 01/21/21 History Dextroamphetamine/Amphetamine 40 mg PO DAILY 01/20/21 01/21/21 History [Adderall] Famotidine [Pepcid] 20 mg PO BID #30 tablet 01/20/21 01/21/21 Rx Metoclopramide HCl [Reglan] 10 mg PO Q6HR PRN #15 tablet 01/20/21 01/21/21 Rx Multivitamins, Thera [Multivitamin 1 tab PO DAILY 01/20/21 01/21/21 History (formulary)] Perphenazine 8mg 16 mg PO HS 01/20/21 01/21/21 History QUEtiapine FUMARATE [SEROquel] 900 mg PO HS 01/20/21 01/21/21 History Allergies Allergy/AdvReac Type Severity Reaction Status Date / Time No Known Allergies Allergy Verified 01/21/21 21:28 Surgical - Exam Vital Signs Temp Pulse Resp BP Pulse Ox 98.6 F 64 18 149/91 98 01/21/21 18:55 01/21/21 18:55 01/21/21 18:55 01/21/21 18:55 01/21/21 18:55 - General no distress, no pain - Eyes PERRL, normal ocular movement - ENT normal nares, normal mucosa - Respiratory normal expansion, normal respiratory effort - Abdomen Abdomen: soft, no distended - Psychiatric oriented to time, oriented to person, oriented to place, speech is normal Results - Labs 01/22/21 05:24 01/22/21 05:24 Abnormal Lab Results - Last 24 Hours (Table) 01/21/21 01/21/21 01/21/21 Range/Units 19:21 19:21 19:21 RBC 4.21 L (4.30-5.90) m/uL Hgb (13.0-17.5) gm/dL Hct (39.0-53.0) % Plt Count 135 L (150-450) k/uL Chloride 109 H (98-107) mmol/L BUN 8 L (9-20) mg/dL Glucose 113 H (74-99) mg/dL Total Bilirubin (0.2-1.3) mg/dL Total Protein 5.9 L (6.3-8.2) g/dL Albumin (3.5-5.0) g/dL Urine Blood Moderate H (Negative) Ur Leukocyte Esterase Small H (Negative) Urine RBC >182 H (0-5) /hpf Urine WBC 16 H (0-5) /hpf Urine Bacteria Rare H (None) /hpf Urine Mucus (None) /hpf 01/22/21 01/22/21 01/22/21 Range/Units 05:24 05:24 14:55 RBC 3.95 L (4.30-5.90) m/uL Hgb 12.5 L (13.0-17.5) gm/dL Hct 37.0 L (39.0-53.0) % Plt Count 129 L (150-450) k/uL Chloride 109 H (98-107) mmol/L BUN (9-20) mg/dL Glucose (74-99) mg/dL Total Bilirubin <0.1 L (0.2-1.3) mg/dL Total Protein 5.2 L (6.3-8.2) g/dL Albumin 3.0 L (3.5-5.0) g/dL Urine Blood (Negative) Ur Leukocyte Esterase Moderate H (Negative) Urine RBC (0-5) /hpf Urine WBC 16 H (0-5) /hpf Urine Bacteria Rare H (None) /hpf Urine Mucus Rare H (None) /hpf Microbiology - Last 24 Hours (Table) 01/21/21 19:21 Urine Culture - Preliminary Urine,Voided Diabetes panel 01/21/21 01/22/21 Range/Units 19:21 05:24 Sodium 138 139 (137-145) mmol/L Potassium 3.8 3.7 (3.5-5.1) mmol/L Chloride 109 H 109 H (98-107) mmol/L Carbon Dioxide 24 29 (22-30) mmol/L BUN 8 L 9 (9-20) mg/dL Creatinine 0.81 0.83 (0.66-1.25) mg/dL Glucose 113 H 95 (74-99) mg/dL Calcium 9.0 8.5 (8.4-10.2) mg/dL AST 29 25 (17-59) U/L ALT 16 14 (4-49) U/L Alkaline Phosphatase 94 75 (38-126) U/L Total Protein 5.9 L 5.2 L (6.3-8.2) g/dL Albumin 3.6 3.0 L (3.5-5.0) g/dL Calcium panel 01/21/21 01/22/21 Range/Units 19:21 05:24 Calcium 9.0 8.5 (8.4-10.2) mg/dL Albumin 3.6 3.0 L (3.5-5.0) g/dL Pituitary panel 01/21/21 01/22/21 Range/Units 19:21 05:24 Sodium 138 139 (137-145) mmol/L Potassium 3.8 3.7 (3.5-5.1) mmol/L Chloride 109 H 109 H (98-107) mmol/L Carbon Dioxide 24 29 (22-30) mmol/L BUN 8 L 9 (9-20) mg/dL Creatinine 0.81 0.83 (0.66-1.25) mg/dL Glucose 113 H 95 (74-99) mg/dL Calcium 9.0 8.5 (8.4-10.2) mg/dL Adrenal panel 01/21/21 01/22/21 Range/Units 19:21 05:24 Sodium 138 139 (137-145) mmol/L Potassium 3.8 3.7 (3.5-5.1) mmol/L Chloride 109 H 109 H (98-107) mmol/L Carbon Dioxide 24 29 (22-30) mmol/L BUN 8 L 9 (9-20) mg/dL Creatinine 0.81 0.83 (0.66-1.25) mg/dL Glucose 113 H 95 (74-99) mg/dL Calcium 9.0 8.5 (8.4-10.2) mg/dL Total Bilirubin 0.2 <0.1 L (0.2-1.3) mg/dL AST 29 25 (17-59) U/L ALT 16 14 (4-49) U/L Alkaline Phosphatase 94 75 (38-126) U/L Total Protein 5.9 L 5.2 L (6.3-8.2) g/dL Albumin 3.6 3.0 L (3.5-5.0) g/dL - Imaging CT scan - abdomen: image reviewed (Bilateral nonobstructing stone, distended bladder) Assessment and Plan Assessment: This is 65-year-old male admitted to the hospital with abdominal pain and hematochezia. Urology is consulted for urinary retention, He was straight cathed for 600 on presentation. Has voiding dysfunction at baseline, no improvement in abdominal pain post catheterization. His abdominal pain is unlikely from urinary retention given that no resolution following bladder drainage. -Start Flomax 0.4 mg, given his voiding dysfunction -Repeat PVR after patient voids, greater than [address] a Peck keep for 1 week -Can follow-up as an outpatient with Dr. Andino
--- NOTE | 2021-01-22 18:48 | HP ---
HISTORY AND PHYSICAL DATE OF SERVICE: 01/22/2021. CHIEF COMPLAINT: GI bleed. HISTORY OF PRESENT ILLNESS: This 65-year-old gentleman with a past medical history of GERD, history of chest pain, liver disease, anemia, history of pancreatitis being followed by Dr. Vera Jc in the outpatient setting is complaining of gastrointestinal bleed. The patient had some abdominal pain and also noted some bleeding from the rectum. Dr. Quiroz saw the patient. Hemoglobin dropped to 12.5. Dr. Quiroz is planning clear liquids and colonoscopy also. A CT scan of the abdomen and pelvis was also done without contrast which showed possible urinary retention. Otherwise, chest x-ray is not available. There is no history of fever, rigors, chills at this time. PAST MEDICAL HISTORY: History of chest pain, GERD, liver disease, anemia, pancreatitis, appendectomy. MEDICATIONS: Home medications are: Trazodone, Seroquel, multivitamins, Reglan, Ativan Pepcid, Lexapro. ALLERGIES: None. FAMILY HISTORY: History of bowel obstruction in the family. SOCIAL HISTORY: History of smoking. No history of alcohol intake. REVIEW OF SYSTEMS: ENT: No diminished vision. No diminished hearing. CARDIOVASCULAR system as mentioned earlier. RESPIRATORY: As mentioned earlier. GI: As mentioned earlier. : As mentioned earlier. NERVOUS SYSTEM: No numbness or weakness. ALLERGY/IMMUNOLOGY: No asthma or hayfever. MUSCULOSKELETAL: As mentioned earlier. HEMATOLOGY/ONCOLOGY: No history of anemia. ENDOCRINE: No history of diabetes or hypothyroidism. CONSTITUTIONAL: As mentioned earlier. DERMATOLOGY: Negative. RHEUMATOLOGY negative. PSYCHIATRY as mentioned earlier. PHYSICAL EXAM: Patient is alert, oriented x3. The pulse is 75. Blood pressure 153/81, respiration 17, temperature 97.9, pulse ox 94% on room air. HEENT: Conjunctivae normal. NECK: No JVD. CARDIOVASCULAR: S1, S2 muffled. RESPIRATION: Breath sounds diminished in the bases. A few scattered rhonchi. ABDOMEN: Soft, abdomen minimal tenderness present diffusely. LEGS: No edema. No swelling. NERVOUS SYSTEM: Higher functions as mentioned earlier. Moves all four limbs. No focal motor or sensory deficits. LYMPHATICS: No lymph nodes palpable in the neck, axillae or groin. SKIN: No ulcer, rash or bleeding. JOINTS: No active deforming arthropathy. LAB STUDIES: WBC 5.1, hemoglobin 12.4, platelets 129. Sodium 130, potassium 3.7. ASSESSMENT: 1. Acute lower gastrointestinal bleeding and mild acute blood loss anemia. 2. Thrombocytopenia. 3. Diffuse abdominal pain. 4. Hematuria. 5. History of gastroesophageal reflux disease. 6. History of pancreatitis. 7. History of liver disease. 8. History hepatitis C. 9. History of cholecystectomy. 10.Anxiety, depression. 11.History of nicotine dependence. 12.NO CODE, NO CPR, NO VENT. RECOMMENDATIONS AND DISCUSSION: In this 65-year-old gentleman who presented with multiple complex medical issues, we will monitor the patient closely, continue the current medications, management and symptomatic treatment. We will repeat CBC. Otherwise, I would recommend gastrology consultation, possible endoscopies. Patient also had hematuria. We will observe hematuria carefully and the patient will also require a urology consultation. The patient also had some urinary retention which will need further evaluation. Recommend close followup with primary physician regarding the above mentioned multiple complex medical issues and I discussed with the patient who understands and agrees. DWAIN / ELAINAN: [id number] / SHERRY
[2021-01-22] MEDS: LORazepam 1 MG TAB PO SCH (20:48)
[2021-01-22] MEDS: PERPHENAZINE 4 MG TAB PO SCH (20:48)
[2021-01-22] MEDS ORDERED: NON FORMULARY DRUG (Trazodone Hcl [Trazodone Hcl] 150 MG Tablet) PO SCH (21:00)
[2021-01-22] MEDS ORDERED: NON FORMULARY DRUG (Quetiapine Fumarate [Seroquel] 300 MG Tablet) PO SCH (21:00)
[2021-01-23] MEDS: HYDROcodone/APAP 5-325MG 1 EACH TAB PO PRN (06:05)
[2021-01-23] MEDS: SODIUM CHLORIDE 0.9% 1,000 ML IV SCH ×3 (06:18→22:19)
[2021-01-23 06:43] LABS: African American GFR (CKD) >90 (>60 ml/min/1.73 sqM); Anion Gap 4 mmol/L; Blood Urea Nitrogen 7 mg/dL (9-20); Calcium 8.7 mg/dL (8.4-10.2); Carbon Dioxide 27 mmol/L (22-30); Chloride 110 mmol/L (98-107); Glucose 77 mg/dL (74-99); Non-African American GFR(CKD) >90 (>60 ml/min/1.73 sqM); Potassium 3.9 mmol/L (3.5-5.1); Sodium 141 mmol/L (137-145)
[2021-01-23] MEDS: TAMSULOSIN 0.4 MG CAP.ER.24H PO SCH (07:24)
[2021-01-23] MEDS: MULTIVITAMINS, THERA 1 EACH TAB PO SCH (07:24)
[2021-01-23] MEDS: ESCITALOPRAM 20 MG TAB PO SCH (07:25)
[2021-01-23] MEDS: LORazepam 1 MG TAB PO SCH ×2 (07:25→22:21)
[2021-01-23] MEDS: PATIENT'S OWN (Dextroamphetamine/Amphetamine [Adderall] 20 MG Tablet) PO SCH (07:25)
[2021-01-23] MEDS: PANTOPRAZOLE 40 MG/10 ML VIAL IV SCH (07:25)
[2021-01-23 07:30] LABS: Basophils % (A) 0 %; Eosinophils # (A) 0.3 k/uL (0-0.7); Eosinophils % (A) 6 %; HCT 39.5 % (39.0-53.0); HGB 13.4 gm/dL (13.0-17.5); Lymphocytes # (A) 1.4 k/uL (1.0-4.8); Lymphocytes % (A) 26 %; MCH 31.7 pg (25.0-35.0); MCHC 34.1 g/dL (31.0-37.0); MCV 93.1 fL (80.0-100.0); Mean Platelet Volume 7.4; Monocytes # (A) 0.5 k/uL (0-1.0); Monocytes % (A) 9 %; Neutrophils % (A) 55 %; Platelet Count 137 k/uL (150-450); RBC 4.24 m/uL (4.30-5.90); RDW 12.6 % (11.5-15.5); WBC 5.4 k/uL (3.8-10.6)
[2021-01-23] MEDS ORDERED: NA PHOS,M-B/NA PHOS,DI-BA 133 ML ENEMA RECTAL STA (07:46)
[2021-01-23 10:28] VITALS: BMI 22.5
[2021-01-23] MEDS: THIAMINE 100 MG TAB PO SCH (11:23)
[2021-01-23] MEDS: FOLIC ACID 1 MG TAB PO SCH (11:23)
--- NOTE | 2021-01-23 12:27 | CT ---
EXAMINATION TYPE: CT brain wo con DATE OF EXAM: 01/23/2021 COMPARISON: 10/11/2020 HISTORY: Altered mental status, lower GI hemorrhage CT DLP: 1156 mGycm Automated exposure control for dose reduction was used. FINDINGS: Mild generalized degenerative change of the greater frontal lobe component. Low-attenuation the white matter is nonspecific. No midline shift or mass effect. The globes are symmetric. Prominent cisterna magna or arachnoid cyst stable from prior exam. Craniocervical junction maintained . Changes of chronic sinusitis noted. Intracranial atherosclerotic changes noted. IMPRESSION: DEGENERATIVE AND NONSPECIFIC WHITE MATTER CHANGES MOST TYPICAL REMOTE ISCHEMIA. SUSPECTED POSTERIOR F JASMINA ARACHNOID CYST OR PROMINENT CISTERNA MAGNA IS STABLE FROM PRIOR EXAM.
[2021-01-23] MEDS: NICOTINE 21MG/24HR PATCH TRANSDERM SCH (15:10)
--- NOTE | 2021-01-23 15:15 | P.PN ---
Subjective Progress Note Date: 01/23/21 Principal diagnosis: Rectal bleeding This is a pleasant 65-year-old white male who was admitted to the hospital with complaints of rectal bleeding that started 2 days ago. He had 2 episodes of bright red blood per rectum with small clots noted. He denied any associated abdominal pain. Today he has seen and evaluated continues to deny any abdominal pain. He finished three quarters of his problem with no bowel movement, he was given a fleets enema with only small amount of brown output. No bleeding noted. His hemoglobin is improved at 13.4. Objective - Vital Signs Vital signs: Vital Signs Temp 98.6 F 01/23/21 07:00 Pulse 57 L 01/23/21 08:00 Resp 18 01/23/21 08:00 BP 173/90 01/23/21 07:00 Pulse Ox 95 01/23/21 07:00 Intake & Output 01/22/21 01/23/21 01/23/21 18:59 06:59 18:59 Intake Total 380 Output Total 600 1350 Balance -220 -1350 Weight 75.296 kg Intake: Oral 380 Output: Urine 600 750 Uretheral (Peck) 600 Post Void Residual 600 Other: Voiding Method Urinal Urinal Bedside Commode Urinal # Voids 3 600 - Exam General appearance: The patient is alert, oriented, appears in no acute distress. HET: Head is normocephalic and atraumatic. Conjunctiva pink. Sclera anicteric. Neck: Supple without lymphadenopathy. Abdomen: Soft, nontender, nondistended with bowel sounds. No guarding or rigidity. Extremities: Normal skin color and turgor. No pedal edema Skin: No rashes, no jaundice Neurological: No focal deficits. Alert and oriented 3. - Labs CBC & Chem 7: 01/23/21 05:51 01/23/21 05:51 Labs: Abnormal Lab Results - Last 24 Hours (Table) 01/22/21 01/23/21 01/23/21 Range/Units 14:55 05:51 05:51 RBC 4.24 L (4.30-5.90) m/uL Plt Count 137 L (150-450) k/uL Chloride 110 H (98-107) mmol/L BUN 7 L (9-20) mg/dL Ur Leukocyte Esterase Moderate H (Negative) Urine WBC 16 H (0-5) /hpf Urine Bacteria Rare H (None) /hpf Urine Mucus Rare H (None) /hpf Microbiology - Last 24 Hours (Table) 01/21/21 19:21 Urine Culture - Preliminary Urine,Voided Assessment and Plan (1) Rectal bleeding Narrative/Plan: Rectal bleeding 2 episodes, possibly bleeding from internal hemorrhoids, cannot rule out other colorectal pathology. Hemoglobin remained stable and actually improved to 13.4. Plan [place] for colonoscopy today, however patient initially was unable to finish his prep, also had a Fleet enema this morning with only a small amount of brown output. Current Visit: Yes Status: Acute Code(s): K62.5 - HEMORRHAGE OF ANUS AND RECTUM SNOMED Code(s): 72503322 Plan: 1. Clear liquid diet, NPO after midnight 2. GoLYTELY prep this evening 3. Patient rescheduled for colonoscopy tomorrow 4. Continue to monitor for signs of GI bleed Thank you for this consultation, we will continue to follow Dr. Brown Quiroz I agree with the dictator's note, documented as a scribe by Martha Rodas.
[2021-01-23] MEDS ORDERED: PEG 3350-NA SULF,BICARB,CL/KCL 4,000 ML BOTTLE PO ONE (16:30)
[2021-01-23 19:44] LABS: Glucose,Whole Blood 89 mg/dL (75-99)
[2021-01-23] MEDS: QUEtiapine 200 MG TAB PO SCH (22:21)
[2021-01-23] MEDS: PERPHENAZINE 4 MG TAB PO SCH (22:21)
[2021-01-23] MEDS: QUEtiapine 100 MG TAB PO SCH (22:21)
[2021-01-23] MEDS: traZODone HCL 100 MG TAB PO SCH (22:22)
[2021-01-24 01:54] LABS: Glucose,Whole Blood 76 mg/dL (75-99)
[2021-01-24 05:07] LABS: Glucose,Whole Blood 80 mg/dL (75-99)
[2021-01-24 06:57] LABS: Glucose,Whole Blood 85 mg/dL (75-99)
[2021-01-24] MEDS: HYDROcodone/APAP 5-325MG 1 EACH TAB PO PRN (07:48)
[2021-01-24] MEDS: FOLIC ACID 1 MG TAB PO SCH (07:48)
[2021-01-24] MEDS: PANTOPRAZOLE 40 MG/10 ML VIAL IV SCH (07:49)
[2021-01-24] MEDS: PATIENT'S OWN (Dextroamphetamine/Amphetamine [Adderall] 20 MG Tablet) PO SCH (07:49)
[2021-01-24] MEDS: LORazepam 1 MG TAB PO SCH ×2 (07:49→22:04)
[2021-01-24] MEDS: NICOTINE 21MG/24HR PATCH TRANSDERM SCH (07:49)
[2021-01-24] MEDS: MULTIVITAMINS, THERA 1 EACH TAB PO SCH (07:49)
[2021-01-24] MEDS: THIAMINE 100 MG TAB PO SCH (07:49)
[2021-01-24] MEDS: TAMSULOSIN 0.4 MG CAP.ER.24H PO SCH (07:49)
[2021-01-24] MEDS: SODIUM CHLORIDE 0.9% 1,000 ML IV SCH ×2 (07:54→21:43)
[2021-01-24] MEDS: ESCITALOPRAM 20 MG TAB PO SCH (09:00)
[2021-01-24] MEDS ORDERED: MAGNESIUM CITRATE 296 ML BOTTLE PO ONE (09:00)
--- NOTE | 2021-01-24 11:25 | XR ---
EXAMINATION TYPE: XR KUB EXAMINATION TYPE: XR KUB DATE OF EXAM: 01/24/2021 9:52 AM CLINICAL HISTORY: Abdominal pain and constipation TECHNIQUE: Single supine KUB image of the abdomen is obtained. COMPARISON: None. FINDINGS: Mild gaseous dilatation of loops of small bowel in the upper abdomen measuring up to 5 cm. This may represent a mild ileus or early developing small bowel obstruction. There is gas to the leve l of the rectum. Osteopenia and degenerative changes of the spine and hips. There is spinal hardware seen at L4-5 and L5-S1. Presumed calcified pelvic phleboliths. IMPRESSION: 1. Mildly dilated loops of small bowel in the upper abdomen measuring approximately 5 cm. This may re present a ileus versus developing small bowel obstruction. Continued follow-up is recommended.
[2021-01-24 11:54] LABS: Glucose,Whole Blood 87 mg/dL (75-99)
[2021-01-24] MEDS ORDERED: NA PHOS,M-B/NA PHOS,DI-BA 133 ML ENEMA RECTAL STA (12:01)
[2021-01-24] MEDS ORDERED: GLYCOPYRROLATE 0.2 MG/ML 2 ML VIAL ONE (14:10)
[2021-01-24] MEDS ORDERED: PROPOFOL 10 MG/ML 20 ML VIAL IV ONE (14:10)
[2021-01-24] MEDS ORDERED: IV FLUID CONTINUATION 1,000 ML IV ONE ×2 (14:13)
[2021-01-24] MEDS ORDERED: SODIUM CHLORIDE 0.9% 500 ML 500 ML IV ONE (14:28)
--- NOTE | 2021-01-24 15:04 | P.PCN ---
Date of Procedure: 01/24/21 Description of Procedure: BRIEF HISTORY: 65-year-old white male who was admitted to the hospital with complaints of rectal bleeding that started 2 days ago. He had 2 episodes of bright red blood per rectum with small clots noted. He denied any associated abdominal pain. Today he has seen and evaluated continues to deny any abdominal pain. He finished three quarters of his problem with no bowel movement, he was given a fleets enema with only small amount of brown output. No bleeding noted. His hemoglobin was improved at 13.4 yesterday and the patient was given magnesium citrate but and reported no further bowel movements with x-ray showing some dilated small bowel and possible ileus. PROCEDURE PERFORMED: Flexible sigmoidoscopy. PREOPERATIVE DIAGNOSIS: GI bleed, rectal hemorrhage. ESTIMATED BLOOD LOSS: Minimal. IV sedation per Anesthesia. PROCEDURE: After informed consent was obtained, the patient, was brought into the endoscopy unit. IV sedation was administered by Anesthesia under continuous monitoring. Digital rectal examination was normal. Initially the Olympus CF-190 flexible video colonoscope was then inserted in the rectum, gradually advanced into the proximal descending colon without any difficulty. Careful examination was performed as the scope was gradually being withdrawn. Prep was poor with a large amount of liquid and semisolid stool throughout the visualized colon prohibiting complete visualization of the mucosa. Mucosa of the descending colon, sigmoid colon, and rectum which was able to be visualized appeared normal with no active bleeding or old blood noted, however complete visualization of the mucosa was fairly prohibited by poor prep. Retroflexion was performed in the rectum and no lesions were seen, with nonbleeding internal hemorrhoids noted. The patient tolerated the procedure well. IMPRESSION: Internal hemorrhoids. Poor prep with liquid and semisolid stool throughout the visualized colon, with endoscope advanced to the approximate level of the proximal descending colon. No active bleeding or hemolyzed blood throughout the visualized colon. RECOMMENDATIONS: Findings of this examination were discussed with the patient in the medical team. Okay for ice chips, however given possible ileus on x-ray patient should remain nothing by mouth except for ice chips. Repeat x-ray ordered for the morning. Continue monitor hemoglobin and hematocrit and transfuse as needed. Given absence of any further bleeding and hemodynamic stability with normal hemoglobin on repeat blood draw would recommend outpatient colonoscopy in 3-4 weeks. If no improvement in symptoms of ileus would recommend surgical consult tomorrow otherwise of improvement can advance diet and discharge patient when otherwise medically stable.
--- NOTE | 2021-01-24 16:11 | PN ---
PROGRESS NOTE DATE OF SERVICE: 01/24/2021 INTERVAL HISTORY: This 65-year-old gentleman admitted with GI bleed is being closely monitored. Dr. Quiroz is planning colonoscopy. No chest pain. No palpitations. CT scan of the brain showed maybe some atrophy. PHYSICAL EXAMINATION: Alert and oriented x2. Pulse 54, blood pressure 173/88, respirations 16, temperature 97.2, pulse ox 98% on room air. HEENT: Conjunctivae normal. Oral mucosa moist. NECK: No jugular venous distention. No carotid bruits. RESPIRATORY: Breath sounds diminished at the bases. A few scattered rhonchi. HEART: S1 and S2, muffled. ABDOMEN: Soft, no tenderness. No masses palpable. EXTREMITIES: No edema, no swelling. NERVOUS: No focal deficits. LAB STUDIES: WBC 5.4. Other labs are noted. ASSESSMENT: 1. Acute lower gastrointestinal bleeding with mild acute blood loss anemia. 2. Thrombocytopenia. 3. Diffuse abdominal pain. 4. Hematuria. 5. Possible urinary tract infection. 6. History of gastroesophageal reflux disease .. 7. History of pancreatitis. 8. History of liver disease. 9. History of hepatitis C. 10.History of cholecystectomy. 11.History of anxiety, depression. 12.Hypertension. 13.History of nicotine dependence. 14.NO CODE, NO CPR, NO VENT. RECOMMENDATIONS AND DISCUSSION: Continue current management. Continue with symptomatic treatment. Colonoscopy. Add clonidine to the current regimen. Empiric antibiotics for UTI. Guarded prognosis. Further recommendations to follow. MMODL / IJN: [id number] /
[2021-01-24 17:28] LABS: Glucose,Whole Blood 114 mg/dL (75-99)
[2021-01-24] MEDS: cloNIDine HCL 0.1 MG TAB PO SCH ×2 (17:35→22:04)
[2021-01-24 20:56] LABS: Glucose,Whole Blood 88 mg/dL (75-99)
[2021-01-24] MEDS: traZODone HCL 100 MG TAB PO SCH (22:04)
[2021-01-24] MEDS: QUEtiapine 100 MG TAB PO SCH (22:10)
[2021-01-24] MEDS: QUEtiapine 200 MG TAB PO SCH (22:10)
[2021-01-24] MEDS: PERPHENAZINE 4 MG TAB PO SCH (22:19)
[2021-01-25] MEDS: SODIUM CHLORIDE 0.9% 1,000 ML IV SCH ×3 (03:20→18:09)
[2021-01-25 06:32] LABS: African American GFR (CKD) >90 (>60 ml/min/1.73 sqM); Anion Gap 3 mmol/L; Blood Urea Nitrogen 6 mg/dL (9-20); Calcium 8.5 mg/dL (8.4-10.2); Carbon Dioxide 27 mmol/L (22-30); Chloride 111 mmol/L (98-107); Glucose 72 mg/dL (74-99); Non-African American GFR(CKD) >90 (>60 ml/min/1.73 sqM); Potassium 3.7 mmol/L (3.5-5.1); Sodium 141 mmol/L (137-145)
[2021-01-25] MEDS: PANTOPRAZOLE 40 MG/10 ML VIAL IV SCH (08:03)
[2021-01-25 08:04] LABS: Glucose,Whole Blood 86 mg/dL (75-99)
--- NOTE | 2021-01-25 08:39 | XR ---
EXAMINATION TYPE: XR KUB DATE OF EXAM: 01/25/2021 7:22 AM CLINICAL HISTORY: Abdominal distention TECHNIQUE: Single supine KUB image of the abdomen is obtained. COMPARISON: None. FINDINGS: There is gross gaseous distention of the splenic flexure. Multiple air-fluid levels on the upright view. Small bowel measures up to 4.9 cm. These findings may represent an ileus or early parti al small bowel obstruction. No free air on the upright view. The left hemidiaphragm is elevated asymm etrically. Consider diaphragmatic paralysis. Left basilar atelectasis or scarring. Osteopenia and deg enerative changes of the spine with degenerative changes of the hip as well. Spinal hardware at L4-5 and L5-S1. IMPRESSION: 1. Mildly dilated loops of small bowel measuring up to 5 cm with gaseous distention of the colon as w ell. These findings may represent ileus or early partial small bowel bowel obstruction. There are mul tiple air-fluid levels. Continued follow-up is recommended. No free air. 2. Asymmetric elevation of the left hemidiaphragm. Consider diaphragmatic paralysis.
[2021-01-25 09:37] LABS: Basophils # (A) 0.01 X 10*3/uL (0.00-0.10); Basophils % (A) 0.2 %; Eosinophils % (A) 6.7 %; HGB 12.6 g/dL (13.0-17.0); Lymphocytes # (A) 1.27 X 10*3/uL (0.90-5.00); Lymphocytes % (A) 28.2 %; MCH 29.9 pg (27.0-32.0); MCHC 31.5 g/dL (32.0-37.0); Mean Platelet Volume 10.1 fL (9.5-12.2); Monocytes # (A) 0.52 X 10*3/uL (0.20-1.00); Monocytes % (A) 11.5 %; Neutrophils % (A) 53.2 %; Platelet Count 122 X 10*3/uL (140-440); RBC 4.21 X 10*6/uL (4.40-5.60); RDW 12.4 % (11.5-14.5); WBC 4.51 X 10*3/uL (4.50-10.00)
[2021-01-25] MEDS: TAMSULOSIN 0.4 MG CAP.ER.24H PO SCH (10:17)
[2021-01-25] MEDS: LORazepam 1 MG TAB PO SCH ×2 (10:17→22:44)
[2021-01-25] MEDS: MULTIVITAMINS, THERA 1 EACH TAB PO SCH (10:17)
[2021-01-25] MEDS: FOLIC ACID 1 MG TAB PO SCH (10:17)
[2021-01-25] MEDS: cloNIDine HCL 0.1 MG TAB PO SCH (10:17)
[2021-01-25] MEDS: THIAMINE 100 MG TAB PO SCH (10:17)
[2021-01-25] MEDS: PATIENT'S OWN (Dextroamphetamine/Amphetamine [Adderall] 20 MG Tablet) PO SCH (10:19)
[2021-01-25] MEDS: ESCITALOPRAM 20 MG TAB PO SCH (10:19)
[2021-01-25] MEDS: NICOTINE 21MG/24HR PATCH TRANSDERM SCH (10:19)
[2021-01-25] MEDS: IOPAMIDOL CONTRAST (ORAL USE) VIAL PO PRN ×2 (12:26→13:19)
[2021-01-25 12:39] LABS: Glucose,Whole Blood 97 mg/dL (75-99)
--- NOTE | 2021-01-25 14:21 | CT ---
EXAMINATION TYPE: CT abdomen pelvis wo con DATE OF EXAM: 01/25/2021 COMPARISON: 01/22/2021 INDICATION: Abdominal pain. DLP: 638 mGycm, Automated exposure control for dose reduction was used. CONTRAST: 0 mL of Isovue 300. Study performed with Oral Contrast TECHNIQUE: Axial images were obtained from above the diaphragm to the pubic rami in the axial plane a t 5 mm thick sections. Reconstructed images are reviewed on the computer in the coronal plane. FINDINGS: Limited CT sections are obtained the lung bases. The lung bases are clear. CT ABDOMEN: Liver: Normal Spleen: Normal Pancreas: Normal Adrenal glands: The adrenal glands are normal. Gallbladder: Surgically absent Kidneys: No masses are evident. No hydronephrosis is present. No cysts are present. Multiple calci fications are within the bilateral kidneys. These are nonobstructing. This would include a 0.7 cm michael cification at the inferior pole right kidney, 0.6 cm calcification posterior mid to inferior right ki dney, 0.8 cm calcification posterior lateral right mid kidney, a 0.1 and 0.3 cm calcification mid to upper pole right kidney and a 0.2 cm calcification anterior medial right upper pole kidney. On the le ft couple of punctate calcifications are in the superior pole left kidney. There is a 0.8 cm calcific ation in the lateral left mid kidney. Aorta: Vascular calcification is within the aorta. Inferior vena cava: Normal. CT PELVIS: Loops of bowel within the abdomen and pelvis are normal. There are loops of bowel which are incom pletely distended or lack oral contrast limiting their evaluation. Appendix: Not visualized. No suspicious dilated tubular structure or inflammatory changes evident. Urinary bladder: Normal. Genitourinary structures: Prostate calcification is present. Mild prostate hypertrophy is present Osseous structures: No suspicious lytic or sclerotic lesions. IMPRESSIONS: 1. Multiple bilateral nonobstructing renal stones.
--- NOTE | 2021-01-25 15:18 | P.PN ---
Subjective Progress Note Date: 01/25/21 Principal diagnosis: Rectal bleeding The patient was seen and examined lying in bed. He states he still had not had any bowel movements through the night. Yesterday he underwent a flexible sigmoidoscopy which showed internal hemorrhoids with a poor prep with liquid and semisolid stool throughout the visualized colon with no active bleeding or hemolysis signs blood throughout the visualized colon. Still complaints of abdominal pain, states he had some nausea no vomiting. Abdominal x-ray this morning shows mildly dilated loops of small bowel measuring up to 5 cm with gas eous distention of the colon as well. These findings may represent ileus or early partial small bowel obstruction. There are multiple air-fluid levels. Continue follow-up recommended no free air. Asymmetric elevation of the left hemidiaphragm consider diaphragmatic paralysis. Objective - Vital Signs Vital signs: Vital Signs Temp 97.3 F L 01/25/21 07:00 Pulse 51 L 01/25/21 07:00 Resp 16 01/25/21 07:00 BP 156/80 01/25/21 07:00 Pulse Ox 94 L 01/25/21 07:00 Intake & Output 01/24/21 01/25/21 01/25/21 18:59 06:59 18:59 Intake Total 300 250 Output Total 800 Balance -500 250 Intake: IV 300 Oral 250 Output: Urine 800 Other: Voiding Method Bedside Commode Urinal # Voids 1 2 # Bowel Movements 1 1 - Exam General appearance: The patient is alert, oriented, appears in no acute distress. HET: Head is normocephalic and atraumatic. Conjunctiva pink. Sclera anicteric. Neck: Supple without lymphadenopathy. Abdomen: Soft, diffuse tenderness, nondistended with bowel sounds. No guarding or rigidity. Extremities: Normal skin color and turgor. No pedal edema Skin: No rashes, no jaundice Neurological: No focal deficits. Alert and oriented 3. - Labs CBC & Chem 7: 01/25/21 05:20 01/25/21 05:20 Labs: Abnormal Lab Results - Last 24 Hours (Table) 01/24/21 01/25/21 01/25/21 Range/Units 17:26 05:20 05:20 RBC 4.21 L (4.40-5.60) X 10*6/uL Hgb 12.6 L (13.0-17.0) g/dL MCHC 31.5 L (32.0-37.0) g/dL Plt Count 122 L (140-440) X 10*3/uL Chloride 111 H (98-107) mmol/L BUN 6 L (9-20) mg/dL Glucose 72 L (74-99) mg/dL POC Glucose (mg/dL) 114 H (75-99) mg/dL Microbiology - Last 24 Hours (Table) 01/21/21 19:21 Urine Culture - Preliminary Urine,Voided Staphylococcus epidermidis Assessment and Plan (1) Rectal bleeding Narrative/Plan: Rectal bleeding 2 episodes, possibly bleeding from internal hemorrhoids, cannot rule out other colorectal pathology. Hemoglobin remained stable and actually improved to 13.4. Plan [place] for colonoscopy today, however patient initially was unable to finish his prep, also had a Fleet enema this morning with only a small amount of brown output. Patient underwent a flexible sigmoidoscopy yesterday with findings of internal hemorrhoids and poor prep with liquid and semisolid stool throughout the visualized colon with no active bleeding or hemolysis blood throughout the visualized colon. Current Visit: Yes Status: Acute Code(s): K62.5 - HEMORRHAGE OF ANUS AND RECTUM SNOMED Code(s): 38447880 Plan: 1. Nothing by mouth with ice chips 2. KUB x-ray reviewed 3. Consult surgical services 4. Patient is status post flexible sigmoidoscopy 5. Recommend outpatient colonoscopy in 3-[address] Mojica I agree with the dictator's note, documented as a scribe by Martha Rodas.
[2021-01-25] MEDS: cloNIDine HCL 0.2 MG TAB PO SCH ×2 (15:55→22:44)
--- NOTE | 2021-01-25 16:08 | P.GSCN ---
History of Present Illness Consult date: 01/25/21 History of present illness: CHIEF COMPLAINT: Rectal bleeding Surgical consult for small bowel obstruction versus ileus HISTORY OF PRESENT ILLNESS: This is a 65-year-old male who presented to the emergency room with complaints of rectal bleeding. Patient had bright red blood per rectum. Denied any abdominal pain. He was evaluated by GI service. Due to poor prep unable to have a colonoscopy. He underwent a flex sigmoidoscopy which showed internal hemorrhoids. And they recommend outpatient colonoscopy in 3-4 weeks. Patient had reported abdominal pain and constipation. KUB x-ray was completed showing mildly dilated loops of small bowel in the upper abdomen proximal 5 cm. This may represent a ileus versus developing small bowel obstruction. Therefore, surgical service was consulted. At the time of our examination patient denies any abdominal pain. He denies having any bowel movements or passing gas. Chart reports the patient did have bowel movements yesterday. He is complaining more of back pain. He denies any fever chills or sweats. He denies any nausea or vomiting. He does have a past medical history of hepatitis C, angina, pancreatitis, appendectomy, cholecystectomy and back surgery. Also, prior history of kidney stones with lithotripsy. Patient seen and examined with Dr. oreilly PAST MEDICAL HISTORY: See list. PAST SURGICAL HISTORY: See list. MEDICATIONS: See list. ALLERGIES: See list. SOCIAL HISTORY: No illicit drug use. REVIEW OF SYSTEMS: CONSTITUTIONAL: Denies fever or chills. HEENT: Denies blurred vision, vision changes, or eye pain. Denies hemoptysis CARDIOVASCULAR: Denies chest pain or pressure. RESPIRATORY: No shortness of breath. GASTROINTESTINAL: See HPI for pertinent findings HEMATOLOGIC: Denies bleeding disorders. GENITOURINARY: Denies any blood in urine or increased urinary frequency. SKIN: Denies pruitis. Denies rash. PHYSICAL EXAM: VITAL SIGNS: Reviewed GENERAL: Well-developed in no acute distress. HEENT: No sclera icterus. Extraocular movements grossly intact. Moist buccal mucosa. Head is atraumatic, normocephalic. No nasal drainage. ABDOMEN: Soft. Nondistended. Nontender NEUROLOGIC: Alert and oriented. Cranial nerves II through XII grossly intact. LABORATORY DATA: WBC is 4.5 one hemoglobin 12.6 platelets 122 creatinine 0.75 Urinalysis positive for infection IMAGING: Computed tomography scan abdomen and pelvis with oral contrast shows multiple bilateral nonobstructing renal stones ASSESSMENT: 1. Abdominal pain. Now resolved with repeat CAT scan abdomen with oral contrast showing no evidence of bowel obstruction or ileus 2. Multiple bilateral nonobstructing renal stones noted on CAT scan 3. UTI PLAN: -Continue supportive care -Continue antibiotics for UTI -No surgical intervention planned Thank you for this consultation Physician General Production Manager note has been reviewed by physician. Signing provider agrees with the documented findings, assessment, and plan of care. Past Medical History Past Medical History: Chest Pain / Angina, GERD/Reflux, Liver Disease Additional Past Medical History / Comment(s): anemia, hx pancreatitis, angina x 1 yrs ago, hepatitis C-no tx recieved for it, kidney stones, History of Any Multi-Drug Resistant Organisms: None Reported Past Surgical History: Appendectomy, Back Surgery, Cholecystectomy, [place] ctomy Additional Past Surgical History / Comment(s): sx to enlarge urethra opening, lump removed from chest, surgery rt arm(fx), colonoscopy, recent lithotripsy at [facility],03/2019 Past Anesthesia/Blood Transfusion Reactions: No Reported Reaction Past Psychological History: Anxiety, Depression Additional Psychological History / Comment(s): . Smoking Status: Current every day smoker Past Alcohol Use History: None Reported Additional Past Alcohol Use History / Comment(s): started smoking at age 22,smokes 1 ppd. Past Drug Use History: None Reported Additional Drug Use History / Comment(s): occasional use, instructed to hold 24hrs prior to procedure - Past Family History Mother Family Medical History: No Reported History Additional Family Medical History / Comment(s): bowel obstruction. Medications and Allergies Home Medications Medication Instructions Recorded Confirmed Type LORazepam [Ativan] 1 mg PO BID 12/05/17 01/21/21 History Escitalopram [Lexapro] 40 mg PO DAILY 04/05/19 01/21/21 History traZODone HCL 600 mg PO HS 04/05/19 01/21/21 History Dextroamphetamine/Amphetamine 40 mg PO DAILY 01/20/21 01/21/21 History [Adderall] Famotidine [Pepcid] 20 mg PO BID #30 tablet 01/20/21 01/21/21 Rx Metoclopramide HCl [Reglan] 10 mg PO Q6HR PRN #15 tablet 01/20/21 01/21/21 Rx Multivitamins, Thera [Multivitamin 1 tab PO DAILY 01/20/21 01/21/21 History (formulary)] Perphenazine 8mg 16 mg PO HS 01/20/21 01/21/21 History QUEtiapine FUMARATE [SEROquel] 900 mg PO HS 01/20/21 01/21/21 History Allergies Allergy/AdvReac Type Severity Reaction Status Date / Time No Known Allergies Allergy Verified 01/21/21 21:28 Surgical - Exam Vital Signs Temp Pulse Resp BP Pulse Ox 98.6 F 64 18 149/91 98 01/21/21 18:55 01/21/21 18:55 01/21/21 18:55 01/21/21 18:55 01/21/21 18:55 Results - Labs 01/25/21 05:20 01/25/21 05:20 Abnormal Lab Results - Last 24 Hours (Table) 01/24/21 01/25/21 01/25/21 Range/Units 17:26 05:20 05:20 RBC 4.21 L (4.40-5.60) X 10*6/uL Hgb 12.6 L (13.0-17.0) g/dL MCHC 31.5 L (32.0-37.0) g/dL Plt Count 122 L (140-440) X 10*3/uL Chloride 111 H (98-107) mmol/L BUN 6 L (9-20) mg/dL Glucose 72 L (74-99) mg/dL POC Glucose (mg/dL) 114 H (75-99) mg/dL Microbiology - Last 24 Hours (Table) 01/25/21 11:00 Urine Culture - Preliminary Urine,Voided 01/21/21 19:21 Urine Culture - Final Urine,Voided Staphylococcus epidermidis Diabetes panel 01/25/21 Range/Units 05:20 Sodium 141 (137-145) mmol/L Potassium 3.7 (3.5-5.1) mmol/L Chloride 111 H (98-107) mmol/L Carbon Dioxide 27 (22-30) mmol/L BUN 6 L (9-20) mg/dL Creatinine 0.75 (0.66-1.25) mg/dL Glucose 72 L (74-99) mg/dL Calcium 8.5 (8.4-10.2) mg/dL Calcium panel 01/25/21 Range/Units 05:20 Calcium 8.5 (8.4-10.2) mg/dL Pituitary panel 01/25/21 Range/Units 05:20 Sodium 141 (137-145) mmol/L Potassium 3.7 (3.5-5.1) mmol/L Chloride 111 H (98-107) mmol/L Carbon Dioxide 27 (22-30) mmol/L BUN 6 L (9-20) mg/dL Creatinine 0.75 (0.66-1.25) mg/dL Glucose 72 L (74-99) mg/dL Calcium 8.5 (8.4-10.2) mg/dL Adrenal panel 01/25/21 Range/Units 05:20 Sodium 141 (137-145) mmol/L Potassium 3.7 (3.5-5.1) mmol/L Chloride 111 H (98-107) mmol/L Carbon Dioxide 27 (22-30) mmol/L BUN 6 L (9-20) mg/dL Creatinine 0.75 (0.66-1.25) mg/dL Glucose 72 L (74-99) mg/dL Calcium 8.5 (8.4-10.2) mg/dL
--- NOTE | 2021-01-25 17:26 | PN ---
PROGRESS NOTE DATE OF SERVICE: 01/25/2021 INTERVAL HISTORY: This 65-year-old gentleman who was admitted with acute lower gastrointestinal bleeding with acute blood loss anemia is being closely monitored. No chest pain. No palpitations. No fever. The patient had an attempted colonoscopy which was incomplete yesterday. A CT scan of the abdomen showed multiple bilateral nonobstructing renal stones. No chest pain. No palpitations. No fever. PHYSICAL EXAMINATION: Alert and oriented x3. Pulse 52 blood pressure 170/88 respirations 16, temperature 97.2, pulse ox 98% on room air. HEENT: Conjunctivae normal. Oral mucosa moist. NECK: No jugular venous distention. No lymph node enlargement. CARDIOVASCULAR: S1, S2, muffled. No S3, no S4, RESPIRATORY: Diminished breath sounds at the bases. A few scattered rhonchi and crackles. ABDOMEN: Soft, nontender. No mass palpable. LEGS: No edema, no swelling. NERVOUS SYSTEM: Higher functions as mentioned earlier. Diffusely weak. Able to ambulate. ASSESSMENT: 1. Acute lower gastrointestinal bleeding with mild acute blood loss anemia. 2. Attempted colonoscopy. 3. Bilateral nonobstructing renal stones. 4. Thrombocytopenia. 5. Hypertension. 6. Diffuse abdominal pain. 7. Hematuria. 8. Possible acute urinary tract infection present on admission. 9. History of gastroesophageal reflux disease. 10.History of pancreatitis. 11.History of liver disease. 12.History hepatitis C. 13.History of cholecystectomy. 14.History of anxiety, depression. 15.Hypertension. 16.History of nicotine dependence. 17.No code, no CPR, no vent. RECOMMENDATIONS AND DISCUSSION: I recommend to continue current management, continue symptomatic treatment. Increase the dose of clonidine. Otherwise, repeat labs in the morning. Further recommendations per Gastroenterology regarding possible colonoscopy. Prognosis guarded. Further recommendations to follow. MMODL / IJN: [id number] /
[2021-01-25] MEDS: PERPHENAZINE 4 MG TAB PO SCH (22:42)
[2021-01-25] MEDS: QUEtiapine 200 MG TAB PO SCH (22:43)
[2021-01-25] MEDS: traZODone HCL 100 MG TAB PO SCH (22:44)
[2021-01-25] MEDS: QUEtiapine 100 MG TAB PO SCH (22:44)
[2021-01-26] MEDS: SODIUM CHLORIDE 0.9% 1,000 ML IV SCH ×2 (01:06→08:21)
[2021-01-26] MEDS: cloNIDine HCL 0.2 MG TAB PO SCH (08:27)
[2021-01-26] MEDS: PANTOPRAZOLE 40 MG/10 ML VIAL IV SCH (08:27)
[2021-01-26] MEDS: NICOTINE 21MG/24HR PATCH TRANSDERM SCH (08:27)
[2021-01-26] MEDS: TAMSULOSIN 0.4 MG CAP.ER.24H PO SCH (08:27)
[2021-01-26] MEDS: LORazepam 1 MG TAB PO SCH (08:27)
[2021-01-26] MEDS: THIAMINE 100 MG TAB PO SCH (08:27)
[2021-01-26] MEDS: ESCITALOPRAM 20 MG TAB PO SCH (08:27)
[2021-01-26] MEDS: FOLIC ACID 1 MG TAB PO SCH (08:27)
[2021-01-26] MEDS: MULTIVITAMINS, THERA 1 EACH TAB PO SCH (08:27)
[2021-01-26] MEDS: PATIENT'S OWN (Dextroamphetamine/Amphetamine [Adderall] 20 MG Tablet) PO SCH (08:37)
[2021-01-26 10:34] LABS: Basophils # (A) 0.01 X 10*3/uL (0.00-0.10); Basophils % (A) 0.2 %; Eosinophils # (A) 0.22 X 10*3/uL (0.04-0.35); Eosinophils % (A) 4.6 %; HCT 39.9 % (39.6-50.0); HGB 12.8 g/dL (13.0-17.0); Lymphocytes # (A) 1.15 X 10*3/uL (0.90-5.00); Lymphocytes % (A) 24.1 %; MCH 30.2 pg (27.0-32.0); MCHC 32.1 g/dL (32.0-37.0); MCV 94.1 fL (80.0-97.0); Mean Platelet Volume 10.1 fL (9.5-12.2); Monocytes # (A) 0.55 X 10*3/uL (0.20-1.00); Monocytes % (A) 11.5 %; Neutrophils # (A) 2.84 X 10*3/uL (1.80-7.70); Neutrophils % (A) 59.4 %; Platelet Count 119 X 10*3/uL (140-440); RBC 4.24 X 10*6/uL (4.40-5.60); RDW 12.3 % (11.5-14.5); WBC 4.78 X 10*3/uL (4.50-10.00)
--- NOTE | 2021-01-26 13:08 | P.PN ---
Subjective Progress Note Date: 01/26/21 CHIEF COMPLAINT: Rectal bleeding HISTORY OF PRESENT ILLNESS: Surgical service is following regards to patient's questionable small bowel obstruction versus ileus. Computed tomography scan from yesterday with oral contrast shows multiple bilateral nonobstructing renal stones. Patient is having bowel movements and flatus. He denies any abdominal pain. Denies any nausea or vomiting. He is afebrile. He is tolerating clear liquid diet. WBC is 4.7 a hemoglobin 12.8 PHYSICAL EXAM: VITAL SIGNS: Reviewed. GENERAL: Well-developed in no acute distress. HEENT: No sclera icterus. Extraocular movements grossly intact. Moist buccal mucosa. Head is atraumatic, normocephalic. ABDOMEN: Soft. Nondistended. Nontender. NEUROLOGIC: Alert and oriented. Cranial nerves II through XII grossly intact. ASSESSMENT: 1. Abdominal pain. Now resolved with repeat CAT scan abdomen with oral contrast showing no evidence of bowel obstruction or ileus 2. Multiple bilateral nonobstructing renal stones noted on CAT scan 3. UTI 4. Rectal bleeding possibly due to internal hemorrhoids. Evaluated by GI service with flexible sigmoidoscopy. No further episodes of bleeding PLAN: -Advance diet to regular -Continue supportive care -Continue antibiotics for UTI -No surgical intervention planned Physician Russian Language Professor note has been reviewed by physician. Signing provider agrees with the documented findings, assessment, and plan of care. Objective - Vital Signs Vital signs: Vital Signs Temp 97.8 F 01/26/21 07:00 Pulse 62 01/26/21 07:00 Resp 16 01/26/21 07:00 BP 132/85 01/26/21 07:00 Pulse Ox 96 01/26/21 07:00 Intake & Output 01/25/21 01/26/21 01/26/21 18:59 06:59 18:59 Intake Total 1010 674 Output Total 1000 Balance 10 674 Intake: IV 1010 Sodium Chloride 0.9% 1, 960 000 ml @ 120 mls/hr IV . Q8H20M ADRIAN Rx#:[id number] cefTRIAXone 1 gm In 50 Sodium Chloride 0.9% 50 ml @ 100 mls/hr IVPB Q24H ADRIAN Rx#:[id number] Oral 674 Output: Urine 1000 Other: Voiding Method Bedside Commode Toilet Urinal Bedside Commode Urinal # Voids 1 4 1 # Bowel Movements 1 - Labs CBC & Chem 7: 01/26/21 05:21 01/26/21 05:21 Labs: Abnormal Lab Results - Last 24 Hours (Table) 01/26/21 Range/Units 05:21 RBC 4.24 L (4.40-5.60) X 10*6/uL Hgb 12.8 L (13.0-17.0) g/dL Plt Count 119 L (140-440) X 10*3/uL Microbiology - Last 24 Hours (Table) 01/25/21 11:00 Urine Culture - Final Urine,Voided 01/24/21 15:05 Blood Culture - Preliminary Blood No Growth after 24 hours 01/21/21 19:21 Urine Culture - Final Urine,Voided Staphylococcus epidermidis
[2021-01-26 13:21] LABS: African American GFR (CKD) 104.2 (60.0-200.0); Anion Gap 1.8 mmol/L (4.00-12.00); BUN/Creat Ratio 5.56 Ratio (12.00-20.00); Calcium 8.7 mg/dL (8.7-10.3); Carbon Dioxide 29.2 mmol/L (21.6-31.8); Non-African American GFR(CKD) 89.9 (60.0-200.0); Potassium 3.8 mmol/L (3.5-5.5)
--- NOTE | 2021-01-26 14:46 | P.DS ---
Providers Date of admission: 01/22/21 10:26 Attending physician: Deana Mayorga MD Consults: 01/21/21 20:35 Consult Physician Urgent Consulting Provider: Lizzeth Quiroz Consult Reason/Comments: lower gi hemorrhage Do you want consulting provider notified?: Yes 01/22/21 15:30 Consult Physician Routine Consulting Provider: Matt Jones Consult Reason/Comments: urinary retention Do you want consulting provider notified?: Yes 01/25/21 10:38 Consult Physician Urgent Consulting Provider: Osiel Bradford Consult Reason/Comments: possible SBO vs Ileus Do you want consulting provider notified?: Yes Primary care physician: [facility] Course: Final diagnosis Acute GI bleed with a mild acute blood loss anemia At 100 colonoscopy Bilateral nonobstructing renal stones Thrombocytopenia Hypertension Gait dysfunction Diffuse abdominal pain Hematuria Possible acute UTI present on admission Street GERD History of pancreatitis History of liver disease History of hepatitis C History of cholecystectomy *Anxiety depression Hypertension History and nicotine dependence No code no CPR no event Discharge disposition The patient be discharged in a stable condition with guarded prognosis to [facility] under Dr. care of Dr. Miranda. History of present illness this 65-year-old gentleman with a past medical history multiple medical problems was admitted with the features of acute lower GI bleeding. The patient had some mild Blood loss anemia with hemoglobin around 12. Gastroenterology attempted colonoscopy. The preparation was incomplete. Recommended outpatient follow-up to GI for possible repeat and consider endoscopic this time. But however the patient continues to have some gait dysfunction. The patient be sent to [facility] of continued monitoring and of rehabilitation at this point. Next On exam vitals are stable cardio S1 is normal abdomen soft no system diffusely weak no definite focal deficit.. Please refer to the medication can see sheet for list of medications. Please also note that patient's on a high dose antidepressant other psych medicines also. Recommend close follow-up with the patient's primary physician and psychiatrist as an outpatient.. Plan - Discharge Summary Discharge Rx Participant: No New Discharge Prescriptions: New cloNIDine HCL [Catapres] 0.2 mg PO TID #60 tab Tamsulosin [Flomax] 0.4 mg PO PC-BRKFST #30 cap.er.24h Folic Acid 1 mg PO DAILY #30 tablet Thiamine [Vitamin B-1] 100 mg PO DAILY #30 tablet Pantoprazole Sodium [Protonix] 40 mg PO DAILY #[address] Mauricio Famotidine [Pepcid] 20 mg PO BID #30 tablet Metoclopramide HCl [Reglan] 10 mg PO Q6HR PRN #15 tablet PRN Reason: Nausea traZODone HCL 600 mg PO HS #3 tab Multivitamins, Thera [Multivitamin (formulary)] 1 tab PO DAILY Dextroamphetamine/Amphetamine [Adderall] 40 mg PO DAILY Escitalopram [Lexapro] 40 mg PO DAILY #4 tab Perphenazine 8mg 16 mg PO HS #4 QUEtiapine FUMARATE [SEROquel] 900 mg PO HS #3 tab Changed LORazepam [Ativan] 1 mg PO BID PRN #6 tab PRN Reason: Anxiety Discharge Medication List Dextroamphetamine/Amphetamine [Adderall] 40 mg PO DAILY 01/20/21 [History] Famotidine [Pepcid] 20 mg PO BID #30 tablet 01/20/21 [Rx] Metoclopramide HCl [Reglan] 10 mg PO Q6HR PRN #15 tablet 01/20/21 [Rx] Multivitamins, Thera [Multivitamin (formulary)] 1 tab PO DAILY 01/20/21 [History] Escitalopram [Lexapro] 40 mg PO DAILY #4 tab 01/26/21 [Rx] Folic Acid 1 mg PO DAILY #30 tablet 01/26/21 [Rx] LORazepam [Ativan] 1 mg PO BID PRN #6 tab 01/26/21 [Rx] Pantoprazole Sodium [Protonix] 40 mg PO DAILY #30 tablet. 01/26/21 [Rx] Perphenazine 8mg 16 mg PO HS #4 01/26/21 [Rx] QUEtiapine FUMARATE [SEROquel] 900 mg PO HS #3 tab 01/26/21 [Rx] Tamsulosin [Flomax] 0.4 mg PO PC-BRKFST #30 cap.er.24h 01/26/21 [Rx] Thiamine [Vitamin B-1] 100 mg PO DAILY #30 tablet 01/26/21 [Rx] cloNIDine HCL [Catapres] 0.2 mg PO TID #60 tab 01/26/21 [Rx] traZODone HCL 600 mg PO HS #3 tab 06/04/21 [Rx] Follow up Appointment(s)/Referral(s): [facility], [NON-STAFF] - 1-2 Days Vera Jc MD [Primary Care Provider] - 1-2 days Amandeep Andino MD [STAFF PHYSICIAN] - 1 Week Ambulatory/Diagnostic Orders: Complete Blood Count w/diff [LAB.AMB] Location: None Selected Activity/Diet/Wound Care/Special Instructions: Diet cardiac Activity Limited until follow up follow-up with the gastroneurology is recommended
[2021-01-26 14:53] VITALS: BP 134/78; PULSE 55; RESP 17; TEMP 97.5
--- NOTE | 2021-01-26 15:04 | P.PN ---
Subjective Progress Note Date: 01/26/21 Principal diagnosis: Lower GI bleed, hematochezia The patient seen lying in bed reporting is tolerating diet. No abdominal pain, no nausea or vomiting. Objective - Vital Signs Vital signs: Vital Signs Temp 97.8 F 01/26/21 07:00 Pulse 62 01/26/21 07:00 Resp 16 01/26/21 07:00 BP 132/85 01/26/21 07:00 Pulse Ox 96 01/26/21 07:00 Intake & Output 01/25/21 01/26/21 01/26/21 18:59 06:59 18:59 Intake Total 1010 854 Output Total 1000 Balance 10 854 Intake: IV 1010 Sodium Chloride 0.9% 1, 960 000 ml @ 120 mls/hr IV . Q8H20M ADRIAN Rx#:[id number] cefTRIAXone 1 gm In 50 Sodium Chloride 0.9% 50 ml @ 100 mls/hr IVPB Q24H ADRIAN Rx#:[id number] Oral 854 Output: Urine 1000 Other: Voiding Method Bedside Commode Toilet Urinal Bedside Commode Urinal # Voids 1 4 1 # Bowel Movements 1 - Exam On physical examination, patient appears comfortable in no apparent distress. HEAD: Normocephalic, atraumatic. EYES: No scleral icterus. No conjunctival injection. MOUTH: No lesions, tongue midline. NECK: Trachea midline, no gross abnormalities. ABDOMEN: Soft, nontender to palpation. Bowel sounds are positive. No organomegaly. No guarding or rigidity. EXTREMITIES: No pedal edema. SKIN: No rashes, no jaundice. NEUROLOGIC: Alert and oriented x3. No focal deficits. - Labs CBC & Chem 7: 01/26/21 05:21 01/26/21 05:21 Labs: Abnormal Lab Results - Last 24 Hours (Table) 01/26/21 01/26/21 Range/Units 05:21 05:21 RBC 4.24 L (4.40-5.60) X 10*6/uL Hgb 12.8 L (13.0-17.0) g/dL Plt Count 119 L (140-440) X 10*3/uL Chloride 112 H (96-109) mmol/L Anion Gap 1.80 L (4.00-12.00) mmol/L BUN 5.0 L (9.0-27.0) mg/dL BUN/Creatinine Ratio 5.56 L (12.00-20.00) Ratio Microbiology - Last 24 Hours (Table) 01/25/21 11:00 Urine Culture - Final Urine,Voided 01/24/21 15:05 Blood Culture - Preliminary Blood No Growth after 24 hours 01/21/21 19:21 Urine Culture - Final Urine,Voided Staphylococcus epidermidis Assessment and Plan (1) Lower gastrointestinal hemorrhage Narrative/Plan: 65-year-old male who presented to the hospital with complaints of rectal bleeding with 2 episodes. Hemoglobin remained stable during his hospitaliza tion. He reports a remote history of colonoscopy. The patient was unable to tolerate his prep but did undergo a modified colonoscopy approximately to the level of the proximal descending colon with no evidence of GI bleeding, no blood or old blood with internal hemorrhoids seen. Current Visit: Yes Status: Acute Code(s): K92.2 - GASTROINTESTINAL HEMORRHAGE, UNSPECIFIED SNOMED Code(s): 18941153 (2) Rectal bleeding Current Visit: Yes Status: Acute Code(s): K62.5 - HEMORRHAGE OF ANUS AND RECTUM SNOMED Code(s): 86404157 (3) Ileus Current Visit: No Status: Acute Code(s): K56.7 - ILEUS, UNSPECIFIED SNOMED Code(s): 564232438 Plan: Supportive care Okay for diet as tolerated Recommend local hemorrhoidal care if further bleeding Given limited colonoscopy recommendation is for repeat colonoscopy in the next 3-6 months for screening purposes due to inadequate prep and colonoscopy only to the level of the proximal descending colon which is been explained to the patient complains of all his questions answered to satisfaction Okay for discharge when otherwise medically stable Thank you for allowing us to participate in the care of the patient
== END 2021-01-26 16:24 | DRG 378 ==
LOC: EC 18:52 → 6NMEDSUR 20:36 → OBSVTOIN 01-22 10:26 → 6NMEDSUR 01-23 17:06
PROVIDERS: ADMIT Internal Medicine; ATTEND Internal Medicine
PROC: 0DJD8ZZ Inspection of Lower Intestinal Tract, Via Natural or Artificial Opening Endoscopic (ICD-10-PCS; principal; 2021-01-24 08:00)
DX: K92.1 Melena (principal); D62 Acute posthemorrhagic anemia; N39.0 Urinary tract infection, site not specified; K56.7 Ileus, unspecified; D69.6 Thrombocytopenia, unspecified; B18.2 Chronic viral hepatitis C; Z66 Do not resuscitate; Z20.822 Contact with and (suspected) exposure to COVID-19; I10 Essential (primary) hypertension; N20.0 Calculus of kidney; R31.9 Hematuria, unspecified; K64.8 Other hemorrhoids; K21.9 Gastro-esophageal reflux disease without esophagitis; F41.8 Other specified anxiety disorders; R33.9 Retention of urine, unspecified; G89.29 Other chronic pain; M54.9 Dorsalgia, unspecified; R26.9 Unspecified abnormalities of gait and mobility; F17.210 Nicotine dependence, cigarettes, uncomplicated; Z79.899 Other long term (current) drug therapy; Z87.442 Personal history of urinary calculi; Z87.19 Personal history of other diseases of the digestive system; Z90.49 Acquired absence of other specified parts of digestive tract; Z90.89 Acquired absence of other organs; Z87.2 Personal history of diseases of the skin and subcutaneous tissue; Z87.448 Personal history of other diseases of urinary system; Z98.890 Other specified postprocedural states; Z83.79 Family history of other diseases of the digestive system
CPT/HCPCS: 36415; 45330; 70450; 71045; 74018; 74176; 74177; 80048; 80053; 81001; 82150; 82550; 83690; 84484; 85025; 85610; 85730; 87040; 87077; 87086; 87186; 87635; 93005; 96361; 96374; 96375; 99285

== ENCOUNTER 2021-03-23 17:23 | Emergency (ER) | payer MEDICARE, OTHER ==
[2021-03-23 17:26] VITALS: RESP 18; TEMP 98.3
[2021-03-23] MEDS: SODIUM CHLORIDE 0.9% 1,000 ML IV STA (17:45)
[2021-03-23] MEDS: MORPHINE SULFATE 4 MG/ML SYRINGE IV STA (17:45)
[2021-03-23 17:50] LABS: Basophils % (A) 0 %; Eosinophils # (A) 0.1 k/uL (0-0.7); Eosinophils % (A) 1 %; HCT 46.7 % (39.0-53.0); HGB 15.8 gm/dL (13.0-17.5); Lymphocytes # (A) 1.4 k/uL (1.0-4.8); Lymphocytes % (A) 16 %; MCH 31.8 pg (25.0-35.0); MCHC 33.9 g/dL (31.0-37.0); MCV 93.8 fL (80.0-100.0); Mean Platelet Volume 6.8; Monocytes # (A) 0.6 k/uL (0-1.0); Monocytes % (A) 7 %; Neutrophils # (A) 6.3 k/uL (1.3-7.7); Neutrophils % (A) 74 %; Platelet Count 215 k/uL (150-450); RBC 4.98 m/uL (4.30-5.90); RDW 13.8 % (11.5-15.5); WBC 8.6 k/uL (3.8-10.6)
[2021-03-23 18:02] LABS: ALT 23 U/L (4-49); AST 31 U/L (17-59); African American GFR (CKD) >90 (>60 ml/min/1.73 sqM); Albumin 4.8 g/dL (3.5-5.0); Alkaline Phosphatase 111 U/L (38-126); Amylase 39 U/L (30-110); Anion Gap 11 mmol/L; Blood Urea Nitrogen 8 mg/dL (9-20); Carbon Dioxide 23 mmol/L (22-30); Chloride 107 mmol/L (98-107); Glucose 106 mg/dL (74-99); Lipase 192 U/L (23-300); Non-African American GFR(CKD) >90 (>60 ml/min/1.73 sqM); Potassium 3.6 mmol/L (3.5-5.1); Sodium 141 mmol/L (137-145); Total Bilirubin 0.4 mg/dL (0.2-1.3); Total Protein 7.4 g/dL (6.3-8.2)
--- NOTE | 2021-03-23 18:21 | XR ---
EXAM: Abdomen radiograph. HISTORY: Pain. TECHNIQUE: Upright AP view. COMPARISON: CT 01/25/2021. FINDINGS: There are nonspecific multiple borderline to mildly dilated bowel loops in the left upper quadrant. T here is also colonic gaseous distention. No pneumoperitoneum. There are no pathologic calcifications. No acute osseous abnormality seen. Lumbar spine fusion noted. IMPRESSION: Nonspecific borderline to mildly dilated bowel loops, may represent ileus versus partial small bowel obstruction.
--- NOTE | 2021-03-23 18:45 | ED ---
Abdominal Pain HPI - General Chief Complaint: Abdominal Pain Stated Complaint: abd pain Time Seen by Provider: 03/23/21 17:29 Source: patient, RN notes reviewed Mode of arrival: ambulatory Limitations: no limitations - History of Present Illness Initial Comments: Patient is a 65-year-old male that presents to the emergency department complaining of abdominal pain. He notes that he thinks this might be because he ran out of his Xanax prescription several days ago. Patient denied any hematochezia melena. He was otherwise a well-appearing 65-year-old male in no apparent distress or pain. He denied any chest pain shortness of breath headache nausea vomiting diarrhea constipation fever fatigue chills. - Related Data Home Medications Medication Instructions Recorded Confirmed Dextroamphetamine/Amphetamine 40 mg PO DAILY 01/20/21 03/23/21 [Adderall] Previous Rx's Medication Instructions Recorded Escitalopram [Lexapro] 40 mg PO DAILY #4 tab 01/26/21 QUEtiapine FUMARATE [SEROquel] 900 mg PO HS #3 tab 01/26/21 Allergies Allergy/AdvReac Type Severity Reaction Status Date / Time No Known Allergies Allergy Verified 03/23/21 19:30 Review of Systems ROS Statement: Those systems with pertinent positive or pertinent negative responses have been documented in the HPI. ROS Other: All systems not noted in ROS Statement are negative. Past Medical History Past Medical History: Chest Pain / Angina, GERD/Reflux, Liver Disease Additional Past Medical History / Comment(s): anemia, hx pancreatitis, angina x 1 yrs ago, hepatitis C-no tx recieved for it, kidney stones, History of Any Multi-Drug Resistant Organisms: None Reported Past Surgical History: Appendectomy, Back Surgery, Cholecystectomy, Tonsillectomy Additional Past Surgical History / Comment(s): sx to enlarge urethra opening, lump removed from chest, surgery rt arm(fx), colonoscopy, recent lithotripsy at [facility],03/2019 Past Anesthesia/Blood Transfusion Reactions: No Reported Reaction Past Psychological History: Anxiety, Depression Smoking Status: Current every day smoker Past Alcohol Use History: None Reported Past Drug Use History: Marijuana - Past Family History Mother Family Medical History: No Reported History Additional Family Medical History / Comment(s): bowel obstruction. General Exam Limitations: no limitations General appearance: alert, in no apparent distress Head exam: Present: atraumatic, normocephalic, normal inspection Eye exam: Present: normal appearance, PERRL, EOMI. Absent: scleral icterus, conjunctival injection, periorbital swelling Neck exam: Present: normal inspection Respiratory exam: Present: normal lung sounds bilaterally. Absent: respiratory distress, wheezes, rales, rhonchi, stridor Cardiovascular Exam: Present: regular rate, normal rhythm, normal heart sounds. Absent: systolic murmur, diastolic murmur, rubs, gallop, clicks GI/Abdominal exam: Present: soft, normal bowel sounds. Absent: distended, tenderness, guarding, rebound, rigid Extremities exam: Present: normal inspection, full ROM, normal capillary refill. Absent: tenderness, pedal edema, joint swelling, calf tenderness Neurological exam: Present: alert, oriented X3 Psychiatric exam: Present: normal affect, normal mood Skin exam: Present: warm, dry, intact, normal color. Absent: rash Course Vital Signs 03/23/21 03/23/21 17:24 19:00 Temperature 98.3 F Pulse Rate 79 80 Respiratory 18 18 Rate Blood Pressure 203/101 174/97 O2 Sat by Pulse 95 98 Oximetry Medical Decision Making - Medical Decision Making 65-year-old male complaining of abdominal pain. Basic labs, KUB, 1 L normal saline, 4 mg of morphine ordered. KUB possible ileus or partial obstruction, Labs unremarkable. Computed tomography scan ordered due to a inconclusive KUB CT negative for any obstruction or other acute abnormality. Case discussed with Dr. Loja, patient can discharge home follow-up primary care. - Lab Data Result diagrams: 03/23/21 17:40 03/23/21 17:40 Lab Results 03/23/21 03/23/21 03/23/21 Range/Units 17:40 17:40 18:39 WBC 8.6 (3.8-10.6) k/uL RBC 4.98 (4.30-5.90) m/uL Hgb 15.8 (13.0-17.5) gm/dL Hct 46.7 (39.0-53.0) % MCV 93.8 (80.0-100.0) fL MCH 31.8 (25.0-35.0) pg MCHC 33.9 (31.0-37.0) g/dL RDW 13.8 (11.5-15.5) % Plt Count 215 (150-450) k/uL MPV 6.8 Neutrophils % 74 % Lymphocytes % 16 % Monocytes % 7 % Eosinophils % 1 % Basophils % 0 % Neutrophils # 6.3 (1.3-7.7) k/uL Lymphocytes # 1.4 (1.0-4.8) k/uL Monocytes # 0.6 (0-1.0) k/uL Eosinophils # 0.1 (0-0.7) k/uL Basophils # 0.0 (0-0.2) k/uL Sodium 141 (137-145) mmol/L Potassium 3.6 (3.5-5.1) mmol/L Chloride 107 (98-107) mmol/L Carbon Dioxide 23 (22-30) mmol/L Anion Gap 11 mmol/L BUN 8 L (9-20) mg/dL Creatinine 0.66 (0.66-1.25) mg/dL Est GFR (CKD-EPI)AfAm >90 (>60 ml/min/1.73 sqM) Est GFR (CKD-EPI)NonAf >90 (>60 ml/min/1.73 sqM) Glucose 106 H (74-99) mg/dL Calcium 10.0 (8.4-10.2) mg/dL Total Bilirubin 0.4 (0.2-1.3) mg/dL AST 31 (17-59) U/L ALT 23 (4-49) U/L Alkaline Phosphatase 111 (38-126) U/L Total Protein 7.4 (6.3-8.2) g/dL Albumin 4.8 (3.5-5.0) g/dL Amylase 39 (30-110) U/L Lipase 192 (23-300) U/L Urine Color Yellow Urine Appearance Cloudy (Clear) Urine pH 7.0 (5.0-8.0) Ur Specific [place] 1.014 (1.001-1.035) Urine Protein Trace H (Negative) Urine Glucose (UA) Negative (Negative) Urine Ketones Negative (Negative) Urine Blood Negative (Negative) Urine Nitrite Negative (Negative) Urine Bilirubin Negative (Negative) Urine Urobilinogen 2.0 (<2.0) mg/dL Ur Leukocyte Esterase Small H (Negative) Urine RBC 4 (0-5) /hpf Urine WBC 11 H (0-5) /hpf Ur Squamous Epith Cells <1 (0-4) /hpf Urine Bacteria Rare H (None) /hpf Urine Mucus Rare H (None) /hpf - Radiology Data Radiology results: report reviewed, image reviewed KUB: Nonspecific borderline mildly dilated bowel loops. May represent ileus versus partial small bowel obstruction. CT of the abdomen and pelvis: No acute abnormality. Chronic findings elbow. Radiographic findings corresponding to mild colonic gas and gastric distention. Disposition Clinical Impression: Abdominal pain Disposition: HOME SELF-CARE Condition: Stable Instructions (If sedation given, give patient instructions): Abdominal Pain (ED) Additional Instructions: Please return to the Emergency Department if symptoms worsen or any other concerns. Follow-up with primary care to refill any needed or necessary prescriptions in the next several days. Increase oral fluid and dietary fiber. Is patient prescribed a controlled substance at d/c from ED?: No Referrals: None,Stated [Primary Care Provider] - 1-2 days Time of Disposition: 19:46
[2021-03-23 19:02] VITALS: BP 174/97; PULSE 80
[2021-03-23 19:03] LABS: Appearance,Urine Cloudy (Clear); Bacteria,Urine Rare /hpf; Bilirubin,Urine Negative (Negative); Blood,Urine Negative (Negative); Color,Urine Yellow; Glucose,Urine (UA) Negative (Negative); Ketones,Urine Negative (Negative); Leukocyte Esterase,Urine Small (Negative); Mucus,Urine Rare /hpf; Nitrite,Urine Negative (Negative); Protein,Urine Trace (Negative); RBC,Urine 4 /hpf (0-5); Specific Gravity,Urine 1.014 (1.001-1.035); Squamous Epithelial Cell,Urine <1 /hpf (0-4); WBC,Urine 11 /hpf (0-5)
[2021-03-23] MEDS: LABETALOL 5 MG/ML VIAL MDV IVP STA (19:26)
--- NOTE | 2021-03-23 19:41 | CT ---
EXAMINATION TYPE: CT abdomen pelvis wo con DATE OF EXAM: 03/23/2021 COMPARISON: CT 01/25/2021. Same-day radiographs. HISTORY: Mid pelvic pain. CT DLP: 504.3 mGycm Automated exposure control for dose reduction was used. TECHNIQUE: Helical acquisition of images was performed from the lung bases through the pelvis. FINDINGS: LUNG BASES: No significant abnormality is appreciated. LIVER/GB: No significant abnormality is appreciated. PANCREAS: No significant abnormality is seen. SPLEEN: No acute abnormality is seen. Redemonstrated several nonobstructing bilateral renal calculi, measuring up to 5 mm. ADRENALS: No significant abnormality is seen. KIDNEYS: No significant abnormality is seen. FREE AIR: No free air is visualized RETROPERITONEAL ADENOPATHY: None visualized REPRODUCTIVE ORGANS: No significant abnormality is seen URINARY BLADDER: No significant abnormality is seen. PELVIC ADENOPATHY: None visualized. OSSEOUS STRUCTURES: No acute abnormality is seen. L4-S1 posterior instrumented fusion. Stable grade 1 retrolisthesis of L3 on L4. BOWEL: No bowel obstruction free air or fluid. Mild colonic gas and gastric distention. OTHER: None IMPRESSION: NO ACUTE ABNORMALITY. CHRONIC FINDINGS ABOVE. Radiographic findings correspond to mild colonic gas and gastric distention.
== END 2021-03-23 20:00 | disposition home or self-care (01) ==
LOC: EC 17:23
DX: R10.9 Unspecified abdominal pain (principal); F17.200 Nicotine dependence, unspecified, uncomplicated; Z90.49 Acquired absence of other specified parts of digestive tract; Z87.442 Personal history of urinary calculi
CPT/HCPCS: 99284; 96374; 96375; 96361; 36415; 80053; 82150; 83690; 85025; 81001; 87086; 74018; 74176; J2270

== ENCOUNTER 2021-04-02 16:56 | Emergency (ER) | payer MEDICARE, OTHER ==
[2021-04-02 18:05] VITALS: TEMP 98.4
[2021-04-02 18:20] LABS: Basophils % (A) 0 %; Eosinophils # (A) 0.1 k/uL (0-0.7); Eosinophils % (A) 1 %; HCT 45.9 % (39.0-53.0); HGB 15.1 gm/dL (13.0-17.5); Lymphocytes # (A) 1.2 k/uL (1.0-4.8); Lymphocytes % (A) 14 %; MCH 30.8 pg (25.0-35.0); MCHC 32.8 g/dL (31.0-37.0); MCV 93.9 fL (80.0-100.0); Mean Platelet Volume 7.2; Monocytes # (A) 0.6 k/uL (0-1.0); Monocytes % (A) 7 %; Neutrophils # (A) 6.5 k/uL (1.3-7.7); Neutrophils % (A) 76 %; Platelet Count 222 k/uL (150-450); RBC 4.89 m/uL (4.30-5.90); RDW 13.2 % (11.5-15.5); WBC 8.5 k/uL (3.8-10.6)
[2021-04-02 18:28] LABS: ALT 24 U/L (4-49); AST 29 U/L (17-59); African American GFR (CKD) >90 (>60 ml/min/1.73 sqM); Albumin 4.5 g/dL (3.5-5.0); Alkaline Phosphatase 97 U/L (38-126); Amylase 42 U/L (30-110); Anion Gap 9 mmol/L; Blood Urea Nitrogen 9 mg/dL (9-20); Calcium 9.5 mg/dL (8.4-10.2); Carbon Dioxide 24 mmol/L (22-30); Chloride 107 mmol/L (98-107); Glucose 93 mg/dL (74-99); Lipase 181 U/L (23-300); Non-African American GFR(CKD) >90 (>60 ml/min/1.73 sqM); Potassium 3.4 mmol/L (3.5-5.1); Sodium 140 mmol/L (137-145); Total Bilirubin 0.4 mg/dL (0.2-1.3); Total Protein 7.1 g/dL (6.3-8.2)
[2021-04-02 18:29] LABS: Appearance,Urine Clear (Clear); Bilirubin,Urine Negative (Negative); Blood,Urine Negative (Negative); Color,Urine Yellow; Glucose,Urine (UA) Negative (Negative); Ketones,Urine Negative (Negative); Leukocyte Esterase,Urine Moderate (Negative); Mucus,Urine Rare /hpf; Nitrite,Urine Negative (Negative); PH, Urine 6.5 (5.0-8.0); Protein,Urine Trace (Negative); RBC,Urine 2 /hpf (0-5); Specific Gravity,Urine 1.011 (1.001-1.035); WBC,Urine 10 /hpf (0-5)
[2021-04-02] MEDS ORDERED: ACET/COD 300 MG/30 MG STARTER PACK 6 TAB BTL PO STA (19:29)
[2021-04-02] MEDS ORDERED: HYDROcodone/APAP 5-325MG 1 EACH TAB PO STA (19:29)
--- NOTE | 2021-04-02 19:30 | ED ---
Abdominal Pain HPI - General Chief Complaint: Abdominal Pain Stated Complaint: abd pain Time Seen by Provider: 04/02/21 19:08 Source: patient Mode of arrival: ambulatory Limitations: no limitations - History of Present Illness Initial Comments: 65-year-old male presents to emergency Department with a chief complaint of abdominal pain. Patient reports symptoms of vomiting over the past few days. States mother pain is located in the lower abdominal region, sharp in nature. Occasionally postprandial but most of the time it is constant. States he was evaluated here 3 days ago and had CT imaging performed which showed no acute findings. He denies any nausea vomiting or diarrhea. Denies any obstructive or infectious urinary symptoms. Denies hematuria, hematochezia or melena. Denies any fevers chills. Denies chest pain or shortness of breath. - Related Data Home Medications Medication Instructions Recorded Confirmed Dextroamphetamine/Amphetamine 40 mg PO DAILY 01/20/21 03/23/21 [Adderall] Previous Rx's Medication Instructions Recorded Escitalopram [Lexapro] 40 mg PO DAILY #4 tab 01/26/21 QUEtiapine FUMARATE [SEROquel] 900 mg PO HS #3 tab 01/26/21 amLODIPine [Norvasc] 5 mg PO DAILY 30 Days #30 tab 03/23/21 Allergies Allergy/AdvReac Type Severity Reaction Status Date / Time No Known Allergies Allergy Verified 04/02/21 18:05 Review of Systems ROS Statement: Those systems with pertinent positive or pertinent negative responses have been documented in the HPI. ROS Other: All systems not noted in ROS Statement are negative. Past Medical History Past Medical History: Chest Pain / Angina, GERD/Reflux, Liver Disease Additional Past Medical History / Comment(s): anemia, hx pancreatitis, angina x 1 yrs ago, hepatitis C-no tx recieved for it, kidney stones, History of Any Multi-Drug Resistant Organisms: None Reported Past Surgical History: Appendectomy, Back Surgery, Cholecystectomy, Tonsillectomy Additional Past Surgical History / Comment(s): sx to enlarge urethra opening, lump removed from chest, surgery rt arm(fx), colonoscopy, recent lithotripsy at [facility],03/2019 Past Anesthesia/Blood Transfusion Reactions: No Reported Reaction Past Psychological History: Anxiety, Depression Smoking Status: Current every day smoker Past Alcohol Use History: None Reported Past Drug Use History: Marijuana - Past Family History Mother Family Medical History: No Reported History Additional Family Medical History / Comment(s): bowel obstruction. General Exam Limitations: no limitations General appearance: alert, in no apparent distress Head exam: Present: atraumatic, normocephalic, normal inspection Eye exam: Present: normal appearance, PERRL, EOMI Pupils: Present: normal accommodation ENT exam: Present: normal exam, normal oropharynx, mucous membranes dry, mucous membranes moist Neck exam: Present: normal inspection, full ROM. Absent: tenderness, lymphadenopathy Respiratory exam: Present: normal lung sounds bilaterally. Absent: respiratory distress, wheezes, rales, rhonchi Cardiovascular Exam: Present: regular rate, normal rhythm, normal heart sounds. Absent: systolic murmur GI/Abdominal exam: Present: soft, tenderness (Lower abdominal tenderness). Absent: distended, guarding, rebound, rigid Extremities exam: Present: normal inspection, full ROM, normal capillary refill, other (Palpable DP and PT bilaterally.). Absent: tenderness, pedal edema, joint swelling Back exam: Present: normal inspection, full ROM. Absent: tenderness, CVA tenderness (R), CVA tenderness (L), muscle spasm, paraspinal tenderness, vertebral tenderness Neurological exam: Present: alert, oriented X3 Psychiatric exam: Present: normal affect, normal mood Skin exam: Present: warm, dry, intact, normal color Course Vital Signs 04/02/21 04/02/21 04/02/21 18:01 19:19 20:04 Temperature 98.4 F Pulse Rate 76 65 74 Respiratory 20 20 18 Rate Blood Pressure 143/95 161/99 188/89 O2 Sat by Pulse 96 96 96 Oximetry Medical Decision Making - Medical Decision Making 65-year-old male presents emergency Department with a chief complaint of abdominal pain. On physical examination, lower abdominal tenderness. No associated nausea vomiting or diarrhea. Laboratory work showed no acute findi ngs. I reviewed his medical records, patient was evaluated recently here and showed very similar lab work that was unremarkable. He had KUB and CT of abdomen and pelvis performed about one week ago with no abnormal findings. Patient has an appointment with his primary care physician in 2 days. I will give him Tylenol 3 starter pack for pain. He was also given [place] for pain here. He is otherwise well-appearing. I offer repeat imaging, he declined. Strict return parameters were thoroughly discussed patient is an attending agreeable. Case discussed with - Lab Data Result diagrams: 04/02/21 18:10 04/02/21 18:10 Lab Results 04/02/21 04/02/21 04/02/21 Range/Units 18:10 18:10 18:10 WBC 8.5 (3.8-10.6) k/uL RBC 4.89 (4.30-5.90) m/uL Hgb 15.1 (13.0-17.5) gm/dL Hct 45.9 (39.0-53.0) % MCV 93.9 (80.0-100.0) fL MCH 30.8 (25.0-35.0) pg MCHC 32.8 (31.0-37.0) g/dL RDW 13.2 (11.5-15.5) % Plt Count 222 (150-450) k/uL MPV 7.2 Neutrophils % 76 % Lymphocytes % 14 % Monocytes % 7 % Eosinophils % 1 % Basophils % 0 % Neutrophils # 6.5 (1.3-7.7) k/uL Lymphocytes # 1.2 (1.0-4.8) k/uL Monocytes # 0.6 (0-1.0) k/uL Eosinophils # 0.1 (0-0.7) k/uL Basophils # 0.0 (0-0.2) k/uL Sodium 140 (137-145) mmol/L Potassium 3.4 L (3.5-5.1) mmol/L Chloride 107 (98-107) mmol/L Carbon Dioxide 24 (22-30) mmol/L Anion Gap 9 mmol/L BUN 9 (9-20) mg/dL Creatinine 0.65 L (0.66-1.25) mg/dL Est GFR (CKD-EPI)AfAm >90 (>60 ml/min/1.73 sqM) Est GFR (CKD-EPI)NonAf >90 (>60 ml/min/1.73 sqM) Glucose 93 (74-99) mg/dL Plasma Lactic Acid Rigo 1.3 (0.7-2.0) mmol/L Calcium 9.5 (8.4-10.2) mg/dL Total Bilirubin 0.4 (0.2-1.3) mg/dL AST 29 (17-59) U/L ALT 24 (4-49) U/L Alkaline Phosphatase 97 (38-126) U/L Total Protein 7.1 (6.3-8.2) g/dL Albumin 4.5 (3.5-5.0) g/dL Amylase 42 (30-110) U/L Lipase 181 (23-300) U/L Urine Color Urine Appearance (Clear) Urine pH (5.0-8.0) Ur Specific Addison (1.001-1.035) Urine Protein (Negative) Urine Glucose (UA) (Negative) Urine Ketones (Negative) Urine Blood (Negative) Urine Nitrite (Negative) Urine Bilirubin (Negative) Urine Urobilinogen (<2.0) mg/dL Ur Leukocyte Esterase (Negative) Urine RBC (0-5) /hpf Urine WBC (0-5) /hpf Urine Mucus (None) /hpf 04/02/21 Range/Units 18:13 WBC (3.8-10.6) k/uL RBC (4.30-5.90) m/uL Hgb (13.0-17.5) gm/dL Hct (39.0-53.0) % MCV (80.0-100.0) fL MCH (25.0-35.0) pg MCHC (31.0-37.0) g/dL RDW (11.5-15.5) % Plt Count (150-450) k/uL MPV Neutrophils % % Lymphocytes % % Monocytes % % Eosinophils % % Basophils % % Neutrophils # (1.3-7.7) k/uL Lymphocytes # (1.0-4.8) k/uL Monocytes # (0-1.0) k/uL Eosinophils # (0-0.7) k/uL Basophils # (0-0.2) k/uL Sodium (137-145) mmol/L Potassium (3.5-5.1) mmol/L Chloride (98-107) mmol/L Carbon Dioxide (22-30) mmol/L Anion Gap mmol/L BUN (9-20) mg/dL Creatinine (0.66-1.25) mg/dL Est GFR (CKD-EPI)AfAm (>60 ml/min/1.73 sqM) Est GFR (CKD-EPI)NonAf (>60 ml/min/1.73 sqM) Glucose (74-99) mg/dL Plasma Lactic Acid Rigo (0.7-2.0) mmol/L Calcium (8.4-10.2) mg/dL Total Bilirubin (0.2-1.3) mg/dL AST (17-59) U/L ALT (4-49) U/L Alkaline Phosphatase (38-126) U/L Total Protein (6.3-8.2) g/dL Albumin (3.5-5.0) g/dL Amylase (30-110) U/L Lipase (23-300) U/L Urine Color Yellow Urine Appearance Clear (Clear) Urine pH 6.5 (5.0-8.0) Ur Specific Addison 1.011 (1.001-1.035) Urine Protein Trace H (Negative) Urine Glucose (UA) Negative (Negative) Urine Ketones Negative (Negative) Urine Blood Negative (Negative) Urine Nitrite Negative (Negative) Urine Bilirubin Negative (Negative) Urine Urobilinogen 2.0 (<2.0) mg/dL Ur Leukocyte Esterase Moderate H (Negative) Urine RBC 2 (0-5) /hpf Urine WBC 10 H (0-5) /hpf Urine Mucus Rare H (None) /hpf Disposition Clinical Impression: Abdominal pain Disposition: HOME SELF-CARE Condition: Stable Instructions (If sedation given, give patient instructions): Clear Liquid Diet (ED), Abdominal Pain (ED) Additional Instructions: Please return to the Emergency Department if symptoms worsen or any other concerns. Is patient prescribed a controlled substance at d/c from ED?: No Referrals: None,Stated [Primary Care Provider] - 1-2 days Lizzeth Quiroz MD [STAFF PHYSICIAN] - 1-2 days Time of Disposition: 19:30
[2021-04-02 20:06] VITALS: BP 188/89; PULSE 74; RESP 18
== END 2021-04-02 20:04 | disposition home or self-care (01) ==
LOC: EC 16:56
DX: R10.30 Lower abdominal pain, unspecified (principal); F17.200 Nicotine dependence, unspecified, uncomplicated; Z90.49 Acquired absence of other specified parts of digestive tract; Z87.442 Personal history of urinary calculi
CPT/HCPCS: 36415; 80053; 81001; 82150; 83605; 83690; 85025; 99284

== ENCOUNTER 2021-04-19 18:31 | Emergency (ER) | payer MEDICARE, OTHER ==
[2021-04-19 18:39] VITALS: RESP 20; TEMP 98.7
[2021-04-19] MEDS ORDERED: LIDOCAINE 5% PATCH TOPICAL STA (18:45)
--- NOTE | 2021-04-19 18:45 | ED ---
General Adult HPI - General Chief complaint: Chest Pain Stated complaint: Chest Pain Time Seen by Provider: 04/19/21 18:36 Source: patient, EMS Mode of arrival: EMS - History of Present Illness Initial comments: Dictation was produced using [email or web address] dictation software. please excuse any grammatical, word or spelling errors. Chief Complaint: 65-year-old male presents to the emergency department with chest pain after fall History of Present Illness: 65-year-old male yesterday he was walking down the steps when he fell. He fell forward landing on his left chest. Since the event yesterday is having sharp chest pain. It's worse when you palpate the left anterior chest. Worse with deep inspiration. Describes it as sharp. Does complain of some mild shortness of breath. Patient states he feels slightly anxious concerned that maybe he is having a heart attack. Patient has history of angina. He does use tobacco regularly. The ROS documented in this emergency department record has been reviewed and confirmed by me. Those systems with pertinent positive or negative responses have been documented in the HPI. All other systems are other negative and/or noncontributory. PHYSICAL EXAM: General Impression: Alert and oriented x3, not in acute distress HEENT: Normocephalic atraumatic, extra-ocular movements intact, pupils equal and reactive to light bilaterally, mucous membranes moist. Cardiovascular: Heart regular rate and rhythm Chest: Able to complete full sentences, no retractions, no tachypnea, bilateral breath sounds, tenderness or palpation over the left lower anterior chest Abdomen: abdomen soft, non-tender, non-distended, no organomegaly Musculoskeletal: Pulses present and equal in all extremities, no peripheral edema Motor: no focal deficits noted Neurological: CN II-XII grossly intact, no focal motor or sensory deficits noted Skin: Intact with no visualized rashes Psych: Normal affect and mood ED course: 65-year-old male presents to the emergency department for chest contusion. Vital signs upon arrival are within acceptable limits. Patient is not hypoxic. He is not tachypneic showing no signs of distress. EKG shows no acute findings. Patient's pain is very atypical. Chest and rib x-rays were obtained. There does appear to be a small slightly this face fracture of the lateral posterior aspect of the left 10th rib. Patient reevaluated at bedside. He does not have pain to the lateral posterior aspect. His pain all seems to be anterior. Patient relented bedside. States that he has significant improvement with Lidoderm patch. Buccal presentation consistent with chest contusion. No clinical concern for rib fracture. Patient discharged. EKG interpretation: Ventricular rate 71, normal sinus rhythm,. 182, QRS 80, QTc 458. No AK prolongation, no QTC prolongation, no ST or T-wave changes noted. Overall, this EKG is unremarkable - Related Data Home Medications Medication Instructions Recorded Confirmed LORazepam [Ativan] 1 mg PO BID 04/19/21 04/19/21 Lisinopril [Prinivil] 10 mg PO DAILY 04/19/21 04/19/21 QUEtiapine FUMARATE [SEROquel] 300 mg PO HS 04/19/21 04/19/21 Previous Rx's Medication Instructions Recorded Escitalopram [Lexapro] 40 mg PO DAILY #4 tab 01/26/21 amLODIPine [Norvasc] 5 mg PO DAILY 30 Days #30 tab 03/23/21 Allergies Allergy/AdvReac Type Severity Reaction Status Date / Time No Known Allergies Allergy Verified 04/19/21 20:00 Review of Systems ROS Statement: Those systems with pertinent positive or pertinent negative responses have been documented in the HPI. ROS Other: All systems not noted in ROS Statement are negative. Past Medical History Past Medical History: Chest Pain / Angina, GERD/Reflux, Liver Disease Additional Past Medical History / Comment(s): anemia, hx pancreatitis, angina x 1 yrs ago, hepatitis C-no tx recieved for it, kidney stones, History of Any Multi-Drug Resistant Organisms: None Reported Past Surgical History: Appendectomy, Back Surgery, Cholecystectomy, Tonsillectomy Additional Past Surgical History / Comment(s): sx to enlarge urethra opening, lump removed from chest, surgery rt arm(fx), colonoscopy, recent lithotripsy at [facility],03/2019 Past Anesthesia/Blood Transfusion Reactions: No Reported Reaction Past Psychological History: Anxiety, Depression Smoking Status: Current every day smoker Past Alcohol Use History: None Reported Past Drug Use History: Marijuana - Past Family History Mother Family Medical History: No Reported History Additional Family Medical History / Comment(s): bowel obstruction. Course Vital Signs 04/19/21 18:32 Temperature 98.7 F Pulse Rate 75 Respiratory 20 Rate Blood Pressure 169/97 O2 Sat by Pulse 96 Oximetry Disposition Clinical Impression: Chest wall contusion Disposition: HOME SELF-CARE Condition: Good Instructions (If sedation given, give patient instructions): Chest Pain (ED) Is patient prescribed a controlled substance at d/c from ED?: No Referrals: Willie Guillory MD [Primary Care Provider] - 1-2 days
--- NOTE | 2021-04-19 20:10 | XR ---
EXAMINATION TYPE: XR chest 2V DATE OF EXAM: 04/19/2021 COMPARISON: 01/22/2021 HISTORY: 65 years Male. STUDY INDICATION GIVEN: chest pain after fall . TECHNIQUE: Frontal lateral chest radiographs FINDINGS AND IMPRESSION: No focal airspace disease, pneumothorax or pleural effusion seen. Mild bibasilar subsegmental atelectatic changes. The heart is normal in size. No acute osseous abnormality.
--- NOTE | 2021-04-19 20:12 | XR ---
EXAMINATION TYPE: XR ribs LT DATE OF EXAM: 04/19/2021 COMPARISON: NONE HISTORY: 65 years Male. STUDY INDICATION GIVEN: chest pain after fall . TECHNIQUE: 4 radiographs of the left side ribs FINDINGS AND IMPRESSION: Apparent mild soft tissue swelling along the left chest wall. Slightly displaced fracture of the late ral/posterior aspect of the left 10th rib. Left subsegmental basilar atelectasis. No pneumothorax see n.
[2021-04-19 20:33] VITALS: BP 161/93; PULSE 60
== END 2021-04-19 20:27 | disposition home or self-care (01) ==
LOC: SUPCPDRO 18:31 → EC 18:31
DX: S22.32XA Fracture of one rib, left side, initial encounter for closed fracture (principal); F17.200 Nicotine dependence, unspecified, uncomplicated; F41.9 Anxiety disorder, unspecified; Z79.899 Other long term (current) drug therapy; W10.9XXA Fall (on) (from) unspecified stairs and steps, initial encounter; Y93.01 Activity, walking, marching and hiking
CPT/HCPCS: 71046; 93005; 99285

== ENCOUNTER 2021-04-23 16:28 | Inpatient (IN) | payer MEDICARE, OTHER ==
[2021-04-23] MEDS ORDERED: NITROGLYCERIN SL TABS 0.4 MG TAB SUBLINGUAL PRN ×2 (16:50→20:46)
[2021-04-23] MEDS ORDERED: ASPIRIN 81 MG PO STA (16:50)
[2021-04-23 17:09] LABS: Basophils % (A) 0 %; Eosinophils # (A) 0.1 k/uL (0-0.7); Eosinophils % (A) 1 %; HCT 44.2 % (39.0-53.0); HGB 14.6 gm/dL (13.0-17.5); Lymphocytes # (A) 1.5 k/uL (1.0-4.8); Lymphocytes % (A) 20 %; MCH 31.4 pg (25.0-35.0); MCV 95.3 fL (80.0-100.0); Mean Platelet Volume 7.2; Monocytes # (A) 0.4 k/uL (0-1.0); Monocytes % (A) 5 %; Neutrophils # (A) 5.3 k/uL (1.3-7.7); Neutrophils % (A) 72 %; Platelet Count 173 k/uL (150-450); RBC 4.63 m/uL (4.30-5.90); RDW 13.7 % (11.5-15.5); WBC 7.4 k/uL (3.8-10.6)
[2021-04-23 17:21] LABS: ALT 20 U/L (4-49); AST 29 U/L (17-59); African American GFR (CKD) >90 (>60 ml/min/1.73 sqM); Albumin 4.4 g/dL (3.5-5.0); Alkaline Phosphatase 96 U/L (38-126); Anion Gap 11 mmol/L; Blood Urea Nitrogen 8 mg/dL (9-20); Calcium 9.7 mg/dL (8.4-10.2); Carbon Dioxide 22 mmol/L (22-30); Chloride 107 mmol/L (98-107); Glucose 97 mg/dL (74-99); Magnesium 1.8 mg/dL (1.6-2.3); Non-African American GFR(CKD) >90 (>60 ml/min/1.73 sqM); Potassium 3.4 mmol/L (3.5-5.1); Sodium 140 mmol/L (137-145); Total Bilirubin 0.4 mg/dL (0.2-1.3); Total Protein 6.7 g/dL (6.3-8.2)
[2021-04-23 17:23] LABS: Partial Thromboplastin Time 24.6 sec (22.0-30.0); Prothrombin Time 10.7 sec (9.0-12.0)
--- NOTE | 2021-04-23 17:50 | XR ---
EXAMINATION TYPE: XR chest 2V DATE OF EXAM: 04/23/2021 COMPARISON: 04/19/2021 HISTORY: Wrist pain TECHNIQUE: FINDINGS: Heart and mediastinum are normal. Lungs are clear. Diaphragm is normal. Bony thorax is inta ct. Costophrenic angles are clear. IMPRESSION: Normal chest. No change.
[2021-04-23] MEDS ORDERED: Acetaminophen-Codeine 300-30mg TAB PO STA (18:10)
--- NOTE | 2021-04-23 19:13 | CT ---
EXAMINATION TYPE: CT chest angio for PE DATE OF EXAM: 04/23/2021 COMPARISON: None HISTORY: Chest pain. CT DLP: 290.8 mGycm Automated exposure control for dose reduction was used. CONTRAST: Performed with IV Contrast, patient injected with 100 mL of Isovue 370. There are 3-D post processed images. There is some mild interstitial infiltrate and subsegmental atelectasis at the posterior lung bases. There is no evidence of a pulmonary mass. There is no pleural effusion. Heart size is normal. There i s no pericardial effusion. There are some mild emphysematous changes in the upper lobes. There is no mediastinal adenopathy. There are no hilar masses. There is single 1.5 cm pretracheal lym ph node. Thoracic aorta is intact. There is no aneurysm or dissection. The ascending aorta measures 3.4 cm. Th ere is normal contrast opacification of the pulmonary arteries. There are no filling defects. Thoracic spine is intact. There is no compression fracture. Sternum is intact. Upper abdominal soft t issues are intact. IMPRESSION: No evidence of pulmonary embolism. Mild emphysema. Mild interstitial infiltrate and atelectasis at th e posterior lung bases.
--- NOTE | 2021-04-23 19:21 | ED ---
Chest Pain HPI - General Chief Complaint: Chest Pain Stated Complaint: Chest Pain Time Seen by Provider: 04/23/21 16:50 Source: patient Mode of arrival: wheelchair Limitations: no limitations - History of Present Illness Initial Comments: 65-year-old male presenting to the emergency department with a chief complaint of chest pain. Patient reports 3 days ago he suffered a trip and fall incident causing an injury to his ribs. Patient reports he was evaluated here in this emergency department and was found to have a broken rib. Patient reports he co ntinues to have pain in region but is also developed new pain in the midsternal region with some radiation to left arm. States this occurred several hours after the incident occurred on Friday. Patient does report increased pain when taking deep breaths. He reports the pain is also exacerbated when the region is palpated. Denies any lightheaded dizziness nausea vomiting diaphoresis. Patient has history of CAD, hypertension and family history of early cardiac related and heart attacks. smoker - Related Data Home Medications Medication Instructions Recorded Confirmed LORazepam [Ativan] 1 mg PO BID 04/19/21 04/23/21 Lisinopril [Prinivil] 10 mg PO DAILY 04/19/21 04/23/21 QUEtiapine FUMARATE [SEROquel] 300 mg PO HS 04/19/21 04/23/21 Previous Rx's Medication Instructions Recorded Escitalopram [Lexapro] 40 mg PO DAILY #4 tab 01/26/21 amLODIPine [Norvasc] 5 mg PO DAILY 30 Days #30 tab 03/23/21 Allergies Allergy/AdvReac Type Severity Reaction Status Date / Time No Known Allergies Allergy Verified 04/23/21 17:55 Review of Systems ROS Statement: Those systems with pertinent positive or pertinent negative responses have been documented in the HPI. ROS Other: All systems not noted in ROS Statement are negative. EKG Findings - EKG Comments: EKG Findings:: Sinus rhythm with PAC. Ventricular rate 84, WV 160, QRS 102, QTC 467. Past Medical History Past Medical History: Chest Pain / Angina, GERD/Reflux, Liver Disease Additional Past Medical History / Comment(s): anemia, hx pancreatitis, angina x 1 yrs ago, hepatitis C-no tx recieved for it, kidney stones, History of Any Multi-Drug Resistant Organisms: None Reported Past Surgical History: Appendectomy, Back Surgery, Cholecystectomy, Tonsillectomy Additional Past Surgical History / Comment(s): sx to enlarge urethra opening, lump removed from chest, surgery rt arm(fx), colonoscopy, recent lithotripsy at [facility],03/2019 Past Anesthesia/Blood Transfusion Reactions: No Reported Reaction Past Psychological History: Anxiety, Depression Smoking Status: Current every day smoker Past Alcohol Use History: None Reported Past Drug Use History: Marijuana - Past Family History Mother Family Medical History: No Reported History Additional Family Medical History / Comment(s): bowel obstruction. General Exam Limitations: no limitations General appearance: alert, in no apparent distress Head exam: Present: atraumatic, normocephalic, normal inspection Eye exam: Present: normal appearance, PERRL, EOMI Pupils: Present: normal accommodation ENT exam: Present: normal exam, normal oropharynx, mucous membranes moist Neck exam: Present: normal inspection, full ROM. Absent: tenderness Respiratory exam: Present: normal lung sounds bilaterally, chest wall tenderness (Chest wall tenderness in the sternal region and the lower rib region as well.). Absent: respiratory distress, wheezes, rales, rhonchi, stridor, accessory muscle use Cardiovascular Exam: Present: regular rate, normal rhythm, normal heart sounds GI/Abdominal exam: Present: soft. Absent: distended, tenderness, guarding, rebound Extremities exam: Present: normal inspection, full ROM Back exam: Present: normal inspection, full ROM Neurological exam: Present: alert, oriented X3 Psychiatric exam: Present: normal affect, normal mood Skin exam: Present: warm, dry, intact, normal color Course Vital Signs 04/23/21 04/23/21 16:31 18:23 Temperature 99.4 F 100.5 F H Pulse Rate 96 72 Respiratory 18 20 Rate Blood Pressure 155/104 156/90 O2 Sat by Pulse 98 96 Oximetry Chest Pain MDM - MDM 65-year-old male presenting to the emergency department with a chief complaint of chest pain. On physical examination, patient does have a producible tenderness to the midsternal region but no signs of ecchymosis or erythema. Laboratory workup shows no acute findings. Troponins are within normal limits. CT chest injury showed no signs of pulmonary embolism or fractures to ribs. Patient had her score of 4. Will admit patient for cardiac observation and serial troponins. Case discussed with regla Zeus, RADIOTELEGRAPHER who will admit for Dr. Randolph. Case discussed with attending, Dr. Rubio Cardiac consult Disposition Clinical Impression: Chest pain Disposition: ADMITTED IP TO THIS HOSP Condition: Fair Is patient prescribed a controlled substance at d/c from ED?: No Referrals: Willie Guillory MD [Primary Care Provider] - 1-2 days Time of Disposition: 20:52
[2021-04-23] MEDS ORDERED: HYDROcodone/APAP 5-325MG 1 EACH TAB PO STA (20:59)
[2021-04-24] MEDS: LORazepam 1 MG TAB PO PRN ×2 (01:50→08:50)
[2021-04-24] MEDS: HYDROcodone/APAP 5-325MG 1 EACH TAB PO PRN ×5 (03:10→20:11)
[2021-04-24] MEDS ORDERED: Potassium Replacement Protocol 1 EACH MISC MISCELLANE PRN (04:37)
[2021-04-24] MEDS: POTASSIUM CHLORIDE ER 20 MEQ TAB.ER PO SCH ×2 (05:10→06:03)
[2021-04-24] MEDS ORDERED: amLODIPine 5 MG TAB PO SCH (09:00)
[2021-04-24] MEDS ORDERED: ASPIRIN 81 MG PO SCH (09:00)
[2021-04-24] MEDS ORDERED: ASPIRIN 325 MG TAB PO SCH (09:00)
[2021-04-24] MEDS ORDERED: lisinopriL 10 MG TAB PO SCH (09:00)
[2021-04-24] MEDS: ESCITALOPRAM 20 MG TAB PO SCH (09:38)
[2021-04-24] MEDS: NICOTINE 21MG/24HR PATCH TRANSDERM SCH (09:38)
[2021-04-24 09:45] LABS: African American GFR (CKD) >90 (>60 ml/min/1.73 sqM); Anion Gap 7 mmol/L; Blood Urea Nitrogen 11 mg/dL (9-20); Calcium 9.2 mg/dL (8.4-10.2); Carbon Dioxide 23 mmol/L (22-30); Chloride 108 mmol/L (98-107); Glucose 91 mg/dL (74-99); Non-African American GFR(CKD) >90 (>60 ml/min/1.73 sqM); Potassium 3.7 mmol/L (3.5-5.1); Sodium 138 mmol/L (137-145)
--- NOTE | 2021-04-24 10:46 | P.CRDCN ---
History of Present Illness History of present illness: HISTORY OF PRESENTING ILLNESS This is a pleasant 65-year-old male past medical history significant for hepatitis C, chronic nicotine dependence, hypertension and depression. 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 We have been asked to see in consultation for chest pain. He states 3 days ago he was walking up the stairs when he tripped over a dog toy falling forward striking his left torso. At that time he did present to the emergency department and underwent an x-ray revealing an acute rib fracture on the left side. He presented back to the emergency department yesterday with symptoms of left-sided chest discomfort. On exam his left precordial region is extremely tender to soft palpation. He denies associated shortness of breath, dizziness or palpitations. DIAGNOSTICS EKG reveals sinus mechanism with PACs. Telemetry tracings indicate sinus mechanism. Chest xray negative for an acute cardiopulmonary process. CTA is negative for pulmonary embolism with underlying emphysematous changes, mild interstitial infiltrate and atelectasis at the posterior lung bases. Thoracic spine is intact. Laboratory reviewed, CBC unremarkable, sodium 138, potassium 3.7, creatinine 0.6, magnesium 1.8, cardiac enzymes negative 3. Current cardiac medications include lisinopril 10 mg daily and amlodipine 5 mg d aily. REVIEW OF SYSTEMS At the time of my exam: CONSTITUTIONAL: Complains of pleuritic left precordial chest pain. Denies fever or chills. CARDIOVASCULAR: Denies exertional chest pain, shortness of breath, orthopnea, PND or palpitations. RESPIRATORY: Denies cough. GASTROINTESTINAL: Denies abdominal pain, diarrhea, constipation, nausea or vomiting. MUSCULOSKELETAL: Denies myalgias. NEUROLOGIC: Denies numbness, tingling, headache or weakness. ENDOCRINE: Denies fatigue, weight change, polydipsia or polyurina. GENITOURINARY: Denies burning, hematuria or urgency with micturation. HEMATOLOGIC: Denies history of anemia or bleeding. PHYSICAL EXAMINATION Blood pressure 178/86 heart rate 59 afebrile and maintaining oxygen saturation on room air. CONSTITUTIONAL: No apparent distress. HEENT: Head is normocephalic. Pupils are equal, round. Sclerae anicteric. Mucous membranes of the mouth are moist. No JVD. No carotid bruit. CHEST EXAMINATION: Lungs are clear to auscultation. Significant tenderness noted over the left precordial region with soft palpation. Also exacerbated by deep breathing. HEART EXAMINATION: Regular rate and rhythm. S1, S2 heard. No murmurs, gallops or rub. ABDOMEN: Soft, nontender. EXTREMITIES: 2+ peripheral pulses, no lower extremity edema and no calf tendern ess. NEUROLOGIC EXAMINATION: Patient is awake, alert and oriented x3. ASSESSMENT Chest pain, musculoskeletal Recent fall Rib fracture Hypertension History of hepatitis C Chronic nicotine dependence PLAN Pain is atypical for angina significantly tender on palpation suggesting underlying musculoskeletal injury likely secondary to recent fall. Resume further adjustment can be made to increase these medications for optimal blood pressure control as needed per the primary care team. Discontinue nitroglycerin. No further cardiac workup at this time. Ongoing medical management for the primary care team, we will follow along as needed. Thank you kindly for this consultation. Nurse Practitioner note has been reviewed, I agree with a documented findings and plan of care. Patient was seen and examined. Past Medical History Past Medical History: Chest Pain / Angina, GERD/Reflux, Liver Disease Additional Past Medical History / Comment(s): anemia, hx pancreatitis, angina x 1 yrs ago, hepatitis C-no tx recieved for it, kidney stones, Fall at home 04/19 injuring left chest History of Any Multi-Drug Resistant Organisms: None Reported Past Surgical History: Appendectomy, Back Surgery, Cholecystectomy, Tonsillectomy Additional Past Surgical History / Comment(s): sx to enlarge urethra opening, lump removed from chest, surgery rt arm(fx), colonoscopy, recent lithotripsy at [facility],03/2019 Past Anesthesia/Blood Transfusion Reactions: No Reported Reaction Past Psychological History: Anxiety, Depression Additional Psychological History / Comment(s): . Smoking Status: Current every day smoker Past Alcohol Use History: None Reported Additional Past Alcohol Use History / Comment(s): started smoking at age 22,smokes 1 ppd. Past Drug Use History: Marijuana Additional Drug Use History / Comment(s): occasional use, instructed to hold 24hrs prior to procedure - Past Family History Mother Family Medical History: No Reported History Additional Family Medical History / Comment(s): bowel obstruction. Medications and Allergies Home Medications Medication Instructions Recorded Confirmed Type Escitalopram [Lexapro] 40 mg PO DAILY #4 tab 01/26/21 04/23/21 Rx amLODIPine [Norvasc] 5 mg PO DAILY 30 Days #30 tab 03/23/21 04/23/21 Rx LORazepam [Ativan] 1 mg PO BID 04/19/21 04/23/21 History Lisinopril [Prinivil] 10 mg PO DAILY 04/19/21 04/23/21 History QUEtiapine FUMARATE [SEROquel] 300 mg PO HS 04/19/21 04/23/21 History Allergies Allergy/AdvReac Type Severity Reaction Status Date / Time No Known Allergies Allergy Verified 04/23/21 17:55 Physical Exam Vitals: Vital Signs Temp Pulse Pulse Resp BP BP Pulse Ox 04/24/21 08:10 178/86 04/24/21 07:39 97.9 F 59 L 17 187/103 96 04/24/21 05:14 55 L 18 165/95 95 04/24/21 02:32 55 L 18 171/95 96 04/23/21 22:05 61 18 170/95 95 04/23/21 21:06 70 20 165/97 95 04/23/21 18:23 100.5 F H 72 20 156/90 96 04/23/21 16:31 99.4 F 96 18 155/104 98 Intake and Output 04/23/21 04/24/21 04/24/21 22:59 06:59 14:59 Intake Total 118 Balance 118 Intake: Oral 118 Other: # Voids 0 Weight 75.296 kg 75.296 kg Results 04/23/21 17:02 04/24/21 08:55 Cardiac Enzymes 04/23/21 04/23/21 04/23/21 Range/Units 17:02 17:02 22:03 AST 29 (17-59) U/L Troponin I <0.012 <0.012 (0.000-0.034) ng/mL 04/24/21 Range/Units 01:08 AST (17-59) U/L Troponin I <0.012 (0.000-0.034) ng/mL Coagulation 04/23/21 Range/Units 17:02 PT 10.7 (9.0-12.0) sec APTT 24.6 (22.0-30.0) sec CBC 04/23/21 Range/Units 17:02 WBC 7.4 (3.8-10.6) k/uL RBC 4.63 (4.30-5.90) m/uL Hgb 14.6 (13.0-17.5) gm/dL Hct 44.2 (39.0-53.0) % Plt Count 173 (150-450) k/uL Comprehensive Metabolic Panel 04/23/21 04/24/21 Range/Units 17:02 08:55 Sodium 140 138 (137-145) mmol/L Potassium 3.4 L 3.7 (3.5-5.1) mmol/L Chloride 107 108 H (98-107) mmol/L Carbon Dioxide 22 23 (22-30) mmol/L BUN 8 L 11 (9-20) mg/dL Creatinine 0.66 0.60 L (0.66-1.25) mg/dL Glucose 97 91 (74-99) mg/dL Calcium 9.7 9.2 (8.4-10.2) mg/dL AST 29 (17-59) U/L ALT 20 (4-49) U/L Alkaline Phosphatase 96 (38-126) U/L Total Protein 6.7 (6.3-8.2) g/dL Albumin 4.4 (3.5-5.0) g/dL Current Medications Generic Name Dose Route Start Last Admin Trade Name Freq PRN Reason Stop Dose Admin Hydrocodone Bitart/Acetaminophen 1 each 04/24/21 02:43 04/24/21 07:25 Hydrocodone/Apap 5-325mg 1 Each Tab PO 1 each Q4HR PRN Administration Pain Amlodipine Besylate 5 mg 04/24/21 09:00 04/24/21 08:50 Amlodipine 5 Mg Tab PO 5 mg DAILY ADRIAN Administration Escitalopram Oxalate 40 mg 04/24/21 09:00 04/24/21 09:38 Escitalopram 20 Mg Tab PO 40 mg DAILY ADRIAN Administration Lisinopril 10 mg 04/24/21 09:00 04/24/21 09:39 Lisinopril 10 Mg Tab PO 10 mg DAILY ADRIAN Administration Lorazepam 1 mg 04/24/21 01:17 04/24/21 08:50 Lorazepam 1 Mg Tab PO 1 mg BID PRN Administration Anxiety Miscellaneous Information 1 each 04/24/21 04:37 Potassium Replacement Protocol 1 Each Misc MISCELLANE DAILY PRN Per Protocol Protocol Nicotine 1 patch 04/24/21 09:00 04/24/21 09:38 Nicotine 21mg/24hr Patch TRANSDERM 1 patch DAILY ADRIAN Administration Nitroglycerin 0.4 mg 04/23/21 16:50 04/23/21 17:07 Nitroglycerin Sl Tabs 0.4 Mg Tab SUBLINGUAL 0.4 mg Q10M PRN Administration Chest Pain Nitroglycerin 0.4 mg 04/23/21 20:46 Nitroglycerin Sl Tabs 0.4 Mg Tab SUBLINGUAL Q5M PRN Chest Pain Quetiapine Fumarate 300 mg 04/24/21 21:00 Quetiapine 100 Mg Tab PO HS ADRIAN Intake and Output 04/23/21 04/24/21 04/24/21 22:59 06:59 14:59 Intake Total 118 Balance 118 Intake: Oral 118 Other: # Voids 0 Weight 75.296 kg 75.296 kg Patient Weight 04/25/21 06:59 Weight 75.296 kg 04/23/21 17:02 04/24/21 08:55
[2021-04-24] MEDS ORDERED: TEMAZEPAM 15 MG CAP PO PRN (11:52)
[2021-04-24] MEDS ORDERED: HYDROmorphone 0.5 MG/0.5 ML SYRINGE IVP PRN (11:52)
[2021-04-24] MEDS: KETOROLAC 15 MG/ML 1 ML VIAL IVP SCH ×2 (12:11→17:28)
[2021-04-24] MEDS: HEPARIN SODIUM,PORCINE/PF 5,000 UNIT/0.5 ML SYRINGE SQ SCH ×2 (12:12→20:01)
--- NOTE | 2021-04-24 13:14 | HP ---
HISTORY AND PHYSICAL DATE OF SERVICE: 04/24/2021 CHIEF COMPLAINT: Chest pain. I am covering for Dr. Guillory. HISTORY OF PRESENT ILLNESS: This 65-year-old gentleman with a past history of GERD, history of liver disease, history of pancreatitis, history of anxiety, appendectomy, back surgery, being followed by Dr. Guillory in the outpatient setting, apparently admitted with chest pain. The patient complaining of chest pain on the left anterior part of the chest for the last 3 days. The patient had a trip and fall and caused injury to the ribs apparently. The patient had a rib fracture. Evaluation in the ER. The patient had rib x-rays on 04/19/2021 which showed slightly displaced fracture of the lateral posterior aspect of the left 10th rib was noted. The patient was admitted for further evaluation and treatment. There is no history of any fever, rigors, chills at this time. The patient had a potassium of 3.4. The patient also had a CT angio of the chest which showed no evidence of pulmonary embolism, mild emphysema, mild interstitial infiltrates and atelectasis of the posterior lung bases also noted. Cardiology evaluation underway. Chest x-ray which was reviewed personally by me showed some increased bronchovascular markings. There is no history of any fever, rigors, chills at this time. PAST MEDICAL HISTORY: History of GERD, history of liver disease, pancreatitis, chest pain, angina. MEDICATIONS: Home medications Norvasc, Seroquel, Prinivil, Ativan, Lexapro. ALLERGIES: None. FAMILY HISTORY: History of bowel obstruction in the family. SOCIAL HISTORY: History of smoking. No history of alcohol intake. REVIEW OF SYSTEMS: ENT No history of diminished hearing or vision. CARDIOVASCULAR As mentioned earlier. RESPIRATORY As mentioned earlier. GI No nausea, vomiting, or diarrhea. No dysuria or hematuria. NERVOUS No numbness or weakness. ALLERGY/IMMUNOLOGY No asthma or hayfever. MUSCULOSKELETAL As mentioned earlier. HEMATOLOGY/ONCOLOGY Negative. ENDOCRINE No history of diabetes or hypothyroidism. CONSTITUTIONAL As mentioned earlier. DERMATOLOGY Negative. RHEUMATOLOGY Negative, PSYCHIATRY As mentioned earlier. PHYSICAL EXAMINATION: Patient alert and oriented x3. Pulse 59, blood pressure ( ), respirations 17, temperature 97.9, pulse ox 97% on room air. HEENT: Conjunctivae normal. Oral mucosa moist. NECK: No jugular venous distention. No lymph node enlargement. CARDIOVASCULAR: S1, S2, muffled. No S3, no S4, RESPIRATORY: Diminished breath sounds at the bases. Scattered rhonchi. ABDOMEN: Soft, nontender. No mass palpable. LEGS: No edema, no swelling. NERVOUS SYSTEM: Higher functions mentioned earlier. Moves all four limbs. No focal motor or sensory deficits. LYMPHATICS: No lymph node in neck or axilla. SKIN: No rash. JOINTS: No active deforming arthropathy. Local tenderness left chest. LABS: CBC within normal. Potassium 3.4. Troponins are negative and the EKG reviewed showed sinus bradycardia with ST-T changes. ASSESSMENT: 1. Chest pain, rule out coronary artery disease, possibly musculoskeletal with failure of outpatient treatment. 2. Recent fall and slightly displaced fracture of the lateral posterior aspect of the 10th rib with severe pain. 3. Hypokalemia, mild. 4. Accelerated hypertension, hypertensive urgency. 5. History of gastroesophageal reflux disease. 6. History of chronic liver disease. 7. History of pancreatitis. 8. History hepatitis C, no treatment. 9. History of kidney stones. 10.History of appendectomy. 11.History of back surgery. 12.History of tonsillectomy, anxiety, depression. 13.History of nicotine dependence, continued ongoing. 14.History of THC. RECOMMENDATIONS AND DISCUSSION: In this 65-year-old gentleman who presented with multiple complex issues, we will monitor the patient closely, continue the current pain management. Incentive spirometry. Repeat labs in the morning. Cardiology evaluation to rule out the possibility of coronary artery disease. Telemetry. Prognosis guarded because of multiple complex medical issues. Further recommendations to follow. MMODL / IJN: [id number] /
[2021-04-24 15:58] LABS: Appearance,Urine Clear (Clear); Bilirubin,Urine Negative (Negative); Blood,Urine Negative (Negative); Color,Urine Light Yellow; Glucose,Urine (UA) Negative (Negative); Ketones,Urine Negative (Negative); Leukocyte Esterase,Urine Moderate (Negative); Nitrite,Urine Negative (Negative); Protein,Urine Negative (Negative); RBC,Urine 1 /hpf (0-5); Specific Gravity,Urine 1.006 (1.001-1.035); Squamous Epithelial Cell,Urine <1 /hpf (0-4); Urobilinogen,Urine <2.0 mg/dL (<2.0); WBC,Urine 7 /hpf (0-5)
[2021-04-24] MEDS: lisinopriL 10 MG TAB PO SCH (20:01)
[2021-04-24] MEDS ORDERED: QUEtiapine 100 MG TAB PO SCH (21:00)
[2021-04-24 21:41] LABS: Chol/HDL Ratio 3.74; Cholesterol 157 mg/dL (0-200)
[2021-04-24 21:46] LABS: Amylase 32 U/L (23-121); Lipase 48 U/L (14-60)
[2021-04-25] MEDS: KETOROLAC 15 MG/ML 1 ML VIAL IVP SCH ×2 (00:09→04:47)
[2021-04-25] MEDS: LORazepam 1 MG TAB PO PRN ×2 (01:31→10:19)
[2021-04-25] MEDS: HYDROcodone/APAP 5-325MG 1 EACH TAB PO PRN ×2 (04:47→09:06)
[2021-04-25] MEDS ORDERED: PANTOPRAZOLE 40 MG TABLET PO SCH (07:30)
[2021-04-25] MEDS: NICOTINE 21MG/24HR PATCH TRANSDERM SCH (07:31)
[2021-04-25] MEDS: ESCITALOPRAM 20 MG TAB PO SCH (07:32)
[2021-04-25] MEDS: HEPARIN SODIUM,PORCINE/PF 5,000 UNIT/0.5 ML SYRINGE SQ SCH (07:32)
[2021-04-25] MEDS: lisinopriL 10 MG TAB PO SCH (07:32)
[2021-04-25 08:27] VITALS: BP 176/87; PULSE 63; RESP 16; TEMP 97.8
[2021-04-25] MEDS ORDERED: amLODIPine 10 MG TAB PO SCH (09:00)
[2021-04-25 09:11] LABS: Basophils # (A) 0.02 X 10*3/uL (0.00-0.10); Basophils % (A) 0.3 %; Eosinophils # (A) 0.27 X 10*3/uL (0.04-0.35); Eosinophils % (A) 4.4 %; HCT 42.4 % (39.6-50.0); HGB 13.6 g/dL (13.0-17.0); Lymphocytes # (A) 1.55 X 10*3/uL (0.90-5.00); Lymphocytes % (A) 25.1 %; MCH 30.4 pg (27.0-32.0); MCHC 32.1 g/dL (32.0-37.0); MCV 94.9 fL (80.0-97.0); Mean Platelet Volume 9.5 fL (9.5-12.2); Monocytes # (A) 0.53 X 10*3/uL (0.20-1.00); Monocytes % (A) 8.6 %; Neutrophils # (A) 3.79 X 10*3/uL (1.80-7.70); Neutrophils % (A) 61.4 %; Platelet Count 151 X 10*3/uL (140-440); RBC 4.47 X 10*6/uL (4.40-5.60); RDW 13.1 % (11.5-14.5); WBC 6.17 X 10*3/uL (4.50-10.00)
[2021-04-25 10:15] LABS: African American GFR (CKD) 109.4 (60.0-200.0); Anion Gap 6.1 mmol/L (4.00-12.00); BUN/Creat Ratio 22.5 Ratio (12.00-20.00); Calcium 9.6 mg/dL (8.7-10.3); Carbon Dioxide 24.9 mmol/L (21.6-31.8); Magnesium 1.8 mg/dL (1.5-2.4); Non-African American GFR(CKD) 94.4 (60.0-200.0); Potassium 3.6 mmol/L (3.5-5.5)
--- NOTE | 2021-04-26 09:37 | P.DS ---
Providers Date of admission: 04/23/21 21:27 Expected date of discharge: 04/25/21 Attending physician: Swapna Randolph Consults: 04/23/21 20:49 Consult Physician Urgent Consulting Provider: Ladonna Roman Consult Reason/Comments: Chest pain Do you want consulting provider notified?: Yes Primary care physician: Willie Guillory MD Hospital Course: Final diagnosis Chest pain, ruled out acute coronary event, possible musculoskeletal with failure of outpatient treatment Recent fall and slightly displaced fracture of the lateral posterior aspect of the 10th rib with severe pain Hypokalemia, mild Accelerated hypertension, hypertensive urgency History of gastroesophageal reflux disease History of chronic liver disease History of pancreatitis history of hepatitis C, no treatment history of kidney stones History of appendectomy History of back surgery history of tonsillectomy anxiety, depression history of nicotine dependence, continued ongoing History of THC Discharge disposition Patient is being discharged in a stable condition with guarded prognosis to home. Patient will follow-up with Dr. Guillory upon discharge. Patient will continue with Protonix, Naprosyn, and [place] for pain. Total time taken is greater than 35 minutes. Hospital course This is a 65-year-old male who was admitted with chest pain on the left anterior part of the chest for the last 3 days and being closely monitored. Patient recently tripped and fell causing injury to the left 10th rib and has a fracture. Patient did undergo CT chest which shows no evidence of pulmonary embolism along with mild emphysema and mild interstitial infiltrates and atelectasis at the posterior lung base. Patient is a continued ongoing nicotine user and instructed the patient to avoid tobacco use. Recommend to continue with incentive spirometer and coughing and deep breathing as tolerated. Patient was seen and evaluated by cardiology with no further workup being planned. Patient continues to have left-sided discomfort although states is slightly better. Will continue with Naprosyn along with PPI and prescription was provided for [place]. Patient is slightly feeling better and asking if he is going home today. Currently no reports of chest pain, shortness of breath, or palpitations. Patient is afebrile. No reports of nausea or vomiting and patient is tolerating diet. Guarded prognosis. On exam vital signs are stable. Cardio S1, S2 are muffled. Respiratory shows diminished breath sounds at the bases with a few scattered rhonchi noted. Abdomen is soft and nontender. Nervous system shows no focal deficits. Please refer to medication reconciliation sheet for a list of medications. Patient Condition at Discharge: Fair Plan - Discharge Summary New Discharge Prescriptions: New Pantoprazole [Protonix] 40 mg PO AC-BRKFST 30 Days #30 tab Naproxen [Naprosyn] 500 mg PO BID #60 tab HYDROcodone/APAP 5-325MG [[place] 5-325] 1 each PO Q4HR PRN #20 tab PRN Reason: Pain amLODIPine [Norvasc] 10 mg PO DAILY 30 Days #30 tab lisinopriL [Zestril] 10 mg PO BID 30 Days #60 tab Continue LORazepam [Ativan] 1 mg PO BID QUEtiapine FUMARATE [SEROquel] 300 mg PO HS Escitalopram [Lexapro] 40 mg PO DAILY #4 tab Discontinued Lisinopril [Prinivil] 10 mg PO DAILY amLODIPine [Norvasc] 5 mg PO DAILY 30 Days #30 tab Discharge Medication List Escitalopram [Lexapro] 40 mg PO DAILY #4 tab 01/26/21 [Rx] LORazepam [Ativan] 1 mg PO BID 04/19/21 [History] QUEtiapine FUMARATE [SEROquel] 300 mg PO HS 04/19/21 [History] HYDROcodone/APAP 5-325MG [[place] 5-325] 1 each PO Q4HR PRN #20 tab 04/25/21 [Rx] Naproxen [Naprosyn] 500 mg PO BID #60 tab 04/25/21 [Rx] Pantoprazole [Protonix] 40 mg PO AC-BRKFST 30 Days #30 tab 04/25/21 [Rx] amLODIPine [Norvasc] 10 mg PO DAILY 30 Days #30 tab 04/25/21 [Rx] lisinopriL [Zestril] 10 mg PO BID 30 Days #60 tab 04/25/21 [Rx] Follow up Appointment(s)/Referral(s): Willie Guillory MD [Primary Care Provider] - 1-2 days Patient Instructions/Handouts: Chest Pain (DC) Activity/Diet/Wound Care/Special Instructions: Activity Limited until follow-up Follow-up primary care provider upon discharge Continue with medications as prescribed Continue with heart healthy diet Avoid tobacco use Discharge Disposition: HOME SELF-CARE
== END 2021-04-25 12:34 | disposition home or self-care (01) ==
LOC: EC 16:28 → 6NMEDSUR 21:27
PROVIDERS: ADMIT Hospitalist; ATTEND Hospitalist
CPT/HCPCS: 96376 ×2; 96372 ×2; 96374; 96375; 99285; 36415; 94760; 93005 ×2; 80061; 80053; 80048 ×2; 82150; 83690; 83735 ×2; 84484 ×2; 85025 ×2; 85610; 85730; 81001; 87635; 71046; 71275; G0378 ×3; S4990 ×2; J1885 ×2; J1170; Q9967; J1644 ×2

== ENCOUNTER 2021-04-26 20:25 | Emergency (ER) | payer MEDICARE, OTHER ==
[2021-04-26 20:37] VITALS: RESP 18
[2021-04-26] MEDS ORDERED: KETOROLAC 15 MG/ML 1 ML VIAL IVP STA (20:56)
[2021-04-26 21:15] LABS: Basophils % (A) 0 %; Eosinophils # (A) 0.2 k/uL (0-0.7); Eosinophils % (A) 3 %; HCT 41.4 % (39.0-53.0); HGB 13.9 gm/dL (13.0-17.5); Lymphocytes # (A) 1.5 k/uL (1.0-4.8); Lymphocytes % (A) 21 %; MCH 31.8 pg (25.0-35.0); MCHC 33.4 g/dL (31.0-37.0); MCV 95.1 fL (80.0-100.0); Mean Platelet Volume 6.8; Monocytes # (A) 0.4 k/uL (0-1.0); Monocytes % (A) 5 %; Neutrophils # (A) 5.1 k/uL (1.3-7.7); Neutrophils % (A) 68 %; Platelet Count 181 k/uL (150-450); RBC 4.36 m/uL (4.30-5.90); RDW 13.6 % (11.5-15.5); WBC 7.5 k/uL (3.8-10.6)
[2021-04-26 21:19] LABS: Appearance,Urine Turbid (Clear); Bilirubin,Urine Negative (Negative); Blood,Urine Large (Negative); Calcium Oxalate Crystals,Urine Few /hpf; Color,Urine Dark Brown; Glucose,Urine (UA) Negative (Negative); Ketones,Urine Negative (Negative); Leukocyte Esterase,Urine Moderate (Negative); Mucus,Urine Occasional /hpf; Nitrite,Urine Negative (Negative); PH, Urine 5.5 (5.0-8.0); Protein,Urine 1+ (Negative); RBC,Urine >182 /hpf (0-5); Urobilinogen,Urine <2.0 mg/dL (<2.0); WBC,Urine 3 /hpf (0-5)
[2021-04-26 21:26] LABS: ALT 16 U/L (4-49); AST 27 U/L (17-59); African American GFR (CKD) >90 (>60 ml/min/1.73 sqM); Albumin 3.9 g/dL (3.5-5.0); Alkaline Phosphatase 101 U/L (38-126); Anion Gap 8 mmol/L; Blood Urea Nitrogen 19 mg/dL (9-20); Calcium 9.6 mg/dL (8.4-10.2); Carbon Dioxide 22 mmol/L (22-30); Chloride 107 mmol/L (98-107); Creatine Kinase 85 U/L (55-170); Glucose 148 mg/dL (74-99); Lipase 225 U/L (23-300); Magnesium 1.8 mg/dL (1.6-2.3); Non-African American GFR(CKD) >90 (>60 ml/min/1.73 sqM); Potassium 3.5 mmol/L (3.5-5.1); Sodium 137 mmol/L (137-145); Total Bilirubin 0.3 mg/dL (0.2-1.3); Total Protein 6.1 g/dL (6.3-8.2)
[2021-04-26 21:31] LABS: Partial Thromboplastin Time 24.4 sec (22.0-30.0); Prothrombin Time 10.6 sec (9.0-12.0)
--- NOTE | 2021-04-26 21:45 | XR ---
EXAMINATION: XR chest 2V DATE AND TIME: 04/26/2021 9:17 PM CLINICAL INDICATION: PHH; Chest Pain TECHNIQUE: Departmental protocol COMPARISON: 04/23/2021 FINDINGS: The lungs are clear. The pleural spaces are negative. The cardiac silhouette is not enlarged. The remainder of the mediastinal silhouette is unremarkable. The skeletal structures and soft tissues are negative for acute findings. IMPRESSION: NO ACUTE PROCESS.
--- NOTE | 2021-04-26 21:48 | XR ---
EXAMINATION TYPE: XR KUB 2 VIEWS DATE OF EXAM: 04/26/2021 9:18 PM CLINICAL HISTORY: Pain, hematuria TECHNIQUE: Single supine KUB image of the abdomen is obtained. COMPARISON: 03/23/2021 FINDINGS: Visualized lung bases and pleural spaces are unremarkable. Scattered gas is seen in non-distended small bowel loops. Gas and fecal material is seen in non-diste nded colon. The volume of stool is prominent in degree. There is no visceromegaly, pneumoperitoneum, or focal skeletal lesion. Over the lower pole left kidney is an 8 mm transverse by 4 mm craniocaudal calcification which was se en on the prior study of 03/23/2021. IMPRESSION: 1. No acute process. 2. Stable radiographic appearance to the calcification projecting over the lower pole left kidney. 3. Constipation pattern.
--- NOTE | 2021-04-26 22:15 | ED ---
Chest Pain HPI - General Chief Complaint: Chest Pain Stated Complaint: Chest Pain,GI bleed Time Seen by Provider: 04/26/21 20:39 Source: patient, RN notes reviewed Mode of arrival: ambulatory - History of Present Illness Initial Comments: 65-year-old male here with complaints of midsternal chest pain similar to what he was admitted for previously. Recently admitted and found have a negative workup for cardiac disease. Of note he states about 3 weeks ago he did fall forward landing on his chest and face at the time. Additionally he started having hematuria today. No fevers chills nausea vomiting sweats very concerned about the pain in the hematuria however. MD Complaint: chest pain, other - Related Data Home Medications Medication Instructions Recorded Confirmed LORazepam [Ativan] 1 mg PO BID 04/19/21 04/26/21 QUEtiapine FUMARATE [SEROquel] 300 mg PO HS 04/19/21 04/26/21 HYDROcodone/APAP 5-325MG [[place] 1 tab PO Q4HR PRN 04/26/21 04/26/21 5-325] Previous Rx's Medication Instructions Recorded Escitalopram [Lexapro] 40 mg PO DAILY #4 tab 01/26/21 Naproxen [Naprosyn] 500 mg PO BID #60 tab 04/25/21 Pantoprazole [Protonix] 40 mg PO AC-BRKFST 30 Days #30 tab 04/25/21 amLODIPine [Norvasc] 10 mg PO DAILY 30 Days #30 tab 04/25/21 lisinopriL [Zestril] 10 mg PO BID 30 Days #60 tab 04/25/21 Ibuprofen 800 mg PO Q6HR PRN #20 tablet 04/26/21 Tamsulosin [Flomax] 0.4 mg PO DAILY #7 cap 04/26/21 Allergies Allergy/AdvReac Type Severity Reaction Status Date / Time No Known Allergies Allergy Verified 04/26/21 20:37 Review of Systems ROS Statement: Those systems with pertinent positive or pertinent negative responses have been documented in the HPI. ROS Other: All systems not noted in ROS Statement are negative. EKG Findings - EKG Results: EKG: interpreted by LUNA, WNL, sinus rhythm, normal axis, normal QRS, normal ST/T, no acute changes (Normal sinus rhythm a 62 DE interval 186 QRS 94 QT since QTC 442/[address]-T wave changes) Past Medical History Past Medical History: Chest Pain / Angina, GERD/Reflux, Liver Disease Additional Past Medical History / Comment(s): anemia, hx pancreatitis, angina x 1 yrs ago, hepatitis C-no tx recieved for it, kidney stones, Fall at home 04/19 injuring left chest History of Any Multi-Drug Resistant Organisms: None Reported Past Surgical History: Appendectomy, Back Surgery, Cholecystectomy, Tonsillectomy Additional Past Surgical History / Comment(s): sx to enlarge urethra opening, lump removed from chest, surgery rt arm(fx), colonoscopy, recent lithotripsy at [facility],03/2019 Past Anesthesia/Blood Transfusion Reactions: No Reported Reaction Past Psychological History: Anxiety, Depression Smoking Status: Current every day smoker Past Alcohol Use History: None Reported Past Drug Use History: Marijuana - Past Family History Mother Family Medical History: No Reported History Additional Family Medical History / Comment(s): bowel obstruction. General Exam - General Exam Comments Initial Comments: This is a well-developed asthenic appearing male who is awake alert oriented 3 General appearance: alert, anxious Head exam: Present: atraumatic, normocephalic, normal inspection Eye exam: Present: normal appearance, PERRL, EOMI. Absent: scleral icterus, conjunctival injection, periorbital swelling ENT exam: Present: normal exam, mucous membranes moist Neck exam: Present: normal inspection, full ROM, other. Absent: tenderness, meningismus, lymphadenopathy Respiratory exam: Present: normal lung sounds bilaterally, chest wall tenderness (No stridor JVD or bruits reproducible tenderness palpation). Absent: respiratory distress, wheezes, rales, rhonchi, stridor Cardiovascular Exam: Present: regular rate, normal rhythm, normal heart sounds. Absent: systolic murmur, diastolic murmur, rubs, gallop, clicks GI/Abdominal exam: Present: soft, normal bowel sounds. Absent: distended, tenderness, guarding, rebound, rigid Rectal exam: Present: deferred Extremities exam: Present: normal inspection, full ROM, normal capillary refill. Absent: tenderness, pedal edema, joint swelling, calf tenderness Back exam: Present: normal inspection Neurological exam: Present: alert, oriented X3, CN II-XII intact Psychiatric exam: Present: normal affect, normal mood Skin exam: Present: warm, dry, intact, normal color. Absent: rash Course Vital Signs 04/26/21 04/26/21 04/26/21 20:35 20:57 22:10 Temperature 98.6 F Pulse Rate 69 56 L Pulse Rate [ 60 [employer] ] Respiratory 18 18 18 Rate Blood Pressure 148/81 153/88 O2 Sat by Pulse 98 97 Oximetry Chest Pain MDM - MDM Patient is feeling improved imaging reviewed evidence a kidney stone the left no obstruction seen. No evidence of any masses. I did discuss findings with the patient's symptom free at this time there is still some reproducibility of pain over his costochondral margins status post a fall 3 weeks ago. We a long discussion regarding the findings be discharged on appropriate medication for the both of the above Disposition Clinical Impression: Kidney stone on left side, Costochondritis, Hematuria Disposition: HOME SELF-CARE Condition: Good Instructions (If sedation given, give patient instructions): Costochondritis (ED), Kidney Stones (ED), Renal Colic (ED) Prescriptions: Tamsulosin [Flomax] 0.4 mg PO DAILY #7 cap Ibuprofen 800 mg PO Q6HR PRN #20 tablet PRN Reason: Pain Is patient prescribed a controlled substance at d/c from ED?: No Referrals: Willie Guillory MD [Primary Care Provider] - 1-2 days
[2021-04-26] MEDS ORDERED: TAMSULOSIN 0.4 MG CAP.ER.24H PO STA (23:13)
--- NOTE | 2021-04-26 23:17 | CT ---
EXAMINATION TYPE: CT abdomen pelvis wo con DATE OF EXAM: 04/26/2021 COMPARISON: 03/23/2021 HISTORY: Flank pain, renal stone suspected CT DLP: 500.4 mGycm Automated exposure control for dose reduction was used. There is some mild atelectasis at the posterior lung bases. Heart size is normal. There is no pericar dial effusion. There is no pleural effusion. Liver spleen stomach pancreas appear intact. The bile ducts are not dilated. There are clips from cho lecystectomy. There is no adrenal mass. There are multiple bilateral renal calculi. These measure up to 1 cm. I see no hydronephrosis or hydroureter. There is no retroperitoneal adenopathy. Abdominal aorta is atherom atous. Bladder distends smoothly. There is prostatic calcification. There is no inguinal hernia. Ther e is no free fluid in the pelvis. Appendix not identified. There is no mesenteric edema. There is no ascites or free air. There is metal artifact from posterior fusion surgery from L4 to S1. The lumbar vertebra appear intact. There is no compression fracture. T he bony pelvis is intact. Proximal femurs are intact. IMPRESSION: Multiple bilateral renal calculi. No sign of ureteral stone or obstruction. No change compared to old exam. There is some mild subsegmental atelectasis at the lung bases increased compared to old exam.
[2021-04-26 23:42] VITALS: BP 134/96; PULSE 58; TEMP 98
== END 2021-04-26 23:40 | disposition home or self-care (01) ==
LOC: EC 20:25
DX: N20.0 Calculus of kidney (principal); M94.0 Chondrocostal junction syndrome [Tietze]; F17.200 Nicotine dependence, unspecified, uncomplicated; Z90.49 Acquired absence of other specified parts of digestive tract
CPT/HCPCS: 36415; 80053; 82550; 83690; 83735; 84484; 85025; 85610; 85730; 81001; 71046; 74018; 74176; 99285; 96374; J1885

== ENCOUNTER 2021-06-11 15:46 | Emergency (ER) | payer MEDICARE, OTHER ==
[2021-06-11 15:54] VITALS: RESP 16
[2021-06-11] MEDS ORDERED: KETOROLAC 15 MG/ML 1 ML VIAL IVP STA (16:06)
[2021-06-11] MEDS ORDERED: MORPHINE SULFATE 4 MG/ML SYRINGE IV STA (16:06)
--- NOTE | 2021-06-11 16:21 | ED ---
Fall HPI - General Chief Complaint: Fall Stated Complaint: Fall Time Seen by Provider: 06/11/21 15:58 Source: patient Mode of arrival: EMS - History of Present Illness Initial Comments: This 65-year-old male presents with a complaint of a fall with back injury. He states that he fell down 3 steps and landed on his lower back. He then slid down the steps. He is complaining of severe low back pain. There is no paresthesias. There is no loss of bowel or bladder. He states that he may have slightly hit his head but is denying any headache, loss of consciousness, or neck pain. This occurred shortly prior to arrival. He does relate that he had a significant back surgery approximately 9 years ago. He has occasional pain to his lower back since but denies having to take any narcotic medications regularly for this. He'll take occasional Tylenol. He denies any injuries to any other areas. No other modifying factors. - Related Data Home Medications Medication Instructions Recorded Confirmed LORazepam [Ativan] 1 mg PO BID 04/19/21 06/11/21 QUEtiapine FUMARATE [SEROquel] 300 mg PO HS 04/19/21 06/11/21 Dextroamphetamine/Amphetamine 20 mg PO BID PRN 06/11/21 06/11/21 [Adderall Xr] Previous Rx's Medication Instructions Recorded Escitalopram [Lexapro] 40 mg PO DAILY #4 tab 01/26/21 amLODIPine [Norvasc] 10 mg PO DAILY 30 Days #30 tab 04/25/21 lisinopriL [Zestril] 10 mg PO BID 30 Days #60 tab 04/25/21 Cyclobenzaprine [Flexeril] 10 mg PO TID PRN #20 tab 06/11/21 Ibuprofen [Motrin] 800 mg PO Q8H PRN #20 tab 06/11/21 Lidocaine 5% Patch [Lidoderm] 1 - 3 patch TOPICAL DAILY PRN #30 06/11/21 patch Allergies Allergy/AdvReac Type Severity Reaction Status Date / Time No Known Allergies Allergy Verified 06/11/21 17:18 Review of Systems ROS Statement: Those systems with pertinent positive or pertinent negative responses have been documented in the HPI. ROS Other: All systems not noted in ROS Statement are negative. Past Medical History Past Medical History: Chest Pain / Angina, GERD/Reflux, Liver Disease Additional Past Medical History / Comment(s): anemia, hx pancreatitis, angina x 1 yrs ago, hepatitis C-no tx recieved for it, kidney stones, Fall at home 04/19 injuring left chest History of Any Multi-Drug Resistant Organisms: None Reported Past Surgical History: Appendectomy, Back Surgery, Cholecystectomy, Tonsillectomy Additional Past Surgical History / Comment(s): sx to enlarge urethra opening, lump removed from chest, surgery rt arm(fx), colonoscopy, recent lithotripsy at [facility],03/2019 Past Anesthesia/Blood Transfusion Reactions: No Reported Reaction Past Psychological History: Anxiety, Depression Smoking Status: Current every day smoker Past Alcohol Use History: None Reported Past Drug Use History: Marijuana - Past Family History Mother Family Medical History: No Reported History Additional Family Medical History / Comment(s): bowel obstruction. General Exam - General Exam Comments Initial Comments: GENERAL: The patient is well nourished and well hydrated. VITAL SIGNS: Heart rate, blood pressure, respiratory rate reviewed as recorded in nurse's notes. EYES: Pupils are round and reactive. Extraocular movements are intact. No conjunctival / lid redness or swelling. ENT: No external evidence of injury, swelling, or ecchymosis. Airway is patent. Throat is clear. NECK: Nontender. No swelling or evidence of injury. No subcutaneous emphysema. Trachea is midline. No thyroid mass. HEART: Regular rate and rhythm. Good peripheral pulses. LUNGS/CHEST: Breath sounds clear and equal bilaterally. No rales, rhonchi, or wheezes. No ecchymosis, subcutaneous emphysema, or tenderness. ABDOMEN: Abdomen soft without tenderness. No palpable masses or organomegaly. No peritoneal signs. No abdominal wall swelling or ecchymosis. EXTREMITIES: No extremity tenderness. Normal muscle tone and function. BACK: There is tenderness noted diffusely throughout the lumbar spine. There is also some tenderness noted approximately T11 and T12. NEUROLOGIC: Sensation is grossly intact. Cranial nerve exam reveals face is symmetrical, tongue is midline, speech is clear. SKIN: No abrasions or ecchymosis is noted. No induration or masses noted. PSYCHIATRIC: Alert and oriented. Appropriate behavior and judgment. Limitations: no limitations Course Vital Signs 06/11/21 15:50 Temperature 98.1 F Pulse Rate 77 Respiratory 16 Rate Blood Pressure 133/82 O2 Sat by Pulse 99 Oximetry Medical Decision Making - Medical Decision Making The patient was seen and examined. All diagnostics are reviewed. C-collar is removed as patient does not have any neck pain or tenderness. Has excellent range of motion of his neck. He states that he only minimally hit his head on the carpeting. There is no loss of consciousness or other neurologic changes. Is not on any blood thinners. Is not felt as though he needs imaging in this regard. He receives morphine and Toradol intravenously and has decent relief. He states that the pain is still moderately present but improved. He is given another 2 mg of morphine IV. The x-rays of the spine do not show any acute abnormalities. There is previous surgical changes noted to the inferior lumbar spine. There is old compression fractures that are stable on T11 and T12. Overall, it is felt as though patient is stable for discharge home. She understands agrees with the following disposition and leaves in no distress. Disposition Clinical Impression: Fall, Low back pain, Lumbar strain Disposition: HOME SELF-CARE Condition: Fair Instructions (If sedation given, give patient instructions): Fall Prevention for Older Adults (ED), Low Back Strain (ED) Prescriptions: Cyclobenzaprine [Flexeril] 10 mg PO TID PRN #20 tab PRN Reason: Pain Lidocaine 5% Patch [Lidoderm] 1 - 3 patch TOPICAL DAILY PRN #30 patch PRN Reason: Pain Ibuprofen [Motrin] 800 mg PO Q8H PRN #20 tab PRN Reason: Pain Is patient prescribed a controlled substance at d/c from ED?: No Referrals: None,Stated [REFERRING] - 1-2 days Time of Disposition: 18:25
--- NOTE | 2021-06-11 17:02 | XR ---
Result: History: Back pain status post fall. Comparison: CT chest 04/23/2021. Technique: 3 views of the thoracic spine. 3 views of the lumbar spine. Findings: The bone mineralization is osteopenic. Thoracic spine: There is no acute fracture or subluxation. Stable mild T11 and T12 anterior wedge deformity. The rem aining vertebral body heights are preserved. The vertebral elements are in anatomic alignment. There is multilevel mild spondylosis. Lumbar spine: Images of the lumbar spine demonstrate 5 lumbar-type vertebrae. There is no acute fracture or sublux ation. Prior L4-S1 posterior instrumented fusion seen. The vertebral body heights are preserved. The vertebral elements are in anatomic alignment. There is mild to moderate disc height narrowing and f acet arthropathy at L3-L4. Impression: No acute osseous abnormality of the thoracolumbar spine. Lumbar spine fusion.
[2021-06-11] MEDS ORDERED: MORPHINE SULFATE 2 MG/ML SYRINGE IVP STA (18:22)
[2021-06-11 18:37] VITALS: BP 128/78; PULSE 78; TEMP 98.2
== END 2021-06-11 18:36 | disposition home or self-care (01) ==
LOC: EC 15:46
DX: S39.012A Strain of muscle, fascia and tendon of lower back, initial encounter (principal); F17.200 Nicotine dependence, unspecified, uncomplicated; W10.9XXA Fall (on) (from) unspecified stairs and steps, initial encounter; Y92.009 Unspecified place in unspecified non-institutional (private) residence as the place of occurrence of the external cause; Z91.81 History of falling
CPT/HCPCS: 72070; 72100; 99283; 96374; 96375; J2270; J1885

== ENCOUNTER 2021-09-15 13:54 | Emergency (ER) | payer MEDICARE, OTHER ==
[2021-09-15 14:05] VITALS: BP 133/87; PULSE 87; RESP 20; TEMP 98.1
[2021-09-15] MEDS ORDERED: ONDANSETRON 4 MG/2 ML VIAL IVP STA (16:16)
[2021-09-15] MEDS ORDERED: MORPHINE SULFATE 4 MG/ML SYRINGE IV STA (16:16)
--- NOTE | 2021-09-15 16:18 | ED ---
Abdominal Pain HPI - General Chief Complaint: Abdominal Pain Stated Complaint: Abd Pain Time Seen by Provider: 09/15/21 16:04 Source: patient, RN notes reviewed Mode of arrival: ambulatory Limitations: no limitations - History of Present Illness Initial Comments: This is a pleasant 65-year-old male with history of pancreatitis, previous cholecystectomy. He presents to the emergency department with 2 weeks of abdominal pain. He states the pain is constant, aching in nature, exacerbated by eating. Last meal was this morning. Patient states she ate toast and had intense central abdominal pain. Pain located above the umbilicus without r adiation. Patient states he saw his regular physician and had x-rays done last week. She states at that time he had some constipation. His been taking laxatives. Patient has started to have bowel movements but is still having abdominal pain. No chest pain or shortness of breath. Has had some nausea and vomiting at times. No hematemesis or coffee-ground emesis. No melena or hematochezia. No urinary problems. No headache, no fever or chills, no changes in vision or hearing, no sore throat or difficulty with speech, no neck pain, no numbness or tingling, no extremity pain, no skin rashes or lesions. - Related Data Home Medications Medication Instructions Recorded Confirmed LORazepam [Ativan] 1 mg PO BID 04/19/21 06/11/21 QUEtiapine FUMARATE [SEROquel] 300 mg PO HS 04/19/21 06/11/21 Dextroamphetamine/Amphetamine 20 mg PO BID PRN 06/11/21 06/11/21 [Adderall Xr] Previous Rx's Medication Instructions Recorded Escitalopram [Lexapro] 40 mg PO DAILY #4 tab 01/26/21 amLODIPine [Norvasc] 10 mg PO DAILY 30 Days #30 tab 04/25/21 lisinopriL [Zestril] 10 mg PO BID 30 Days #60 tab 04/25/21 Cyclobenzaprine [Flexeril] 10 mg PO TID PRN #20 tab 06/11/21 Ibuprofen [Motrin] 800 mg PO Q8H PRN #20 tab 06/11/21 Lidocaine 5% Patch [Lidoderm] 1 - 3 patch TOPICAL DAILY PRN #30 06/11/21 patch Dicyclomine [Bentyl] 20 mg PO QID #24 tablet 09/15/21 Metoclopramide [Reglan] 10 mg PO Q6HR PRN #20 tab 09/15/21 Omeprazole [PriLOSEC] 20 mg PO DAILY #30 cap 09/15/21 Allergies Allergy/AdvReac Type Severity Reaction Status Date / Time No Known Allergies Allergy Verified 09/15/21 14:05 Review of Systems ROS Statement: Those systems with pertinent positive or pertinent negative responses have been documented in the HPI. ROS Other: All systems not noted in ROS Statement are negative. Past Medical History Past Medical History: Chest Pain / Angina, GERD/Reflux, Liver Disease Additional Past Medical History / Comment(s): anemia, hx pancreatitis, angina x 1 yrs ago, hepatitis C-no tx recieved for it, kidney stones, Fall at home 04/19 injuring left chest History of Any Multi-Drug Resistant Organisms: None Reported Past Surgical History: Appendectomy, Back Surgery, Cholecystectomy, Tonsillectomy Additional Past Surgical History / Comment(s): sx to enlarge urethra opening, lump removed from chest, surgery rt arm(fx), colonoscopy, recent lithotripsy at [facility],03/2019 Past Anesthesia/Blood Transfusion Reactions: No Reported Reaction Past Psychological History: Anxiety, Depression Smoking Status: Current every day smoker Past Alcohol Use History: None Reported Past Drug Use History: Marijuana - Past Family History Mother Family Medical History: No Reported History Additional Family Medical History / Comment(s): bowel obstruction. General Exam - General Exam Comments Initial Comments: 65-year-old male in mild distress. Patient does not appear to be ill or toxic. Limitations: no limitations General appearance: alert, in no apparent distress Head exam: Present: atraumatic, normocephalic, normal inspection Eye exam: Present: normal appearance, PERRL, EOMI. Absent: scleral icterus, conjunctival injection, periorbital swelling ENT exam: Present: normal exam, mucous membranes moist Neck exam: Present: normal inspection. Absent: tenderness, meningismus, lymphadenopathy Respiratory exam: Present: normal lung sounds bilaterally. Absent: respiratory distress, wheezes, rales, rhonchi, stridor Cardiovascular Exam: Present: regular rate, normal rhythm, normal heart sounds. Absent: systolic murmur, diastolic murmur, rubs, gallop, clicks GI/Abdominal exam: Present: soft, normal bowel sounds, other (Abdomen soft, patient does have tenderness around the umbilicus with voluntary guarding.). Absent: distended, tenderness, guarding, rebound, rigid Extremities exam: Present: normal inspection, full ROM, normal capillary refill. Absent: tenderness, pedal edema, joint swelling, calf tenderness Back exam: Present: normal inspection Neurological exam: Present: alert, oriented X3, CN II-XII intact Psychiatric exam: Present: normal affect, normal mood Skin exam: Present: warm, dry, intact, normal color. Absent: rash Course Vital Signs 09/15/21 14:03 Temperature 98.1 F Pulse Rate 87 Respiratory 20 Rate Blood Pressure 133/87 O2 Sat by Pulse 97 Oximetry - Reevaluation(s) Reevaluation #1: 09/15/21 17:54 Medical record is reviewed Symptoms are essentially unchanged. No significant improvement with morphine. We'll try dicyclomine. Awaiting CT results. Patient is informed of results and questions answered Patient in no distress Medical Decision Making - Medical Decision Making Differential includes partial small bowel obstruction, intra-abdominal infectious versus inflammatory etiology. Possible ischemic bowel. Less likely to be cardiopulmonary related. Less likely be urological related as the presentation does not fit the clinical picture. CT abdomen and pelvis shows no acute changes. Atherosclerotic changes noted, however abdominal aorta, celiac artery, and superior mesenteric artery patent. Arterial flow noted in both renal arteries. Flow and both iliac and femoral arteries. Study read by radiology. I did review these films myself. Awaiting urinalysis. Discussed all findings with the patient. Discussed treatment options. There is no diagnostic evidence for the patient symptomology. This does raise the possibility of slow transit. I'm going to have the patient try dicyclomine. We'll also prescribe Reglan. We'll have the patient follow-up with his regular physician and gastroenterology. Patient was told to return to the ER for any signs or symptoms worsen. Told to return immediately if any other problems arise. All questions answered. Treatment plan discussed. Patient in agreement EKG was normal, troponin was normal, The case was discussed in detail with ED attending physician. Presentation, findings, treatment plan discussed in detail. Present physician is Dr. Campbell - Lab Data Result diagrams: 09/15/21 16:24 09/15/21 16:24 Lab Results 09/15/21 09/15/21 09/15/21 Range/Units 16:24 16:24 16:24 WBC 5.9 (3.8-10.6) k/uL RBC 4.59 (4.30-5.90) m/uL Hgb 14.0 (13.0-17.5) gm/dL Hct 42.7 (39.0-53.0) % MCV 93.1 (80.0-100.0) fL MCH 30.4 (25.0-35.0) pg MCHC 32.7 (31.0-37.0) g/dL RDW 13.6 (11.5-15.5) % Plt Count 172 (150-450) k/uL MPV 7.3 Neutrophils % 75 % Lymphocytes % 16 % Monocytes % 5 % Eosinophils % 1 % Basophils % 0 % Neutrophils # 4.4 (1.3-7.7) k/uL Lymphocytes # 0.9 L (1.0-4.8) k/uL Monocytes # 0.3 (0-1.0) k/uL Eosinophils # 0.1 (0-0.7) k/uL Basophils # 0.0 (0-0.2) k/uL Sodium 139 (137-145) mmol/L Potassium 3.6 (3.5-5.1) mmol/L Chloride 109 H (98-107) mmol/L Carbon Dioxide 23 (22-30) mmol/L Anion Gap 7 mmol/L BUN 11 (9-20) mg/dL Creatinine 0.69 (0.66-1.25) mg/dL Est GFR (CKD-EPI)AfAm >90 (>60 ml/min/1.73 sqM) Est GFR (CKD-EPI)NonAf >90 (>60 ml/min/1.73 sqM) Glucose 86 (74-99) mg/dL Plasma Lactic Acid Rigo 0.5 L (0.7-2.0) mmol/L Calcium 9.5 (8.4-10.2) mg/dL Phosphorus 4.1 (2.5-4.5) mg/dL Magnesium 1.9 (1.6-2.3) mg/dL Total Bilirubin 0.3 (0.2-1.3) mg/dL AST 36 (17-59) U/L ALT 28 (4-49) U/L Alkaline Phosphatase 89 (38-126) U/L Troponin I (0.000-0.034) ng/mL Total Protein 6.5 (6.3-8.2) g/dL Albumin 3.9 (3.5-5.0) g/dL Amylase 35 (30-110) U/L Lipase 173 (23-300) U/L 09/15/21 Range/Units 16:24 WBC (3.8-10.6) k/uL RBC (4.30-5.90) m/uL Hgb (13.0-17.5) gm/dL Hct (39.0-53.0) % MCV (80.0-100.0) fL MCH (25.0-35.0) pg MCHC (31.0-37.0) g/dL RDW (11.5-15.5) % Plt Count (150-450) k/uL MPV Neutrophils % % Lymphocytes % % Monocytes % % Eosinophils % % Basophils % % Neutrophils # (1.3-7.7) k/uL Lymphocytes # (1.0-4.8) k/uL Monocytes # (0-1.0) k/uL Eosinophils # (0-0.7) k/uL Basophils # (0-0.2) k/uL Sodium (137-145) mmol/L Potassium (3.5-5.1) mmol/L Chloride (98-107) mmol/L Carbon Dioxide (22-30) mmol/L Anion Gap mmol/L BUN (9-20) mg/dL Creatinine (0.66-1.25) mg/dL Est GFR (CKD-EPI)AfAm (>60 ml/min/1.73 sqM) Est GFR (CKD-EPI)NonAf (>60 ml/min/1.73 sqM) Glucose (74-99) mg/dL Plasma Lactic Acid Rigo (0.7-2.0) mmol/L Calcium (8.4-10.2) mg/dL Phosphorus (2.5-4.5) mg/dL Magnesium (1.6-2.3) mg/dL Total Bilirubin (0.2-1.3) mg/dL AST (17-59) U/L ALT (4-49) U/L Alkaline Phosphatase (38-126) U/L Troponin I <0.012 (0.000-0.034) ng/mL Total Protein (6.3-8.2) g/dL Albumin (3.5-5.0) g/dL Amylase (30-110) U/L Lipase (23-300) U/L - EKG Data EKG Comments: EKG done at 1624 and reviewed by the ED attending physician reveals no sinus rhythm with a rate of 61, normal intervals, no acute ST or T-wave changes, normal axis. Disposition Clinical Impression: Abdominal pain, Constipation Disposition: HOME SELF-CARE Condition: Stable Instructions (If sedation given, give patient instructions): Abdominal Pain (ED), Constipation (ED), High Fiber Diet (ED) Additional Instructions: Follow-up with your regular physician and the client evaluator as discussed. Drink plenty of clear liquids. Add in a daily fiber supplement. Take medications as directed. Follow-up with your regular physician as directed. Return to the ER immediately if any symptoms worsen, new symptoms arise, or any other problems develop. Is patient prescribed a controlled substance at d/c from ED?: No Referrals: Willie Guillory MD [Primary Care Provider] - 09/17/21 Lizzeth Quiroz MD [STAFF PHYSICIAN] - 09/19/21
--- NOTE | 2021-09-15 16:37 | XR ---
EXAMINATION TYPE: XR chest 1V portable DATE OF EXAM: 09/15/2021 COMPARISON: 04/26/2021 HISTORY: Abdominal pain. Chest pain TECHNIQUE: FINDINGS: Heart is normal. Lungs are clear of consolidation. There are no hilar masses. There is mild flattening of the diaphragm. There are no hilar masses. Bony thorax is intact. IMPRESSION: There is probably COPD. No acute lung disease. No change.
[2021-09-15 16:45] LABS: Basophils % (A) 0 %; Eosinophils # (A) 0.1 k/uL (0-0.7); Eosinophils % (A) 1 %; HCT 42.7 % (39.0-53.0); Lymphocytes # (A) 0.9 k/uL (1.0-4.8); Lymphocytes % (A) 16 %; MCH 30.4 pg (25.0-35.0); MCHC 32.7 g/dL (31.0-37.0); MCV 93.1 fL (80.0-100.0); Mean Platelet Volume 7.3; Monocytes # (A) 0.3 k/uL (0-1.0); Monocytes % (A) 5 %; Neutrophils # (A) 4.4 k/uL (1.3-7.7); Neutrophils % (A) 75 %; Platelet Count 172 k/uL (150-450); RBC 4.59 m/uL (4.30-5.90); RDW 13.6 % (11.5-15.5); WBC 5.9 k/uL (3.8-10.6)
[2021-09-15 16:59] LABS: ALT 28 U/L (4-49); AST 36 U/L (17-59); African American GFR (CKD) >90 (>60 ml/min/1.73 sqM); Albumin 3.9 g/dL (3.5-5.0); Alkaline Phosphatase 89 U/L (38-126); Amylase 35 U/L (30-110); Anion Gap 7 mmol/L; Blood Urea Nitrogen 11 mg/dL (9-20); Calcium 9.5 mg/dL (8.4-10.2); Carbon Dioxide 23 mmol/L (22-30); Chloride 109 mmol/L (98-107); Glucose 86 mg/dL (74-99); Lipase 173 U/L (23-300); Magnesium 1.9 mg/dL (1.6-2.3); Non-African American GFR(CKD) >90 (>60 ml/min/1.73 sqM); Phosphorus 4.1 mg/dL (2.5-4.5); Potassium 3.6 mmol/L (3.5-5.1); Sodium 139 mmol/L (137-145); Total Bilirubin 0.3 mg/dL (0.2-1.3); Total Protein 6.5 g/dL (6.3-8.2)
[2021-09-15] MEDS ORDERED: DICYCLOMINE 10 MG/ML 2 ML AMP IM STA (17:53)
--- NOTE | 2021-09-15 17:57 | CT ---
EXAMINATION TYPE: CT angio abdomen pelvis DATE OF EXAM: 09/15/2021 COMPARISON: April 26, 2021 HISTORY: abd pain x1 month CT DLP: 1074.1 mGycm Automated exposure control for dose reduction was used. CONTRAST: Performed with IV Contrast, patient injected with 100 mL of Isovue 370. There are Three-D postprocessed images. Images obtained from the diaphragm to the floor the pelvis wi thout and with IV contrast. The lungs are clear of consolidation. There is no pleural effusion. Heart size is normal. There is no pericardial effusion. Liver spleen and stomach pancreas appear intact. The bowel dates are not dilated. There are clips fro m cholecystectomy. There is no adrenal mass. Kidneys have normal size and contour. There is no hydronephrosis. There are multiple bilateral renal calculi that measure up to 7 mm. There is no hydronephrosis. Ureters are no t dilated. There is no retroperitoneal adenopathy. Bladder distends smoothly. There is no inguinal he rnia. There is some prostatic calcification. Abdominal aorta is atheromatous. There is no aneurysm. There is no free air. There is no ascites. There is arterial flow in the abdominal aorta and the celiac artery and superior mesenteric artery. T here is arterial flow in both renal arteries. There is arterial flow in the iliac and femoral arterie s. Extensive abdomen is quite vascular calcification is present. Multiple segments of plaque formatio n are seen in the branches of the abdominal aorta. There is lumen narrowing up to 35%. I do not see d efinite hemodynamic stenosis. There is no aneurysm. There is no dissection. There is no evidence of c ontrast extravasation. The lumbar vertebra show a minimal retrolisthesis at L3-4. There is posterior fusion surgery from L4 to S1. There is laminectomy in the lower lumbar spine. IMPRESSION: Extensive atherosclerotic vascular calcification. No evidence of hemodynamic stenosis. No aneurysm or dissection. Nonobstructing renal calculi. Calculi not changed compared to old exam.
[2021-09-15] MEDS ORDERED: METOCLOPRAMIDE 10 MG TAB PO STA (18:10)
== END 2021-09-15 18:35 | disposition home or self-care (01) ==
LOC: EC 13:54
DX: K59.00 Constipation, unspecified (principal); F17.200 Nicotine dependence, unspecified, uncomplicated
CPT/HCPCS: 36415; 93005; 80053; 82150; 83605; 83690; 83735; 84100; 84484; 85025; 71045; 74174; 99284; 96374; 96375; 96372; J2270; J0500; J2405; Q9967

== ENCOUNTER 2022-01-29 16:28 | Inpatient (IN) | payer MEDICARE, OTHER ==
[2022-01-29 17:20] LABS: ALT 21 U/L (4-49); AST 28 U/L (17-59); African American GFR (CKD) >90 (>60 ml/min/1.73 sqM); Albumin 4.1 g/dL (3.5-5.0); Alkaline Phosphatase 107 U/L (38-126); Anion Gap 9 mmol/L; Blood Urea Nitrogen 14 mg/dL (9-20); Calcium 8.9 mg/dL (8.4-10.2); Carbon Dioxide 21 mmol/L (22-30); Chloride 108 mmol/L (98-107); Glucose 90 mg/dL (74-99); Non-African American GFR(CKD) >90 (>60 ml/min/1.73 sqM); Sodium 138 mmol/L (137-145); Total Bilirubin 0.3 mg/dL (0.2-1.3); Total Protein 6.5 g/dL (6.3-8.2)
[2022-01-29 17:21] LABS: Basophils % (A) 0 %; Eosinophils # (A) 0.2 k/uL (0-0.7); Eosinophils % (A) 2 %; HCT 41.9 % (39.0-53.0); HGB 13.3 gm/dL (13.0-17.5); Lymphocytes # (A) 1.3 k/uL (1.0-4.8); Lymphocytes % (A) 18 %; MCH 29.8 pg (25.0-35.0); MCHC 31.9 g/dL (31.0-37.0); MCV 93.6 fL (80.0-100.0); Mean Platelet Volume 6.9; Monocytes # (A) 0.3 k/uL (0-1.0); Monocytes % (A) 4 %; Neutrophils # (A) 5.1 k/uL (1.3-7.7); Neutrophils % (A) 73 %; Platelet Count 174 k/uL (150-450); RBC 4.48 m/uL (4.30-5.90); RDW 13.9 % (11.5-15.5)
[2022-01-29] MEDS ORDERED: MORPHINE SULFATE 4 MG/ML SYRINGE IV STA (17:51)
[2022-01-29] MEDS ORDERED: SODIUM CHLORIDE 0.9% 1,000 ML IV STA (17:51)
--- NOTE | 2022-01-29 17:56 | ED ---
General Adult HPI - General Chief complaint: GI Bleed Stated complaint: Abd pain Time Seen by Provider: 01/29/22 17:23 Source: patient Mode of arrival: EMS Limitations: no limitations - History of Present Illness Initial comments: Dictation was produced using [employer] dictation software. please excuse any grammatical, word or spelling errors. Chief Complaint: 66-year-old male presents with on and off left lower quadrant abdominal pain for several days. History of Present Illness: 66-[facility] abdominal [facility]. Patient states he's also been having dark stools. Denies any nausea or fever. Patient has a history of diverticulitis. He called EMS and was brought to the emergency department. Patient denies any history of abdominal surgery. Denies any rectal pain. Does not have any bloody stools but feels like his stools are really dark. Patient is not taking an echo evaluation medications. The ROS documented in this emergency department record has been reviewed and confirmed by me. Those systems with pertinent positive or negative responses have been documented in the HPI. All other systems are other negative and/or noncontributory. PHYSICAL EXAM: General Impression: Alert and oriented x3, not in acute distress HEENT: Normocephalic atraumatic, extra-ocular movements intact, pupils equal and reactive to light bilaterally, mucous membranes moist. Cardiovascular: Heart regular rate and rhythm Chest: Able to complete full sentences, no retractions, no tachypnea Abdomen: abdomen soft, non-tender, non-distended, no organomegaly Musculoskeletal: Pulses present and equal in all extremities, no peripheral edema Motor: no focal deficits noted Neurological: CN II-XII grossly intact, no focal motor or sensory deficits noted Skin: Intact with no visualized rashes Psych: Normal affect and mood Rectal exam: No gross blood on LETY, no anal abnormalities ED course: 66-year-old male presents to the emergency department for left lower quadrant abdominal pain. Vital signs upon arrival are within acceptable limits. Diffuse small bowel ileus. Patient reevaluated at 7:45 PM. States that he is having significant pain. Patient not having any nausea vomiting . Patient given more IV analgesics. [facility] antonio alvarado who is covering for Dr. Guillory. General surgeon to be on consult. Patient started on IV fluids. - Related Data Home Medications Medication Instructions Recorded Confirmed LORazepam [Ativan] 1 mg PO BID 04/19/21 01/29/22 QUEtiapine FUMARATE [SEROquel] 600 mg PO HS 04/19/21 01/29/22 lisinopriL [Zestril] 10 mg PO DAILY 01/29/22 01/29/22 Previous Rx's Medication Instructions Recorded Escitalopram [Lexapro] 40 mg PO DAILY #4 tab 01/26/21 amLODIPine [Norvasc] 10 mg PO DAILY 30 Days #30 tab 04/25/21 Allergies Allergy/AdvReac Type Severity Reaction Status Date / Time No Known Allergies Allergy Verified 01/29/22 18:19 Review of Systems ROS Statement: Those systems with pertinent positive or pertinent negative responses have been documented in the HPI. ROS Other: All systems not noted in ROS Statement are negative. Past Medical History Past Medical History: Chest Pain / Angina, GERD/Reflux, Liver Disease Additional Past Medical History / Comment(s): anemia, hx pancreatitis, angina x 1 yrs ago, hepatitis C-no tx recieved for it, kidney stones, CHANGE IN BOWEL HABITS History of Any Multi-Drug Resistant Organisms: None Reported Past Surgical History: Appendectomy, Back Surgery, Cholecystectomy, Orthopedic Surgery, Tonsillectomy Additional Past Surgical History / Comment(s): sx to enlarge urethra opening, lump removed from chest, surgery rt arm(fx), colonoscopy, recent lithotripsy at [facility],03/2019 Past Anesthesia/Blood Transfusion Reactions: No Reported Reaction Past Psychological History: Anxiety, Depression Smoking Status: Current every day smoker Past Alcohol Use History: None Reported Past Drug Use History: Marijuana - Past Family History Mother Family Medical History: No Reported History Additional Family Medical History / Comment(s): bowel obstruction. General Exam Limitations: no limitations Course Vital Signs 01/29/22 01/29/22 01/29/22 16:29 18:40 19:31 Temperature 98.2 F Pulse Rate 74 55 L 59 L Respiratory 20 15 18 Rate Blood Pressure 139/82 148/84 161/88 O2 Sat by Pulse 95 97 97 Oximetry Medical Decision Making - Lab Data Result diagrams: 01/29/22 16:38 01/29/22 16:38 Lab Results 01/29/22 01/29/22 01/29/22 Range/Units 16:38 16:38 16:38 WBC 7.0 (3.8-10.6) k/uL RBC 4.48 (4.30-5.90) m/uL Hgb 13.3 (13.0-17.5) gm/dL Hct 41.9 (39.0-53.0) % MCV 93.6 (80.0-100.0) fL MCH 29.8 (25.0-35.0) pg MCHC 31.9 (31.0-37.0) g/dL RDW 13.9 (11.5-15.5) % Plt Count 174 (150-450) k/uL MPV 6.9 Neutrophils % 73 % Lymphocytes % 18 % Monocytes % 4 % Eosinophils % 2 % Basophils % 0 % Neutrophils # 5.1 (1.3-7.7) k/uL Lymphocytes # 1.3 (1.0-4.8) k/uL Monocytes # 0.3 (0-1.0) k/uL Eosinophils # 0.2 (0-0.7) k/uL Basophils # 0.0 (0-0.2) k/uL APTT 25.6 (22.0-30.0) sec Sodium 138 (137-145) mmol/L Potassium 4.0 (3.5-5.1) mmol/L Chloride 108 H (98-107) mmol/L Carbon Dioxide 21 L (22-30) mmol/L Anion Gap 9 mmol/L BUN 14 (9-20) mg/dL Creatinine 0.80 (0.66-1.25) mg/dL Est GFR (CKD-EPI)AfAm >90 (>60 ml/min/1.73 sqM) Est GFR (CKD-EPI)NonAf >90 (>60 ml/min/1.73 sqM) Glucose 90 (74-99) mg/dL Calcium 8.9 (8.4-10.2) mg/dL Total Bilirubin 0.3 (0.2-1.3) mg/dL AST 28 (17-59) U/L ALT 21 (4-49) U/L Alkaline Phosphatase 107 (38-126) U/L Troponin I (0.000-0.034) ng/mL Total Protein 6.5 (6.3-8.2) g/dL Albumin 4.1 (3.5-5.0) g/dL 06/03/15 Range/Units 16:38 WBC (3.8-10.6) k/uL RBC (4.30-5.90) m/uL Hgb (13.0-17.5) gm/dL Hct (39.0-53.0) % MCV (80.0-100.0) fL MCH (25.0-35.0) pg MCHC (31.0-37.0) g/dL RDW (11.5-15.5) % Plt Count (150-450) k/uL MPV Neutrophils % % Lymphocytes % % Monocytes % % Eosinophils % % Basophils % % Neutrophils # (1.3-7.7) k/uL Lymphocytes # (1.0-4.8) k/uL Monocytes # (0-1.0) k/uL Eosinophils # (0-0.7) k/uL Basophils # (0-0.2) k/uL APTT (22.0-30.0) sec Sodium (137-145) mmol/L Potassium (3.5-5.1) mmol/L Chloride (98-107) mmol/L Carbon Dioxide (22-30) mmol/L Anion Gap mmol/L BUN (9-20) mg/dL Creatinine (0.66-1.25) mg/dL Est GFR (CKD-EPI)AfAm (>60 ml/min/1.73 sqM) Est GFR (CKD-EPI)NonAf (>60 ml/min/1.73 sqM) Glucose (74-99) mg/dL Calcium (8.4-10.2) mg/dL Total Bilirubin (0.2-1.3) mg/dL AST (17-59) U/L ALT (4-49) U/L Alkaline Phosphatase (38-126) U/L Troponin I <0.012 (0.000-0.034) ng/mL Total Protein (6.3-8.2) g/dL Albumin (3.5-5.0) g/dL Disposition Clinical Impression: Ileus Disposition: ADMITTED IP TO THIS [facility] Condition: Serious Referrals: Willie Guillory MD [Primary Care Provider] - 1-2 days Decision Time: 19:41
--- NOTE | 2022-01-29 19:17 | CT ---
EXAMINATION TYPE: CT abdomen pelvis w con DATE OF EXAM: 01/29/2022 COMPARISON: 04/26/2021 HISTORY: LLQ abdominal pain CT DLP: 843.5 mGycm Automated exposure control for dose reduction was used. CONTRAST: Performed with IV Contrast, patient injected with 100 mL of Isovue 300. There is mild subsegmental atelectasis at the lung bases. Heart size is normal. Liver spleen and stom ach pancreas appear intact. There is mild ectasia of the biliary tree. Gallbladder is absent. The com mon bile duct measures 10 mm. There is tiny amount of air refluxed in the biliary tree anteriorly. There is no adrenal mass. There is satisfactory contrast opacification of the kidneys. No hydronephro sis. There are multiple small calculi in the lower pole right kidney. There is 8mm calculus lateral l eft kidney. Ureters are nondilated. Bladder distends smoothly. There is no inguinal hernia. No free f luid in the pelvis. No evidence of pelvic mass. There is prostate calcification. Appendix not seen. There is no ascites. No free air. No sign of mesenteric edema. There are some distended fluid-filled small bowel loops in the lower abdomen. Small bowel measures up to 3.1 cm. Transition point not seen. Abdominal aorta is atheromatous. There is multilevel posterior fusion surgery in the lumbar spine with laminectomy. The lumbar vertebra show fairly normal alignmen t. No compression fracture. There is narrowing at L4-5 and L5-S1 disc spaces. The sacroiliac joints a re intact. Bony pelvis is intact. Hip joints are intact. IMPRESSION: There is evidence for some diffuse small bowel ileus. This is a change compared to old exam. Transiti on point not seen. Nonobstructing bilateral renal calculi without change. Cholecystectomy. Ectasia of the biliary tree s imilar to old exam.
[2022-01-29] MEDS ORDERED: HYDROmorphone 1 MG/ML 1 ML SYRINGE IVP STA (19:39)
[2022-01-29] MEDS ORDERED: NALOXONE 0.4 MG/ML 1 ML VIAL IV PRN (19:39)
[2022-01-29] MEDS: SODIUM CHLORIDE 0.9% 1,000 ML IV SCH (20:12)
[2022-01-29] MEDS: HYDROmorphone 0.5 MG/0.5 ML SYRINGE IVP PRN (23:20)
[2022-01-30] MEDS: QUEtiapine 200 MG TAB PO SCH ×2 (00:14→21:33)
[2022-01-30] MEDS: LORazepam 1 MG TAB PO PRN ×3 (00:14→21:33)
[2022-01-30] MEDS: HYDROmorphone 0.5 MG/0.5 ML SYRINGE IVP PRN ×4 (04:01→17:41)
[2022-01-30] MEDS: SODIUM CHLORIDE 0.9% 1,000 ML IV SCH ×2 (05:57→08:08)
[2022-01-30] MEDS: ESCITALOPRAM 20 MG TAB PO SCH (08:02)
[2022-01-30] MEDS: amLODIPine 10 MG TAB PO SCH (08:02)
[2022-01-30] MEDS: NICOTINE 21MG/24HR PATCH TRANSDERM SCH (09:17)
[2022-01-30] MEDS ORDERED: PEG 3350-NA SULF,BICARB,CL/KCL 4,000 ML BOTTLE PO ONE (11:05)
[2022-01-30] MEDS: PANTOPRAZOLE 40 MG/10 ML VIAL IVP SCH (11:42)
--- NOTE | 2022-01-30 12:45 | P.HPIM ---
History of Present Illness H&P Date: 01/30/22 This is a 66-year-old male with history of anemia, pancreatitis, hepatitis C, cholecystectomy. He is also daily tobacco smoker smokes around 2 packs per day, occasional marijuana use who presents to the hospital with concern for ileus. Patient has had left lower quadrant abdominal pain for the last month, states that it has become more severe in the last week. States he was taking a probiotic at home and also was fasting with no improvement. He did have an episode of vomiting states looked like coffee grounds about 2 weeks ago. He also has been having small amount of stool daily, describes as dark. No leon blood in the stool reported. He states when he drinks coffee he also has some abdomin al burning and discomfort. Denies fever, chills. Denies chest pain, denies shortness of breath, denies cough. No history of abdominal surgery, or acid reflux. Abdominal pelvis CT was completed on admission showing diffuse small bowel ileus which is a change compared to old exam. There is also a nono bstructing bilateral renal calculi without change. Ectasia of the biliary tree is somewhat old exam as well. Blood count unremarkable, chloride 108, CO2 21. Troponin negative. Patient is receiving IV fluids at 130 most per hour which has been decreased down to 75. All medications have been resumed is also receiving Dilaudid for pain management. He is scheduled to undergo EGD colonoscopy tomorrow with Dr Bradford. REVIEW OF SYSTEMS: CONSTITUTIONAL: No fever, no malaise, no fatigue. HEENT: No recent visual problems or hearing problems. Denied any sore throat. CARDIOVASCULAR: No chest pain, orthopnea, PND, no palpitations, no syncope. PULMONARY: No shortness of breath, no cough, no hemoptysis. GASTROINTESTINAL: LLQ abdominal pain rated 4/10, vomiting 2 weeks ago, small BM daily reports as dark NEUROLOGICAL: No headaches, no weakness, no numbness. HEMATOLOGICAL: Denies any bleeding or petechiae. GENITOURINARY: Denies any burning micturition, frequency, or urgency. MUSCULOSKELETAL/RHEUMATOLOGICAL: Denies any joint pain, swelling, or any muscle pain. ENDOCRINE: Denies any polyuria or polydipsia. The rest of the 14-point review of systems is negative. PHYSICAL EXAMINATION: GENERAL: The patient is alert and oriented x3, not in any acute distress. Well developed, well nourished. HEENT: Pupils are round and equally reacting to light. EOMI. No scleral icterus. No conjunctival pallor. Normocephalic, atraumatic. No pharyngeal erythema. No thyromegaly. CARDIOVASCULAR: S1 and S2 present. No murmurs, rubs, or gallops. PULMONARY: Chest is clear to auscultation, no wheezing or crackles. ABDOMEN: Soft, nontender, nondistended, normoactive bowel sounds. No palpable or ganomegaly. MUSCULOSKELETAL: No joint swelling or deformity. EXTREMITIES: No cyanosis, clubbing, or pedal edema. NEUROLOGICAL: Gross neurological examination did not reveal any focal deficits. SKIN: No rashes. Assessment and Plan Assessment Possible upper GI Bleed Acute gastritis Left lower quadrant pain with suspected Ileus History diverticulitis History anemia History pancreatitis Hepatitis C Chronic daily tobacco use; counseling provided THC use GI Prophylaxis DVT Prophylaxis Full Code Plan Continue IV hydration Clear liquid diet EGD/Colonoscopy tomorrow Resume home medications Nicotine patch The impression and plan of care has been dictated by Yessenia Anthony Nurse Practitioner as directed. Dr. Fidel MD I have performed a history and physical examination and medical decision making of this patient, discussed the same with the dictator, and agree with the dictators assessment and plan as written, documented as a scribe. Based on total visit time, I have performed more than 50% of this visit. Past Medical History Past Medical History: Chest Pain / Angina, GERD/Reflux, Liver Disease Additional Past Medical History / Comment(s): anemia, hx pancreatitis, angina x 1 yrs ago, hepatitis C-no tx recieved for it, kidney stones, CHANGE IN BOWEL HABITS History of Any Multi-Drug Resistant Organisms: None Reported Past Surgical History: Appendectomy, Back Surgery, Cholecystectomy, Orthopedic Surgery, Tonsillectomy Additional Past Surgical History / Comment(s): sx to enlarge urethra opening, lump removed from chest, surgery rt arm(fx), colonoscopy, recent lithotripsy at [facility],03/2019 Past Anesthesia/Blood Transfusion Reactions: No Reported Reaction Past Psychological History: Anxiety, Depression Additional Psychological History / Comment(s): . Smoking Status: Current every day smoker Past Alcohol Use History: None Reported Additional Past Alcohol Use History / Comment(s): started smoking at age 22,smokes 1 ppd. Past Drug Use History: Marijuana Additional Drug Use History / Comment(s): occasional use, instructed to hold 24hrs prior to procedure - Past Family History Mother Family Medical History: No Reported History Additional Family Medical History / Comment(s): bowel obstruction. Medications and Allergies Home Medications Medication Instructions Recorded Confirmed Type Escitalopram [Lexapro] 40 mg PO DAILY #4 tab 01/26/21 01/29/22 Rx LORazepam [Ativan] 1 mg PO BID 04/19/21 01/29/22 History QUEtiapine FUMARATE [SEROquel] 600 mg PO HS 04/19/21 01/29/22 History amLODIPine [Norvasc] 10 mg PO DAILY 30 Days #30 tab 04/25/21 01/29/22 Rx lisinopriL [Zestril] 10 mg PO DAILY 01/29/22 01/29/22 History Allergies Allergy/AdvReac Type Severity Reaction Status Date / Time No Known Allergies Allergy Verified 01/29/22 18:19 Physical Exam Vitals: Vital Signs Temp Pulse Pulse Resp BP BP Pulse Ox 01/30/22 07:22 98.3 F 67 12 159/80 94 L 01/30/22 02:00 97.6 F 60 17 160/85 95 01/29/22 23:25 97.4 F L 53 L 18 168/85 95 01/29/22 22:23 60 18 158/90 96 01/29/22 19:31 59 L 18 161/88 97 01/29/22 18:40 55 L 15 148/84 97 01/29/22 16:29 98.2 F 74 20 139/82 95 Intake and Output 01/29/22 01/30/22 01/30/22 22:59 06:59 14:59 Output Total 800 Balance -800 Output: Urine 800 Other: Weight 63.503 kg 63.503 kg Results CBC & Chem 7: 01/29/22 16:38 01/29/22 16:38 Labs: Abnormal Lab Results - Last 24 Hours (Table) 01/29/22 Range/Units 16:38 Chloride 108 H (98-107) mmol/L Carbon Dioxide 21 L (22-30) mmol/L Thrombosis Risk Factor Assmnt - Choose All That Apply Any of the Below Risk Factors Present?: No Other Risk Factors: Yes Each Risk Factor Represents 2 Points: Age 61-74 years Other congenital or acquired thrombophilia - If yes, enter type in comment: No Thrombosis Risk Factor Assessment Total Risk Factor Score: 2 Thrombosis Risk Factor Assessment Level: Low Risk Assessment and Plan Time with Patient: Less than 30
--- NOTE | 2022-01-30 15:11 | P.GSCN ---
History of Present Illness Consult date: 01/30/22 History of present illness: CHIEF COMPLAINT: Abdominal pain HISTORY OF PRESENT ILLNESS: This is a 66-year-old male who presented to the hospital with complaints of mid abdominal pain on the left side of the umbilicus. Patient reports that he's been having abdominal pain for the last 1- 2 months. Patient reports that he has been dealing with constipation. And then over the last 3-4 days he has been having multiple small black stools. He denies any nausea or vomiting. He does have a prior history of diverticulitis. Past surgical history includes cholecystectomy. His last colonoscopy was in September 2021 in which she had colon polyps removed. He believes he had EGD about 3 years ago and reports that there was no significant findings. Patient had a computed tomography scan of the abdomen and pelvis that shows evidence of some diffuse small bowel ileus. Transition point not seen. Nonobstructing bilateral renal calculi without change. Patient denies any fever chills or sweats. Surgical Service consulted in regards to ileus. PAST MEDICAL HISTORY: See list. PAST SURGICAL HISTORY: See list. MEDICATIONS: See list. ALLERGIES: See list. SOCIAL HISTORY: No illicit drug use. REVIEW OF SYSTEMS: CONSTITUTIONAL: Denies fever or chills. HEENT: Denies blurred vision, vision changes, or eye pain. Denies hemoptysis CARDIOVASCULAR: Denies chest pain or pressure. RESPIRATORY: No shortness of breath. GASTROINTESTINAL: See HPI for pertinent findings HEMATOLOGIC: Denies bleeding disorders. GENITOURINARY: Denies any blood in urine or increased urinary frequency. SKIN: Denies pruitis. Denies rash. PHYSICAL EXAM: VITAL SIGNS: Reviewed GENERAL: Well-developed in no acute distress. HEENT: No sclera icterus. Extraocular movements grossly intact. Moist buccal mucosa. Head is atraumatic, normocephalic. No nasal drainage. ABDOMEN: Soft. Nondistended. Minimal tenderness with palpation of the left side of the abdomen near the umbilicus. NEUROLOGIC: Alert and oriented. Cranial nerves II through XII grossly intact. LABORATORY DATA: WBC 7 Hgb 13.3 platelets 174 Sodium 138 potassium is 4 creatinine 0.80 LFTs normal IMAGING: Computed tomography scan findings as stated above ASSESSMENT: 1. Abdominal pain with black stools 2. Ileus PLAN: -Patient scheduled for EGD and colonoscopy tomorrow, 01/31/[address] oreilly -Start GoLYTELY prep today -Clear liquid diet today -Nothing by mouth after midnight -Continue IV fluids Physician Gmat Tutor note has been reviewed by physician. Signing provider agrees with the documented findings, assessment, and plan of care. Past Medical History Past Medical History: Chest Pain / Angina, GERD/Reflux, Liver Disease Additional Past Medical History / Comment(s): anemia, hx pancreatitis, angina x 1 yrs ago, hepatitis C-no tx recieved for it, kidney stones, CHANGE IN BOWEL HABITS History of Any Multi-Drug Resistant Organisms: None Reported Past Surgical History: Appendectomy, Back Surgery, Cholecystectomy, Orthopedic Surgery, Tonsillectomy Additional Past Surgical History / Comment(s): sx to enlarge urethra opening, lump removed from chest, surgery rt arm(fx), colonoscopy, recent lithotripsy at [facility],03/2019 Past Anesthesia/Blood Transfusion Reactions: No Reported Reaction Past Psychological History: Anxiety, Depression Additional Psychological History / Comment(s): . Smoking Status: Current every day smoker Past Alcohol Use History: None Reported Additional Past Alcohol Use History / Comment(s): started smoking at age 22,smokes 1 ppd. Past Drug Use History: Marijuana Additional Drug Use History / Comment(s): occasional use, instructed to hold 24hrs prior to procedure - Past Family History Mother Family Medical History: No Reported History Additional Family Medical History / Comment(s): bowel obstruction. Medications and Allergies Home Medications Medication Instructions Recorded Confirmed Type Escitalopram [Lexapro] 40 mg PO DAILY #4 tab 01/26/21 01/29/22 Rx LORazepam [Ativan] 1 mg PO BID 04/19/21 01/29/22 History QUEtiapine FUMARATE [SEROquel] 600 mg PO HS 04/19/21 01/29/22 History amLODIPine [Norvasc] 10 mg PO DAILY 30 Days #30 tab 04/25/21 01/29/22 Rx lisinopriL [Zestril] 10 mg PO DAILY 01/29/22 01/29/22 History Allergies Allergy/AdvReac Type Severity Reaction Status Date / Time No Known Allergies Allergy Verified 01/29/22 18:19 Surgical - Exam Vital Signs Temp Pulse Resp BP Pulse Ox 98.2 F 74 20 139/82 95 01/29/22 16:29 01/29/22 16:29 01/29/22 16:29 01/29/22 16:29 01/29/22 16:29 Results - Labs 01/29/22 16:38 01/29/22 16:38 Abnormal Lab Results - Last 24 Hours (Table) 01/29/22 Range/Units 16:38 Chloride 108 H (98-107) mmol/L Carbon Dioxide 21 L (22-30) mmol/L Diabetes panel 01/29/22 Range/Units 16:38 Sodium 138 (137-145) mmol/L Potassium 4.0 (3.5-5.1) mmol/L Chloride 108 H (98-107) mmol/L Carbon Dioxide 21 L (22-30) mmol/L BUN 14 (9-20) mg/dL Creatinine 0.80 (0.66-1.25) mg/dL Glucose 90 (74-99) mg/dL Calcium 8.9 (8.4-10.2) mg/dL AST 28 (17-59) U/L ALT 21 (4-49) U/L Alkaline Phosphatase 107 (38-126) U/L Total Protein 6.5 (6.3-8.2) g/dL Albumin 4.1 (3.5-5.0) g/dL Calcium panel 01/29/22 Range/Units 16:38 Calcium 8.9 (8.4-10.2) mg/dL Albumin 4.1 (3.5-5.0) g/dL Pituitary panel 01/29/22 Range/Units 16:38 Sodium 138 (137-145) mmol/L Potassium 4.0 (3.5-5.1) mmol/L Chloride 108 H (98-107) mmol/L Carbon Dioxide 21 L (22-30) mmol/L BUN 14 (9-20) mg/dL Creatinine 0.80 (0.66-1.25) mg/dL Glucose 90 (74-99) mg/dL Calcium 8.9 (8.4-10.2) mg/dL Adrenal panel 01/29/22 Range/Units 16:38 Sodium 138 (137-145) mmol/L Potassium 4.0 (3.5-5.1) mmol/L Chloride 108 H (98-107) mmol/L Carbon Dioxide 21 L (22-30) mmol/L BUN 14 (9-20) mg/dL Creatinine 0.80 (0.66-1.25) mg/dL Glucose 90 (74-99) mg/dL Calcium 8.9 (8.4-10.2) mg/dL Total Bilirubin 0.3 (0.2-1.3) mg/dL AST 28 (17-59) U/L ALT 21 (4-49) U/L Alkaline Phosphatase 107 (38-126) U/L Total Protein 6.5 (6.3-8.2) g/dL Albumin 4.1 (3.5-5.0) g/dL
[2022-01-30] MEDS: HYDROcodone/APAP 5-325MG 1 EACH TAB PO PRN ×2 (15:45→20:45)
[2022-01-30] MEDS ORDERED: ONDANSETRON 4 MG/2 ML VIAL IVP PRN (21:49)
[2022-01-31] MEDS: SODIUM CHLORIDE 0.9% 1,000 ML IV SCH ×3 (06:32→15:01)
[2022-01-31 06:42] LABS: HCT 41.5 % (39.0-53.0); HGB 12.7 gm/dL (13.0-17.5); MCH 29.2 pg (25.0-35.0); MCHC 30.7 g/dL (31.0-37.0); MCV 95.1 fL (80.0-100.0); Mean Platelet Volume 6.9; Platelet Count 176 k/uL (150-450); RBC 4.37 m/uL (4.30-5.90); RDW 13.2 % (11.5-15.5); WBC 6.1 k/uL (3.8-10.6)
[2022-01-31 06:46] LABS: African American GFR (CKD) >90 (>60 ml/min/1.73 sqM); Anion Gap 4 mmol/L; Blood Urea Nitrogen 7 mg/dL (9-20); Calcium 8.2 mg/dL (8.4-10.2); Carbon Dioxide 26 mmol/L (22-30); Chloride 110 mmol/L (98-107); Glucose 79 mg/dL (74-99); Non-African American GFR(CKD) >90 (>60 ml/min/1.73 sqM); Potassium 3.6 mmol/L (3.5-5.1); Sodium 140 mmol/L (137-145)
[2022-01-31] MEDS: amLODIPine 10 MG TAB PO SCH (08:28)
[2022-01-31] MEDS: NICOTINE 21MG/24HR PATCH TRANSDERM SCH (08:28)
[2022-01-31] MEDS: ESCITALOPRAM 20 MG TAB PO SCH (08:28)
[2022-01-31] MEDS: HYDROmorphone 0.5 MG/0.5 ML SYRINGE IVP PRN (08:46)
[2022-01-31] MEDS: PANTOPRAZOLE 40 MG/10 ML VIAL IVP SCH ×2 (08:47→20:49)
[2022-01-31] MEDS ORDERED: PROPOFOL 10 MG/ML 20 ML VIAL IV ONE (10:33)
[2022-01-31] MEDS ORDERED: LIDOCAINE 2% INJ 20 MG/ML (2 ML VIAL) ONE (10:33)
[2022-01-31] MEDS ORDERED: IV FLUID CONTINUATION 500 ML IV ONE (11:07)
--- NOTE | 2022-01-31 11:11 | P.OP ---
Date of Procedure: 01/31/22 Preoperative Diagnosis: GI bleed Postoperative Diagnosis: Antral gastritis Rectal polyp Left colon polyp Procedure(s) Performed: Colonoscopy Anesthesia: MAC Pathology: other (Polyp) Condition: stable Disposition: PACU Description of Procedure: The patient's placed on the endoscopy table in the lateral position. He received IV sedation. The gastroscope placed oropharynx passed in the esophagus and stomach. Scope was then placed through the pylorus. The first and second portion of the duodenum appeared normal. Scope was then brought back the antrum this was mildly inflamed. A biopsies performed. Scope was unretroflexed and remainder of the stomach appeared normal. The GE junction was at 40 cm per the distal esophagus appeared minimally inflamed and a biopsies performed. The proximal esophagus. Normal. Scope withdrawn for patient. Next digital rectal exam was performed. This revealed a few external hemorr hoids. Flexible colonoscope was then placed patient anus passed throughout the colon. Scope could not be passed beyond the transverse colon secondary to poor bowel prep. Scope was withdrawn. The transverse colon appeared normal. There was a large amount liquid brown stool. The scope was then brought back into the descending colon and a small polyp was seen. This removed with snare. Scope b ack further and sigmoid colon had a few scattered diverticula. In the rectum there was a small sessile polyp was removed the cold forcep. Scope withdrawn for patient. There is no evidence of any upper or lower GI bleed. Presumed patient may have melanotic stool from gastritis.
[2022-01-31] MEDS: HYDROcodone/APAP 5-325MG 1 EACH TAB PO PRN ×3 (12:31→23:15)
--- NOTE | 2022-01-31 14:51 | P.PN ---
Subjective Progress Note Date: 01/31/22 This is a 66-year-old male with history of anemia, pancreatitis, hepatitis C, cholecystectomy. He is also daily tobacco smoker smokes around 2 packs per day, occasional marijuana use who presents to the hospital with concern for ileus. Patient has had left lower quadrant abdominal pain for the last month, states that it has become more severe in the last week. States he was taking a probiotic at home and also was fasting with no improvement. He did have an episode of vomiting states looked like coffee grounds about 2 weeks ago. He also has been having small amount of stool daily, describes as dark. No leon blood in the stool reported. He states when he drinks coffee he also has some abdominal burning and discomfort. Denies fever, chills. Denies chest pain, denies shortness of breath, denies cough. No history of abdominal surgery, or acid reflux. Abdominal pelvis CT was completed on admission showing diffuse small bowel ileus which is a change compared to old exam. There is also a nonobstructing bilateral renal calculi without change. Ectasia of the biliary tree is somewhat old exam as well. Blood count unremarkable, chloride 108, CO2 21. Troponin negative. Patient is receiving IV fluids at 130 most per hour which has been decreased down to 75. All medications have been resumed is also receiving Dilaudid for pain management. He is scheduled to undergo EGD colonoscopy tomorrow with Dr Bradford. 01/31/2022 Patient is evaluated post EGD/Colonoscopy today. Findings include external hemorrhoids as well as gastritis. Patient does report some lower abdominal tenderness and pain when eating. He has a regular diet right now. He states he had liquid BM last night with bowel prep. Abdomen is softer, he does have bowel sounds. No nausea or vomiting. We will continue IV protonix overnight and patient encouraged to increase diet as tolerated. Continue with pain management and can decrease some IV fluids. Labs today showing white count 6.1, platelet count 176, hgb 12.7, sodium 140, potassium 3.6, chloride 110, CO2 26, BUN 7, creat 0.69. Troponin negative. Vitals today he is afebrile, heart rate 65, blood pressure 148/74, 93% room air. Review of Systems Constitutional: Denied any fatigue denied any fever. Cardio vascular: denied any chest pain, palpitations Gastrointestinal: denied any nausea, vomiting, reports lower quadrant abdominal pain worse with eating, passing gas Pulmonary: Denied any shortness of breath cough Neurologic denied any new focal deficits All inpatient medications were reviewed and appropriate changes in these medications as dictated in the interval history and assessment and plan. PHYSICAL EXAMINATION: GENERAL: The patient is alert and oriented x3, not in any acute distress. Well developed, well nourished. HEENT: Pupils are round and equally reacting to light. EOMI. No scleral icterus. No conjunctival pallor. Normocephalic, atraumatic. No pharyngeal erythema. No thyromegaly. CARDIOVASCULAR: S1 and S2 present. No murmurs, rubs, or gallops. PULMONARY: Chest is clear to auscultation, no wheezing or crackles. ABDOMEN: Soft, mild distention, tender to palpation suprapubic, normoactive bowel sounds. No palpable organomegaly. MUSCULOSKELETAL: No joint swelling or deformity. EXTREMITIES: No cyanosis, clubbing, or pedal edema. NEUROLOGICAL: Gross neurological examination did not reveal any focal deficits. SKIN: No rashes. Assessment and Plan Assessment Acute gastritis without evidence for acute GI bleed on EGD/colonoscopy today Left lower quadrant pain with suspected Ileus, having BMs since bowel prep History anemia History pancreatitis Hepatitis C Chronic daily tobacco use; counseling provided THC use GI Prophylaxis DVT Prophylaxis Full Code Plan IV fluids decreased Increase diet as tolerated Nicotine patch Continue all other supportive care Continue IV protonix overnight and plan for discharge home tomorrow The impression and plan of care has been dictated by Yessenia Anthony Nurse Practitioner as directed. Dr. Fidel MD I have performed a history and physical examination and medical decision making of this patient, discussed the same with the dictator, and agree with the dictators assessment and plan as written, documented as a scribe. Based on total visit time, I have performed more than 50% of this visit. Objective - Vital Signs Vital signs: Vital Signs Temp 98.4 F 01/31/22 06:58 Pulse 71 01/31/22 06:58 Resp 16 01/31/22 06:58 BP 142/84 01/31/22 06:58 Pulse Ox 93 L 01/31/22 06:58 FiO2 Intake & Output 01/30/22 01/31/22 01/31/22 18:59 06:59 18:59 Intake Total 180 500 Output Total 1265 300 Balance -1085 200 Intake: IV 500 Oral 180 Output: Urine 1265 300 Other: Voiding Method Urinal Urinal # Voids 4 # Bowel Movements 1 - Labs CBC & Chem 7: 01/31/22 05:15 01/31/22 05:15 Labs: Abnormal Lab Results - Last 24 Hours (Table) 01/31/22 01/31/22 Range/Units 05:15 05:15 Hgb 12.7 L (13.0-17.5) gm/dL MCHC 30.7 L (31.0-37.0) g/dL Chloride 110 H (98-107) mmol/L BUN 7 L (9-20) mg/dL Calcium 8.2 L (8.4-10.2) mg/dL Assessment and Plan Time with Patient: Less than 30
[2022-01-31] MEDS: LORazepam 1 MG TAB PO PRN ×2 (15:04→22:17)
[2022-01-31] MEDS: QUEtiapine 200 MG TAB PO SCH (22:17)
[2022-02-01 01:38] VITALS: RESP 16
[2022-02-01] MEDS ORDERED: LACTATED RINGERS 1,000 ML IV SCH (07:18)
[2022-02-01 07:28] VITALS: BP 127/71; PULSE 78; TEMP 98
[2022-02-01] MEDS: NICOTINE 21MG/24HR PATCH TRANSDERM SCH (08:48)
[2022-02-01] MEDS: amLODIPine 10 MG TAB PO SCH (08:48)
[2022-02-01] MEDS: ESCITALOPRAM 20 MG TAB PO SCH (08:48)
[2022-02-01] MEDS: HYDROcodone/APAP 5-325MG 1 EACH TAB PO PRN (08:54)
[2022-02-01] MEDS: PANTOPRAZOLE 40 MG/10 ML VIAL IVP SCH (09:49)
[2022-02-01] MEDS: SODIUM CHLORIDE 0.9% 1,000 ML IV SCH (12:46)
--- NOTE | 2022-02-01 15:34 | P.PN ---
Subjective Progress Note Date: 02/01/22 CHIEF COMPLAINT: GI bleeding HISTORY OF PRESENT ILLNESS: Patient is status post EGD and colonoscopy with results showing antral gastritis, rectal polyp and left colon polyp. No evidence of upper or lower GI bleed. Presumed patient may have had melanotic stool from gastritis. Patient had a brown bowel movement this morning he is tolerating regular diet. Denies any abdominal pain. Last hemoglobin stable at 12.7. He is stable for discharge. PHYSICAL EXAM: VITAL SIGNS: Reviewed. GENERAL: Well-developed in no acute distress. HEENT: No sclera icterus. Extraocular movements grossly intact. Moist buccal mucosa. Head is atraumatic, normocephalic. ABDOMEN: Soft. Nondistended. Nontender. NEUROLOGIC: Alert and oriented. Cranial nerves II through XII grossly intact. ASSESSMENT: 1. status post EGD and colonoscopy with results showing antral gastritis, rectal polyp and left colon polyp 2. Ileus PLAN: -Patient symptoms have resolved. He is tolerating regular diet. He is stable for discharge. Physician Machine Cutter note has been reviewed by physician. Signing provider agrees with the documented findings, assessment, and plan of care. Objective - Vital Signs Vital signs: Vital Signs Temp 98.0 F 02/01/22 07:27 Pulse 78 02/01/22 07:27 Resp 16 02/01/22 07:27 BP 127/71 02/01/22 07:27 Pulse Ox 96 02/01/22 07:27 FiO2 Intake & Output 01/31/22 02/01/22 02/01/22 18:59 06:59 18:59 Intake Total 680 480 Output Total 300 1000 Balance 380 -520 Intake: IV 500 Oral 180 480 Output: Urine 300 1000 Other: Voiding Method Urinal Urinal # Bowel Movements 1 - Labs CBC & Chem 7: 01/31/22 05:15 01/31/22 05:15
--- NOTE | 2022-02-02 10:25 | P.DS ---
Providers Date of admission: 01/29/22 19:39 Attending physician: Swapna Randolph Consults: 01/29/22 19:40 Consult Physician Routine Consulting Provider: Osiel Bradford Consult Reason/Comments: ileus Do you want consulting provider notified?: Yes Primary care physician: Willie Guillory MD Hospital Course: Final Diagnosis Acute gastritis without evidence for acute GI bleed on EGD/colonoscopy today Left lower quadrant pain with suspected Ileus, having BMs since bowel prep History anemia History pancreatitis Hepatitis C Chronic daily tobacco use; counseling provided THC use Discharge Disposition Patient stable for discharge home on oral protonix 40 mg PO BID for 2 weeks and will change control specialist to protonix 40 mg po daily. He has been cleared by surgery. He underwent upper and lower endoscopy which reveals gastritis and no evidence for acute bleed. There are some external hemorrhoids as well. Hospital Course This is a 66-year-old male with history of anemia, pancreatitis, hepatitis C, cholecystectomy. He is also daily tobacco smoker smokes around 2 packs per day, occasional marijuana use who presents to the hospital with concern for ileus. Patient has had left lower quadrant abdominal pain for the last month, states that it has become more severe in the last week. States he was taking a probiotic at home and also was fasting with no improvement. He did have an episode of vomiting states looked like coffee grounds about 2 weeks ago. He also has been having small amount of stool daily, describes as dark. No leon blood in the stool reported. He states when he drinks coffee he also has some abdominal burning and discomfort. Denies fever, chills. Denies chest pain, denies shortness of breath, denies cough. No history of abdominal surgery, or acid reflux. Abdominal pelvis CT was completed on admission showing diffuse small bowel ileus which is a change compared to old exam. There is also a nonobstructing bilateral renal calculi without change. Ectasia of the biliary tree is somewhat old exam as well. Blood count unremarkable, chloride 108, CO2 21. Troponin negative. Patient is receiving IV fluids at 130 most per hour which has been decreased down to 75. All medications have been resumed is also receiving Dilaudid for pain management. He underwent EGD / Colonoscopy on 01/31/[address] Bradford which shows external hemorrhoids as well as gastritis. He continued with abdominal pain and diet was decreased back to liquid and patient advanced as tolerated throughout the night. He was evaluated on and reports his abdominal pain is gone and he has been tolerating diet. No nausea or vomiting noted. He would like to go home today. He was educated on diet modifications and smoking cessation. He will see surgery outpatient and repeat labs in 2-3 days. 02/01/2022 Patient evaluated today sitting up in the chair. He is in his street clothes and asking for discharge. He also removed his own IV. He reports no abominal pain, tolerating diet. No chest pain, no shortness of breath. No fevers or chills. No nausea, vomiting. He has not had BM. He is cleared by surgery. Hemoglobin today 13.0. Sodium 139, potassium 3.9, chloride 109, Bun 6, creatinine 11. Troponin negative, liver enzymes normal, lipase 41. Vitals showing 98.1, heart rate 71, blood pressure 149/81, 93% room air. Lungs are clear, S1 S2 auscultated, abdomen palpated with minimal tenderness it has improved. He will discharge today. Please see medication reconciliation for a list of current medications. Thank you for allowing us to participate in the care of this patient. The impression and plan of care has been dictated by Yessenia Anthony, Nurse Practitioner as directed. Dr. Fidel MD I have performed a history and physical examination and medical decision making of this patient, discussed the same with the dictator, and agree with the dictators assessment and plan as written, documented as a scribe. Based on total visit time, I have performed more than 50% of this visit. Patient Condition at Discharge: Stable Plan - Discharge Summary Discharge Rx Participant: No New Discharge Prescriptions: New Pantoprazole [Protonix] 40 mg PO BID 14 Days #28 tab Continue LORazepam [Ativan] 1 mg PO BID QUEtiapine FUMARATE [SEROquel] 600 mg PO HS Escitalopram [Lexapro] 40 mg PO DAILY #4 tab amLODIPine [Norvasc] 10 mg PO DAILY 30 Days #30 tab lisinopriL [Zestril] 10 mg PO DAILY Discharge Medication List Escitalopram [Lexapro] 40 mg PO DAILY #4 tab 01/26/21 [Rx] LORazepam [Ativan] 1 mg PO BID 04/19/21 [History] QUEtiapine FUMARATE [SEROquel] 600 mg PO HS 04/19/21 [History] amLODIPine [Norvasc] 10 mg PO DAILY 30 Days #30 tab 04/25/21 [Rx] lisinopriL [Zestril] 10 mg PO DAILY 01/29/22 [History] Pantoprazole [Protonix] 40 mg PO BID 14 Days #28 tab 02/01/22 [Rx] Follow up Appointment(s)/Referral(s): Willie Guillory MD [Primary Care Provider] - 02/05/22 11:30 am (At [place] office with [place]) Osiel Bradford MD [STAFF PHYSICIAN] - 02/07/22 1:45 pm Ambulatory/Diagnostic Orders: Complete Blood Count w/diff [LAB.AMB] Time Frame: 3 Days, Location: None Selected Patient Instructions/Handouts: Gastritis (DC) Discharge Disposition: HOME SELF-CARE
== END 2022-02-01 13:00 | disposition home or self-care (01) | DRG 378 ==
LOC: EC 16:28 → 4SSUR 19:39
PROVIDERS: ADMIT Hospitalist; ATTEND Hospitalist
PROC: 0DB78ZX Excision of Stomach, Pylorus, Via Natural or Artificial Opening Endoscopic, Diagnostic (ICD-10-PCS; 2022-01-31)
PROC: 0DB38ZX Excision of Lower Esophagus, Via Natural or Artificial Opening Endoscopic, Diagnostic (ICD-10-PCS; principal; 2022-01-31 09:50)
PROC: 0DBN8ZX Excision of Sigmoid Colon, Via Natural or Artificial Opening Endoscopic, Diagnostic (ICD-10-PCS; 2022-01-31 09:50)
PROC: 0DBP8ZX Excision of Rectum, Via Natural or Artificial Opening Endoscopic, Diagnostic (ICD-10-PCS; 2022-01-31 09:50)
DX: K29.01 Acute gastritis with bleeding (principal); K56.7 Ileus, unspecified; B19.20 Unspecified viral hepatitis C without hepatic coma; K64.4 Residual hemorrhoidal skin tags; K57.31 Diverticulosis of large intestine without perforation or abscess with bleeding; F17.210 Nicotine dependence, cigarettes, uncomplicated; F32.A Depression, unspecified; F41.9 Anxiety disorder, unspecified; K62.1 Rectal polyp; K63.5 Polyp of colon; N20.0 Calculus of kidney; Z79.899 Other long term (current) drug therapy; Z87.19 Personal history of other diseases of the digestive system; Z90.49 Acquired absence of other specified parts of digestive tract; Z71.6 Tobacco abuse counseling
CPT/HCPCS: 36415; 43239; 45380; 45385; 74177; 80048; 80053; 84484; 85025; 85027; 85730; 88305; 96361; 96374; 96375; 99285

== ENCOUNTER 2022-02-01 21:55 | Observation (INO) | payer MEDICARE, OTHER ==
[2022-02-01] MEDS ORDERED: SODIUM CHLORIDE 0.9% 500 ML 500 ML IV STA (21:56)
[2022-02-01] MEDS ORDERED: PANTOPRAZOLE 40 MG/10 ML VIAL IVP STA (21:56)
[2022-02-01] MEDS ORDERED: ONDANSETRON 4 MG/2 ML VIAL IVP STA (21:56)
--- NOTE | 2022-02-01 22:01 | ED ---
GI Bleed HPI - General Stated complaint: GI bleed Time Seen by Provider: 02/01/22 21:56 Source: RN notes reviewed, old records reviewed Mode of arrival: EMS Limitations: no limitations - History of Present Illness Initial comments: This is a 66-year-old male presents today for evaluation of bright red blood per rectum, recent upper GI and lower GI as he had hospital admission for undiagnosed abdominal pain. Patient presents today for evaluation as with abdominal pain. Patient is been dealing with GI bleed and abdominal pain for years history of hepatitis C and pancreatitis. MD complaint: blood on toilet paper, blood streaked stool, gross hematochezia -: hour(s) Radiation: none Severity scale (1-10): 6 Quality: cramping, sharp Consistency: intermittent Improves with: none Worsens with: none Context: history of GI bleed Associated Symptoms: nausea, loss of appetite, weakness Treatments Prior to Arrival: none - Related Data Home Medications Medication Instructions Recorded Confirmed LORazepam [Ativan] 1 mg PO BID 04/19/21 02/01/22 QUEtiapine FUMARATE [SEROquel] 600 mg PO HS 04/19/21 02/01/22 lisinopriL [Zestril] 10 mg PO DAILY 01/29/22 02/01/22 Previous Rx's Medication Instructions Recorded Escitalopram [Lexapro] 40 mg PO DAILY #4 tab 01/26/21 amLODIPine [Norvasc] 10 mg PO DAILY 30 Days #30 tab 04/25/21 Pantoprazole [Protonix] 40 mg PO BID 14 Days #28 tab 02/01/22 Allergies Allergy/AdvReac Type Severity Reaction Status Date / Time No Known Allergies Allergy Verified 02/01/22 22:34 Review of Systems ROS Statement: Those systems with pertinent positive or pertinent negative responses have been documented in the HPI. ROS Other: All systems not noted in ROS Statement are negative. Past Medical History Past Medical History: Chest Pain / Angina, GERD/Reflux, Liver Disease Additional Past Medical History / Comment(s): anemia, hx pancreatitis, angina x 1 yrs ago, hepatitis C-no tx recieved for it, kidney stones, CHANGE IN BOWEL HABITS History of Any Multi-Drug Resistant Organisms: None Reported Past Surgical History: Appendectomy, Back Surgery, Cholecystectomy, Orthopedic Surgery, Tonsillectomy Additional Past Surgical History / Comment(s): sx to enlarge urethra opening, lump removed from chest, surgery rt arm(fx), colonoscopy, recent lithotripsy at [facility],03/2019 Past Anesthesia/Blood Transfusion Reactions: No Reported Reaction Past Psychological History: Anxiety, Depression Additional Psychological History / Comment(s): . Smoking Status: Current every day smoker Past Alcohol Use History: None Reported Additional Past Alcohol Use History / Comment(s): started smoking at age 22, smokes 1 ppd. Past Drug Use History: Marijuana Additional Drug Use History / Comment(s): occasional use, instructed to hold 24hrs prior to procedure - Past Family History Mother Family Medical History: No Reported History Additional Family Medical History / Comment(s): bowel obstruction. General Exam General appearance: alert, in no apparent distress Head exam: Present: atraumatic, normocephalic, normal inspection Eye exam: Present: normal appearance, PERRL, EOMI. Absent: scleral icterus, conjunctival injection, periorbital swelling ENT exam: Present: normal exam, mucous membranes moist Neck exam: Present: normal inspection. Absent: tenderness, meningismus, lymphadenopathy Respiratory exam: Present: normal lung sounds bilaterally. Absent: respiratory distress, wheezes, rales, rhonchi, stridor Cardiovascular Exam: Present: regular rate, normal rhythm, normal heart sounds. Absent: systolic murmur, diastolic murmur, rubs, gallop, clicks GI/Abdominal exam: Present: soft, tenderness, normal bowel sounds. Absent: distended, guarding, rebound, rigid Extremities exam: Present: normal inspection, full ROM, normal capillary refill. Absent: tenderness, pedal edema, joint swelling, calf tenderness Back exam: Present: normal inspection Neurological exam: Present: alert, oriented X3, CN II-XII intact Psychiatric exam: Present: normal affect, normal mood Skin exam: Present: warm, dry, intact, normal color. Absent: rash Course Vital Signs 02/01/22 02/01/22 21:57 22:30 Temperature 98.2 F Pulse Rate 71 64 Respiratory 16 14 Rate Blood Pressure 158/93 148/85 O2 Sat by Pulse 98 94 L Oximetry - Reevaluation(s) Reevaluation #1: 02/01/22 22:54 Medical record is reviewed Reevaluation #2: 02/01/22 22:54 Patient informed of results here in the ER, no change in hemoglobin, no bloody bowel movements here in the ER Reevaluation #3: 02/01/22 22:54 Patient is still with abdominal pain although improving - Consultations Consultation #1: Spoke with admitting physicians reviewed with this patient Medical Decision Making - Medical Decision Making 66 male to the emergency department for evaluation of possible GI bleed, recent colonoscopy prior red blood per rectum. Patient will be admitted for monitoring of hemoglobin and surgical evaluation consult - Lab Data Result diagrams: 02/01/22 22:05 02/01/22 22:05 Lab Results 02/01/22 02/01/22 02/01/22 Range/Units 22:05 22:05 22:05 WBC 9.5 (3.8-10.6) k/uL RBC 4.35 (4.30-5.90) m/uL Hgb 13.0 (13.0-17.5) gm/dL Hct 40.7 (39.0-53.0) % MCV 93.6 (80.0-100.0) fL MCH 30.0 (25.0-35.0) pg MCHC 32.0 (31.0-37.0) g/dL RDW 13.1 (11.5-15.5) % Plt Count 187 (150-450) k/uL MPV 6.9 Neutrophils % 77 % Lymphocytes % 13 % Monocytes % 6 % Eosinophils % 3 % Basophils % 0 % Neutrophils # 7.3 (1.3-7.7) k/uL Lymphocytes # 1.3 (1.0-4.8) k/uL Monocytes # 0.5 (0-1.0) k/uL Eosinophils # 0.3 (0-0.7) k/uL Basophils # 0.0 (0-0.2) k/uL PT 10.4 (9.0-12.0) sec INR 1.0 (<1.2) APTT 25.7 (22.0-30.0) sec Sodium 139 (137-145) mmol/L Potassium 3.9 (3.5-5.1) mmol/L Chloride 109 H (98-107) mmol/L Carbon Dioxide 24 (22-30) mmol/L Anion Gap 6 mmol/L BUN 11 (9-20) mg/dL Creatinine 0.67 (0.66-1.25) mg/dL Est GFR (CKD-EPI)AfAm >90 (>60 ml/min/1.73 sqM) Est GFR (CKD-EPI)NonAf >90 (>60 ml/min/1.73 sqM) Glucose 102 H (74-99) mg/dL Calcium 9.2 (8.4-10.2) mg/dL Magnesium 1.8 (1.6-2.3) mg/dL Total Bilirubin 0.2 (0.2-1.3) mg/dL AST 26 (17-59) U/L ALT 19 (4-49) U/L Alkaline Phosphatase 108 (38-126) U/L Troponin I (0.000-0.034) ng/mL Total Protein 6.3 (6.3-8.2) g/dL Albumin 4.0 (3.5-5.0) g/dL 02/01/22 Range/Units 22:05 WBC (3.8-10.6) k/uL RBC (4.30-5.90) m/uL Hgb (13.0-17.5) gm/dL Hct (39.0-53.0) % MCV (80.0-100.0) fL MCH (25.0-35.0) pg MCHC (31.0-37.0) g/dL RDW (11.5-15.5) % Plt Count (150-450) k/uL MPV Neutrophils % % Lymphocytes % % Monocytes % % Eosinophils % % Basophils % % Neutrophils # (1.3-7.7) k/uL Lymphocytes # (1.0-4.8) k/uL Monocytes # (0-1.0) k/uL Eosinophils # (0-0.7) k/uL Basophils # (0-0.2) k/uL PT (9.0-12.0) sec INR (<1.2) APTT (22.0-30.0) sec Sodium (137-145) mmol/L Potassium (3.5-5.1) mmol/L Chloride (98-107) mmol/L Carbon Dioxide (22-30) mmol/L Anion Gap mmol/L BUN (9-20) mg/dL Creatinine (0.66-1.25) mg/dL Est GFR (CKD-EPI)AfAm (>60 ml/min/1.73 sqM) Est GFR (CKD-EPI)NonAf (>60 ml/min/1.73 sqM) Glucose (74-99) mg/dL Calcium (8.4-10.2) mg/dL Magnesium (1.6-2.3) mg/dL Total Bilirubin (0.2-1.3) mg/dL AST (17-59) U/L ALT (4-49) U/L Alkaline Phosphatase (38-126) U/L Troponin I <0.012 (0.000-0.034) ng/mL Total Protein (6.3-8.2) g/dL Albumin (3.5-5.0) g/dL Disposition Clinical Impression: Epigastric pain, Lower gastrointestinal hemorrhage Disposition: ADMITTED IP TO THIS HOSP Condition: Fair Is patient prescribed a controlled substance at d/c from ED?: No Referrals: Willie Guillory MD [Primary Care Provider] - 1-2 days Time of Disposition: 22:55 Decision Time: 22:55
[2022-02-01 22:29] LABS: Basophils % (A) 0 %; Eosinophils # (A) 0.3 k/uL (0-0.7); Eosinophils % (A) 3 %; HCT 40.7 % (39.0-53.0); Lymphocytes # (A) 1.3 k/uL (1.0-4.8); Lymphocytes % (A) 13 %; MCV 93.6 fL (80.0-100.0); Mean Platelet Volume 6.9; Monocytes # (A) 0.5 k/uL (0-1.0); Monocytes % (A) 6 %; Neutrophils # (A) 7.3 k/uL (1.3-7.7); Neutrophils % (A) 77 %; Platelet Count 187 k/uL (150-450); RBC 4.35 m/uL (4.30-5.90); RDW 13.1 % (11.5-15.5); WBC 9.5 k/uL (3.8-10.6)
[2022-02-01 22:38] LABS: ALT 19 U/L (4-49); AST 26 U/L (17-59); African American GFR (CKD) >90 (>60 ml/min/1.73 sqM); Alkaline Phosphatase 108 U/L (38-126); Anion Gap 6 mmol/L; Blood Urea Nitrogen 11 mg/dL (9-20); Calcium 9.2 mg/dL (8.4-10.2); Carbon Dioxide 24 mmol/L (22-30); Chloride 109 mmol/L (98-107); Glucose 102 mg/dL (74-99); Magnesium 1.8 mg/dL (1.6-2.3); Non-African American GFR(CKD) >90 (>60 ml/min/1.73 sqM); Potassium 3.9 mmol/L (3.5-5.1); Sodium 139 mmol/L (137-145); Total Bilirubin 0.2 mg/dL (0.2-1.3); Total Protein 6.3 g/dL (6.3-8.2)
[2022-02-01 22:41] LABS: Partial Thromboplastin Time 25.7 sec (22.0-30.0); Prothrombin Time 10.4 sec (9.0-12.0)
[2022-02-01] MEDS ORDERED: NALOXONE 0.4 MG/ML 1 ML VIAL IV PRN (22:52)
[2022-02-01] MEDS ORDERED: MORPHINE SULFATE 4 MG/ML SYRINGE IVP STA (22:52)
[2022-02-01] MEDS ORDERED: ONDANSETRON 4 MG/2 ML VIAL IVP PRN (22:52)
[2022-02-01] MEDS ORDERED: MORPHINE SULFATE 4 MG/ML SYRINGE IV PRN (22:52)
[2022-02-02] MEDS: QUEtiapine 200 MG TAB PO SCH ×2 (00:42→22:02)
[2022-02-02] MEDS: NICOTINE 21MG/24HR PATCH TRANSDERM SCH ×2 (00:42→07:48)
[2022-02-02] MEDS: LORazepam 2 MG/ML INJ IV PRN ×2 (01:46→20:07)
[2022-02-02 08:37] LABS: Basophils % (A) 0 %; Eosinophils # (A) 0.4 k/uL (0-0.7); Eosinophils % (A) 6 %; HCT 38.9 % (39.0-53.0); HGB 12.7 gm/dL (13.0-17.5); Lymphocytes # (A) 1.2 k/uL (1.0-4.8); Lymphocytes % (A) 21 %; MCH 30.6 pg (25.0-35.0); MCHC 32.6 g/dL (31.0-37.0); MCV 93.7 fL (80.0-100.0); Monocytes # (A) 0.4 k/uL (0-1.0); Monocytes % (A) 6 %; Neutrophils # (A) 3.7 k/uL (1.3-7.7); Neutrophils % (A) 64 %; Platelet Count 171 k/uL (150-450); RBC 4.16 m/uL (4.30-5.90); RDW 13.7 % (11.5-15.5); WBC 5.8 k/uL (3.8-10.6)
[2022-02-02] MEDS ORDERED: PANTOPRAZOLE 40 MG/10 ML VIAL IV SCH (09:00)
[2022-02-02] MEDS ORDERED: HYDROcodone/APAP 5-325MG 1 EACH TAB PO PRN (11:11)
[2022-02-02] MEDS: HYDROmorphone 1 MG/ML 1 ML SYRINGE IVP PRN ×2 (11:27→15:32)
--- NOTE | 2022-02-02 12:05 | P.GSCN ---
History of Present Illness Consult date: 02/02/22 Reason for Consult: GI bleed History of present illness: Is a 66-year-old male had recent hospital admission. He underwent colonoscopy. And EGD. He's had have a couple of polyps external hemorrhoids and some gastritis. Patient states he had a bowel movement yesterday which showed some bright red blood. He denies any abdominal pain. Past Medical History Past Medical History: Chest Pain / Angina, Liver Disease Additional Past Medical History / Comment(s): anemia, hx pancreatitis, angina x 1 yrs ago, hepatitis C-no tx recieved for it, kidney stones, CHANGE IN BOWEL HABITS History of Any Multi-Drug Resistant Organisms: None Reported Past Surgical History: Appendectomy, Back Surgery, Cholecystectomy, Orthopedic Surgery, Tonsillectomy Additional Past Surgical History / Comment(s): sx to enlarge urethra opening, lump removed from chest, surgery rt arm(fx), colonoscopy, recent lithotripsy at [facility],03/2019 Past Anesthesia/Blood Transfusion Reactions: No Reported Reaction Past Psychological History: Anxiety, Depression Additional Psychological History / Comment(s): . Smoking Status: Current every day smoker Past Alcohol Use History: None Reported Additional Past Alcohol Use History / Comment(s): started smoking at age 22,smo kes 1 ppd. Past Drug Use History: Marijuana Additional Drug Use History / Comment(s): occasional use, instructed to hold 24hrs prior to procedure - Past Family History Mother Family Medical History: No Reported History Additional Family Medical History / Comment(s): bowel obstruction. Medications and Allergies Home Medications Medication Instructions Recorded Confirmed Type Escitalopram [Lexapro] 40 mg PO DAILY #4 tab 01/26/21 02/01/22 Rx LORazepam [Ativan] 1 mg PO BID 04/19/21 02/01/22 History QUEtiapine FUMARATE [SEROquel] 600 mg PO HS 04/19/21 02/01/22 History amLODIPine [Norvasc] 10 mg PO DAILY 30 Days #30 tab 04/25/21 02/01/22 Rx lisinopriL [Zestril] 10 mg PO DAILY 01/29/22 02/01/22 History Pantoprazole [Protonix] 40 mg PO BID 14 Days #28 tab 02/01/22 02/01/22 Rx Allergies Allergy/AdvReac Type Severity Reaction Status Date / Time No Known Allergies Allergy Verified 02/01/22 22:34 Surgical - Exam Vital Signs Temp Pulse Resp BP Pulse Ox 98.2 F 71 16 158/93 98 02/01/22 21:57 02/01/22 21:57 02/01/22 21:57 02/01/22 21:57 02/01/22 21:57 - General well developed, well nourished, no distress - Eyes PERRL - ENT normal pinna - Neck no masses - Abdomen Abdomen: soft, non tender Results - Labs 02/02/22 07:59 02/01/22 22:05 Abnormal Lab Results - Last 24 Hours (Table) 02/01/22 02/02/22 Range/Units 22:05 07:59 RBC 4.16 L (4.30-5.90) m/uL Hgb 12.7 L (13.0-17.5) gm/dL Hct 38.9 L (39.0-53.0) % Chloride 109 H (98-107) mmol/L Glucose 102 H (74-99) mg/dL Diabetes panel 02/01/22 Range/Units 22:05 Sodium 139 (137-145) mmol/L Potassium 3.9 (3.5-5.1) mmol/L Chloride 109 H (98-107) mmol/L Carbon Dioxide 24 (22-30) mmol/L BUN 11 (9-20) mg/dL Creatinine 0.67 (0.66-1.25) mg/dL Glucose 102 H (74-99) mg/dL Calcium 9.2 (8.4-10.2) mg/dL AST 26 (17-59) U/L ALT 19 (4-49) U/L Alkaline Phosphatase 108 (38-126) U/L Total Protein 6.3 (6.3-8.2) g/dL Albumin 4.0 (3.5-5.0) g/dL Calcium panel 02/01/22 Range/Units 22:05 Calcium 9.2 (8.4-10.2) mg/dL Albumin 4.0 (3.5-5.0) g/dL Pituitary panel 02/01/22 Range/Units 22:05 Sodium 139 (137-145) mmol/L Potassium 3.9 (3.5-5.1) mmol/L Chloride 109 H (98-107) mmol/L Carbon Dioxide 24 (22-30) mmol/L BUN 11 (9-20) mg/dL Creatinine 0.67 (0.66-1.25) mg/dL Glucose 102 H (74-99) mg/dL Calcium 9.2 (8.4-10.2) mg/dL Adrenal panel 02/01/22 Range/Units 22:05 Sodium 139 (137-145) mmol/L Potassium 3.9 (3.5-5.1) mmol/L Chloride 109 H (98-107) mmol/L Carbon Dioxide 24 (22-30) mmol/L BUN 11 (9-20) mg/dL Creatinine 0.67 (0.66-1.25) mg/dL Glucose 102 H (74-99) mg/dL Calcium 9.2 (8.4-10.2) mg/dL Total Bilirubin 0.2 (0.2-1.3) mg/dL AST 26 (17-59) U/L ALT 19 (4-49) U/L Alkaline Phosphatase 108 (38-126) U/L Total Protein 6.3 (6.3-8.2) g/dL Albumin 4.0 (3.5-5.0) g/dL Assessment and Plan Assessment: Lower GI bleed. Patient be observed. This may represent hemorrhoidal bleeding. If he persists he will need to undergo repeat colonoscopy.
[2022-02-02] MEDS: SODIUM CHLORIDE 0.9% 1,000 ML IV SCH (12:56)
[2022-02-02] MEDS: PANTOPRAZOLE 40 MG/10 ML VIAL IV SCH (20:06)
--- NOTE | 2022-02-02 20:49 | P.HPIM ---
History of Present Illness H&P Date: 02/02/22 Chief Complaint: Abdominal pain, GI bleed This is a pleasant 66 year old male who presents with concerns for abdominal pain and bright red blood from rectum at home. He was dicharged yesterday after under going EGD colonoscopy with Dr Bradford on 01/31/22 showing antral gastr itis there was also polyp removed from descending colon as well as polyp removed from rectum. Biopses taken from antrum and distal esophagus. Patient was monitored overnight as he continued to have abdominal pain post procedure. He was discharged on 02/01 with no aucte events over night and tolerating solid diet. He also had soft formed brown bowel movement prior to discharge. He was discharged on oral protonix 40 BID for 2 weeks and transition to protonix 40 mg po daily. He is concerned with the severity of his abdominal pain, states he felt alright had a soda and he experienced 10/10 abdominal pain left lower quadrant. He was evaluated by surgery and was going to [place] home if tolerating advanced diet however he continues to have bright red blood per rectum. He is NPO and started on IV fluids. Past medical history signifcant for anemia, pancreatitis, hepatitis C, cholecystectomy. He is also daily tobacco smoker smokes around 2 packs per day, occasional marijuana. His hemoglobin is 13 on admission, no white count, sodium 139, potassium 3.9, chloride 109, BUN 11, creat 0.67, troponin is negative. Liver enzymes are normal. Lipase is 119 and 41. He is afebrile, heart rate 65, blood pressure 150/74, 94% on room air. REVIEW OF SYSTEMS: CONSTITUTIONAL: No fever, no malaise, no fatigue. HEENT: No recent visual problems or hearing problems. Denied any sore throat. CARDIOVASCULAR: No chest pain, orthopnea, PND, no palpitations, no syncope. PULMONARY: No shortness of breath, no cough, no hemoptysis. GASTROINTESTINAL: LLQ abdominal pain rated 10/10 on admit, bright red blood per rectum NEUROLOGICAL: No headaches, no weakness, no numbness. HEMATOLOGICAL: Denies any bleeding or petechiae. GENITOURINARY: Denies any burning micturition, frequency, or urgency. MUSCULOSKELETAL/RHEUMATOLOGICAL: Denies any joint pain, swelling, or any muscle pain. ENDOCRINE: Denies any polyuria or polydipsia. The rest of the 14-point review of systems is negative. PHYSICAL EXAMINATION: GENERAL: The patient is alert and oriented x3, not in any acute distress. Well developed, well nourished. HEENT: Pupils are round and equally reacting to light. EOMI. No scleral icterus. No conjunctival pallor. Normocephalic, atraumatic. No pharyngeal erythema. No thyromegaly. CARDIOVASCULAR: S1 and S2 present. No murmurs, rubs, or gallops. PULMONARY: Chest is clear to auscultation, no wheezing or crackles. ABDOMEN: Soft, tender, nondistended, normoactive bowel sounds. No palpable organomegaly. MUSCULOSKELETAL: No joint swelling or deformity. EXTREMITIES: No cyanosis, clubbing, or pedal edema. NEUROLOGICAL: Gross neurological examination did not reveal any focal deficits. SKIN: No rashes. Assessment and Plan Assessment Rectal bleeding post colonoscopy, surgery has been consulted Acute antral gastritis Left lower quadrant pain History anemia History pancreatitis Hepatitis C Chronic daily tobacco use; counseling provided THC use GI Prophylaxis DVT Prophylaxis Full Code Plan Continue IV hydration Clear liquid diet Surgical consultation Resume home medications Nicotine patch IV protonix AM CBC The impression and plan of care has been dictated by Yessenia Anthony Nurse Practitioner as directed. Dr. Fidel MD I have performed a history and physical examination and medical decision making of this patient, discussed the same with the dictator, and agree with the dictators assessment and plan as written, documented as a scribe. Based on total visit time, I have performed more than 50% of this visit. Past Medical History Past Medical History: Chest Pain / Angina, Liver Disease Additional Past Medical History / Comment(s): anemia, hx pancreatitis, angina x 1 yrs ago, hepatitis C-no tx recieved for it, kidney stones, CHANGE IN BOWEL H ABITS History of Any Multi-Drug Resistant Organisms: None Reported Past Surgical History: Appendectomy, Back Surgery, Cholecystectomy, Orthopedic Surgery, Tonsillectomy Additional Past Surgical History / Comment(s): sx to enlarge urethra opening, lump removed from chest, surgery rt arm(fx), colonoscopy, recent lithotripsy at [facility],03/2019 Past Anesthesia/Blood Transfusion Reactions: No Reported Reaction Past Psychological History: Anxiety, Depression Additional Psychological History / Comment(s): . Smoking Status: Current every day smoker Past Alcohol Use History: None Reported Additional Past Alcohol Use History / Comment(s): started smoking at age 22,s mokes 1 ppd. Past Drug Use History: Marijuana Additional Drug Use History / Comment(s): occasional use, instructed to hold 24hrs prior to procedure - Past Family History Mother Family Medical History: No Reported History Additional Family Medical History / Comment(s): bowel obstruction. Medications and Allergies Home Medications Medication Instructions Recorded Confirmed Type Escitalopram [Lexapro] 40 mg PO DAILY #4 tab 01/26/21 02/01/22 Rx LORazepam [Ativan] 1 mg PO BID 04/19/21 02/01/22 History QUEtiapine FUMARATE [SEROquel] 600 mg PO HS 04/19/21 02/01/22 History amLODIPine [Norvasc] 10 mg PO DAILY 30 Days #30 tab 04/25/21 02/01/22 Rx lisinopriL [Zestril] 10 mg PO DAILY 01/29/22 02/01/22 History Pantoprazole [Protonix] 40 mg PO BID 14 Days #28 tab 02/01/22 02/01/22 Rx Allergies Allergy/AdvReac Type Severity Reaction Status Date / Time No Known Allergies Allergy Verified 02/01/22 22:34 Physical Exam Vitals: Vital Signs Temp Pulse Pulse Resp BP BP Pulse Ox 02/02/22 07:00 98.1 F 71 18 149/81 93 L 02/02/22 01:16 97.9 F 59 L 17 151/80 94 L 02/02/22 00:04 98.4 F 69 17 143/76 97 02/01/22 22:30 64 14 148/85 94 L 02/01/22 21:57 98.2 F 71 16 158/93 98 Intake and Output 02/01/22 02/02/22 02/02/22 22:59 06:59 14:59 Other: # Voids 2 Weight 67.585 kg 67.585 kg Results CBC & Chem 7: 02/02/22 07:59 02/01/22 22:05 Labs: Abnormal Lab Results - Last 24 Hours (Table) 02/01/22 02/02/22 Range/Units 22:05 07:59 RBC 4.16 L (4.30-5.90) m/uL Hgb 12.7 L (13.0-17.5) gm/dL Hct 38.9 L (39.0-53.0) % Chloride 109 H (98-107) mmol/L Glucose 102 H (74-99) mg/dL Thrombosis Risk Factor Assmnt - Choose All That Apply Any of the Below Risk Factors Present?: No Other Risk Factors: Yes Each Risk Factor Represents 2 Points: Age 61-74 years Other congenital or acquired thrombophilia - If yes, enter type in comment: No Thrombosis Risk Factor Assessment Total Risk Factor Score: 2 Thrombosis Risk Factor Assessment Level: Low Risk Assessment and Plan Time with Patient: Less than 30
[2022-02-03] MEDS: HYDROmorphone 1 MG/ML 1 ML SYRINGE IVP PRN (06:25)
[2022-02-03] MEDS: PANTOPRAZOLE 40 MG/10 ML VIAL IV SCH (08:27)
[2022-02-03] MEDS: NICOTINE 21MG/24HR PATCH TRANSDERM SCH (08:28)
[2022-02-03] MEDS: SODIUM CHLORIDE 0.9% 1,000 ML IV SCH (08:32)
[2022-02-03 09:21] LABS: Basophils # (A) 0.03 X 10*3/uL (0.00-0.10); Basophils % (A) 0.5 %; Eosinophils # (A) 0.35 X 10*3/uL (0.04-0.35); Eosinophils % (A) 6.4 %; HCT 35.8 % (39.6-50.0); HGB 11.2 g/dL (13.0-17.0); Immature Grans, Automated 0.2 %; Lymphocytes # (A) 1.29 X 10*3/uL (0.90-5.00); Lymphocytes % (A) 23.5 %; MCH 29.2 pg (27.0-32.0); MCHC 31.3 g/dL (32.0-37.0); MCV 93.5 fL (80.0-97.0); Mean Platelet Volume 9.2 fL (9.5-12.2); Monocytes # (A) 0.49 X 10*3/uL (0.20-1.00); Monocytes % (A) 8.9 %; NRBC Per 100 WBC 0 /100 WBCS (0.0-0.0); Neutrophils # (A) 3.33 X 10*3/uL (1.80-7.70); Neutrophils % (A) 60.5 %; Platelet Count 163 X 10*3/uL (140-440); RBC 3.83 X 10*6/uL (4.40-5.60); RDW 13.5 % (11.5-14.5)
[2022-02-03 10:00] LABS: African American GFR (CKD) 109.8 (60.0-200.0); Anion Gap 6.4 mmol/L (10.00-18.00); BUN/Creat Ratio 14.12 Ratio (12.00-20.00); Calcium 8.9 mg/dL (8.7-10.3); Carbon Dioxide 26.6 mmol/L (20.0-27.5); Non-African American GFR(CKD) 94.8 (60.0-200.0); Potassium 3.9 mmol/L (3.5-5.5)
[2022-02-03] MEDS ORDERED: lisinopriL 10 MG TAB PO SCH (10:45)
[2022-02-03] MEDS ORDERED: amLODIPine 10 MG TAB PO SCH (10:45)
[2022-02-03] MEDS ORDERED: LORazepam 1 MG TAB PO SCH (10:45)
[2022-02-03] MEDS ORDERED: PANTOPRAZOLE 40 MG TABLET PO SCH (10:45)
[2022-02-03] MEDS ORDERED: DOCUSATE 100 MG CAP PO SCH (12:00)
--- NOTE | 2022-02-03 12:15 | P.PN ---
Progress Note - Text Progress Note Date: 02/03/22 Patient feels well. He denies any abdominal pain. He's had no evidence of any bloody bowel movement's. On exam vital signs are stable. Abdomen soft. Patient will start on regular diet. We'll plan for discharge tomorrow.
[2022-02-03] MEDS ORDERED: ACETAMINOPHEN TAB 325 MG TAB PO PRN (14:57)
[2022-02-03 14:59] VITALS: BP 156/74; PULSE 69; RESP 17; TEMP 97.8
--- NOTE | 2022-02-03 15:03 | P.PN ---
Subjective Progress Note Date: 02/03/22 This is a pleasant 66 year old male who presents with concerns for abdominal pain and bright red blood from rectum at home. He was dicharged yesterday after under going EGD colonoscopy with Dr Bradford on 01/31/22 showing antral gastritis there was also polyp removed from descending colon as well as polyp removed from rectum. Biopses taken from antrum and distal esophagus. Patient was monitored overnight as he continued to have abdominal pain post procedure. He was discharged on 02/01 with no aucte events over night and tolerating solid diet. He also had soft formed brown bowel movement prior to discharge. He was discharged on oral protonix 40 BID for 2 weeks and transition to protonix 40 mg po daily. He is concerned with the severity of his abdominal pain, states he felt alright had a soda and he experienced 10/10 abdominal pain left lower quadrant. He was evaluated by surgery and was going to [place] home if tolerating advanced diet however he continues to have bright red blood per rectum. He is NPO and started on IV fluids. Past medical history signifcant for anemia, pancreatitis, hepatitis C, cholecystectomy. He is also daily tobacco smoker smokes around 2 packs per day, occasional marijuana. His hemoglobin is 13 on admission, no white count, sodium 139, potassium 3.9, chloride 109, BUN 11, creat 0.67, troponin is negative. Liver enzymes are normal. Lipase is 119 and 41. He is afebrile, heart rate 65, blood pressure 150/74, 94% on room air. 02/03/2022 Patient evaluated today resting in bed, he has no further episodes of rectal bleeding and has been started on diet and will continue to monitor overnight if patient remains stable with discharge home tomorrow. He continues on IV protonix while inpatient. He is also receiving nicotine patch counseled on diet modifications. Hemoglobin stable today at 11.2, chemistry panel unremarkable. Blood pressure 142/81, afebrile, heart rate 62, 93% room air. Review of Systems Constitutional: Denied any fatigue denied any fever. Cardio vascular: denied any chest pain, palpitations Gastrointestinal: denied any nausea, vomiting, diarrhea, denies blood in stool or rectal bleeding. Pulmonary: Denied any shortness of breath cough Neurologic denied any new focal deficits All inpatient medications were reviewed and appropriate changes in these medications as dictated in the interval history and assessment and plan. PHYSICAL EXAMINATION: GENERAL: The patient is alert and oriented x3, not in any acute distress. Well developed, well nourished. HEENT: Pupils are round and equally reacting to light. EOMI. No scleral icterus. No conjunctival pallor. Normocephalic, atraumatic. No pharyngeal erythema. No thyromegaly. CARDIOVASCULAR: S1 and S2 present. No murmurs, rubs, or gallops. PULMONARY: Chest is clear to auscultation, no wheezing or crackles. ABDOMEN: Soft, tender, nondistended, normoactive bowel sounds. No palpable or ganomegaly. MUSCULOSKELETAL: No joint swelling or deformity. EXTREMITIES: No cyanosis, clubbing, or pedal edema. NEUROLOGICAL: Gross neurological examination did not reveal any focal deficits. SKIN: No rashes. Assessment and Plan Assessment Rectal bleeding post colonoscopy x 1, hemoglobin stable Acute antral gastritis Left lower quadrant pain History anemia History pancreatitis Hepatitis C Chronic daily tobacco use; counseling provided THC use GI Prophylaxis DVT Prophylaxis Full Code Plan Diet has been advanced Surgical consultation Resume home medications Nicotine patch IV protonix AM CBC Discharge planned for tomorrow if patient continues to tolerate diet with no further episode of GI bleeding. The impression and plan of care has been dictated by Yessenia Anthony Nurse Practitioner as directed. Dr. Fidel MD I have performed a history and physical examination and medical decision making of this patient, discussed the same with the dictator, and agree with the dictators assessment and plan as written, documented as a scribe. Based on total visit time, I have performed more than 50% of this visit. Objective - Vital Signs Vital signs: Vital Signs Temp 97.6 F 02/03/22 07:00 Pulse 62 02/03/22 08:00 Resp 18 02/03/22 08:00 BP 142/81 02/03/22 07:00 Pulse Ox 93 L 02/03/22 07:00 FiO2 Intake & Output 02/02/22 02/03/22 02/03/22 18:59 06:59 18:59 Intake Total 222 120 Output Total 1550 2000 200 Balance -1328 -2000 -80 Intake: Oral 222 120 Output: Urine 1350 1800 Stool 200 200 200 Other: # Bowel Movements 1 - Labs CBC & Chem 7: 02/03/22 06:27 02/03/22 06:27 Labs: Abnormal Lab Results - Last 24 Hours (Table) 02/03/22 02/03/22 Range/Units 06:27 06:27 RBC 3.83 L (4.40-5.60) X 10*6/uL Hgb 11.2 L (13.0-17.0) g/dL Hct 35.8 L (39.6-50.0) % MCHC 31.3 L (32.0-37.0) g/dL MPV 9.2 L (9.5-12.2) fL Anion Gap 6.40 L (10.00-18.00) mmol/L Assessment and Plan Time with Patient: Less than 30
[2022-02-03] MEDS ORDERED: ESCITALOPRAM 20 MG TAB PO SCH (15:45)
[2022-02-03] MEDS ORDERED: HYDROcodone/APAP 5-325MG 1 EACH TAB PO PRN (15:52)
--- NOTE | 2022-02-03 16:30 | P.DS ---
Providers Date of admission: 02/01/22 22:52 Attending physician: Swapna Randolph Consults: 02/01/22 22:52 Consult Physician Routine Consulting Provider: Osiel Bradford Consult Reason/Comments: known,colonoscopy Do you want consulting provider notified?: Yes Primary care physician: Willie Guillory MD Hospital Course: Patient has left AMA. He has had no complaints of abdominal pain today and upon assessment he is feeling well. Abdomen was palpated with no focal tenderness. He was monitored overnight as recommended by Dr Bradford and today plan was to increase diet and discharge home tomorrow. Dilaudid and norco have been discontinued and tylenol on board for pain management. He is also on IV protonix. Patient became upset when dilaudid was discontinued. Note that he has not had any IV dilaudid since 02/02/22 in the evening. Surgery did not want to resume norco. Patient states he takes norco at home, there is no record of patient taking norco at home and patient no longer having acute pain. Medical agreeing on conservative pain management as patient does not appear in acute pain on assessment. Patient left AMA. He has an appointment with Dr Guillory on February 05, has an appointment with Dr Bradford on February 07 - follow up appointments from previous hospital stay. Patient Condition at Discharge: Undetermined Plan - Discharge Summary Discharge Rx Participant: No New Discharge Prescriptions: No Action LORazepam [Ativan] 1 mg PO BID QUEtiapine FUMARATE [SEROquel] 600 mg PO HS Pantoprazole [Protonix] 40 mg PO BID 14 Days #28 tab Escitalopram [Lexapro] 40 mg PO DAILY #4 tab amLODIPine [Norvasc] 10 mg PO DAILY 30 Days #30 tab lisinopriL [Zestril] 10 mg PO DAILY Discharge Medication List Escitalopram [Lexapro] 40 mg PO DAILY #4 tab 01/26/21 [Rx] LORazepam [Ativan] 1 mg PO BID 04/19/21 [History] QUEtiapine FUMARATE [SEROquel] 600 mg PO HS 04/19/21 [History] amLODIPine [Norvasc] 10 mg PO DAILY 30 Days #30 tab 04/25/21 [Rx] lisinopriL [Zestril] 10 mg PO DAILY 01/29/22 [History] Pantoprazole [Protonix] 40 mg PO BID 14 Days #28 tab 02/01/22 [Rx] Follow up Appointment(s)/Referral(s): Willie Guillory MD [Primary Care Provider] - 1-2 days Discharge Disposition: Left Against Medical Advice
[2022-02-03] MEDS ORDERED: PANTOPRAZOLE 40 MG/10 ML VIAL IVP SCH (21:00)
== END 2022-02-03 16:09 | disposition left against medical advice (07) ==
LOC: EC 21:55 → 6NMEDSUR 22:52
PROVIDERS: ADMIT Hospitalist; ATTEND Hospitalist
DX: K92.1 Melena (principal); K29.00 Acute gastritis without bleeding; Z53.29 Procedure and treatment not carried out because of patient's decision for other reasons; D64.9 Anemia, unspecified; F17.210 Nicotine dependence, cigarettes, uncomplicated; F32.A Depression, unspecified; F41.9 Anxiety disorder, unspecified; K64.4 Residual hemorrhoidal skin tags; K21.9 Gastro-esophageal reflux disease without esophagitis; Z86.010 Personal history of colon polyps; Z87.442 Personal history of urinary calculi; Z87.19 Personal history of other diseases of the digestive system; Z86.19 Personal history of other infectious and parasitic diseases; Z71.6 Tobacco abuse counseling; Z71.3 Dietary counseling and surveillance; Z79.899 Other long term (current) drug therapy; Z90.49 Acquired absence of other specified parts of digestive tract
CPT/HCPCS: 96376 ×2; 96375 ×2; 96361; 96374; 99285; 36415; 86900; 86901; 80053; 80048; 83690 ×2; 83735; 84484; 85025 ×3; 85610; 85730; 86850; G0378 ×3; S4990 ×2; J2060; J2270 ×2; J2405; J1170 ×2; C9113 ×3

== ENCOUNTER 2022-04-01 13:45 | Emergency (ER) | payer MEDICARE, OTHER ==
[2022-04-01] MEDS ORDERED: SODIUM CHLORIDE 0.9% 1,000 ML IV STA (13:49)
[2022-04-01] MEDS ORDERED: SODIUM CHLORIDE 0.9% 500 ML 500 ML IV STA (13:49)
--- NOTE | 2022-04-01 13:52 | ED ---
General Adult HPI - General Stated complaint: abd pain Time Seen by Provider: 04/01/22 13:45 Source: patient, RN notes reviewed, old records reviewed - History of Present Illness Initial comments: This is a 66-year-old male presents emergency Department complaining of a 3 month history of abdominal pain. Patient states on the right middle and left middle abdomen. Patient states she's been scoped with an endoscopy and colonos copy in both were fine according to him. Patient states she's also had a CAT scan. Patient denies any fever chills per patient states if he eats or drinks anything his abdomen becomes more painful so he doesn't eat or drink much. Patient states he has diarrhea all the time but he has no vomiting. Patient denies any recent fever chills patient denies being on antibiotics recently. Patient states he had worse pain today. Patient states he can't eat or drink so he needed to come back to the hospital. - Related Data Home Medications Medication Instructions Recorded Confirmed LORazepam [Ativan] 1 mg PO BID 04/19/21 04/01/22 QUEtiapine FUMARATE [SEROquel] 600 mg PO HS 04/19/21 04/01/22 lisinopriL [Zestril] 10 mg PO DAILY 01/29/22 04/01/22 Atorvastatin [Lipitor] 40 mg PO HS 04/01/22 04/01/22 Clopidogrel [Plavix] 75 mg PO DAILY 04/01/22 04/01/22 Dextroamphetamine/Amphetamine 40 mg PO DAILY 04/01/22 04/01/22 [Adderall 20 mg Tablet] Perphenazine 8mg Tablet 16 mg PO HS 04/01/22 04/01/22 cilostazoL 100 mg PO AC-BID 04/01/22 04/01/22 Previous Rx's Medication Instructions Recorded Escitalopram [Lexapro] 40 mg PO DAILY #4 tab 01/26/21 amLODIPine [Norvasc] 10 mg PO DAILY 30 Days #30 tab 04/25/21 Ciprofloxacin HCl [Cipro] 500 mg PO Q12HR #20 tablet 04/01/22 Allergies Allergy/AdvReac Type Severity Reaction Status Date / Time No Known Allergies Allergy Verified 02/01/22 22:34 Review of Systems ROS Statement: Those systems with pertinent positive or pertinent negative responses have been documented in the HPI. ROS Other: All systems not noted in ROS Statement are negative. Past Medical History Past Medical History: Chest Pain / Angina, Liver Disease Additional Past Medical History / Comment(s): anemia, hx pancreatitis, angina x 1 yrs ago, hepatitis C-no tx recieved for it, kidney stones, CHANGE IN BOWEL HABITS History of Any Multi-Drug Resistant Organisms: None Reported Past Surgical History: Appendectomy, Back Surgery, Cholecystectomy, Orthopedic Surgery, Tonsillectomy Additional Past Surgical History / Comment(s): sx to enlarge urethra opening, lump removed from chest, surgery rt arm(fx), colonoscopy, recent lithotripsy at [facility],03/2019 Past Anesthesia/Blood Transfusion Reactions: No Reported Reaction Past Psychological History: Anxiety, Depression Additional Psychological History / Comment(s): . Smoking Status: Current every day smoker Past Alcohol Use History: None Reported Additional Past Alcohol Use History / Comment(s): started smoking at age 22,smokes 1 ppd. Past Drug Use History: Marijuana Additional Drug Use History / Comment(s): occasional use, instructed to hold 24hrs prior to procedure - Past Family History Mother Family Medical History: No Reported History Additional Family Medical History / Comment(s): bowel obstruction. General Exam - General Exam Comments Initial Comments: GENERAL: Patient is well-developed and well-nourished. Patient is nontoxic and well- hydrated and is in mild distress. ENT: Neck is soft and supple. No significant lymphadenopathy is noted. Oropharynx is clear. Dry mucous membranes. Neck has full range of motion without eliciting any pain. EYES: The sclera were anicteric and conjunctiva were pink and moist. Extraocular movements were intact and pupils were equal round and reactive to light. Eyelids were unremarkable. PULMONARY: Unlabored respirations. Good breath sounds bilaterally. No audible rales r honchi or wheezing was noted. CARDIOVASCULAR: There is a regular rate and rhythm without any murmurs gallops or rubs. ABDOMEN: Patient is tenderness in the mid right and mid left abdomen there is no rebound or guarding. SKIN: Skin is clear with no lesions or rashes and otherwise unremarkable. NEUROLOGIC: Patient is alert and oriented x3. Cranial nerves II through XII are grossly intact. Motor and sensory are also intact. Normal speech, volume and content. Symmetrical smile. MUSCULOSKELETAL: Normal extremities with adequate strength and full range of motion. No lower extremity swelling or edema. No calf tenderness. LYMPHATICS: No significant lymphadenopathy is noted PSYCHIATRIC: Normal psychiatric evaluation. Course Vital Signs 04/01/22 04/01/22 13:46 17:07 Temperature 98.5 F 98.2 F Pulse Rate 75 64 Respiratory 16 Rate Blood Pressure 133/78 129/80 O2 Sat by Pulse 98 95 Oximetry Medical Decision Making - Medical Decision Making EKG shows sinus rhythm at 74 bpm IA interval is 161 QRS is under 10 Q-T intervals 326 QTC is 353 per patient's EKG shows no ST segment elevation or depression. Patient's computed tomography scan abdomen pelvis show no acute normalities. New. Patient did receive a gram Rocephin for the urinary tract infection. Patient will follow-up with a GI doctor. - Lab Data Result diagrams: 04/01/22 13:58 04/01/22 13:58 Lab Results 04/01/22 04/01/22 04/01/22 Range/Units 13:58 13:58 13:58 WBC 7.2 (3.8-10.6) k/uL RBC 4.39 (4.30-5.90) m/uL Hgb 13.0 (13.0-17.5) gm/dL Hct 41.3 (39.0-53.0) % MCV 94.2 (80.0-100.0) fL MCH 29.6 (25.0-35.0) pg MCHC 31.4 (31.0-37.0) g/dL RDW 13.7 (11.5-15.5) % Plt Count 182 (150-450) k/uL MPV 7.1 Neutrophils % 72 % Lymphocytes % 16 % Monocytes % 8 % Eosinophils % 2 % Basophils % 1 % Neutrophils # 5.2 (1.3-7.7) k/uL Lymphocytes # 1.2 (1.0-4.8) k/uL Monocytes # 0.5 (0-1.0) k/uL Eosinophils # 0.1 (0-0.7) k/uL Basophils # 0.0 (0-0.2) k/uL Hypochromasia Slight Sodium 140 (137-145) mmol/L Potassium 3.8 (3.5-5.1) mmol/L Chloride 113 H (98-107) mmol/L Carbon Dioxide 22 (22-30) mmol/L Anion Gap 5 mmol/L BUN 11 (9-20) mg/dL Creatinine 0.71 (0.66-1.25) mg/dL Est GFR (CKD-EPI)AfAm >90 (>60 ml/min/1.73 sqM) Est GFR (CKD-EPI)NonAf >90 (>60 ml/min/1.73 sqM) Glucose 126 H (74-99) mg/dL Plasma Lactic Acid Rigo 1.0 (0.7-2.0) mmol/L Calcium 8.7 (8.4-10.2) mg/dL Total Bilirubin 0.1 L (0.2-1.3) mg/dL AST 35 (17-59) U/L ALT 30 (4-49) U/L Alkaline Phosphatase 101 (38-126) U/L Total Protein 6.4 (6.3-8.2) g/dL Albumin 4.0 (3.5-5.0) g/dL Amylase 38 (30-110) U/L Lipase 291 (23-300) U/L Urine Color Urine Appearance (Clear) Urine pH (5.0-8.0) Ur Specific Ulysses (1.001-1.035) Urine Protein (Negative) Urine Glucose (UA) (Negative) Urine Ketones (Negative) Urine Blood (Negative) Urine Nitrite (Negative) Urine Bilirubin (Negative) Urine Urobilinogen (<2.0) mg/dL Ur Leukocyte Esterase (Negative) Urine RBC (0-5) /hpf Urine WBC (0-5) /hpf Urine Bacteria (None) /hpf Hyaline Casts (0-2) /lpf Urine Mucus (None) /hpf 04/01/22 Range/Units 14:36 WBC (3.8-10.6) k/uL RBC (4.30-5.90) m/uL Hgb (13.0-17.5) gm/dL Hct (39.0-53.0) % MCV (80.0-100.0) fL MCH (25.0-35.0) pg MCHC (31.0-37.0) g/dL RDW (11.5-15.5) % Plt Count (150-450) k/uL MPV Neutrophils % % Lymphocytes % % Monocytes % % Eosinophils % % Basophils % % Neutrophils # (1.3-7.7) k/uL Lymphocytes # (1.0-4.8) k/uL Monocytes # (0-1.0) k/uL Eosinophils # (0-0.7) k/uL Basophils # (0-0.2) k/uL Hypochromasia Sodium (137-145) mmol/L Potassium (3.5-5.1) mmol/L Chloride (98-107) mmol/L Carbon Dioxide (22-30) mmol/L Anion Gap mmol/L BUN (9-20) mg/dL Creatinine (0.66-1.25) mg/dL Est GFR (CKD-EPI)AfAm (>60 ml/min/1.73 sqM) Est GFR (CKD-EPI)NonAf (>60 ml/min/1.73 sqM) Glucose (74-99) mg/dL Plasma Lactic Acid Rigo (0.7-2.0) mmol/L Calcium (8.4-10.2) mg/dL Total Bilirubin (0.2-1.3) mg/dL AST (17-59) U/L ALT (4-49) U/L Alkaline Phosphatase (38-126) U/L Total Protein (6.3-8.2) g/dL Albumin (3.5-5.0) g/dL Amylase (30-110) U/L Lipase (23-300) U/L Urine Color Yellow Urine Appearance Clear (Clear) Urine pH 6.0 (5.0-8.0) Ur Specific Ulysses 1.010 (1.001-1.035) Urine Protein Negative (Negative) Urine Glucose (UA) Negative (Negative) Urine Ketones Negative (Negative) Urine Blood Large H (Negative) Urine Nitrite Positive (Negative) Urine Bilirubin Negative (Negative) Urine Urobilinogen <2.0 (<2.0) mg/dL Ur Leukocyte Esterase Moderate H (Negative) Urine RBC 36 H (0-5) /hpf Urine WBC 8 H (0-5) /hpf Urine Bacteria Rare H (None) /hpf Hyaline Casts 1 (0-2) /lpf Urine Mucus Rare H (None) /hpf Disposition Clinical Impression: Urinary tract infection, Chronic abdominal pain Disposition: HOME SELF-CARE Instructions (If sedation given, give patient instructions): Abdominal Pain (ED), Urinary Tract Infection in Men (ED) Prescriptions: Ciprofloxacin HCl [Cipro] 500 mg PO Q12HR #20 tablet Is patient prescribed a controlled substance at d/c from ED?: No Referrals: Willie Guillory MD [Primary Care Provider] - 1-2 days Time of Disposition: 18:03
[2022-04-01 13:55] VITALS: RESP 16
[2022-04-01 14:04] LABS: Basophils % (A) 1 %; Eosinophils # (A) 0.1 k/uL (0-0.7); Eosinophils % (A) 2 %; HCT 41.3 % (39.0-53.0); Hypochromasia Slight; Lymphocytes # (A) 1.2 k/uL (1.0-4.8); Lymphocytes % (A) 16 %; MCH 29.6 pg (25.0-35.0); MCHC 31.4 g/dL (31.0-37.0); MCV 94.2 fL (80.0-100.0); Mean Platelet Volume 7.1; Monocytes # (A) 0.5 k/uL (0-1.0); Monocytes % (A) 8 %; Neutrophils # (A) 5.2 k/uL (1.3-7.7); Neutrophils % (A) 72 %; Platelet Count 182 k/uL (150-450); RBC 4.39 m/uL (4.30-5.90); RDW 13.7 % (11.5-15.5); WBC 7.2 k/uL (3.8-10.6)
[2022-04-01 14:14] LABS: ALT 30 U/L (4-49); AST 35 U/L (17-59); African American GFR (CKD) >90 (>60 ml/min/1.73 sqM); Alkaline Phosphatase 101 U/L (38-126); Amylase 38 U/L (30-110); Anion Gap 5 mmol/L; Blood Urea Nitrogen 11 mg/dL (9-20); Calcium 8.7 mg/dL (8.4-10.2); Carbon Dioxide 22 mmol/L (22-30); Chloride 113 mmol/L (98-107); Glucose 126 mg/dL (74-99); Lipase 291 U/L (23-300); Non-African American GFR(CKD) >90 (>60 ml/min/1.73 sqM); Potassium 3.8 mmol/L (3.5-5.1); Sodium 140 mmol/L (137-145); Total Bilirubin 0.1 mg/dL (0.2-1.3); Total Protein 6.4 g/dL (6.3-8.2)
[2022-04-01 14:55] LABS: Appearance,Urine Clear (Clear); Bacteria,Urine Rare /hpf; Bilirubin,Urine Negative (Negative); Blood,Urine Large (Negative); Color,Urine Yellow; Glucose,Urine (UA) Negative (Negative); Hyaline Casts,Urine 1 /lpf (0-2); Ketones,Urine Negative (Negative); Leukocyte Esterase,Urine Moderate (Negative); Mucus,Urine Rare /hpf; Nitrite,Urine Positive (Negative); Protein,Urine Negative (Negative); RBC,Urine 36 /hpf (0-5); Urobilinogen,Urine <2.0 mg/dL (<2.0); WBC,Urine 8 /hpf (0-5)
[2022-04-01] MEDS ORDERED: HYDROmorphone 0.5 MG/0.5 ML SYRINGE IVP STA (16:43)
--- NOTE | 2022-04-01 17:00 | CT ---
EXAMINATION TYPE: CT abdomen pelvis wo con CT DLP: 542.2 mGycm, Automated exposure control for dose reduction was used. DATE OF EXAM: 04/01/2022 4:36 PM COMPARISON: CT abdomen pelvis most recent from 01/29/2022 . CLINICAL INDICATION:Male, 66 years old with history of Abdominal pain; Generalized abdominal pain. TECHNIQUE: Standard CT of the abdomen and pelvis without IV or oral contrast. Lack of IV or oral co ntrast limits evaluation of solid and hollow organ viscera. Coronal and sagittal reformats were perfo rmed. FINDINGS: LOWER CHEST: Bibasilar scarring and/or atelectasis. Coronary artery calcifications. ABDOMEN LIVER: Unremarkable noncontrast appearance. GALLBLADDER AND BILE DUCTS: The gallbladder is surgically absent. No intrahepatic biliary ductal dila tation. Common bile duct measures up to 10 mm is not unexpected in the setting of cholecystectomy. PANCREAS: Unremarkable noncontrast appearance. SPLEEN: Unremarkable noncontrast appearance. ADRENAL GLANDS: Unremarkable noncontrast appearance. KIDNEYS AND URETERS: Nonobstructive bilateral renal calculi largest in the right measuring up to 5 mm and largest on the left measuring up to 8 mm. These are relatively stable from prior exam. PELVIS BLADDER: Unremarkable REPRODUCTIVE: Coarse calcifications of the prostate gland are identified. Medial lobe hypertrophy whi ch indents upon the urinary bladder base. ABDOMEN & PELVIS STOMACH AND BOWEL: Stomach and duodenum are unremarkable. No focal wall thickening or surrounding inf lammatory changes. Fluid-filled nondistended small bowel loops identified. The appendix is not defini tively visualized however there is no significant inflammatory changes within the right lower quadran t. No pneumatosis or portal venous gas. No evidence of bowel obstruction. PERITONEUM: No evidence of pneumoperitoneum or free fluid. VASCULATURE: Moderate atherosclerotic calcifications are present throughout the abdominal aorta and i ts branches. No evidence of aortic aneurysm. MUSCULOSKELETAL: No acute osseous abnormalities. Postsurgical changes from posterior fusion involving the lumbar spine at L4-S1 with bilateral pedicular screws and rods and disc spacers. There are assoc iated laminectomy changes. Mild retrolisthesis of L3 on L4. LYMPH NODES: No gross evidence for lymphadenopathy. SOFT TISSUE/ABDOMINAL WALL: Tiny fat filled umbilical hernia. IMPRESSION: 1. No acute abdominal/pelvic process within limitations of a noncontrast exam. 2. Nonobstructive bilateral renal calculi.
[2022-04-01 17:08] VITALS: BP 129/80; PULSE 64; TEMP 98.2
[2022-04-01] MEDS ORDERED: cefTRIAXone IN SWFI 1,000 MG/10 ML SYRINGE IVP STA (18:04)
== END 2022-04-01 18:16 | disposition home or self-care (01) ==
LOC: EC 13:45
DX: R10.9 Unspecified abdominal pain (principal); N39.0 Urinary tract infection, site not specified; F41.9 Anxiety disorder, unspecified; F32.A Depression, unspecified; F17.200 Nicotine dependence, unspecified, uncomplicated; F12.90 Cannabis use, unspecified, uncomplicated
CPT/HCPCS: 80053; 82150; 83605; 83690; 85025; 87086; 74176; 99284; 96374; 96375; 96361 ×4; J0696; J1170; 36415; 81001

== ENCOUNTER 2022-05-10 23:36 | Emergency (ER) | payer MEDICARE, OTHER ==
[2022-05-10 23:51] VITALS: TEMP 97.8
--- NOTE | 2022-05-11 03:11 | XR ---
EXAMINATION TYPE: XR KUB DATE OF EXAM: 05/11/2022 COMPARISON: 04/26/2021 HISTORY: Abdominal pain TECHNIQUE: 2 views upright FINDINGS: There is no evidence of free air. There is some gas distended bowel in the mid abdomen that could be large bowel. No calcifications definitely seen over the kidneys. There is increased density over the abdomen that raises the possibility of ascites. Lung bases are clear. IMPRESSION: Possible ascites. Possible intestinal ileus. No free air.
[2022-05-11 03:58] LABS: Basophils % (A) 0 %; Eosinophils # (A) 0.4 k/uL (0-0.7); Eosinophils % (A) 5 %; HCT 41.4 % (39.0-53.0); HGB 13.2 gm/dL (13.0-17.5); Lymphocytes # (A) 1.5 k/uL (1.0-4.8); Lymphocytes % (A) 17 %; MCH 29.4 pg (25.0-35.0); MCHC 31.8 g/dL (31.0-37.0); MCV 92.2 fL (80.0-100.0); Mean Platelet Volume 7.1; Monocytes # (A) 0.6 k/uL (0-1.0); Monocytes % (A) 7 %; Neutrophils # (A) 5.8 k/uL (1.3-7.7); Neutrophils % (A) 68 %; Platelet Count 174 k/uL (150-450); RBC 4.49 m/uL (4.30-5.90); RDW 13.6 % (11.5-15.5); WBC 8.6 k/uL (3.8-10.6)
[2022-05-11 04:03] LABS: Appearance,Urine Clear (Clear); Bilirubin,Urine Negative (Negative); Blood,Urine Negative (Negative); Color,Urine Yellow; Glucose,Urine (UA) Negative (Negative); Ketones,Urine Negative (Negative); Leukocyte Esterase,Urine Negative (Negative); Nitrite,Urine Negative (Negative); PH, Urine 5.5 (5.0-8.0); Protein,Urine Negative (Negative); Specific Gravity,Urine 1.011 (1.001-1.035); Urobilinogen,Urine <2.0 mg/dL (<2.0)
[2022-05-11 04:08] LABS: ALT 40 U/L (4-49); AST 41 U/L (17-59); African American GFR (CKD) >90 (>60 ml/min/1.73 sqM); Alkaline Phosphatase 101 U/L (38-126); Anion Gap 11 mmol/L; Blood Urea Nitrogen 12 mg/dL (9-20); Calcium 9.1 mg/dL (8.4-10.2); Carbon Dioxide 23 mmol/L (22-30); Chloride 105 mmol/L (98-107); Glucose 92 mg/dL (74-99); Lipase 152 U/L (23-300); Non-African American GFR(CKD) >90 (>60 ml/min/1.73 sqM); Sodium 139 mmol/L (137-145); Total Bilirubin 0.4 mg/dL (0.2-1.3); Total Protein 6.3 g/dL (6.3-8.2)
[2022-05-11 04:31] LABS: Amylase <30 U/L (30-110)
--- NOTE | 2022-05-11 06:16 | CT ---
EXAMINATION TYPE: CT abdomen pelvis wo con DATE OF EXAM: 05/11/2022 COMPARISON: 04/01/2022 HISTORY: abdominal pain. prior on PACS CT DLP: 481.1 mGycm Automated exposure control for dose reduction was used. Images obtained from the diaphragm to the floor the pelvis with no contrast. Heart size is normal. No pericardial effusion. No pleural effusion. Liver spleen, pancreas appear int act. There is atherosclerotic vascular calcification. There are clips from cholecystectomy. The bile duct are not dilated. There is no adrenal mass. There are multiple bilateral renal calculi. These measure up to 8 mm. No hy dronephrosis. The bladder distends smoothly. No inguinal hernia. No free fluid in the pelvis. No pelv ic mass. No evidence of a bowel obstruction. No evidence of free air. No ascites. The lumbar vertebrae have normal alignment. There is posterior fusion surgery at L4-5 and L5-S1. No c ompression fracture. The bony pelvis is intact. The hip joints are intact. There is laminectomy in th e lower lumbar spine. IMPRESSION: Multiple bilateral renal calculi. No sign of renal obstruction. Calculi not significantly different t judd last exam. No acute abnormality of the abdomen and pelvis.
[2022-05-11] MEDS ORDERED: HYDROmorphone 0.5 MG/0.5 ML SYRINGE IVP STA (06:30)
[2022-05-11] MEDS ORDERED: SODIUM CHLORIDE 0.9% 1,000 ML IV STA (06:30)
--- NOTE | 2022-05-11 06:54 | ED ---
Abdominal Pain HPI - General Chief Complaint: Abdominal Pain Stated Complaint: abd pain Time Seen by Provider: 05/11/22 05:57 Source: patient, EMS, RN notes reviewed Mode of arrival: EMS - History of Present Illness Initial Comments: This is a 66-year-old male who presents to the emergency department for abdominal pain and hematemesis. Patient states that for the last month, he has had lower abdominal pain with diarrhea. He has intermittent bouts of blood in his stool. He has been evaluated for this issue in the past without any notable findings on imaging or laboratory studies. Patient states that his primary care provider is concerned that he may not be getting enough blood to his bowels and was put on a blood thinner. However, he has not noticed any improvement since taking this. This morning, he had one episode where he had a small amount of blood in his vomit. This was mixed in with food and other material. He has not had any episodes since. Pain is the primary symptom at this time. He is unable to have much to eat or drink, as he states it exacerbates the pain and makes him feel bloated. Currently taking Tylenol for his pain, which has not been eff ective. Denies any fevers, chills, sore throat, cough, dyspnea, chest pain, palpitations, back pain, or headaches. MD Complaint: abdominal pain Onset/Timin -: month(s) Location: periumbilical, LLQ, RLQ Associated Symptoms: nausea, vomiting, diarrhea - Related Data Home Medications Medication Instructions Recorded Confirmed LORazepam [Ativan] 1 mg PO BID 04/19/21 04/01/22 QUEtiapine FUMARATE [SEROquel] 600 mg PO HS 04/19/21 04/01/22 lisinopriL [Zestril] 10 mg PO DAILY 01/29/22 04/01/22 Atorvastatin [Lipitor] 40 mg PO HS 04/01/22 04/01/22 Clopidogrel [Plavix] 75 mg PO DAILY 04/01/22 04/01/22 Dextroamphetamine/Amphetamine 40 mg PO DAILY 04/01/22 04/01/22 [Adderall 20 mg Tablet] Perphenazine 8mg Tablet 16 mg PO HS 04/01/22 04/01/22 cilostazoL 100 mg PO AC-BID 04/01/22 04/01/22 Previous Rx's Medication Instructions Recorded Escitalopram [Lexapro] 40 mg PO DAILY #4 tab 01/26/21 amLODIPine [Norvasc] 10 mg PO DAILY 30 Days #30 tab 04/25/21 Ciprofloxacin HCl [Cipro] 500 mg PO Q12HR #20 tablet 04/01/22 Celecoxib 100 mg PO BID PRN #20 capsule 05/11/22 HYDROcodone/APAP 5-325MG [[place] 1 tab PO Q6HR PRN 3 Days #12 tab 05/11/22 5-325] Ondansetron Odt [Zofran Odt] 4 mg PO Q8HR PRN #30 tab 05/11/22 Pantoprazole [Protonix] 40 mg PO DAILY #20 tab 05/11/22 Allergies Allergy/AdvReac Type Severity Reaction Status Date / Time No Known Allergies Allergy Verified 05/10/22 23:47 Review of Systems ROS Statement: Those systems with pertinent positive or pertinent negative responses have been documented in the HPI. ROS Other: All systems not noted in ROS Statement are negative. Past Medical History Past Medical History: Chest Pain / Angina, Liver Disease Additional Past Medical History / Comment(s): anemia, hx pancreatitis, angina x 1 yrs ago, hepatitis C-no tx recieved for it, kidney stones, CHANGE IN BOWEL HABITS History of Any Multi-Drug Resistant Organisms: None Reported Past Surgical History: Appendectomy, Back Surgery, Cholecystectomy, Orthopedic Surgery, Tonsillectomy Additional Past Surgical History / Comment(s): sx to enlarge urethra opening, lump removed from chest, surgery rt arm(fx), colonoscopy, recent lithotripsy at [facility],03/2019 Past Anesthesia/Blood Transfusion Reactions: No Reported Reaction Past Psychological History: Anxiety, Depression Smoking Status: Current every day smoker Past Alcohol Use History: None Reported Past Drug Use History: Marijuana - Past Family History Mother Family Medical History: No Reported History Additional Family Medical History / Comment(s): bowel obstruction. General Exam General appearance: alert, in distress Head exam: Present: atraumatic, normocephalic, normal inspection Respiratory exam: Present: normal lung sounds bilaterally. Absent: respiratory distress, wheezes, rales, rhonchi, stridor Cardiovascular Exam: Present: regular rate, normal rhythm, normal heart sounds. Absent: systolic murmur, diastolic murmur, rubs, gallop, clicks GI/Abdominal exam: Present: soft, tenderness (periumbilical), normal bowel sounds. Absent: distended Neurological exam: Present: alert, oriented X3, CN II-XII intact Psychiatric exam: Present: normal affect, normal mood Skin exam: Present: warm, dry, intact, normal color. Absent: rash Course Vital Signs 05/10/22 05/11/22 23:48 08:00 Temperature 97.8 F Pulse Rate 71 70 Respiratory 15 16 Rate Blood Pressure 119/72 130/87 O2 Sat by Pulse 98 96 Oximetry Medical Decision Making - Medical Decision Making This is a 66-year-old male who presents to the emergency department for abdominal pain and one episode of hematemesis. Lab work and urinalysis were nonactionable. KUB revealed concerns of possible ascites or ileus. Computed tomography scan of the abdomen and pelvis was then obtained, revealing no acute irregularities to support the concerns mentioned on the KUB. Patient's pain was managed in the emergency department. Given the unremarkable lab work and imaging, patient is stable for discharge home. Prescription for Celebrex provided to take as opposed ibuprofen, which he states upsets his stomach. Discussed with the patient that this is shown to cause less abdominal discomfort, however if this does occur, he should discontinue taking it. Advise he take this with Tylenol. Prescription for Protonix provided as well to begin taking each morning. He was also given a prescription for Zofran to take as needed for nausea and vomiting. Short-term course of it was provided to use very sparingly in the event he is unable to tolerate Celebrex and Tylenol was not effective. Information for follow-up with Dr. Quiroz's office was provided, he is instructed to contact them for a follow-up appointment. Return precautions reviewed in depth, the patient is instructed to return to the emergency department with any new, worsening, or concerning symptoms. Patient verbalized understanding. This case was discussed in detail with the attending ED physician. Presentation, findings, and treatment plan discussed in detail as well. - Lab Data Result diagrams: 05/11/22 03:41 05/11/22 03:41 Lab Results 05/11/22 05/11/22 05/11/22 Range/Units 03:41 03:41 03:41 WBC 8.6 (3.8-10.6) k/uL RBC 4.49 (4.30-5.90) m/uL Hgb 13.2 (13.0-17.5) gm/dL Hct 41.4 (39.0-53.0) % MCV 92.2 (80.0-100.0) fL MCH 29.4 (25.0-35.0) pg MCHC 31.8 (31.0-37.0) g/dL RDW 13.6 (11.5-15.5) % Plt Count 174 (150-450) k/uL MPV 7.1 Neutrophils % 68 % Lymphocytes % 17 % Monocytes % 7 % Eosinophils % 5 % Basophils % 0 % Neutrophils # 5.8 (1.3-7.7) k/uL Lymphocytes # 1.5 (1.0-4.8) k/uL Monocytes # 0.6 (0-1.0) k/uL Eosinophils # 0.4 (0-0.7) k/uL Basophils # 0.0 (0-0.2) k/uL Sodium 139 (137-145) mmol/L Potassium 4.0 (3.5-5.1) mmol/L Chloride 105 (98-107) mmol/L Carbon Dioxide 23 (22-30) mmol/L Anion Gap 11 mmol/L BUN 12 (9-20) mg/dL Creatinine 0.73 (0.66-1.25) mg/dL Est GFR (CKD-EPI)AfAm >90 (>60 ml/min/1.73 sqM) Est GFR (CKD-EPI)NonAf >90 (>60 ml/min/1.73 sqM) Glucose 92 (74-99) mg/dL Calcium 9.1 (8.4-10.2) mg/dL Total Bilirubin 0.4 (0.2-1.3) mg/dL AST 41 (17-59) U/L ALT 40 (4-49) U/L Alkaline Phosphatase 101 (38-126) U/L Total Protein 6.3 (6.3-8.2) g/dL Albumin 4.0 (3.5-5.0) g/dL Amylase <30 L (30-110) U/L Lipase 152 (23-300) U/L Urine Color Yellow Urine Appearance Clear (Clear) Urine pH 5.5 (5.0-8.0) Ur Specific [place] 1.011 (1.001-1.035) Urine Protein Negative (Negative) Urine Glucose (UA) Negative (Negative) Urine Ketones Negative (Negative) Urine Blood Negative (Negative) Urine Nitrite Negative (Negative) Urine Bilirubin Negative (Negative) Urine Urobilinogen <2.0 (<2.0) mg/dL Ur Leukocyte Esterase Negative (Negative) - Radiology Data Radiology results: report reviewed, image reviewed Disposition Clinical Impression: Abdominal pain, Hematemesis Disposition: HOME SELF-CARE Instructions (If sedation given, give patient instructions): Gastritis (ED), Abdominal Pain (ED), Hematemesis (ED) Additional Instructions: Return to the emergency department with any new, worsening, or concerning symptoms. Try taking the Celebrex with Tylenol, the Celebrex is less likely to cause abdominal discomfort, however if it does, stop taking it. Take the Viking sparingly, when your pain is the most severe. Begin taking the pantoprazole daily. Take this first thing in the morning before taking another medication or having anything to eat. The Zofran to be taken up to every 8 hours as needed for nausea and vomiting. Contact Dr. Quiroz's office as listed below for a follow-up appointment of ongoing symptoms. Follow-up with your primary care provider next week for reevaluation of abdominal pain. Prescriptions: Celecoxib 100 mg PO BID PRN #20 capsule PRN Reason: Pain HYDROcodone/APAP 5-325MG [[place] 5-325] 1 tab PO Q6HR PRN 3 Days #12 tab PRN Reason: Pain Pantoprazole [Protonix] 40 mg PO DAILY #20 tab Ondansetron Odt [Zofran Odt] 4 mg PO Q8HR PRN #30 tab PRN Reason: Nausea And Vomiting Is patient prescribed a controlled substance at d/c from ED?: Yes When asked, does pt state using other controlled substances?: Yes If prescribed controlled substance>3 days was MAPS reviewed?: Prescribed <3 Days Referrals: Nigel Crane [Primary Care Provider] - 1-2 days Lizzeth Quiroz MD [STAFF PHYSICIAN] - 1-2 days
[2022-05-11 08:02] VITALS: BP 130/87; PULSE 70; RESP 16
== END 2022-05-11 09:00 | disposition home or self-care (01) ==
LOC: SUPCPDRO 23:36 → EC 23:36
DX: K92.0 Hematemesis (principal); F17.200 Nicotine dependence, unspecified, uncomplicated
CPT/HCPCS: 36415; 80053; 82150; 83690; 85025; 81003; 74018; 74176; 99284; 96374; 96361; J1170

== ENCOUNTER 2022-09-11 11:24 | Emergency (ER) | payer MEDICARE ==
[2022-09-11 11:36] VITALS: TEMP 98.5
[2022-09-11] MEDS ORDERED: PANTOPRAZOLE 40 MG/10 ML VIAL IVP ONE (12:00)
[2022-09-11] MEDS ORDERED: SODIUM CHLORIDE 0.9% 1,000 ML IV STA (12:00)
--- NOTE | 2022-09-11 12:00 | ED ---
Abdominal Pain HPI - General Source: patient, RN notes reviewed Mode of arrival: ambulatory Limitations: no limitations <Shaggy Jaeger - Last Filed: 09/11/22 11:57> <Howie Huynh - Last Filed: 09/11/22 13:41> - General Chief Complaint: Abdominal Pain Stated Complaint: abd pain Time Seen by Provider: 09/11/22 11:50 - History of Present Illness Initial Comments: 66-year-old male presents to emergency dept chief complaint of abdominal pain. Patient states the pain worsened Over night. Patient states it's in his upper abdomen. Patient does have a history of pancreatitis. Patient states is still has been darker than usual states that was black color. He has no dysuria no hematuria denies any fevers or chills no chest pain or shortness breath he does have history of pancreatitis and feels similar to this. (Shaggy Jaeger) - Related Data Home Medications Medication Instructions Recorded Confirmed LORazepam [Ativan] 1 mg PO BID 04/19/21 04/01/22 QUEtiapine FUMARATE [SEROquel] 600 mg PO HS 04/19/21 04/01/22 lisinopriL [Zestril] 10 mg PO DAILY 01/29/22 04/01/22 Atorvastatin [Lipitor] 40 mg PO HS 04/01/22 04/01/22 Clopidogrel [Plavix] 75 mg PO DAILY 04/01/22 04/01/22 Dextroamphetamine/Amphetamine 40 mg PO DAILY 04/01/22 04/01/22 [Adderall 20 mg Tablet] Perphenazine 8mg Tablet 16 mg PO HS 04/01/22 04/01/22 cilostazoL 100 mg PO AC-BID 04/01/22 04/01/22 Previous Rx's Medication Instructions Recorded Escitalopram [Lexapro] 40 mg PO DAILY #4 tab 01/26/21 amLODIPine [Norvasc] 10 mg PO DAILY 30 Days #30 tab 04/25/21 Ciprofloxacin HCl [Cipro] 500 mg PO Q12HR #20 tablet 04/01/22 Celecoxib 100 mg PO BID PRN #20 capsule 05/11/22 HYDROcodone/APAP 5-325MG [[place] 1 tab PO Q6HR PRN 3 Days #12 tab 05/11/22 5-325] Ondansetron Odt [Zofran Odt] 4 mg PO Q8HR PRN #30 tab 05/11/22 Pantoprazole [Protonix] 40 mg PO DAILY #20 tab 05/11/22 Allergies Allergy/AdvReac Type Severity Reaction Status Date / Time No Known Allergies Allergy Verified 09/11/22 11:35 Review of Systems ROS Other: All systems not noted in ROS Statement are negative. <Shaggy Jaeger - Last Filed: 09/11/22 11:57> ROS Other: All systems not noted in ROS Statement are negative. <Howie Huynh - Last Filed: 09/11/22 13:41> ROS Statement: Those systems with pertinent positive or pertinent negative responses have been documented in the HPI. Past Medical History Past Medical History: Chest Pain / Angina, Liver Disease Additional Past Medical History / Comment(s): anemia, hx pancreatitis, angina x 1 yrs ago, hepatitis C-no tx recieved for it, kidney stones, CHANGE IN BOWEL HABITS History of Any Multi-Drug Resistant Organisms: None Reported Past Surgical History: Appendectomy, Back Surgery, Cholecystectomy, Orthopedic Surgery, Tonsillectomy Additional Past Surgical History / Comment(s): sx to enlarge urethra opening, lump removed from chest, surgery rt arm(fx), colonoscopy, recent lithotripsy at [facility],03/2019 Past Anesthesia/Blood Transfusion Reactions: No Reported Reaction Past Psychological History: Anxiety, Depression Smoking Status: Current every day smoker Past Alcohol Use History: None Reported Past Drug Use History: Marijuana - Past Family History Mother Family Medical History: No Reported History Additional Family Medical History / Comment(s): bowel obstruction. <Shaggy Jaeger - Last Filed: 09/11/22 11:57> General Exam Limitations: no limitations <Shaggy Jaeger - Last Filed: 09/11/22 11:57> General appearance: alert, in no apparent distress <Howie Huynh - Last Filed: 09/11/22 13:41> Course Vital Signs 09/11/22 09/11/22 09/11/22 11:34 12:39 13:00 Temperature 98.5 F Pulse Rate 80 84 82 Respiratory 20 18 18 Rate Blood Pressure 165/97 176/95 172/94 O2 Sat by Pulse 99 97 98 Oximetry Medical Decision Making - Lab Data Result diagrams: 09/11/22 12:09 09/11/22 12:09 <Howie Huynh - Last Filed: 09/11/22 13:41> - Medical Decision Making Patient presents with abdominal pain. He has no tenderness in the epigastric area or elsewhere on the belly. He is concern for recurrent pancreatitis. I considered a CT of the abdomen and pelvis, however given that the patient tolerates oral intake and he has no tenderness I don't see that it is indicated now. I obtained laboratory studies which are interpreted by me as normal at was, normal CBC, normal lipase. I did order the patient IV Protonix. Patient is feeling much better. I considered admission, but the patient is feeling well and tolerates oral intakes I feel he is stable for discharge this time. (Howie Huynh) - Lab Data Lab Results 09/11/22 09/11/22 09/11/22 Range/Units 12:05 12:09 12:09 WBC 7.8 (3.8-10.6) k/uL RBC 5.08 (4.30-5.90) m/uL Hgb 14.5 (13.0-17.5) gm/dL Hct 44.9 (39.0-53.0) % MCV 88.4 (80.0-100.0) fL MCH 28.5 (25.0-35.0) pg MCHC 32.3 (31.0-37.0) g/dL RDW 13.8 (11.5-15.5) % Plt Count 205 (150-450) k/uL MPV 6.7 Neutrophils % 80 % Lymphocytes % 12 % Monocytes % 5 % Eosinophils % 1 % Basophils % 0 % Neutrophils # 6.2 (1.3-7.7) k/uL Lymphocytes # 1.0 (1.0-4.8) k/uL Monocytes # 0.4 (0-1.0) k/uL Eosinophils # 0.1 (0-0.7) k/uL Basophils # 0.0 (0-0.2) k/uL PT 10.8 (9.0-12.0) sec INR 1.0 (<1.2) APTT 23.6 (22.0-30.0) sec Sodium (137-145) mmol/L Potassium (3.5-5.1) mmol/L Chloride (98-107) mmol/L Carbon Dioxide (22-30) mmol/L Anion Gap mmol/L BUN (9-20) mg/dL Creatinine (0.66-1.25) mg/dL Est GFR (CKD-EPI)AfAm (>60 ml/min/1.73 sqM) Est GFR (CKD-EPI)NonAf (>60 ml/min/1.73 sqM) Glucose (74-99) mg/dL Plasma Lactic Acid [place] (0.7-2.0) mmol/L Calcium (8.4-10.2) mg/dL Total Bilirubin (0.2-1.3) mg/dL AST (17-59) U/L ALT (4-49) U/L Alkaline Phosphatase (38-126) U/L Total Protein (6.3-8.2) g/dL Albumin (3.5-5.0) g/dL Amylase (30-110) U/L Lipase (23-300) U/L Urine Color Urine Appearance (Clear) Urine pH (5.0-8.0) Ur Specific [place] (1.001-1.035) Urine Protein (Negative) Urine Glucose (UA) (Negative) Urine Ketones (Negative) Urine Blood (Negative) Urine Nitrite (Negative) Urine Bilirubin (Negative) Urine Urobilinogen (<2.0) mg/dL Ur Leukocyte Esterase (Negative) Blood Type O Positive Blood Type Recheck O Pos Bld Type Recheck Status No Antibody Screen NEGATIVE Spec Expiration Date 09/14/2022 - 230409/11/22 09/11/22 09/11/22 Range/Units 12:09 12:09 12:09 WBC (3.8-10.6) k/uL RBC (4.30-5.90) m/uL Hgb (13.0-17.5) gm/dL Hct (39.0-53.0) % MCV (80.0-100.0) fL MCH (25.0-35.0) pg MCHC (31.0-37.0) g/dL RDW (11.5-15.5) % Plt Count (150-450) k/uL MPV Neutrophils % % Lymphocytes % % Monocytes % % Eosinophils % % Basophils % % Neutrophils # (1.3-7.7) k/uL Lymphocytes # (1.0-4.8) k/uL Monocytes # (0-1.0) k/uL Eosinophils # (0-0.7) k/uL Basophils # (0-0.2) k/uL PT (9.0-12.0) sec INR (<1.2) APTT (22.0-30.0) sec Sodium 140 (137-145) mmol/L Potassium 4.5 (3.5-5.1) mmol/L Chloride 107 (98-107) mmol/L Carbon Dioxide 25 (22-30) mmol/L Anion Gap 8 mmol/L BUN 9 (9-20) mg/dL Creatinine 0.67 (0.66-1.25) mg/dL Est GFR (CKD-EPI)AfAm >90 (>60 ml/min/1.73 sqM) Est GFR (CKD-EPI)NonAf >90 (>60 ml/min/1.73 sqM) Glucose 99 (74-99) mg/dL Plasma Lactic Acid [place] 0.9 (0.7-2.0) mmol/L Calcium 9.2 (8.4-10.2) mg/dL Total Bilirubin 0.6 (0.2-1.3) mg/dL AST 37 (17-59) U/L ALT 30 (4-49) U/L Alkaline Phosphatase 101 (38-126) U/L Total Protein 7.6 (6.3-8.2) g/dL Albumin 4.7 (3.5-5.0) g/dL Amylase 36 (30-110) U/L Lipase 83 (23-300) U/L Urine Color Colorless Urine Appearance Clear (Clear) Urine pH 6.5 (5.0-8.0) Ur Specific [place] 1.003 (1.001-1.035) Urine Protein Negative (Negative) Urine Glucose (UA) Negative (Negative) Urine Ketones Negative (Negative) Urine Blood Negative (Negative) Urine Nitrite Negative (Negative) Urine Bilirubin Negative (Negative) Urine Urobilinogen <2.0 (<2.0) mg/dL Ur Leukocyte Esterase Negative (Negative) Blood Type Blood Type Recheck Bld Type Recheck Status Antibody Screen Spec Expiration Date Disposition <Shaggy Jaeger - Last Filed: 09/11/22 11:57> Is patient prescribed a controlled substance at d/c from ED?: No <Spink,Howie - Last Filed: 09/11/22 13:41> Clinical Impression: Chronic abdominal pain Disposition: HOME SELF-CARE Condition: Good Instructions (If sedation given, give patient instructions): Abdominal Pain (ED ) Referrals: None,Stated [Primary Care Provider] - 1-2 days Lizzeth Quiroz MD [STAFF PHYSICIAN] - 1-2 days
[2022-09-11 12:19] LABS: Basophils % (A) 0 %; Eosinophils # (A) 0.1 k/uL (0-0.7); Eosinophils % (A) 1 %; HCT 44.9 % (39.0-53.0); HGB 14.5 gm/dL (13.0-17.5); Lymphocytes % (A) 12 %; MCH 28.5 pg (25.0-35.0); MCHC 32.3 g/dL (31.0-37.0); MCV 88.4 fL (80.0-100.0); Mean Platelet Volume 6.7; Monocytes # (A) 0.4 k/uL (0-1.0); Monocytes % (A) 5 %; Neutrophils # (A) 6.2 k/uL (1.3-7.7); Neutrophils % (A) 80 %; Platelet Count 205 k/uL (150-450); RBC 5.08 m/uL (4.30-5.90); RDW 13.8 % (11.5-15.5); WBC 7.8 k/uL (3.8-10.6)
[2022-09-11] MEDS ORDERED: HYDROmorphone 1 MG/ML 1 ML SYRINGE IVP STA (12:22)
[2022-09-11 12:32] LABS: ALT 30 U/L (4-49); African American GFR (CKD) >90 (>60 ml/min/1.73 sqM); Albumin 4.7 g/dL (3.5-5.0); Alkaline Phosphatase 101 U/L (38-126); Amylase 36 U/L (30-110); Anion Gap 8 mmol/L; Calcium 9.2 mg/dL (8.4-10.2); Carbon Dioxide 25 mmol/L (22-30); Chloride 107 mmol/L (98-107); Lipase 83 U/L (23-300); Non-African American GFR(CKD) >90 (>60 ml/min/1.73 sqM); Potassium 4.5 mmol/L (3.5-5.1); Sodium 140 mmol/L (137-145); Total Protein 7.6 g/dL (6.3-8.2)
[2022-09-11 12:33] LABS: Glucose 99 mg/dL (74-99)
[2022-09-11 12:34] LABS: AST 37 U/L (17-59); Blood Urea Nitrogen 9 mg/dL (9-20); Total Bilirubin 0.6 mg/dL (0.2-1.3)
[2022-09-11 12:40] LABS: Partial Thromboplastin Time 23.6 sec (22.0-30.0); Prothrombin Time 10.8 sec (9.0-12.0)
[2022-09-11 12:44] VITALS: RESP 18
[2022-09-11 13:15] LABS: Appearance,Urine Clear (Clear); Bilirubin,Urine Negative (Negative); Blood,Urine Negative (Negative); Color,Urine Colorless; Glucose,Urine (UA) Negative (Negative); Ketones,Urine Negative (Negative); Leukocyte Esterase,Urine Negative (Negative); Nitrite,Urine Negative (Negative); PH, Urine 6.5 (5.0-8.0); Protein,Urine Negative (Negative); Specific Gravity,Urine 1.003 (1.001-1.035); Urobilinogen,Urine <2.0 mg/dL (<2.0)
[2022-09-11 14:54] VITALS: BP 174/108; PULSE 67
== END 2022-09-11 14:54 | disposition home or self-care (01) ==
LOC: EC 11:24
DX: G89.29 Other chronic pain (principal); R10.10 Upper abdominal pain, unspecified; F41.9 Anxiety disorder, unspecified; F32.A Depression, unspecified; F17.290 Nicotine dependence, other tobacco product, uncomplicated; Z79.899 Other long term (current) drug therapy
CPT/HCPCS: 36415; 86900; 86901; 80053; 82150; 83605; 83690; 85025; 85610; 85730; 86850; 81003; 99284; 96374; 96375; 96361; J1170; C9113

== ENCOUNTER 2022-09-12 13:35 | Emergency (ER) | payer MEDICARE, OTHER ==
[2022-09-12 13:43] VITALS: TEMP 98.3
[2022-09-12] MEDS ORDERED: SODIUM CHLORIDE 0.9% 1,000 ML IV STA (14:06)
[2022-09-12] MEDS ORDERED: MAG HYDROX/AL HYDROX/SIMETH 30 ML, HYOSCYAMINE ELIXIR 10 ML, LIDOCAINE VISCOUS 2% 10 ML PO STA ×3 (14:24)
--- NOTE | 2022-09-12 14:26 | ED ---
General Adult HPI - General Chief complaint: Abdominal Pain Stated complaint: stomach pain Time Seen by Provider: 09/12/22 14:01 Source: patient, EMS Mode of arrival: EMS - History of Present Illness Initial comments: Dictation was produced using [employer] dictation software. please excuse any grammatical, word or spelling errors. Chief Complaint: 66-year-old male presents emergency department for abdominal pain History of Present Illness: Is 66-year-old male presents emergency department for abdominal pain. Patient was recently seen in emergency department where he he was evaluated and sent home. Patient states that he has. Prandial pain. States that he has severe burning like pain to his mid abdominal area. States that happens while he is eating. Patient denies any fever. Does complain of some mild associated nausea. States that over the last several days he's noticed black stools. Was seen here in emergency department yesterday for the s lynnette complaint was sent home after having had normal labs available tolerate oral intake. The ROS documented in this emergency department record has been reviewed and confirmed by me. Those systems with pertinent positive or negative responses have been documented in the HPI. All other systems are other negative and/or noncontributory. PHYSICAL EXAM: General Impression: Alert and oriented x3, not in acute distress HEENT: Normocephalic atraumatic, extra-ocular movements intact, pupils equal and reactive to light bilaterally, mucous membranes moist. Cardiovascular: Heart regular rate and rhythm Chest: Able to complete full sentences, no retractions, no tachypnea Abdomen: abdomen soft, palpatory pain to the. Buccal area, non-distended, no organomegaly Musculoskeletal: Pulses present and equal in all extremities, no peripheral edema Motor: no focal deficits noted Neurological: CN II-XII grossly intact, no focal motor or sensory deficits noted Skin: Intact with no visualized rashes Psych: Normal affect and mood Rectal exam: No gross blood, and this is unremarkable ED course: 66-year-old male presents emergency department for several days of abdominal pain. Seen here yesterday for the same complaint. Patient states that the pain is severe prompting him to return to the emergency department. He is given outpatient referral to GI specialist however they were unable to see hi m until the month of October. Vital Signs upon arrival are within acceptable limits. Nursing notes and chart review was performed My EKG interpretation: Ventricular rate 63, sinus rhythm,. 190, QRS 92, QTc 440. No MT prolongation, no QTC prolongation, no ST or T-wave changes noted. Overall, this EKG is unremarkable Laboratory evaluation obtained. CBC, metabolic panel is unremarkable. Lipase negative. Cervical blood is negative. Computed tomography scan of the abdomen and pelvis is baseline. Patient reports improvement with GI cocktail. Patient told to take the Protonix that he was prescribed yesterday. He is told that he can also use [id number] medications like Tums to bleed some of his symptoms. Was pt. sent in by a medical professional or institution (, PA, DRUM TENDER, urgent care, hospital, or alf...) When possible be specific @ -No Did you speak to anyone other than the patient for history (EMS, parent, family, police, friend...)? What history was obtained from this source @ -No Did you review nursing and triage notes (agree or disagree)? Why? @ -I reviewed and agree with nursing and triage notes Were old charts reviewed (outside hosp., previous admission, EMS record, old EKG, old radiological studies, urgent care reports/EKG's, alf records)? Report findings @ -No old charts were reviewed Differential Diagnosis (chest pain, altered mental status, abdominal pain women, abdominal pain men, vaginal bleeding, weakness, fever, dyspnea, syncope, headache, dizziness, GI bleed, back pain, seizure, CVA, palpatations, mental health)? @ -Differential Abdominal Pain Men: Appendicitis, cholecystitis, diverticulosis, ischemic bowel, pancreatitis, hepatitis, UTI, gastroenteritis, AAA, incarcerated hernia, bowel obstruction, constipation, inflammatory bowel, hepatitis, peptic ulcer disease, splenic infarction, perforated viscus, testicular torsion, this is not meant to be an all-inclusive list EKG interpreted by me (3pts min.). @ -As above X-rays interpreted by me (1pt min.). @ -None done CT interpreted by me (1pt min.). @ -As above U/S interpreted by me (1pt. min.). @ -None done What testing was considered but not performed or refused? (CT, X-rays, U/S, labs)? Why? @ -See above What meds were considered but not given or refused? Why? @ -See above Did you discuss the management of the patient with other professionals (professionals i.e. , PA, DRUM TENDER, lab, RT, psych nurse, social scientist, rehabilitation psychologist, teacher, grant officer, case repairer)? Give summary @ -See above Was smoking cessation discussed for >3mins.? @ -No Was critical care preformed (if so, how long)? @ -No Were there social determinants of health that impacted care today? How? (Homelessness, low income, unemployed, alcoholism, drug addiction, transportation, low edu. Level, literacy, decrease access to med. care, residential, rehab)? @ -Low education level, literacy Was there de-escalation of care discussed even if they declined (Discuss DNR or withdrawal of care, Hospice)? DNR status @ -No What co-morbidities impacted this encounter? (DM, HTN, Smoking, COPD, CAD, Cancer, CVA, ARF, Chemo, Hep., AIDS, mental health diagnosis, sleep apnea, morbid obesity)? @ -None Was patient admitted / discharged? Hospital course, mention meds given and route, prescriptions, significant lab abnormalities, going to OR and other pertinent info. @ -See above Undiagnosed new problem with uncertain prognosis? @ -No Drug Therapy requiring intensive monitoring for toxicity (Heparin, Nitro, Insulin, Cardizem)? @ -No Were any procedures done? @ -No Diagnosis/symptom? @ -peptic ulcer disease Acute, or Chronic, or Acute on Chronic? @ -Acute on chronic Uncomplicated (without systemic symptoms) or Complicated (systemic symptoms)? @ -Uncomplicated Side effects of treatment? @ -No Exacerbation, Progression, or Severe Exacerbation? @ -No Poses a threat to life or bodily function? How? (Chest pain, USA, OR, pneumonia, PE, COPD, DKA, ARF, appy, cholecystitis, CVA, Diverticulitis, Homicidal, Suicidal, threat to staff... and all critical care pts) @ -No - Related Data Home Medications Medication Instructions Recorded Confirmed LORazepam [Ativan] 1 mg PO BID 04/19/21 09/12/22 QUEtiapine FUMARATE [SEROquel] 600 mg PO HS 04/19/21 09/12/22 Dextroamphetamine/Amphetamine 40 mg PO DAILY 04/01/22 09/12/22 [Adderall 20 mg Tablet] Acetaminophen Tab [Tylenol Tab] 500 mg PO Q6H PRN 09/12/22 09/12/22 Previous Rx's Medication Instructions Recorded Escitalopram [Lexapro] 40 mg PO DAILY #4 tab 01/26/21 amLODIPine [Norvasc] 10 mg PO DAILY 30 Days #30 tab 04/25/21 Allergies Allergy/AdvReac Type Severity Reaction Status Date / Time No Known Allergies Allergy Verified 09/12/22 15:28 Review of Systems ROS Statement: Those systems with pertinent positive or pertinent negative responses have been documented in the HPI. ROS Other: All systems not noted in ROS Statement are negative. Past Medical History Past Medical History: Chest Pain / Angina, Liver Disease Additional Past Medical History / Comment(s): anemia, hx pancreatitis, angina x 1 yrs ago, hepatitis C-no tx recieved for it, kidney stones, CHANGE IN BOWEL HABITS History of Any Multi-Drug Resistant Organisms: None Reported Past Surgical History: Appendectomy, Back Surgery, Cholecystectomy, Orthopedic Surgery, Tonsillectomy Additional Past Surgical History / Comment(s): sx to enlarge urethra opening, lump removed from chest, surgery rt arm(fx), colonoscopy, recent lithotripsy at [facility],03/2019 Past Anesthesia/Blood Transfusion Reactions: No Reported Reaction Past Psychological History: Anxiety, Depression Smoking Status: Current every day smoker Past Alcohol Use History: None Reported Past Drug Use History: Marijuana - Past Family History Mother Family Medical History: No Reported History Additional Family Medical History / Comment(s): bowel obstruction. Course Vital Signs 09/12/22 13:40 Temperature 98.3 F Pulse Rate 76 Respiratory 18 Rate Blood Pressure 159/93 O2 Sat by Pulse 96 Oximetry Medical Decision Making - Lab Data Result diagrams: 09/12/22 14:19 09/12/22 14:19 Lab Results 09/12/22 09/12/22 09/12/22 Range/Units 14:19 14:19 14:19 WBC 9.7 (3.8-10.6) k/uL RBC 4.71 (4.30-5.90) m/uL Hgb 13.4 (13.0-17.5) gm/dL Hct 41.5 (39.0-53.0) % MCV 88.2 (80.0-100.0) fL MCH 28.5 (25.0-35.0) pg MCHC 32.4 (31.0-37.0) g/dL RDW 13.7 (11.5-15.5) % Plt Count 178 (150-450) k/uL MPV 6.8 Neutrophils % 77 % Lymphocytes % 13 % Monocytes % 7 % Eosinophils % 2 % Basophils % 0 % Neutrophils # 7.4 (1.3-7.7) k/uL Lymphocytes # 1.3 (1.0-4.8) k/uL Monocytes # 0.6 (0-1.0) k/uL Eosinophils # 0.1 (0-0.7) k/uL Basophils # 0.0 (0-0.2) k/uL Sodium 140 (137-145) mmol/L Potassium 3.9 (3.5-5.1) mmol/L Chloride 109 H (98-107) mmol/L Carbon Dioxide 26 (22-30) mmol/L Anion Gap 5 mmol/L BUN 9 (9-20) mg/dL Creatinine 0.62 L (0.66-1.25) mg/dL Est GFR (CKD-EPI)AfAm >90 (>60 ml/min/1.73 sqM) Est GFR (CKD-EPI)NonAf >90 (>60 ml/min/1.73 sqM) Glucose 90 (74-99) mg/dL Plasma Lactic Acid Rigo 0.9 (0.7-2.0) mmol/L Calcium 8.7 (8.4-10.2) mg/dL Total Bilirubin 0.3 (0.2-1.3) mg/dL AST 28 (17-59) U/L ALT 26 (4-49) U/L Alkaline Phosphatase 101 (38-126) U/L Total Protein 6.4 (6.3-8.2) g/dL Albumin 4.0 (3.5-5.0) g/dL Lipase 110 (23-300) U/L Stool Occult Blood (Negative) 09/12/22 Range/Units 14:55 WBC (3.8-10.6) k/uL RBC (4.30-5.90) m/uL Hgb (13.0-17.5) gm/dL Hct (39.0-53.0) % MCV (80.0-100.0) fL MCH (25.0-35.0) pg MCHC (31.0-37.0) g/dL RDW (11.5-15.5) % Plt Count (150-450) k/uL MPV Neutrophils % % Lymphocytes % % Monocytes % % Eosinophils % % Basophils % % Neutrophils # (1.3-7.7) k/uL Lymphocytes # (1.0-4.8) k/uL Monocytes # (0-1.0) k/uL Eosinophils # (0-0.7) k/uL Basophils # (0-0.2) k/uL Sodium (137-145) mmol/L Potassium (3.5-5.1) mmol/L Chloride (98-107) mmol/L Carbon Dioxide (22-30) mmol/L Anion Gap mmol/L BUN (9-20) mg/dL Creatinine (0.66-1.25) mg/dL Est GFR (CKD-EPI)AfAm (>60 ml/min/1.73 sqM) Est GFR (CKD-EPI)NonAf (>60 ml/min/1.73 sqM) Glucose (74-99) mg/dL Plasma Lactic Acid Rigo (0.7-2.0) mmol/L Calcium (8.4-10.2) mg/dL Total Bilirubin (0.2-1.3) mg/dL AST (17-59) U/L ALT (4-49) U/L Alkaline Phosphatase (38-126) U/L Total Protein (6.3-8.2) g/dL Albumin (3.5-5.0) g/dL Lipase (23-300) U/L Stool Occult Blood Negative (Negative) Disposition Clinical Impression: Peptic ulcer disease Disposition: HOME SELF-CARE Condition: Good Instructions (If sedation given, give patient instructions): Peptic Ulcer (ED), Diet for Stomach Ulcers and Gastritis (ED) Is patient prescribed a controlled substance at d/c from ED?: No Referrals: Lizzeth Quiroz MD [STAFF PHYSICIAN] - 1-2 days Time of Disposition: 17:13
[2022-09-12 14:36] LABS: Basophils % (A) 0 %; Eosinophils # (A) 0.1 k/uL (0-0.7); Eosinophils % (A) 2 %; HCT 41.5 % (39.0-53.0); HGB 13.4 gm/dL (13.0-17.5); Lymphocytes # (A) 1.3 k/uL (1.0-4.8); Lymphocytes % (A) 13 %; MCH 28.5 pg (25.0-35.0); MCHC 32.4 g/dL (31.0-37.0); MCV 88.2 fL (80.0-100.0); Mean Platelet Volume 6.8; Monocytes # (A) 0.6 k/uL (0-1.0); Monocytes % (A) 7 %; Neutrophils # (A) 7.4 k/uL (1.3-7.7); Neutrophils % (A) 77 %; Platelet Count 178 k/uL (150-450); RBC 4.71 m/uL (4.30-5.90); RDW 13.7 % (11.5-15.5); WBC 9.7 k/uL (3.8-10.6)
[2022-09-12 14:46] LABS: ALT 26 U/L (4-49); AST 28 U/L (17-59); African American GFR (CKD) >90 (>60 ml/min/1.73 sqM); Alkaline Phosphatase 101 U/L (38-126); Anion Gap 5 mmol/L; Blood Urea Nitrogen 9 mg/dL (9-20); Calcium 8.7 mg/dL (8.4-10.2); Carbon Dioxide 26 mmol/L (22-30); Chloride 109 mmol/L (98-107); Glucose 90 mg/dL (74-99); Lipase 110 U/L (23-300); Non-African American GFR(CKD) >90 (>60 ml/min/1.73 sqM); Sodium 140 mmol/L (137-145); Total Bilirubin 0.3 mg/dL (0.2-1.3); Total Protein 6.4 g/dL (6.3-8.2)
[2022-09-12 15:00] LABS: Potassium 3.9 mmol/L (3.5-5.1)
--- NOTE | 2022-09-12 16:55 | CT ---
EXAMINATION TYPE: CT abdomen pelvis w con CT DLP: 875.1 mGycm, Automated exposure control for dose reduction was used. DATE OF EXAM: 09/12/2022 4:45 PM COMPARISON: 05/11/2022 CLINICAL INDICATION:Male, 66 years old with history of severe abdominal pain; Severe abdominal pain. Hx daykey. TECHNIQUE: Axial CT of the abdomen and pelvis. Sagittal and coronal reformats were created on a [place] workstation. Contrast used:100 mL of Isovue 300 with IV Contrast, Oral contrast used: without Oral Contrast FINDINGS: LOWER CHEST: Bilateral streaky and atelectasis/scarring. ABDOMEN LIVER: Unremarkable GALLBLADDER AND BILE DUCTS: There is no double duct sign Gallbladder is surgically absent with mild i ntrahepatic and extra hepatic biliary dilatation likely physiologic and a postcholecystectomy change. No evidence of choledocholithiasis. PANCREAS: Unremarkable. SPLEEN: Unremarkable. ADRENAL GLANDS: Unremarkable. KIDNEYS AND URETERS: Bilateral nonobstructing renal calculi measuring up to 7 mm on the right and 9 m m on the left. PELVIS BLADDER: The urinary bladder is distended up to 11.9 x 15.9 x 14.0 cm. REPRODUCTIVE: Prostate is enlarged in size measuring 4.5 cm in transverse dimension. ABDOMEN & PELVIS STOMACH AND BOWEL: No evidence of bowel obstruction. Atherosclerosis of the arterial vasculature. PERITONEUM/RETROPERITONEUM: No evidence of pneumoperitoneum or free fluid. . VASCULATURE: No evidence of aortic aneurysm. MUSCULOSKELETAL: No acute osseous abnormalities, postsurgical changes to the lower spine L4-S1 with h ardware in appropriate position. LYMPH NODES: No gross evidence for lymphadenopathy. SOFT TISSUE/ABDOMINAL WALL: Unremarkable IMPRESSION: 1. Significantly distended urinary bladder, consider Peck catheterization. Correlate for pain after decompression for patient's source of pain. No additional acute finding within the abdomen or pelvis to explain the patient's pain. 2. Prostatomegaly. 3. Nonobstructing bilateral renal calculi. 4. Dilation of the biliary system and main pancreatic duct. Unchanged from prior.
[2022-09-12 17:26] VITALS: BP 143/76; PULSE 91; RESP 16
== END 2022-09-12 17:26 | disposition home or self-care (01) ==
LOC: EC 13:35
DX: K27.9 Peptic ulcer, site unspecified, unspecified as acute or chronic, without hemorrhage or perforation (principal); F41.9 Anxiety disorder, unspecified; F32.A Depression, unspecified; F17.200 Nicotine dependence, unspecified, uncomplicated; F12.90 Cannabis use, unspecified, uncomplicated
CPT/HCPCS: 36415; 93005; 80053; 83605; 83690; 85025; 82272; 74177; 99285; 96360; 96361; Q9967

== ENCOUNTER 2023-03-25 13:32 | Emergency (ER) | payer MEDICARE ==
[2023-03-25] MEDS ORDERED: KETOROLAC 15 MG/ML 1 ML VIAL IVP STA (14:34)
--- NOTE | 2023-03-25 14:40 | ED ---
General Adult HPI - General Chief complaint: Fall Stated complaint: fall Time Seen by Provider: 03/25/23 13:32 Source: patient, EMS, RN notes reviewed, old records reviewed Mode of arrival: EMS Limitations: no limitations - History of Present Illness Initial comments: This is a 67-year-old male who is brought in by EMS after he fell down 4-5 steps. Patient does complain of a little bit of neck pain patient states he fell because he was dizzy. Patient also complains of quite a bit of lower back pain. Patient denies loss of consciousness headache patient states lower back pain is across the back bilaterally. Patient states he does feel little ti ngling in both his feet but he is able to move his feet and move his knees except for the fact that moving either leg causes pain in his lower back per patient denies any chest pain or upper back pain. Patient has any abdominal pain. Patient denies any difficulty breathing shortness of breath Patient denies any other problems at this time. - Related Data Home Medications Medication Instructions Recorded Confirmed LORazepam [Ativan] 1 mg PO BID 04/19/21 09/12/22 QUEtiapine FUMARATE [SEROquel] 600 mg PO HS 04/19/21 09/12/22 Dextroamphetamine/Amphetamine 40 mg PO DAILY 04/01/22 09/12/22 [Adderall 20 mg Tablet] Acetaminophen Tab [Tylenol Tab] 500 mg PO Q6H PRN 09/12/22 09/12/22 Previous Rx's Medication Instructions Recorded Escitalopram [Lexapro] 40 mg PO DAILY #4 tab 01/26/21 amLODIPine [Norvasc] 10 mg PO DAILY 30 Days #30 tab 04/25/21 Cyclobenzaprine [Flexeril] 10 mg PO TID #20 tab 03/25/23 Ketorolac [Toradol] 10 mg PO Q6HR #15 tab 03/25/23 Allergies Allergy/AdvReac Type Severity Reaction Status Date / Time No Known Allergies Allergy Verified 03/25/23 13:47 Review of Systems ROS Statement: Those systems with pertinent positive or pertinent negative responses have been documented in the HPI. ROS Other: All systems not noted in ROS Statement are negative. Past Medical History Past Medical History: Chest Pain / Angina, Liver Disease Additional Past Medical History / Comment(s): anemia, hx pancreatitis, angina x 1 yrs ago, hepatitis C-no tx recieved for it, kidney stones, CHANGE IN BOWEL HABITS History of Any Multi-Drug Resistant Organisms: None Reported Past Surgical History: Appendectomy, Back Surgery, Cholecystectomy, Orthopedic Surgery, Tonsillectomy Additional Past Surgical History / Comment(s): sx to enlarge urethra opening, lump removed from chest, surgery rt arm(fx), colonoscopy, recent lithotripsy at [facility],03/2019 Past Anesthesia/Blood Transfusion Reactions: No Reported Reaction Past Psychological History: Anxiety, Depression Smoking Status: Current every day smoker Past Alcohol Use History: None Reported Past Drug Use History: Marijuana - Past Family History Mother Family Medical History: No Reported History Additional Family Medical History / Comment(s): bowel obstruction. General Exam - General Exam Comments Initial Comments: GENERAL: Patient is well-developed and well-nourished. Patient is nontoxic and well- hydrated and is in mild distress. ENT: Neck is soft and supple. No significant lymphadenopathy is noted. Oropharynx is clear. Moist mucous membranes. Neck has full range of motion without eliciting any pain. EYES: The sclera were anicteric and conjunctiva were pink and moist. Extraocular movements were intact and pupils were equal round and reactive to light. Eyelids were unremarkable. PULMONARY: Unlabored respirations. Good breath sounds bilaterally. CARDIOVASCULAR: There is a regular rate and rhythm without any murmurs gallops or rubs. ABDOMEN: Soft and nontender with normal bowel sounds. SKIN: Skin is clear with no lesions or rashes and otherwise unremarkable. NEUROLOGIC: Patient is alert and oriented x3. Cranial nerves II through XII are grossly intact. Motor and sensory are also intact. Patient did say his feet were tingling but he could feel me with light touch. Normal speech, volume and content. Symmetrical smile. Patient's perineum has normal sensation MUSCULOSKELETAL: Normal extremities with adequate strength and full range of motion. No lower extremity swelling or edema. No calf tenderness. Patient tenderness in the lumbosacral area bilaterally LYMPHATICS: No significant lymphadenopathy is noted PSYCHIATRIC: Normal psychiatric evaluation. Limitations: no limitations Course Vital Signs 03/25/23 03/25/23 13:36 15:16 Temperature 98.2 F Pulse Rate 69 90 Respiratory 16 18 Rate Blood Pressure 157/87 139/89 O2 Sat by Pulse 98 96 Oximetry Medical Decision Making - Medical Decision Making Was pt. sent in by a medical professional or institution (CORDELIA Kemp, WET POUR MIXER, urgent care, hospital, or detention...) When possible be specific @ -No Did you speak to anyone other than the patient for history (EMS, parent, family, police, friend...)? What history was obtained from this source @ -No Did you review nursing and triage notes (agree or disagree)? Why? @ -I reviewed and agree with nursing and triage notes Were old charts reviewed (outside hosp., previous admission, EMS record, old EKG, old radiological studies, urgent care reports/EKG's, detention records)? Report findings @ -No old charts were reviewed Differential Diagnosis (chest pain, altered mental status, abdominal pain women, abdominal pain men, vaginal bleeding, weakness, fever, dyspnea, syncope, headache, dizziness, GI bleed, back pain, seizure, CVA, palpatations, mental health, musculoskeletal)? @ -Differential Musculoskeletal Muscular strain, contusion, ligament sprain, fracture, arthritis, septic arthritis, bursitis, cellulitis, muscle spasm, nerve compression, DVT, arterial occlusion, herpes zoster, electrolyte abnormality, tumor.... This is not meant to be in all inclusive list EKG interpreted by me (3pts min.). @ -EKG shows sinus rhythm with occasional PAC at a rate of 70 bpm IA interval is 139 QRSs 109 QT interval 425 QTC is 458. X-rays interpreted by me (1pt min.). @ -X-ray of the lumbosacral spine show no acute abnormality CT interpreted by me (1pt min.). @ -CT of the brain and C-spine showed no acute abnormality U/S interpreted by me (1pt. min.). @ -None done What testing was considered but not performed or refused? (CT, X-rays, U/S, labs)? Why? @ -None What meds were considered but not given or refused? Why? @ -None Did you discuss the management of the patient with other professionals (professionals i.e. CORDELIA Kemp, WET POUR MIXER, lab, RT, psych nurse, director social service, sheet metal worker maintenance, teacher, truant officer, manager rn case)? Give summary @ -No Was smoking cessation discussed for >3mins.? @ -No Was critical care preformed (if so, how long)? @ -No Were there social determinants of health that impacted care today? How? (Homelessness, low income, unemployed, alcoholism, drug addiction, transportation, low edu. Level, literacy, decrease access to med. care, group home, rehab)? @ -No Was there de-escalation of care discussed even if they declined (Discuss DNR or withdrawal of care, Hospice)? DNR status @ -No What co-morbidities impacted this encounter? (DM, HTN, Smoking, COPD, CAD, Cancer, CVA, ARF, Chemo, Hep., AIDS, mental health diagnosis, sleep apnea, morbid obesity)? @ -None Was patient admitted / discharged? Hospital course, mention meds given and route, prescriptions, significant lab abnormalities, going to OR and other pertinent info. @ -Patient was able to ambulate though a little more sore than normal he did feel better after he had the Toradol. Undiagnosed new problem with uncertain prognosis? @ -No Drug Therapy requiring intensive monitoring for toxicity (Heparin, Nitro, Insulin, Cardizem)? @ -No Were any procedures done? @ -No Diagnosis/symptom? @ -Lumbar strain Acute, or Chronic, or Acute on Chronic? @ -Acute Uncomplicated (without systemic symptoms) or Complicated (systemic symptoms)? @ -Uncomplicated Side effects of treatment? @ -No Exacerbation, Progression, or Severe Exacerbation? @ -No Poses a threat to life or bodily function? How? (Chest pain, USA, [place], pneumonia, PE, COPD, DKA, ARF, appy, cholecystitis, CVA, Diverticulitis, Homicidal, Suicidal, threat to staff... and all critical care pts) @ -No - Lab Data Result diagrams: 03/25/23 15:50 03/25/23 15:50 Lab Results 03/25/23 03/25/23 03/25/23 Range/Units 15:50 15:50 15:50 WBC 6.9 (3.8-10.6) k/uL RBC 4.29 L (4.30-5.90) m/uL Hgb 13.2 (13.0-17.5) gm/dL Hct 38.8 L (39.0-53.0) % MCV 90.4 (80.0-100.0) fL MCH 30.8 (25.0-35.0) pg MCHC 34.1 (31.0-37.0) g/dL RDW 14.3 (11.5-15.5) % Plt Count 127 L (150-450) k/uL MPV 7.8 Neutrophils % 75 % Lymphocytes % 14 % Monocytes % 8 % Eosinophils % 2 % Basophils % 0 % Neutrophils # 5.1 (1.3-7.7) k/uL Lymphocytes # 0.9 L (1.0-4.8) k/uL Monocytes # 0.5 (0-1.0) k/uL Eosinophils # 0.1 (0-0.7) k/uL Basophils # 0.0 (0-0.2) k/uL Sodium 136 L (137-145) mmol/L Potassium 4.2 (3.5-5.1) mmol/L Chloride 107 (98-107) mmol/L Carbon Dioxide 23 (22-30) mmol/L Anion Gap 6 mmol/L BUN 15 (9-20) mg/dL Creatinine 0.62 L (0.66-1.25) mg/dL Est GFR (CKD-EPI)AfAm >90 (>60 ml/min/1.73 sqM) Est GFR (CKD-EPI)NonAf >90 (>60 ml/min/1.73 sqM) Glucose 78 (74-99) mg/dL Calcium 8.6 (8.4-10.2) mg/dL Magnesium 1.9 (1.6-2.3) mg/dL Total Bilirubin 0.5 (0.2-1.3) mg/dL AST 35 (17-59) U/L ALT 29 (4-49) U/L Alkaline Phosphatase 91 (38-126) U/L Troponin I <0.012 (0.000-0.034) ng/mL Total Protein 5.9 L (6.3-8.2) g/dL Albumin 3.6 (3.5-5.0) g/dL Disposition Clinical Impression: Lumbosacral strain Disposition: HOME SELF-CARE Instructions (If sedation given, give patient instructions): Fall Prevention for Older Adults (ED), Low Back Strain (ED) Prescriptions: Cyclobenzaprine [Flexeril] 10 mg PO TID #20 tab Ketorolac [Toradol] 10 mg PO Q6HR #15 tab Is patient prescribed a controlled substance at d/c from ED?: No Referrals: None,Stated [Primary Care Provider] - 1-2 days Time of Disposition: 17:45
--- NOTE | 2023-03-25 15:24 | CT ---
EXAMINATION TYPE: CT brain cspine wo con CT DLP: 1407.2 mGycm, Automated exposure control for dose reduction was used. DATE OF EXAM: 03/25/2023 3:07 PM COMPARISON: CT brain 01/23/2021, CT brain C-spine 10/11/2020. CLINICAL INDICATION:Male, 67 years old with history of Trauma; fall TECHNIQUE: Brain: Multiple axial CT images of the brain were obtained without IV contrast. Cspine: Axial CT images from the skull base to the inferior aspect of T2 we obtained without intraven ous contrast. Coronal and sagittal reformatted images were also reviewed. FINDINGS: Brain: Extra-axial spaces: No abnormal extra-axial fluid collections. Ventricular system: Within normal limits Cerebral parenchyma: Cerebral atrophy of the bilateral frontal lobes. No acute intraparenchymal hemor rhage or mass effect. The bess-white junction is well differentiated. Scattered hypoattenuating area s are seen within the white matter. Cerebellum: Unremarkable. Mass effect: No evidence of midline shift. Intracranial vasculature: Atherosclerotic calcifications of the intracranial vessels. Soft tissues: Normal. Calvarium/osseous structures: No depressed skull fracture. Paranasal sinuses and mastoid air cells: Clear. Visualized orbits: Orbital contents are intact. Cervical spine: Fracture: None. Osseous structures: Multilevel degenerative disc disease changes with endplate spurring and disc oste ophyte complex's. Multilevel facet arthropathy. Vertebral alignment: Similar grade 1 anterolisthesis of C2 on C3. Spinal canal/Neural Foramina: Disc osteophyte complexes at C4-C5, C5-C6 and C6-C7 with at least mild spinal canal stenosis. Facet joint uncovertebral joint arthropathy scattered throughout the cervical spine with varying degrees of neural foraminal stenosis. Neck soft tissues: Prevertebral soft tissues are within normal limits. Other: The airway is patent. Centrilobular emphysematous changes. IMPRESSION: 1. No acute intracranial process. 2. Nonspecific white matter changes, likely secondary to chronic small vessel ischemic disease. 3. No evidence of cervical spine fracture. 4. Mild multilevel degenerative disc disease.
[2023-03-25 15:57] LABS: Basophils % (A) 0 %; Eosinophils # (A) 0.1 k/uL (0-0.7); Eosinophils % (A) 2 %; HCT 38.8 % (39.0-53.0); HGB 13.2 gm/dL (13.0-17.5); Lymphocytes # (A) 0.9 k/uL (1.0-4.8); Lymphocytes % (A) 14 %; MCH 30.8 pg (25.0-35.0); MCHC 34.1 g/dL (31.0-37.0); MCV 90.4 fL (80.0-100.0); Mean Platelet Volume 7.8; Monocytes # (A) 0.5 k/uL (0-1.0); Monocytes % (A) 8 %; Neutrophils # (A) 5.1 k/uL (1.3-7.7); Neutrophils % (A) 75 %; Platelet Count 127 k/uL (150-450); RBC 4.29 m/uL (4.30-5.90); RDW 14.3 % (11.5-15.5); WBC 6.9 k/uL (3.8-10.6)
[2023-03-25 16:13] LABS: ALT 29 U/L (4-49); African American GFR (CKD) >90 (>60 ml/min/1.73 sqM); Albumin 3.6 g/dL (3.5-5.0); Anion Gap 6 mmol/L; Blood Urea Nitrogen 15 mg/dL (9-20); Calcium 8.6 mg/dL (8.4-10.2); Carbon Dioxide 23 mmol/L (22-30); Chloride 107 mmol/L (98-107); Glucose 78 mg/dL (74-99); Non-African American GFR(CKD) >90 (>60 ml/min/1.73 sqM); Sodium 136 mmol/L (137-145); Total Bilirubin 0.5 mg/dL (0.2-1.3); Total Protein 5.9 g/dL (6.3-8.2)
[2023-03-25 16:17] LABS: AST 35 U/L (17-59); Alkaline Phosphatase 91 U/L (38-126); Magnesium 1.9 mg/dL (1.6-2.3); Potassium 4.2 mmol/L (3.5-5.1)
--- NOTE | 2023-03-25 16:36 | XR ---
EXAMINATION TYPE: XR chest 2V DATE OF EXAM: 03/25/2023 4:32 PM COMPARISON: Chest radiographs from 09/15/2021 TECHNIQUE: XR chest 2V Frontal and lateral views of the chest. CLINICAL INDICATION:Male, 67 years old with history of Chest Pain; FINDINGS: Lungs/Pleura: There is no evidence of pleural effusion, focal consolidation, or pneumothorax. Pulmonary vascularity: Unremarkable. Heart/mediastinum: Cardiomediastinal silhouette is unremarkable. Musculoskeletal: No acute osseous pathology. Mild degenerative changes of the thoracic spine. IMPRESSION: No acute cardiopulmonary disease/process.
--- NOTE | 2023-03-25 16:39 | XR ---
EXAMINATION TYPE: XR lumbosacral spine min 4V DATE OF EXAM: 03/25/2023 4:33 PM INDICATION: Patient age:Male; 67 years old; Reason for study: Trauma; [facility]. COMPARISON: Lumbosacral spine radiograph 06/03/2021 TECHNIQUE: Frontal, lateral , bilateral oblique and coned in L5-S1 lateral views of the spine. FINDINGS: Postsurgical changes from lumbosacral fusion of L4-S1 with disc fusion cages. Hardware appe ars intact with appropriate alignment. Stable mild retrolisthesis of L3 on L4. There are 5 lumbar typ e vertebral bodies identified. No evidence of any acute osseous pathology. No evidence of loss of ve rtebral body height is seen. Multilevel disc space narrowing with endplate sclerosis and anterior ost eophytosis. Atherosclerotic calcification of the aorta. Gas-filled small and large bowel are identifi ed. IMPRESSION: 1. No acute process. 2. Postsurgical changes from L4-S1 posterior fusion. Hardware appears intact. 3. Mild degenerative disc disease. 4. Stable mild retrolisthesis of L3 on L4.
[2023-03-25] MEDS ORDERED: HYDROmorphone 0.5 MG/0.5 ML SYRINGE IVP STA (17:17)
[2023-03-25 17:47] VITALS: BP 163/94; PULSE 68; RESP 16; TEMP 98.6
== END 2023-03-25 18:05 | disposition home or self-care (01) ==
LOC: EC 13:32
DX: S39.012A Strain of muscle, fascia and tendon of lower back, initial encounter (principal); F32.A Depression, unspecified; F41.9 Anxiety disorder, unspecified; F17.200 Nicotine dependence, unspecified, uncomplicated; F12.90 Cannabis use, unspecified, uncomplicated; Z79.899 Other long term (current) drug therapy; W10.9XXA Fall (on) (from) unspecified stairs and steps, initial encounter
CPT/HCPCS: 36415; 93005; 80053; 83735; 84484; 85025; 72110; 71046; 72125; 70450; 99285; 96374; 96375; J1885; J1170

== ENCOUNTER 2023-06-14 16:16 | Emergency (ER) | payer MEDICARE ==
[2023-06-14] MEDS ORDERED: MORPHINE SULFATE 4 MG/ML SYRINGE IVP STA (16:30)
[2023-06-14] MEDS ORDERED: KETOROLAC 15 MG/ML 1 ML VIAL IVP STA (16:30)
[2023-06-14] MEDS ORDERED: LIDOCAINE 5% PATCH TOPICAL ONE (16:30)
[2023-06-14 16:37] VITALS: RESP 18; TEMP 98.6
--- NOTE | 2023-06-14 16:55 | ED ---
Fall HPI - General Chief Complaint: Fall Stated Complaint: Fall Time Seen by Provider: 06/14/23 16:18 Source: patient, EMS, RN notes reviewed Mode of arrival: EMS Limitations: no limitations - History of Present Illness Initial Comments: This is a 67-year-old male who presents to the emergency department for a fall injury. Patient was moving equipment and tripped, falling down 3 steps. In the process he fell on his back and left side. Currently complaining of pain to his left lower back and left rib cage. The pain to the left rib cage is making it hard to breathe. He was put in a c-collar. Patient is unsure if he hit his head or neck. Denies any loss of consciousness. He is not taking any blood thinners. Denies any loss of bowel/bladder control or saddle anesthesia. Despite the back pain he has since been able to ambulate. MD Complaint: fall - Related Data Home Medications Medication Instructions Recorded Confirmed LORazepam [Ativan] 1 mg PO BID 04/19/21 09/12/22 QUEtiapine FUMARATE [SEROquel] 600 mg PO HS 04/19/21 09/12/22 Dextroamphetamine/Amphetamine 40 mg PO DAILY 04/01/22 09/12/22 [Adderall 20 mg Tablet] Acetaminophen Tab [Tylenol Tab] 500 mg PO Q6H PRN 09/12/22 09/12/22 Previous Rx's Medication Instructions Recorded Escitalopram [Lexapro] 40 mg PO DAILY #4 tab 01/26/21 amLODIPine [Norvasc] 10 mg PO DAILY 30 Days #30 tab 04/25/21 Cyclobenzaprine [Flexeril] 10 mg PO TID #20 tab 03/25/23 Ketorolac [Toradol] 10 mg PO Q6HR #15 tab 03/25/23 Cyclobenzaprine [Flexeril] 5 mg PO TID PRN #15 tablet 05/19/23 Ibuprofen [Motrin] 600 mg PO Q6HR PRN #20 tab 05/19/23 Lidocaine 5% Patch [Lidoderm 5% 1 patch TOPICAL DAILY PRN #7 patch 05/19/23 Patch] HYDROcodone/APAP 5-325MG [Bruce 1 tab PO Q6HR PRN 3 Days #12 tab 06/14/23 5-325] Ibuprofen [Motrin] 800 mg PO Q8H PRN #30 tab 06/14/23 Lidocaine 5% Patch [Lidoderm 5% 1 patch TOPICAL DAILY PRN #30 patch 06/14/23 Patch] methocarbamoL [Robaxin-750] 1,500 mg PO TID PRN #30 tab 06/14/23 Allergies Allergy/AdvReac Type Severity Reaction Status Date / Time No Known Allergies Allergy Verified 05/19/23 15:34 Review of Systems ROS Statement: Those systems with pertinent positive or pertinent negative responses have been documented in the HPI. ROS Other: All systems not noted in ROS Statement are negative. Past Medical History Past Medical History: Chest Pain / Angina, Liver Disease Additional Past Medical History / Comment(s): anemia, hx pancreatitis, angina x 1 yrs ago, hepatitis C-no tx recieved for it, kidney stones, CHANGE IN BOWEL HABITS History of Any Multi-Drug Resistant Organisms: None Reported Past Surgical History: Appendectomy, Back Surgery, Cholecystectomy, Orthopedic Surgery, Tonsillectomy Additional Past Surgical History / Comment(s): sx to enlarge urethra opening, lump removed from chest, surgery rt arm(fx), colonoscopy, recent lithotripsy at [facility],03/2019 Past Anesthesia/Blood Transfusion Reactions: No Reported Reaction Past Psychological History: Anxiety, Depression Smoking Status: Current every day smoker Past Alcohol Use History: None Reported Past Drug Use History: Marijuana - Past Family History Mother Family Medical History: No Reported History Additional Family Medical History / Comment(s): bowel obstruction. General Exam Limitations: no limitations General appearance: alert, in no apparent distress Head exam: Present: atraumatic, normocephalic, normal inspection Eye exam: Present: normal appearance, PERRL, EOMI. Absent: scleral icterus, conjunctival injection, periorbital swelling Respiratory exam: Present: normal lung sounds bilaterally. Absent: respiratory distress, wheezes, rales, rhonchi, stridor Cardiovascular Exam: Present: regular rate, normal rhythm, normal heart sounds. Absent: systolic murmur, diastolic murmur, rubs, gallop, clicks GI/Abdominal exam: Present: soft, normal bowel sounds. Absent: distended, tenderness, guarding, rebound, rigid Back exam: Present: tenderness (left lower back) Neurological exam: Present: alert, oriented X3, CN II-XII intact Psychiatric exam: Present: normal affect, normal mood Skin exam: Present: other (5 cm superficial laceration to the left lower abdomen.) Course Vital Signs 06/14/23 06/14/23 16:19 19:27 Temperature 98.6 F Pulse Rate 76 73 Respiratory 18 18 Rate Blood Pressure 161/98 136/85 O2 Sat by Pulse 100 97 Oximetry Medical Decision Making - Medical Decision Making This is a 67-year-old male who presents to the emergency department for a fall. Was pt. sent in by a medical professional or institution? @ -No Did you speak to anyone other than the patient for history? @ -No Did you review nursing and triage notes? @ -Yes, and I agree, it is accurate with regards to the patient's symptoms. Were old charts reviewed? @ -No Differential Diagnosis? @ -Differential Back Pain: Strain, zoster, cauda equina syndrome, epidural abscess, vertebral osteomyelitis, discitis, fracture, subluxation, disc herniation, DJD, spinal stenosis, dissection, AAA, pancreatitis, peptic ulcer disease, pyelonephritis, kidney stone, this is not meant to be an all-inclusive list. EKG interpreted by me (3pts min.)? @ -Not obtained X-rays interpreted by me (1pt min.)? @ -X-ray of the lumbar spine, thoracic spine, left rib cage, and PA chest obtained. My interpretation identifies no acute fractures. CT interpreted by me (1pt min.)? @ -Computed tomography scan of the brain and c-spine obtained. My interpretation identifies no evidence of an acute intracranial hemorrhage, skull fracture, or cervical spine fracture. U/S interpreted by me (1pt. min.)? @ -Not obtained What testing was considered but not performed? (CT, X-rays, U/S, labs)? Why? @ -None What meds were considered but not given? Why? @ -None Did you discuss the management of the patient with other professionals? @ -No Did you reconcile home meds? @ -No Was smoking cessation discussed for >3mins.? @ -No Was critical care preformed (if so, how long)? @ -No Were there social determinants of health that impacted care today? How? (Homelessness, low income, unemployed, alcoholism, drug addiction, transportation, low edu. Level, literacy, decrease access to med. care, fci, rehab)? @ -No Was there de-escalation of care discussed even if they declined? (Discuss DNR or withdrawal of care, Hospice)? @ -No What co-morbidities impacted this encounter? (DM, HTN, Smoking, COPD, CAD, Cancer, CVA, Hep., AIDS, mental health diagnosis, sleep apnea, morbid obesity)? @ -None Was patient admitted / discharged? @ -Discharged. A computed tomography scan of the brain and C-spine obtained revealing no acute process. X-ray of the lumbar spine, thoracic spine, left rib cage, and chest obtained as well, also revealing no acute process. His symptoms were controlled in the emergency department and he was discharged home in stable condition. Given the multiple injuries and severity of his pain, he was given prescriptions for ibuprofen, Bruce, Robaxin, and lidocaine patches with dosing instructions reviewed. He is advised to take the Bruce sparingly when his pain is most severe and I also advised that the Bruce and Robaxin are sedating and he should avoid driving or operating machinery when taking them. He is also instructed to take several deep breaths an hour despite the pain to reduce his risk of developing a secondary pneumonia. Undiagnosed new problem with uncertain prognosis? @ -None Drug Therapy requiring intensive monitoring for toxicity (Heparin, Nitro, Insulin, Cardizem)? @ -None Were any procedures done? @ -None Diagnosis/symptom? @ -Fall, lower back pain, left rib contusion Acute, or Chronic, or Acute on Chronic? @ -Acute Uncomplicated (without systemic symptoms) or Complicated (systemic symptoms)? @ -Uncomplicated Side effects of treatment? @ -None Exacerbation, Progression, or Severe Exacerbation] @ -Not applicable Poses a threat to life or bodily function? @ -Unlikely Return precautions reviewed in depth, the patient is instructed to return to the emergency department with any new, worsening, or concerning symptoms. Patient verbalized understanding. This case was discussed in detail with the attending ED physician, Dr. Luis. Presentation, findings, and treatment plan discussed in detail as well. - Radiology Data Radiology results: report reviewed, image reviewed Disposition Clinical Impression: Fall, Contusion of rib on left side, Lower back injury Disposition: HOME SELF-CARE Instructions (If sedation given, give patient instructions): Acute Low Back Pain (ED), Back Pain (ED), Rib Contusion (ED) Additional Instructions: Return to the emergency department with any new, worsening, or concerning symptoms. Alternate with ibuprofen and Tylenol as needed for pain relief. Take the Bruce sparingly when your pain is the most severe. You can take the Robaxin as 1-2 tablets up to every 6 hours as needed for pain relief. Be aware that both Robaxin and the Bruce are sedating and you should avoid driving or operating machinery when taking them. You can also apply the lidocaine patches daily. Make sure you're taking several deep breaths an hour, even though it is painful, to reduce the risk of developing pneumonia. Follow up with your primary care provider in 1-2 days. Prescriptions: Lidocaine 5% Patch [Lidoderm 5% Patch] 1 patch TOPICAL DAILY PRN #30 patch PRN Reason: Pain Ibuprofen [Motrin] 800 mg PO Q8H PRN #30 tab PRN Reason: Pain HYDROcodone/APAP 5-325MG [Bruce 5-325] 1 tab PO Q6HR PRN 3 Days #12 tab PRN Reason: Pain methocarbamoL [Robaxin-750] 1,500 mg PO TID PRN #30 tab PRN Reason: Pain Is patient prescribed a controlled substance at d/c from ED?: Yes When asked, does pt state using other controlled substances?: Yes If prescribed controlled substance>3 days was MAPS reviewed?: Prescribed <3 Days Referrals: None,Stated [Primary Care Provider] - 1-2 days
--- NOTE | 2023-06-14 17:35 | CT ---
EXAMINATION TYPE: CT brain kaileyine wo con DATE OF EXAM: 06/14/2023 COMPARISON: 03/25/2023 HISTORY: Fall, head injury CT DLP: 1414.9 mGycm Automated exposure control for dose reduction was used. TECHNIQUE: CT scan of the head and cervical spine are performed without contrast. FINDINGS: There is no acute intracranial hemorrhage, mass effect, or midline shift identified. The ventricles and sulci are within normal limits in size. The globes are intact and the visualized sin uses are clear. Cervical spine is visualized in its entirety from C1 through upper thoracic levels and demonstrates s atisfactory alignment without evidence of acute fracture or dislocation. Prevertebral soft tissue ap pears within normal limits. The C1-C2 articulation is unremarkable. There is moderate degenerative disease and osteoarthritic change of the vertebral joints in the lower cervical spine at C5-6 and C6- 7 levels. IMPRESSION: 1. There is no acute fracture or dislocation evident in the cervical spine. 2. No acute intracranial hemorrhage, mass effect, or midline shift is seen.
--- NOTE | 2023-06-14 18:08 | XR ---
EXAMINATION TYPE: XR ribs LT w pa chest xray DATE OF EXAM: 06/14/2023 6:01 PM CLINICAL INDICATION:Male, 67 years old with history of Pain after fall; COMPARISON: None TECHNIQUE: XR ribs LT w pa chest xray; Frontal and oblique views of the ribs with frontal chest radio graph. FINDINGS: The ribs have a normal appearance. No evidence of fracture. Overall, the lungs are clear. The cardiac silhouette is normal in size. The remaining osseous structures are intact. Fusion hardware in the lower spine appears intact. IMPRESSION: No acute osseous pathology.
--- NOTE | 2023-06-14 18:10 | XR ---
EXAMINATION TYPE: XR thoracic spine 2V DATE OF EXAM: 06/14/2023 6:01 PM CLINICAL INDICATION:Male, 67 years old with history of Pain after fall; COMPARISON: None TECHNIQUE: XR thoracic spine 2V views of the thoracic spine in Frontal and lateral projections. FINDINGS: No evidence of acute fracture. There is scattered multilevel disk space narrowing without loss of ve rtebral body height. There is normal alignment of the thoracic vertebral bodies. Scattered osteophyte formation along the anterior and lateral aspects of the vertebral bodies. Neural foramen are patent given limitations of this exam. Spinal canal appears patent. IMPRESSION: No acute osseous pathology.
[2023-06-14] MEDS ORDERED: HYDROmorphone 1 MG/ML 1 ML SYRINGE IVP STA (18:12)
--- NOTE | 2023-06-14 18:14 | XR ---
EXAMINATION TYPE: XR lumbar spine 2 or 3V DATE OF EXAM: 06/14/2023 6:01 PM CLINICAL INDICATION:Male, 67 years old with history of Pain after fall; [facility] COMPARISON: 05/19/2023 TECHNIQUE: XR lumbar spine 2 or 3V - FINDINGS: No evidence of any acute osseous pathology. No evidence of loss of vertebral body height i s seen. There is normal alignment of the lumbar vertebral bodies. Mild scattered disc space narrowing . Multilevel marginal osteophyte formation throughout the visualized spine. There is facet joint arth ropathy throughout the spine. Scattered at least mild neural foraminal stenosis. Fixation hardware in the lower spine appears intact. Atherosclerosis of the arterial vasculature. IMPRESSION: 1. No acute fracture. 2. Mild multilevel disc degeneration, fixation changes to the spine appear intact.
[2023-06-14] MEDS ORDERED: IBUPROFEN 600 MG STARTER PACK 4 TAB BTL PO STA (18:46)
[2023-06-14] MEDS ORDERED: ACET/COD 300 MG/30 MG STARTER PACK 6 TAB BTL PO STA (18:46)
[2023-06-14 19:42] VITALS: BP 136/85; PULSE 73
== END 2023-06-14 19:29 | disposition home or self-care (01) ==
LOC: EC 16:16
DX: S31.114A Laceration without foreign body of abdominal wall, left lower quadrant without penetration into peritoneal cavity, initial encounter (principal); S20.212A Contusion of left front wall of thorax, initial encounter; S39.92XA Unspecified injury of lower back, initial encounter; F32.A Depression, unspecified; F41.9 Anxiety disorder, unspecified; F17.200 Nicotine dependence, unspecified, uncomplicated; F12.90 Cannabis use, unspecified, uncomplicated; Z79.899 Other long term (current) drug therapy; W10.9XXA Fall (on) (from) unspecified stairs and steps, initial encounter
CPT/HCPCS: 71101; 72070; 72100; 72125; 70450; 99285; 96374; 96375 ×2; J2270; J1170; J1885

== ENCOUNTER 2023-08-04 14:52 | Emergency (ER) | payer MEDICARE ==
[2023-08-04] MEDS ORDERED: KETOROLAC 15 MG/ML 1 ML VIAL IVP STA (15:16)
[2023-08-04 15:17] VITALS: RESP 18
--- NOTE | 2023-08-04 15:21 | ED ---
Back Pain HPI - General Chief Complaint: Back Pain/Injury Stated Complaint: Fall Time Seen by Provider: 08/04/23 15:07 Source: patient, EMS, RN notes reviewed Limitations: no limitations - History of Present Illness Initial Comments: Patient is a 67-year-old male presented ER via EMS with chief complaint of a fall. Patient states he was going down a few stairs started to feel dizzy and slipped and fell landing on his buttock. Patient does have a history of back surgery. He states that he is having lower back pain now. He endorses assocaited radiating pain to right leg. He does state that he was dizzy prior to fall. Denies being diabetic. He does report he is recently had a cough with mild shortness of breath. Denies recent fevers, chills, saddle paresthesias, IV drug use, bowel or bladder incontinence. Denies LOC, blood thinners, or other injuries. - Related Data Home Medications Medication Instructions Recorded Confirmed LORazepam [Ativan] 1 mg PO BID 04/19/21 08/04/23 QUEtiapine FUMARATE [SEROquel] 600 mg PO HS 04/19/21 08/04/23 Dextroamphetamine/Amphetamine 40 mg PO DAILY 04/01/22 08/04/23 [Adderall 20 mg Tablet] Perphenazine 8mg Tablet 8 mg PO DAILY 08/04/23 08/04/23 Previous Rx's Medication Instructions Recorded Escitalopram [Lexapro] 40 mg PO DAILY #4 tab 01/26/21 Cyclobenzaprine [Flexeril] 5 mg PO TID PRN #15 tablet 08/04/23 Allergies Allergy/AdvReac Type Severity Reaction Status Date / Time No Known Allergies Allergy Verified 08/04/23 16:27 Review of Systems ROS Statement: Those systems with pertinent positive or pertinent negative responses have been documented in the HPI. ROS Other: All systems not noted in ROS Statement are negative. Past Medical History Past Medical History: Chest Pain / Angina, Liver Disease Additional Past Medical History / Comment(s): anemia, hx pancreatitis, angina x 1 yrs ago, hepatitis C-no tx recieved for it, kidney stones, CHANGE IN BOWEL HABITS History of Any Multi-Drug Resistant Organisms: None Reported Past Surgical History: Appendectomy, Back Surgery, Cholecystectomy, Orthopedic Surgery, Tonsillectomy Additional Past Surgical History / Comment(s): sx to enlarge urethra opening, lump removed from chest, surgery rt arm(fx), colonoscopy, recent lithotripsy at [facility],03/2019 Past Anesthesia/Blood Transfusion Reactions: No Reported Reaction Past Psychological History: Anxiety, Depression Smoking Status: Current every day smoker Past Alcohol Use History: None Reported Past Drug Use History: Marijuana - Past Family History Mother Family Medical History: No Reported History Additional Family Medical History / Comment(s): bowel obstruction. General Exam Limitations: no limitations General appearance: alert, in no apparent distress Head exam: Present: atraumatic, normocephalic, normal inspection Eye exam: Present: normal appearance, PERRL, EOMI. Absent: scleral icterus, conjunctival injection, periorbital swelling Neck exam: Present: normal inspection. Absent: tenderness, meningismus, lymphadenopathy Respiratory exam: Present: normal lung sounds bilaterally. Absent: respiratory distress, wheezes, rales, rhonchi, stridor Cardiovascular Exam: Present: regular rate, normal rhythm, normal heart sounds. Absent: systolic murmur, diastolic murmur, rubs, gallop, clicks GI/Abdominal exam: Present: soft, normal bowel sounds. Absent: distended, tenderness, guarding, rebound, rigid Extremities exam: Present: normal inspection, full ROM, normal capillary refill, other (2+ bilateral DP pulse. intact sensation). Absent: tenderness, pedal edema, joint swelling, calf tenderness Back exam: Present: normal inspection, tenderness (lumbar and pelvic gurdle) Neurological exam: Present: alert, oriented X3, CN II-XII intact Psychiatric exam: Present: normal affect, normal mood Skin exam: Present: warm, dry, intact, normal color. Absent: rash Course Vital Signs 08/04/23 08/04/23 08/04/23 14:56 15:30 16:30 Temperature 98.9 F Pulse Rate 83 74 72 Respiratory 18 18 18 Rate Blood Pressure 155/99 150/98 160/87 O2 Sat by Pulse 99 97 97 Oximetry 08/04/23 17:15 Temperature 98.7 F Pulse Rate Respiratory Rate Blood Pressure O2 Sat by Pulse Oximetry Medical Decision Making - Medical Decision Making Was pt. sent in by a medical professional or institution (, PA, RUBY ON RAILS ENGINEER, urgent care, hospital, or usp...) When possible be specific @ -No Did you speak to anyone other than the patient for history (EMS, parent, family, police, friend...)? What history was obtained from this source @ -No Did you review nursing and triage notes (agree or disagree)? Why? @ -I reviewed and agree with nursing and triage notes Were old charts reviewed (outside hosp., previous admission, EMS record, old EKG, old radiological studies, urgent care reports/EKG's, usp records)? Report findings @ -No old charts were reviewed Differential Diagnosis (chest pain, altered mental status, abdominal pain women, abdominal pain men, vaginal bleeding, weakness, fever, dyspnea, syncope, headache, dizziness, GI bleed, back pain, seizure, CVA, palpatations, mental health, musculoskeletal)? @ -Differential Dizziness: Benign paroxysmal positional Vertigo, Menieres disease, otitis media, acoustic neuroma, vertebrobasilar insufficiency, cerebellar stroke, encephalitis, hypovolemic, arrhythmia, coronary artery syndrome, anemia, this is not meant to be an all-inclusive list EKG interpreted by me (3pts min.). @ -As above X-rays interpreted by me (1pt min.). @ -Lumbar spine x-ray show no acute fractures or dislocations. Postoperative changes are noted. CT interpreted by me (1pt min.). @ -None done U/S interpreted by me (1pt. min.). @ -None done What testing was considered but not performed or refused? (CT, X-rays, U/S, labs)? Why? @ -None What meds were considered but not given or refused? Why? @ -None Did you discuss the management of the patient with other professionals (professionals i.e. , PA, RUBY ON RAILS ENGINEER, lab, RT, psych nurse, social work job titles, masseur/masseuse, teacher, control systems drafting officer, casework manager)? Give summary @ -No Was smoking cessation discussed for >3mins.? @ -No Was critical care preformed (if so, how long)? @ -No Were there social determinants of health that impacted care today? How? (Homelessness, low income, unemployed, alcoholism, drug addiction, transportation, low edu. Level, literacy, decrease access to med. care, ch[facility], rehab)? @ -No Was there de-escalation of care discussed even if they declined (Discuss DNR or withdrawal of care, Hospice)? DNR status @ -No What co-morbidities impacted this encounter? (DM, HTN, Smoking, COPD, CAD, Cancer, CVA, ARF, Chemo, Hep., AIDS, mental health diagnosis, sleep apnea, morbid obesity)? @ -None Was patient admitted / discharged? Hospital course, mention meds given and route, prescriptions, significant lab abnormalities, going to OR and other pert inent info. @ -Discharged. Patient is 67 year old male presenting to the ER via EMS with a chief complaint of a fall. Upon examination, patient's vitals were stable. Physical exam was significnat for tenderness to lumbar spine and pelvic gurdle. Patient denied LOC, blood thinner use, or other injuries. Due to patient stating he was slightly dizzy prior to fall labs were obtained. Labs obtained in the ER were unremarkable. Viral swabs were negative. EKG showed normal sinus rhythm with no acute ST segment or T-wave abnormalities noted. Lumbar spine x-rays showed no acute fractures or dislocations. Patient received IV Toradol in the ER for pain control, with improvement. I discussed with patient that if his back pain continues or does not improve he should follow-up with his surgeon. I also recommend patient follow up with his primary care physician to workup his dizziness outpatient. Return parameters were discussed. Patient will be discharged in stable condition with follow-up to PCP. Patient expressed understanding and agreement with care plan. Undiagnosed new problem with uncertain prognosis? @ -No Drug Therapy requiring intensive monitoring for toxicity (Heparin, Nitro, Insulin, Cardizem)? @ -No Were any procedures done? @ -No Diagnosis/symptom? @ -[Dizziness/back pain Acute, or Chronic, or Acute on Chronic? @ -Acute Uncomplicated (without systemic symptoms) or Complicated (systemic symptoms)? @ -Uncomplicated Side effects of treatment? @ -No Exacerbation, Progression, or Severe Exacerbation? @ -No Poses a threat to life or bodily function? How? (Chest pain, USA, CT, pneumonia, PE, COPD, DKA, ARF, appy, cholecystitis, CVA, Diverticulitis, Homicidal, Suicidal, threat to staff... and all critical care pts) @ -No - Lab Data Result diagrams: 08/04/23 16:15 08/04/23 15:26 Lab Results 12/11/23 12/11/23 12/11/23 Range/Units 15:26 15:26 16:15 WBC 8.4 (3.8-10.6) k/uL RBC 4.75 (4.30-5.90) m/uL Hgb 14.6 (13.0-17.5) gm/dL Hct 44.8 (39.0-53.0) % MCV 94.4 (80.0-100.0) fL MCH 30.7 (25.0-35.0) pg MCHC 32.5 (31.0-37.0) g/dL RDW 13.8 (11.5-15.5) % Plt Count 174 (150-450) k/uL MPV 7.2 Sodium 141 (137-145) mmol/L Potassium 4.3 (3.5-5.1) mmol/L Chloride 109 H (98-107) mmol/L Carbon Dioxide 23 (22-30) mmol/L Anion Gap 9 mmol/L BUN 13 (9-20) mg/dL Creatinine 0.69 (0.66-1.25) mg/dL Est GFR (CKD-EPI)AfAm >90 (>60 ml/min/1.73 sqM) Est GFR (CKD-EPI)NonAf >90 (>60 ml/min/1.73 sqM) Glucose 93 (74-99) mg/dL Calcium 9.0 (8.4-10.2) mg/dL Total Bilirubin 0.6 (0.2-1.3) mg/dL AST 36 (17-59) U/L ALT 29 (4-49) U/L Alkaline Phosphatase 86 (38-126) U/L Total Protein 6.3 (6.3-8.2) g/dL Albumin 3.7 (3.5-5.0) g/dL Influenza Type A (PCR) Not Detected (Not Detectd) Influenza Type B (PCR) Not Detected (Not Detectd) RSV (PCR) Not Detected (Not Detectd) SARS-CoV-2 (PCR) Not Detected (Not Detectd) - EKG Data -: EKG Interpreted by Nm EKG Comments: EKG taken at 14:59 shows normal sinus rhythm with no acute ST segment or T-wave abnormalities. Ventricular rate 82, CA interval 168, QRS duration 102, QT/QTC 395/434. - Radiology Data Radiology results: report reviewed, image reviewed Disposition Clinical Impression: Fall Disposition: HOME SELF-CARE Condition: Stable Additional Instructions: Please return to the Emergency Department if symptoms worsen or any other conc erns. It back pain continues please follow-up with your back surgeon. Be advised that Flexeril is a muscle relaxer and can make you feel tired or drowsy. Please do not operate a vehicle or machinery until you know how this medication effects you. Prescriptions: Cyclobenzaprine [Flexeril] 5 mg PO TID PRN #15 tablet PRN Reason: Muscle Spasm Is patient prescribed a controlled substance at d/c from ED?: No Referrals: None,Stated [Primary Care Provider] - 1-2 days Time of Disposition: 17:13
[2023-08-04 16:04] LABS: ALT 29 U/L (4-49); AST 36 U/L (17-59); African American GFR (CKD) >90 (>60 ml/min/1.73 sqM); Albumin 3.7 g/dL (3.5-5.0); Alkaline Phosphatase 86 U/L (38-126); Anion Gap 9 mmol/L; Blood Urea Nitrogen 13 mg/dL (9-20); Carbon Dioxide 23 mmol/L (22-30); Chloride 109 mmol/L (98-107); Glucose 93 mg/dL (74-99); Non-African American GFR(CKD) >90 (>60 ml/min/1.73 sqM); Sodium 141 mmol/L (137-145); Total Bilirubin 0.6 mg/dL (0.2-1.3); Total Protein 6.3 g/dL (6.3-8.2)
[2023-08-04 16:16] LABS: Potassium 4.3 mmol/L (3.5-5.1)
[2023-08-04 16:35] LABS: HCT 44.8 % (39.0-53.0); HGB 14.6 gm/dL (13.0-17.5); MCH 30.7 pg (25.0-35.0); MCHC 32.5 g/dL (31.0-37.0); MCV 94.4 fL (80.0-100.0); Mean Platelet Volume 7.2; Platelet Count 174 k/uL (150-450); RBC 4.75 m/uL (4.30-5.90); RDW 13.8 % (11.5-15.5); WBC 8.4 k/uL (3.8-10.6)
--- NOTE | 2023-08-04 16:42 | XR ---
EXAMINATION TYPE: XR lumbar spine 2 or 3V DATE OF EXAM: 08/04/2023 CLINICAL HISTORY: pain TECHNIQUE: Three views of the lumbar spine are submitted. COMPARISON: 06/14/2023 FINDINGS: Postoperative changes of lumbar laminectomy and fusion L4-5 and L5-S1 with unchanged alignment relati ve to prior examination. Grade 1 retrolisthesis of L3 on L4 measuring 5 mm stable from previous exami nation. No compression fractures are seen. IMPRESSION: No acute fracture or dislocation is seen in the lumbar spine. ICD 10 NO FRACTURE, INITIAL EVALUATION
[2023-08-04 17:27] VITALS: BP 160/87; PULSE 72; TEMP 98.7
== END 2023-08-04 17:16 | disposition home or self-care (01) ==
LOC: EC 14:52
DX: M54.50 Low back pain, unspecified (principal); F41.9 Anxiety disorder, unspecified; F32.A Depression, unspecified; F17.200 Nicotine dependence, unspecified, uncomplicated; F12.90 Cannabis use, unspecified, uncomplicated; Z79.899 Other long term (current) drug therapy; Z20.822 Contact with and (suspected) exposure to COVID-19; W01.0XXA Fall on same level from slipping, tripping and stumbling without subsequent striking against object, initial encounter
CPT/HCPCS: 36415; 93005; 80053; 85027; 87636; 72100; 99284; 96374; J1885

== ENCOUNTER 2023-12-17 20:19 | Emergency (ER) | payer MEDICARE ==
[2023-12-17 20:47] LABS: Basophils % (A) 0 %; Eosinophils # (A) 0.3 k/uL (0-0.7); Eosinophils % (A) 5 %; HCT 43.7 % (39.0-53.0); HGB 13.9 gm/dL (13.0-17.5); Lymphocytes # (A) 1.5 k/uL (1.0-4.8); Lymphocytes % (A) 20 %; MCH 29.9 pg (25.0-35.0); MCHC 31.7 g/dL (31.0-37.0); MCV 94.1 fL (80.0-100.0); Mean Platelet Volume 7.3; Monocytes # (A) 0.5 k/uL (0-1.0); Monocytes % (A) 6 %; Neutrophils # (A) 4.8 k/uL (1.3-7.7); Neutrophils % (A) 66 %; Platelet Count 183 k/uL (150-450); RBC 4.64 m/uL (4.30-5.90); RDW 13.8 % (11.5-15.5); WBC 7.3 k/uL (3.8-10.6)
[2023-12-17 20:57] LABS: ALT 24 U/L (4-49); AST 26 U/L (17-59); African American GFR (CKD) >90 (>60 ml/min/1.73 sqM); Albumin 3.4 g/dL (3.5-5.0); Alkaline Phosphatase 96 U/L (38-126); Anion Gap 4 mmol/L; Blood Urea Nitrogen 18 mg/dL (9-20); Calcium 9.5 mg/dL (8.4-10.2); Carbon Dioxide 25 mmol/L (22-30); Chloride 110 mmol/L (98-107); Glucose 78 mg/dL (74-99); Non-African American GFR(CKD) >90 (>60 ml/min/1.73 sqM); Potassium 4.3 mmol/L (3.5-5.1); Sodium 139 mmol/L (137-145); Total Bilirubin 0.3 mg/dL (0.2-1.3); Total Protein 5.8 g/dL (6.3-8.2)
--- NOTE | 2023-12-17 20:58 | ED ---
Fall HPI - General Chief Complaint: Fall Stated Complaint: Fall Time Seen by Provider: 12/17/23 20:28 Source: patient, EMS Mode of arrival: EMS - History of Present Illness Initial Comments: Rambo is a pleasant 68yo M who presents to the ER for evaluation of back pain after a fall. Patient states that he was walking down the stairs and lost his footing, landed on his back and slid down the stairs. He had immediate pain in his low back he did not attempt to stand or walk he called EMS for transport. Patient does have a history of previous lumbar fusion. - Related Data Home Medications Medication Instructions Recorded Confirmed LORazepam [Ativan] 1 mg PO BID 04/19/21 08/04/23 QUEtiapine FUMARATE [SEROquel] 600 mg PO HS 04/19/21 08/04/23 Dextroamphetamine/Amphetamine 40 mg PO DAILY 04/01/22 08/04/23 [Adderall 20 mg Tablet] Perphenazine 8mg Tablet 8 mg PO DAILY 08/04/23 08/04/23 Previous Rx's Medication Instructions Recorded Escitalopram [Lexapro] 40 mg PO DAILY #4 tab 01/26/21 Cyclobenzaprine [Flexeril] 5 mg PO TID PRN #15 tablet 08/04/23 Allergies Allergy/AdvReac Type Severity Reaction Status Date / Time No Known Allergies Allergy Verified 12/17/23 20:29 Review of Systems ROS Statement: Those systems with pertinent positive or pertinent negative responses have been documented in the HPI. ROS Other: All systems not noted in ROS Statement are negative. Past Medical History Past Medical History: Chest Pain / Angina, Liver Disease Additional Past Medical History / Comment(s): anemia, hx pancreatitis, angina x 1 yrs ago, hepatitis C-no tx recieved for it, kidney stones, CHANGE IN BOWEL HABITS History of Any Multi-Drug Resistant Organisms: None Reported Past Surgical History: Appendectomy, Back Surgery, Cholecystectomy, Orthopedic Surgery, Tonsillectomy Additional Past Surgical History / Comment(s): sx to enlarge urethra opening, lump removed from chest, surgery rt arm(fx), colonoscopy, recent lithotripsy at [facility],03/2019 Past Anesthesia/Blood Transfusion Reactions: No Reported Reaction Past Psychological History: Anxiety, Depression Smoking Status: Current every day smoker Past Alcohol Use History: None Reported Past Drug Use History: Marijuana - Past Family History Mother Family Medical History: No Reported History Additional Family Medical History / Comment(s): bowel obstruction. General Exam - General Exam Comments Initial Comments: Physical Exam GENERAL: Patient is well-developed and well-nourished. Patient is nontoxic and well-hydrated and is in no distress. HENT: Normocephalic, Atraumatic. EYES: PERRL, EOMI PULMONARY: Unlabored respirations. CARDIOVASCULAR: RRR Warm and well perfused extremities ABDOMEN: Non-distended SKIN: No rashes or bruising : Deferred NEUROLOGIC: Alert and oriented Normal speech MUSCULOSKELETAL: Moving all extremities Pain with palpation over the lumbar spine, previous surgical scar noted PSYCHIATRIC: No SI/HI Limitations: no limitations Course Vital Signs 12/17/23 12/17/23 12/17/23 20:22 20:29 23:35 Pulse Rate 73 82 62 Respiratory 18 16 15 Rate Blood Pressure 154/104 154/104 160/97 O2 Sat by Pulse 92 L 97 96 Oximetry Medical Decision Making - Medical Decision Making Was pt. sent in by a medical professional or institution (, PA, FORENSIC STRUCTURAL ENGINEER, urgent care, hospital, or care home...) When possible be specific @ -No Did you speak to anyone other than the patient for history (EMS, parent, family, police, friend...)? What history was obtained from this source @ -EMS Did you review nursing and triage notes (agree or disagree)? Why? @ -I reviewed and agree with nursing and triage notes Were old charts reviewed (outside hosp., previous admission, EMS record, old EKG, old radiological studies, urgent care reports/EKG's, care home records)? Report findings @ -No old charts were reviewed Differential Diagnosis (chest pain, altered mental status, abdominal pain women, abdominal pain men, vaginal bleeding, weakness, fever, dyspnea, syncope, headache, dizziness, GI bleed, back pain, seizure, CVA, palpatations, mental health)? @ -Contusion, fracture EKG interpreted by me (3pts min.). @ -As above X-rays interpreted by me (1pt min.). @ -X-ray of the pelvis no fracture CT interpreted by me (1pt min.). @ -CT brain with no bleeding or mass, CT of the spine with no obvious malalignments or fractures, hardware present in the lumbar spine U/S interpreted by me (1pt. min.). @ -None done What testing was considered but not performed or refused? (CT, X-rays, U/S, labs)? Why? @ -None What meds were considered but not given or refused? Why? @ -None Did you discuss the management of the patient with other professionals (professionals i.e. Dr., PA, FORENSIC STRUCTURAL ENGINEER, lab, RT, psych nurse, social contact worker, cavalry officer, teacher, customer service security officer, real estate branch manager)? Give summary @ -No Was smoking cessation discussed for >3mins.? @ -No Was critical care preformed (if so, how long)? @ -No Were there social determinants of health that impacted care today? How? (Homelessness, low income, unemployed, alcoholism, drug addiction, transportation, low edu. Level, literacy, decrease access to med. care, skilled nursing, rehab)? @ -No Was there de-escalation of care discussed even if they declined (Discuss DNR or withdrawal of care, Hospice)? DNR status @ -No What co-morbidities impacted this encounter? (DM, HTN, Smoking, COPD, CAD, Ca ncer, CVA, ARF, Chemo, Hep., AIDS, mental health diagnosis, sleep apnea, morbid obesity)? @ -None Was patient admitted / discharged? Hospital course, mention meds given and route, prescriptions, significant lab abnormalities, going to OR and other pertinent info. @ -Discharged Patient was seen and evaluated history is obtained from patient. CT imaging was obtained morphine was given for pain. There is no acute fractures or malalignment no injuries identified on imaging. Patient was reassured by this he is comfortable with plan for discharge home with supportive care. Undiagnosed new problem with uncertain prognosis? @ -No Drug Therapy requiring intensive monitoring for toxicity (Heparin, Nitro, Insulin, Cardizem)? @ -No Were any procedures done? @ -No Diagnosis/symptom? @ -Fall at home, contusion to the back Acute, or Chronic, or Acute on Chronic? @ -Default Uncomplicated (without systemic symptoms) or Complicated (systemic symptoms)? @ -Default Side effects of treatment? @ -No Exacerbation, Progression, or Severe Exacerbation? @ -No Poses a threat to life or bodily function? How? (Chest pain, USA, MA, pneumonia, PE, COPD, DKA, ARF, appy, cholecystitis, CVA, Diverticulitis, Homicidal, Suicidal, threat to staff... and all critical care pts) @ -No - Lab Data Result diagrams: 12/17/23 20:40 12/17/23 20:40 Lab Results 12/17/23 12/17/23 12/17/23 Range/Units 20:40 20:40 20:40 WBC 7.3 (3.8-10.6) k/uL RBC 4.64 (4.30-5.90) m/uL Hgb 13.9 (13.0-17.5) gm/dL Hct 43.7 (39.0-53.0) % MCV 94.1 (80.0-100.0) fL MCH 29.9 (25.0-35.0) pg MCHC 31.7 (31.0-37.0) g/dL RDW 13.8 (11.5-15.5) % Plt Count 183 (150-450) k/uL MPV 7.3 Neutrophils % 66 % Lymphocytes % 20 % Monocytes % 6 % Eosinophils % 5 % Basophils % 0 % Neutrophils # 4.8 (1.3-7.7) k/uL Lymphocytes # 1.5 (1.0-4.8) k/uL Monocytes # 0.5 (0-1.0) k/uL Eosinophils # 0.3 (0-0.7) k/uL Basophils # 0.0 (0-0.2) k/uL PT 11.2 (10.0-12.5) sec INR 1.0 (<1.2) APTT 23.4 (22.0-30.0) sec Sodium 139 (137-145) mmol/L Potassium 4.3 (3.5-5.1) mmol/L Chloride 110 H (98-107) mmol/L Carbon Dioxide 25 (22-30) mmol/L Anion Gap 4 mmol/L BUN 18 (9-20) mg/dL Creatinine 0.81 (0.66-1.25) mg/dL Est GFR (CKD-EPI)AfAm >90 (>60 ml/min/1.73 sqM) Est GFR (CKD-EPI)NonAf >90 (>60 ml/min/1.73 sqM) Glucose 78 (74-99) mg/dL Calcium 9.5 (8.4-10.2) mg/dL Total Bilirubin 0.3 (0.2-1.3) mg/dL AST 26 (17-59) U/L ALT 24 (4-49) U/L Alkaline Phosphatase 96 (38-126) U/L Total Protein 5.8 L (6.3-8.2) g/dL Albumin 3.4 L (3.5-5.0) g/dL - EKG Data -: EKG Interpreted by Me EKG Comments: Patient interpreted by me EKG obtained as part of the trauma workup EKG obtained at 2035 rate is 62 rhythm is sinus normal axis normal intervals [place] 188 QRS 89 QTc 442 there are no acute ST elevations or depressions there is no evidence of ischemia or infarction. Disposition Clinical Impression: Fall Disposition: HOME SELF-CARE Condition: Stable Instructions (If sedation given, give patient instructions): Fall Prevention for Older Adults (ED) Is patient prescribed a controlled substance at d/c from ED?: No Referrals: None,Stated [Primary Care Provider] - 1-2 days
[2023-12-17 21:05] LABS: Partial Thromboplastin Time 23.4 sec (22.0-30.0); Prothrombin Time 11.2 sec (10.0-12.5)
--- NOTE | 2023-12-17 22:10 | CT ---
EXAMINATION TYPE: CT brain cspine wo con CT DLP: 1334.3 mGycm, Automated exposure control for dose reduction was used. DATE OF EXAM: 12/17/2023 9:37 PM COMPARISON: None. CLINICAL INDICATION:Male, 68 years old with history of fall; FALL DOWN STAIRS TECHNIQUE: Brain: Multiple axial CT images of the brain were obtained without IV contrast. Cspine: Axial CT images from the skull base to the inferior aspect of T2 we obtained without intraven ous contrast. Coronal and sagittal reformatted images were also reviewed. FINDINGS: Brain: Extra-axial spaces: No abnormal extra-axial fluid collections. Ventricular system: Appear dilated in proportion to the degree of cerebral atrophy. Cerebral parenchyma: No increased attenuation to suggest acute intraparenchymal hemorrhage. The gra y-white matter interface appears maintained. Mild generalized atrophy with a slight bifrontal predom inance. Scattered hypoattenuating areas are seen within the cerebral white matter, nonspecific but m ost often seen with chronic microvascular ischemic changes; mild in degree. Cerebellum: No acute abnormality. Mass effect: No evidence of mass effect or midline shift. Intracranial vasculature: Atherosclerotic calcifications of the larger arteries near the skull base. Soft tissues: No acute abnormality. Visualized orbits: Orbital contents appear grossly intact. Calvarium/osseous structures: No evidence of calvarial fracture. Paranasal sinuses and mastoid air cells: Clear. MRI is more sensitive for detecting acute processes such as infarct, and may be considered if clinica lly warranted. Cervical spine: Fracture: None seen. Osseous structures, spinal canal/neural foramina: Craniocervical junction is intact. Moderate diffuse degenerative changes. No critical canal stenosis. At C2-C3, no significant canal or neural foraminal stenosis. At C3-C4, no significant canal or neuroforaminal stenosis. At C4-C5, moderate bilateral ne uroforaminal stenosis. Mild canal stenosis. At C5-C6, moderate bilateral neural foraminal stenosis. M ild/moderate canal stenosis. At C6-C7, moderate bilateral neural foraminal stenosis. Mild canal steno sis. Vertebral alignment: No traumatic malalignment. Straightening of the normal cervical lordosis, likely degenerative. No significant listhesis. Neck soft tissues: No acute finding. Calcifications noted involving the cervical carotid arteries mos tly bifurcation regions. Other: Lung apices show no acute infiltrate or pneumothorax. Moderate to severe biapical emphysemato us changes. IMPRESSION: CT head: 1. No acute intracranial CT abnormality. 2. Mild atrophy and chronic microvascular ischemic changes. CT cervical spine: 1. No evidence of acute cervical spine fracture or traumatic malalignment. 2. Moderate cervical spondylosis. 3. Moderate to severe biapical pulmonary emphysematous changes.
[2023-12-17] MEDS: MORPHINE SULFATE 4 MG/ML SYRINGE IVP STA (22:28)
--- NOTE | 2023-12-17 22:44 | CT ---
EXAMINATION TYPE: CT thor lumbar spine wo con CT DLP: 1719 mGycm, Automated exposure control for dose reduction was used. DATE OF EXAM: 12/17/2023 9:53 PM CLINICAL INDICATION:Male, 68 years old with history of fall down stairs, midline tenderness; FALL BAM N STAIRS, MIDLINE TENDERNESS COMPARISON: Previous spine x-rays from 06/14/2023 TECHNIQUE: Axial images of the thoracic and lumbar spine were obtained without contrast. Coronal and sagittal reformats were performed. 3-D reformats of the bones were created on a separate workstation and submitted for review. CT Contrast: No contrast used. FINDINGS: Osseous mineralization appears appropriate. No lytic/blastic lesions encountered. Vertebral body heights appear generally maintained. Small chronic appearing Schmorl's node in the sup erior endplate of T10. No evidence of acute compression or other fracture. Mild retrolisthesis of L3 on L4, appears degenerative. There is posterior hardware fusion with bilateral pedicle screws and posterior fixation rods L4-L5-S1 , with accompanying intervertebral disc prostheses and laminectomies. In the thoracic spine, no significant canal or foraminal stenosis is suggested. L1-L2, mild facet arthrosis without significant canal or foraminal stenosis. L2-L3, mild/moderate facet arthrosis and mild circumferential disc bulging. Mild canal and neural for aminal stenosis. L3-L4, there is 3 mm retrolisthesis L3 on L4 and moderate to severe facet joint hypertrophy and ligam entum flavum thickening, resulting in moderate to severe spinal canal stenosis and bilateral neural f oraminal stenosis, appears greater on the left than the right. L4-L5, postoperative changes of laminectomy and right facetectomy, unroofing the canal and the right neural foramen. Mild left foraminal stenosis. L5-S1, postoperative changes of laminectomy L5 and upper S1, with unroofing of the canal. Mild bilate ral neural foraminal stenoses. Mild degenerative changes with partial osseous bridging across the anterior aspect of the SI joints. Included upper sacrum and iliac bones show no fracture. The surgical hardware appears intact and norm ally aligned. Other: The visualized paraspinous soft tissues demonstrate some mucous secretions in the distal trachea and proximal mainstem bronchi, right greater than left; correlate for any chance of aspiration. Subsegmental atelectasis in the bilateral lungs. Moderate to severe pulmonary emphysematous changes w ith an upper lobe predominance. Moderate atherosclerotic calcifications of the aorta and visualized c oronary arteries. Pulmonary trunk is mildly prominent 3.1 cm which can be seen with pulmonary hyperte nsion. Ascending aorta appears fusiform ectatic measuring up to about 3.4 cm but incompletely seen. Additional moderate to heavy calcifications throughout the abdominal aorta and branches including the iliac arteries without evidence of AAA. There is a 9 x 5 mm left renal calculus, plus a couple of ot her punctate left renal calculi. On the right, there is a loose grouping of calculi seen towards the upper pole, the largest 4 mm. Other partially seen calcifications in the mid to lower right kidney co uld be small renal calculi versus vascular calcifications. Small exophytic nodule suggesting a cyst f rom the upper pole right kidney. No hydronephrosis bilaterally. There is mild fatty atrophy of the paraspinous musculature. IMPRESSION: 1. No evidence of acute fracture or traumatic malalignment of the thoracic or lumbar spine. 2. Mild/moderate multilevel degenerative changes, greatest in the mid to lower lumbar spine as descri bed above. 3. Postoperative changes from prior posterior hardware fusion and laminectomies L4-L5-S1.
--- NOTE | 2023-12-17 22:54 | XR ---
EXAM: XR chest 1V portable CLINICAL INDICATION:Male, 68 years old with history of trauma; [facility] COMPARISON: Chest 2 views 05/19/2023 TECHNIQUE: Chest single view. FINDINGS: Lines/tubes/devices: EKG leads overlie the chest. No indwelling lines are seen. Cardiomediastinum: Cardiac silhouette appears upper normal in size. Mild tortuosity and ectasia of the aorta with partial calcification. Vasculature: No significant vascular congestion Lungs/pleura: Subsegmental atelectasis in the bilateral lungs. Hyperinflation with areas of relative increased luce ncy and diffuse interstitial coarsening, consistent with known pulmonary emphysema. No confluent cons olidation, sizable effusion, or evidence of pneumothorax. Bones/soft tissues: Bony thorax appears grossly intact as seen. Mild/moderate degenerative changes of the spine and shoul ders. Regional soft tissues appear unremarkable. IMPRESSION: No acute cardiopulmonary findings.
--- NOTE | 2023-12-17 23:41 | XR ---
EXAMINATION TYPE: XR Hip RT and AP Pelvis DATE OF EXAM: 12/17/2023 COMPARISON: NONE HISTORY: Trauma. Fall injury. TECHNIQUE: A single AP view of the pelvis is obtained. Two views of the right hip are obtained. FINDINGS: There is no acute fracture/dislocation evident in the pelvis. The hip and sacroiliac join ts appear symmetric and within normal limits. Pubic symphysis is intact. Surgical change in the lowe r lumbar spine extends into the upper sacrum. Two views of right hip show no acute fracture or dislocation. No focal lytic or sclerotic lesion see n in the proximal right femur. The overlying soft tissue is unremarkable. IMPRESSION: There is no acute fracture or dislocation in the pelvis or right hip.
[2023-12-18 00:06] VITALS: PULSE 62
[2023-12-18 01:01] VITALS: BP 158/90; RESP 18; TEMP 98
== END 2023-12-18 00:35 | disposition home or self-care (01) ==
LOC: EC 20:19
DX: S30.0XXA Contusion of lower back and pelvis, initial encounter (principal); F17.200 Nicotine dependence, unspecified, uncomplicated; Z90.49 Acquired absence of other specified parts of digestive tract; W10.9XXA Fall (on) (from) unspecified stairs and steps, initial encounter
CPT/HCPCS: 36415; 93005; 80053; 85025; 85610; 85730; 73502; 71045; 72128; 72125; 72131; 70450; 99285; 96374; J2270